=== PATIENT | female | born 1990 | race Caucasian/White ===

== ENCOUNTER 2024-08-24 08:39 | Outpatient (CLI) | payer BC, SELFPAY ==
[2024-08-24 09:55] LABS: HCG,Quantitative 521 mIU/ml (0-5.42)
== END 2024-08-24 23:59 | disposition home or self-care (01) ==
LOC: LAB 08:46
PROVIDERS: Visit Provider Obstetrics & Gynecology
DX: N92.6 Irregular menstruation, unspecified (principal)
CPT/HCPCS: 36415; 84144; 84702

== ENCOUNTER 2024-08-27 11:59 | Outpatient (CLI) | payer BC, SELFPAY ==
[2024-08-27 13:29] LABS: HCG,Quantitative 735 mIU/ml (0-5.42)
== END 2024-08-27 23:59 | disposition home or self-care (01) ==
LOC: LAB 12:00
PROVIDERS: Visit Provider Obstetrics & Gynecology
DX: Z34.90 Encounter for supervision of normal pregnancy, unspecified, unspecified trimester (principal)
CPT/HCPCS: 36415; 84702

== ENCOUNTER 2024-08-29 10:36 | Outpatient (CLI) | payer BC, SELFPAY ==
[2024-08-29 11:52] LABS: HCG,Quantitative 309 mIU/ml (0-5.42)
== END 2024-08-29 23:59 | disposition home or self-care (01) ==
LOC: LAB 10:36
PROVIDERS: Visit Provider Obstetrics & Gynecology
DX: Z34.90 Encounter for supervision of normal pregnancy, unspecified, unspecified trimester (principal)
CPT/HCPCS: 36415; 84702

== ENCOUNTER 2024-09-15 11:49 | Outpatient (CLI) | payer BC, SELFPAY ==
[2024-09-15 12:56] LABS: HCG,Quantitative < 2 mIU/ml (0-5.42)
== END 2024-09-15 23:59 | disposition home or self-care (01) ==
LOC: LAB 11:50
PROVIDERS: Visit Provider Obstetrics & Gynecology
DX: O03.9 Complete or unspecified spontaneous abortion without complication (principal)
CPT/HCPCS: 36415; 84702

== ENCOUNTER 2024-11-16 11:23 | Outpatient (CLI) | payer BC, SELFPAY ==
[2024-11-16 13:05] LABS: HCG,Quantitative < 2 mIU/ml (0-5.42)
== END 2024-11-16 23:59 | disposition home or self-care (01) ==
LOC: LAB 11:25
PROVIDERS: Visit Provider Obstetrics & Gynecology
DX: Z34.81 Encounter for supervision of other normal pregnancy, first trimester (principal)
CPT/HCPCS: 36415; 84144; 84702

== ENCOUNTER 2025-01-15 12:48 | Outpatient (CLI) | payer BC, SELFPAY ==
[2025-01-15 14:09] LABS: HCG,Quantitative < 2 mIU/ml (0-5.42)
[2025-01-16 11:14] LABS: Progesterone 5.8 ng/mL (.)
== END 2025-01-15 23:59 | disposition home or self-care (01) ==
LOC: LAB 12:49
PROVIDERS: Visit Provider Obstetrics & Gynecology
DX: Z32.01 Encounter for pregnancy test, result positive (principal)
CPT/HCPCS: 36415; 84144; 84702

== ENCOUNTER 2025-03-15 09:17 | Outpatient (CLI) | payer BC, SELFPAY ==
[2025-03-15 10:22] LABS: HCG,Quantitative < 2 mIU/ml (0-5.42)
[2025-03-16 12:42] LABS: Progesterone 6.6 ng/mL (.)
== END 2025-03-15 23:59 | disposition home or self-care (01) ==
LOC: LAB 09:18
PROVIDERS: Visit Provider Obstetrics & Gynecology
DX: Z32.01 Encounter for pregnancy test, result positive (principal)
CPT/HCPCS: 36415; 84144; 84702

== ENCOUNTER 2025-04-12 09:33 | Outpatient (CLI) | payer BC, SELFPAY ==
[2025-04-12 10:56] LABS: HCG,Quantitative 26 mIU/ml (0-5.42)
[2025-04-13 08:12] LABS: Progesterone 17.4 ng/mL (.)
== END 2025-04-12 23:59 | disposition home or self-care (01) ==
LOC: LAB 09:35
PROVIDERS: Visit Provider Obstetrics & Gynecology
DX: Z32.00 Encounter for pregnancy test, result unknown (principal)
CPT/HCPCS: 36415; 84144; 84702

== ENCOUNTER 2025-04-14 10:00 | Outpatient (CLI) | payer BC, SELFPAY ==
[2025-04-14 11:18] LABS: HCG,Quantitative 108 mIU/ml (0-5.42)
== END 2025-04-14 23:59 | disposition home or self-care (01) ==
LOC: LAB 10:01
PROVIDERS: Visit Provider Obstetrics & Gynecology
DX: Z32.01 Encounter for pregnancy test, result positive (principal)
CPT/HCPCS: 36415; 84702

== ENCOUNTER 2025-04-26 20:08 | Emergency (ER) | payer BC, SELFPAY ==
--- NOTE | 2025-04-26 20:48 | ED_ITS ---
Discharge Plan Disposition Patient Disposition: Home, Self-Care Condition: Good Prescriptions Prescriptions: No Action progesterone micronized 200 mg capsule 200 mg PO HS Qty: 30 0RF Classic 28 mg iron- 800 mcg tablet 1 tab PO DAILY Qty: 30 11RF Referrals Follow up/Referrals: Mary Lou Conley DO [Staff Physician] - See instructions Provider,Referral, [Primary Care Provider] - See instructions Activity Restrictions/Add. Instructions Additional Instructions/Restrictions: You were evaluated in the emergency department today. It is common to have vaginal bleeding in the first trimester of . It can be completely normal, but heavy bleeding, painful bleeding, or passage of large clots can be signs of more serious problems, such as miscarriage or ectopic . Ectopic was ruled out on ultrasound. I recommend pelvic rest, which means no insertion of tampons, avoid sexual intercourse, avoid douching, and avoid vaginal insertion of any objects for 1 week or until you have been cleared by your OB. I recommend rest, so we have provided you with a work excuse. Avoid heavy lifting or strenuous activity until cleared by your OB. Please call your OB to help arrange very close follow-up for this. Return to the emergency department if you experience new or concerning symptoms, such as significant worsening of bleeding beyond that of a normal period, severe abdominal pain, lightheadedness, or passing out. Clinical Impressions Clinical Impression: Vaginal bleeding affecting early Stand Alone Forms Stand Alone Forms: Work/School Release Instructions Patient Instructions: DI for Vaginal Bleeding During , Early Bleeding Print Language Print Language: Armenian Discharge ED Provider: Agueda Cameron General Adult HPI General Chief complaint: Vaginal Bleeding Stated complaint: 5 wks antepartum, bleeding Time Seen by Provider: 04/26/25 20:41 History of Present Illness HPI narrative: This patient is a 34-year-old G2, P0 at estimated 5 weeks gestation by last menstrual period presenting to the emergency department for evaluation with concern for vaginal bleeding on toilet paper when she wipes. She notes that her first was a miscarriage around this time. She had her hCG level checked 04/14/2025 and it was 108 on medical record review. She has not yet seen OB for her first appointment. She denies any pain or other associated symptoms with this. No blood on her underwear or in toilet. Related Data Previous Rx's ?Medication ?Instructions ?Recorded progesterone micronized 200 mg 200 mg PO HS #30 caps 09/15/24 capsule vits no.126-ferrous fum 1 tab PO DAILY #30 tabs 12/23/24 28 mg iron-folic acid 800 mcg tablet (Classic ) Allergies Allergy/AdvReac Type Severity Reaction Status Date / Time No Known Allergies Allergy Verified 12/16/24 10:09 [facility] Disclaimer: The information contained in this section may have been updated after the patient was seen, as this information can be updated by other users. Medical History No significant medical problems Surgical History No history of previous surgery Family History Other Asthma Cancer Heart attack Hypertension Social History Smoking Status: Never smoker alcohol intake: never substance use type: denies use current occupational status: employed Travel in the last 8 weeks?: None Have you lived/traveled outside US in past 30 days?: No Contact w/someone who lives/traveled outside US past 30 days?: No Exposure to someone with infectious disease in past 14 days?: No Do you have a fever (greater than 100.4 F or 38 C)?: No Have you tested positive for COVID-19?: No Exposed to someone with COVID-19 in past 14 days?: No Do you have a sore throat?: No Do you have a cough?: No Do you have any weakness?: No Do you have any diarrhea?: No Are you experiencing any unusual bleeding?: No Do you have any muscle aches/pain?: No Do you have any abdominal pain?: No Are you experiencing loss of taste or smell?: No ROS Obtained: Yes All systems reviewed & no additional complaints except as documented Physical Exam General General appearance: alert and in no apparent distress Head Head exam: atraumatic and normocephalic Eye Eye exam: Present normal appearance, PERRL and EOMI ENT ENT exam: Present normal exam, normal oropharynx, mucous membranes moist and normal external ear exam Neck Neck exam: Present normal inspection, full ROM and trachea midline; Absent tenderness Chest Chest inspection: Present normal inspection and symmetric chest wall rise; Absent tenderness Respiratory Respiratory exam: Present normal lung sounds bilaterally; Absent respiratory distress, wheezes, stridor or accessory muscle use Cardiovascular Cardiovascular exam: Present regular rate and normal rhythm Abdominal Exam Abdominal exam: Present soft; Absent distention, tenderness or guarding Extremities Exam Extremities exam: Present normal inspection, full ROM and normal capillary refill; Absent tenderness or edema Back Exam Back exam: Present normal inspection and full ROM; Absent tenderness Neurological Exam Neurological exam: Present alert, oriented X3, CN II-XII intact and normal gait; Absent motor sensory deficit Psychiatric Psychiatric exam: Present normal affect and normal mood Skin Skin exam: Present warm and dry Medical Decision Making Medical Records Medical records reviewed: Yes I reviewed the patient's medical records. Screening: Per USPSTF and CDC recommendations, given the prevalence of disease in our region, it is our hospital?s policy to screen for HIV and viral Hepatitis for all patients aged 18 and over and those with ongoing risk factors. Chay Inquiry Pt receiving controlled substance: No Vital Signs: 04/26/25 20:54 04/26/25 20:57 04/26/25 22:00 Temperature 97.9 F 98.6 F Temperature Source Oral Pulse Rate 87 85 Pulse Rate [Right Radial] 93 H Respiratory Rate 16 16 Blood Pressure 147/87 H 149/87 H Blood Pressure [Right Arm] 152/86 H Blood Pressure Mean [Right Arm] 108 Blood Pressure Source Blood Pressure Source [Right Arm] Automatic Cuff Blood Pressure Position Blood Pressure Position [Right Arm] Supine 02 Sat by Pulse Oximetry 100 100 100 Oxygen Delivery Method Room Air 04/26/25 22:25 Temperature 97.9 F Temperature Source Oral Pulse Rate 80 Pulse Rate [Right Radial] Respiratory Rate 16 Blood Pressure 149/87 H Blood Pressure [Right Arm] Blood Pressure Mean [Right Arm] Blood Pressure Source Automatic Cuff Blood Pressure Source [Right Arm] Blood Pressure Position Supine Blood Pressure Position [Right Arm] 02 Sat by Pulse Oximetry Oxygen Delivery Method Room Air Lab Data Lab results reviewed: Yes I reviewed the patient's lab results. Lab Results 04/26/25 20:50: WBC 12.3 H, RBC 4.58, Hgb 12.9, Hct 37.9, MCV 82.8, MCH 28.2, MCHC 34.0, RDW 11.9, Plt Count 263, MPV 11.2 H, Neut % (Auto) 70.6, Lymph % (Auto) 22.8, Cassia % (Auto) 4.9, Eos % (Auto) 0.8, Baso % (Auto) 0.5, Neut # (Auto) 8.7 H, Lymph # (Auto) 2.8, Cassia # (Auto) 0.6, Eos # (Auto) 0.1, Baso # (Auto) 0.1, Sodium 137, Potassium 3.8, Chloride 103, Carbon Dioxide 26, Anion Gap 11.8, BUN 10, Creatinine 0.80, Estimated Creat Clear 127, Estimated GFR 83, Est GFR ( Amer) 101, Glucose 95, Calcium 9.6, Total Bilirubin 0.5, AST 24, ALT 14, Alkaline Phosphatase 37 L, Total Protein 7.4, Albumin 4.7, Globulin 2.7, Albumin/Globulin Ratio 1.7, HCG, Quant 18508 H, Blood Type B Positive 04/26/25 21:30: Urine Color Yellow, Urine Appearance Clear, Urine pH 6.0, Ur Specific [place] <= 1.005, Urine Protein Negative, Urine Glucose (UA) Negative, Urine Ketones 1+, Urine Blood 1+ A, Urine Nitrate Negative, Urine Bilirubin Negative, Urine Urobilinogen 0.2, Ur Leukocyte Esterase Negative, Ur Squamous Epith Cells Occasional 04/26/25 20:50 04/26/25 20:50 Orders (Tests/Meds): ORDERS Category Date Time Status ABO/RH Type Stat BBK 04/26/25 20:50 Completed POCUS Point of Care (ER Only) Stat Exams 04/26/25 22:01 Completed Beta HCG, Quant [HCG,Quantitative] Stat Lab 04/26/25 20:50 Completed Complete Blood Count Auto Diff Stat Lab 04/26/25 20:50 Completed Comprehensive Metabolic Panel Stat Lab 04/26/25 20:50 Completed UA [Urinalysis and Microscopic] Stat Lab 04/26/25 21:30 Completed Medical Decision Narrative: In summary, this patient is a 34-year-old female presenting to the Emergency Department for evaluation of vaginal bleeding in the setting of . Differential diagnoses considered include but are not limited to threatened , missed , implantation bleeding, subchorionic hemorrhage. Ruling out the most morbid conditions drove assessment. I reviewed past medical records and noted hCG 04/14/2025 was 108. On exam, the patient is lying in bed in no acute distress normal vitals on cardiac telemetry. Abdominal exam is benign with no tenderness or guarding. Workup included CBC, CMP, quantitative hCG, urinalysis, blood type. Labs demonstrated very mild leukocytosis which is nonspecific. hCG has appropriately increased to 14,000. Labs are otherwise reassuring. Blood type is B+, so no indication for RhoGAM. Urinalysis is not concerning for infection. I performed bedside ultrasound and saw a visible yolk sac within the uterus. I could not identify cardiac activity as it is early. Advised she follow-up closely with OB over the next 24 to 48 hours. I also encouraged pelvic rest. I feel patient is appropriate for discharge with instructions for very close follow-up and supportive care. Strict return precautions given Procedures Limited Ultrasound Findings:: Limited OB ultrasound Indication: Positive test, vaginal bleeding Identified structures: [-Uterus -Left adnexa -Right adnexa -Pouch of Brian] Findings: Uterus: Definitive IUP FHR: Unable to visualize cardiac activity given early gestational age Right adnexa: Normal Left adnexa: Normal Cul de sac: Free fluid absent Impression: -IUP: Present, visible yolk sac - heart rate: Unable to detect -Ectopic : Absent -Free fluid: Absent Images were saved to permanent archive The study was technically adequate CPT Transabdominal: 06761-09 This study was performed by me, and I personally interpreted all images/videos. Based on my clinical judgement, these images were adequate and did not necessitate further imaging. Critical Care Critical Care Time Critical Care Time: No
[2025-04-26 20:54] VITALS: BP 152/86; PULSE 93; RESP 16; TEMP 36.6; O2SAT 100; BMI 32.0
[2025-04-26 20:57] VITALS: BP 147/87; PULSE 87; RESP 16; TEMP 37; O2SAT 100
[2025-04-26 21:03] LABS: Basophils # 0.1 K/mm3 (0-0.2); Basophils % 0.5 % (0.1-2.0); Eosinophils # 0.1 Kmm3 (0.0-0.4); Eosinophils % 0.8 % (0.1-12.0); Hematocrit 37.9 % (37.0-47.0); Hemoglobin 12.9 g/dL (12.2-16.2); Immature Granulocytes # 0.05 10^3uL; Immature Granulocytes % 0.4 %; Lymphocytes # 2.8 K/mm3 (0.7-4.5); Lymphocytes % 22.8 % (10-50); Mean Corpuscular Hemoglobin 28.2 pg (27.0-31.2); Mean Corpuscular Volume 82.8 fl (81-99); Mean Platelet Volume 11.2 fl (7.4-10.4); Monocytes # 0.6 K/mm3 (0.1-1.0); Monocytes % 4.9 % (1.7-9.3); Neutrophils # 8.7 K/mm3 (1.8-7.8); Neutrophils % 70.6 % (37.0-80.0); Nucleated Red Blood Cells # 0 10^3/uL; Nucleated Red Blood Cells % 0 %; Platelet Count 263 K/mm3 (142-424); Red Blood Count 4.58 M/mm3 (4.20-5.40); Red Cell Distribution Width 11.9 % (11.5-17.5); Red Cell Distribution Width-SD 36.3 fL; White Blood Count 12.3 K/mm3 (4.8-10.8)
[2025-04-26 21:09] LABS: Albumin Level 4.7 g/dl (3.5-5.0); Chloride 103 mmol/L (98-107); Sodium 137 mmol/L (136-145)
[2025-04-26 21:10] LABS: Potassium 3.8 mmoL/L (3.5-5.1)
[2025-04-26 21:12] LABS: Alanine Aminotransferase 14 U/L (12-78); Albumin/Globulin Ratio 1.7 (1.1-1.8); Alkaline Phosphatase 37 U/L (38-126); Anion Gap 11.8 mEq/L (5-15); Aspartate Amino Transferase 24 U/L (14-36); Bilirubin,Total 0.5 mg/dl (0.2-1.3); Blood Urea Nitrogen 10 mg/dl (7-17); Carbon Dioxide 26 mmol/L (22.0-30.0); Creatinine Clearance Estimated 127 mL/min (50-200); Estimated Glomerular Filt Rate 83 ml/min (>60); GFR (African American) 101 ML/MIN (>60); Globulin 2.7 g/dL (1.3-3.2); Total Protein,Serum 7.4 g/dl (6.3-8.2)
[2025-04-26 21:13] LABS: Calcium 9.6 mg/dl (8.4-10.2); Glucose 95 mg/dl (74-100)
[2025-04-26 21:30] LABS: HCG,Quantitative 14067 mIU/ml (0-5.42)
[2025-04-26 21:36] LABS: Microscopic, Urine URINE MICROSCOPIC (MICROSCOPIC)
[2025-04-26 21:53] LABS: Appearance,Urine CLEAR (Clear); Bilirubin,Urine Negative (Negative); Blood, Urine 1+ (Negative); Color,Urine YELLOW (Yellow); Glucose,Urine (UA) Negative (Negative); Ketones,Urine 1+ (Negative); Leukocyte Esterase,Urine Negative (Negative); Nitrate,Urine Negative (Negative); Protein,Urine Negative (Negative); Specific Gravity, Urine <= 1.005 (1.005-1.030); Squamous Epithelial Cell,Urine Occasional #/hpf (0-5); Urobilinogen,Urine 0.2 EU/dl (0.2)
[2025-04-26 22:00] VITALS: BP 149/87; PULSE 85; O2SAT 100
[2025-04-26 22:25] VITALS: BP 149/87; PULSE 80; RESP 16; TEMP 36.6; O2SAT 98
== END 2025-04-26 22:41 | disposition home or self-care (01) ==
PROVIDERS: Emergency Provider Emergency Medicine
DX: O20.9 Hemorrhage in early pregnancy, unspecified (principal); Z3A.01 Less than 8 weeks gestation of pregnancy
CPT/HCPCS: 80053; 81001; 84702; 85025; 86900; 86901; 99284

== ENCOUNTER 2025-04-28 09:33 | Outpatient (CLI) | payer BC, SELFPAY ==
[2025-04-28 10:59] LABS: HCG,Quantitative 20042 mIU/ml (0-5.42)
== END 2025-04-28 23:59 | disposition home or self-care (01) ==
PROVIDERS: Visit Provider Obstetrics & Gynecology
DX: O20.9 Hemorrhage in early pregnancy, unspecified (principal); Z3A.00 Weeks of gestation of pregnancy not specified
CPT/HCPCS: 36415; 84702

== ENCOUNTER 2025-04-30 14:07 | Outpatient (CLI) | payer BC, SELFPAY ==
--- NOTE | 2025-04-30 14:15 | US_ITS ---
PROCEDURE: US OB <= 14 WEEKS FETUS CLINICAL INDICATION: Dates/Viability COMPARISON: No exams were available for comparison FINDINGS: Transvaginal sonographic images of the pelvis were obtained. Her last menstrual period is unknown. An intrauterine gestational sac is present with a pole with a crown-rump length of 0.25cm This correlates to a gestational age of 5weeks 6days. PAULA 12/25/2025 heart tones are present with an FHR of 102bpm. Yolk sac is noted. The yolk sac measures 3.5mm. The right ovary is seen and appears normal. There is a small amount of free fluid adjacent to the right ovary. There appears to be a corpus luteum in the right ovary. The left ovary is seen and appears normal. There is no fluid in the cul-de-sac. IMPRESSION: 1. Viable embryo within the uterine cavity. Cardiac activity is seen. 2. Embryo measures 5 weeks 6 days and PAULA will be 12/25/2025. 3. Both ovaries are seen and appear normal. The right ovary contains a corpus luteum. There is a small amount of fluid adjacent to the right ovary. 4. No fluid in the cul-de-sac. Dictated by: Polo Catherine MD 05/01/2025 09:08 Polo Catherine MD in OV 05/01/2025 09:08
== END 2025-04-30 23:59 | disposition home or self-care (01) ==
LOC: RAD 14:07
PROVIDERS: PCP Obstetrics & Gynecology; Visit Provider Obstetrics & Gynecology
DX: O20.9 Hemorrhage in early pregnancy, unspecified (principal); O34.81 Maternal care for other abnormalities of pelvic organs, first trimester; N83.11 Corpus luteum cyst of right ovary; N83.8 Other noninflammatory disorders of ovary, fallopian tube and broad ligament; Z3A.01 Less than 8 weeks gestation of pregnancy
CPT/HCPCS: 76801

== ENCOUNTER 2025-05-13 14:57 | Outpatient (CLI) | payer BC, SELFPAY ==
[2025-05-13 15:27] LABS: Basophils % 0.3 % (0.1-2.0); Eosinophils # 0.1 Kmm3 (0.0-0.4); Eosinophils % 1.3 % (0.1-12.0); Hematocrit 35.2 % (37.0-47.0); Hemoglobin 12.1 g/dL (12.2-16.2); Immature Granulocytes # 0.04 10^3uL; Immature Granulocytes % 0.4 %; Lymphocytes # 2.4 K/mm3 (0.7-4.5); Lymphocytes % 22.9 % (10-50); Mean Corpuscular HGB Conc 34.4 g/dL (31.8-35.4); Mean Corpuscular Hemoglobin 28.7 pg (27.0-31.2); Mean Corpuscular Volume 83.4 fl (81-99); Monocytes # 0.6 K/mm3 (0.1-1.0); Monocytes % 5.8 % (1.7-9.3); Neutrophils # 7.1 K/mm3 (1.8-7.8); Neutrophils % 69.3 % (37.0-80.0); Nucleated Red Blood Cells # 0 10^3/uL; Nucleated Red Blood Cells % 0 %; Platelet Count 260 K/mm3 (142-424); Red Blood Count 4.22 M/mm3 (4.20-5.40); Red Cell Distribution Width 12.1 % (11.5-17.5); Red Cell Distribution Width-SD 36.7 fL; White Blood Count 10.3 K/mm3 (4.8-10.8)
[2025-05-13 16:27] LABS: HIV Combo NEGATIVE (Negative)
[2025-05-13 16:35] LABS: Hepatitis C Ab Qual. W/ RFX NEGATIVE (Negative)
[2025-05-14 05:09] LABS: Hepatitis B Surface Antigen Negative (Negative)
[2025-05-14 09:32] LABS: Rubella Antibodies, IgG 1.61 index (Immune >0.99)
[2025-05-14 09:48] LABS: RPR W/RFX Titers Nonreactive (Nonreactive)
== END 2025-05-13 23:59 | disposition home or self-care (01) ==
LOC: LAB 14:57
PROVIDERS: Visit Provider Obstetrics & Gynecology
DX: Z34.01 Encounter for supervision of normal first pregnancy, first trimester (principal)
CPT/HCPCS: 36415; 85025; 86592; 86762; 86803; 86850; 87340; 87389; 87491; 87591

== ENCOUNTER 2025-07-07 11:08 | Outpatient (CLI) | payer BC, SELFPAY ==
[2025-07-07 11:24] LABS: Hematocrit 34.7 % (37.0-47.0); Hemoglobin 12.0 g/dL (12.2-16.2); Immature Granulocytes % 0.7 %; Mean Corpuscular HGB Conc 34.6 g/dL (31.8-35.4); Mean Corpuscular Hemoglobin 28.8 pg (27.0-31.2); Mean Corpuscular Volume 83.2 fl (81-99); Nucleated Red Blood Cells % 0 %; Platelet Count 216 K/mm3 (142-424); Red Blood Count 4.17 M/mm3 (4.20-5.40); Red Cell Distribution Width-SD 37.1 fL; White Blood Count 8.9 K/mm3 (4.8-10.8)
[2025-07-07 11:48] LABS: Alanine Aminotransferase 17 U/L (12-78); Albumin Level 4.0 g/dl (3.5-5.0); Albumin/Globulin Ratio 1.7 (1.1-1.8); Alkaline Phosphatase 34 U/L (38-126); Anion Gap 8.9 mEq/L (5-15); Aspartate Amino Transferase 28 U/L (14-36); Bilirubin,Total 0.3 mg/dl (0.2-1.3); Blood Urea Nitrogen 6 mg/dl (7-17); Calcium 8.9 mg/dl (8.4-10.2); Carbon Dioxide 24 mmol/L (22.0-30.0); Chloride 105 mmol/L (98-107); Creatinine,Serum 0.50 mg/dl (0.52-1.04); Estimated Glomerular Filt Rate 142 ml/min (>60); GFR (African American) 172 ML/MIN (>60); Globulin 2.4 g/dL (1.3-3.2); Glucose 85 mg/dl (74-100); Potassium 3.9 mmoL/L (3.5-5.1); Sodium 134 mmol/L (136-145); Total Protein,Serum 6.4 g/dl (6.3-8.2); Uric Acid 3.1 mg/dl (2.5-6.2)
== END 2025-07-07 23:59 | disposition home or self-care (01) ==
LOC: LAB 11:09
PROVIDERS: Visit Provider Obstetrics & Gynecology
DX: O16.9 Unspecified maternal hypertension, unspecified trimester (principal)
CPT/HCPCS: 36415; 80053; 84550; 85025

== ENCOUNTER 2025-08-04 12:51 | Outpatient (CLI) | payer BC, SELFPAY ==
--- NOTE | 2025-08-04 13:00 | US_ITS ---
PROCEDURE: US OB /MATERNAL DETAIL CLINICAL INDICATION: schedule 20 week anatomy scan COMPARISON: US US OB <= 14 WEEKS FETUS from 04/30/2025 FINDINGS: Transabdominal sonographic images of the pelvis were obtained. From her established due date she is 19 weeks 5 days. Single viable intrauterine gestation. Breech position. Placenta: Anteriorplacenta grade 1. There is an average amount of fluid. The cervix appears satisfactory. Closed and measuring 3.93 cm in length. Complete survey performed and was unremarkable on the submitted images as in PACS. No discrete anomalies identified on survey imaging by technologist. Active fetus. Three-vessel cord with likely marginal inferior insertion. 4- chamber heart noted. Situs, aortic arch, LVOT, RVOT, three-vessel view appear normal. Survey of brain & ventricles Unremarkable. Cerebellum, thalamus, choroid plexus, cisterna magna appear normal. Face and neck survey unremarkable. Profile, nasion, lips and nose appeared normal. Diaphragm and chest views unremarkable. Abdomen: Both kidneys noted and unremarkable. Stomach and bladder noted and satisfactory. Spine: Survey of the spine satisfactory with no anomalies identified nor imaged. Cervical, thoracic, lower spine appear normal. Both arms and legs noted. Amniotic Fluid: Adequate. MVP 3.49 cm Measurements: Average ultrasound age 18weeks 5days. Estimated due date by ultrasound age 0112/31/2025. Estimated weight 248g BPD = 18weeks 4days HC = 19weeks 0 days AC = 19weeks 1day FL = 18weeks 1day Growth Percentile= 5 Heart Rate = 142bpm Cerebellum = 19weeks 2days Humerus = 18weeks 3days HC/AC is 1.19 FL/BPD is 0.65 FL/AC is 0.2 IMPRESSION: 1. Viable fetus in the breech presentation with an anterior placenta grade 1. 2. Fluid is within normal limits with an MVP 3.49 cm. 3. Anatomical scan appears normal. 4. Difficult to see but it appears that the cord is marginally inserted to the placenta inferiorly. Suggest repeat scan at 28 weeks. 5. biometry is consistent with the dates. Dictated by: Polo Catherine MD 08/04/2025 19:07 Polo Catherine MD in OV 08/04/2025 19:07
== END 2025-08-04 23:59 | disposition home or self-care (01) ==
LOC: RAD 12:52
PROVIDERS: PCP Obstetrics & Gynecology; Visit Provider Obstetrics & Gynecology
DX: O32.1XX0 Maternal care for breech presentation, not applicable or unspecified (principal); O16.2 Unspecified maternal hypertension, second trimester; O03.9 Complete or unspecified spontaneous abortion without complication; Z3A.19 19 weeks gestation of pregnancy
CPT/HCPCS: 76811

== ENCOUNTER 2025-10-01 09:24 | Outpatient (CLI) | payer BC, SELFPAY ==
--- OUTSIDE RECORDS SUMMARY | 2024-08-25 11:00 | XMS_ITS ---
Author Organization [facility] Address [address] [place] [address] Care Team Providers Care Senior Logistics Manager Name Role Phone Matamoros, Henna Unavailable [phone] Sharon Bautista Unavailable [phone] Results Component Value Reference Range Notes *US OB Complete Transabdomin al/Vaginal Reviewed date:08/27/2024 04:41:33 PM Interpretation: Performing Lab: Notes/Report: [facility] Women's Health Transvaginal Obstetric Study Report Name: FARIDA RONQUILLO Accession/Encounter No:[id number] : 1990 Age: 34 Gender: F Race: [...] 1 of 1 Imaging Center - , [facility] Lyn REASON FOR VISIT early OB Bleeding LLQ pain Social History Sex Assigned At : Social History Observation Description Sex Assigned At Female Encounters Encounter Location Date Provider Diagnosis [facility]-NR [address] [place] [address] 08/25/2024 Sharon Bautista Bleeding in early O20.9 Assessments Encounter Date Diagnosis (ICD Code) Assessment Notes Treatment Notes Treatment Clinical Notes Section Notes 08/25/2024 Bleeding in early (ICD-10 - O20.9) Plan Of Treatment No Information Progress Notes * Charles RONQUILLOJozefB: 992 (35 yo F)Acc No.[id number]:08/25/2024 Progress Note Patient: Farida Zimmerman Provider: Andrey Bautista NP :1990 A ge:34 Y S ex:Female Date:08/25/2024 Address:[facility] [address], [place] , [id number] Subjective: * Chief Complaints: * e promise OB Bleeding LLQ pain Assessment: * Assessment: 1. B leeding in early - O20.9 Plan: * Treatment: Billing Information: * Procedure Codes: * Electronic signature of Octavio Bautista NP on 10/01/2025 at 09:38 AM EDT Sign off status: Pending Visit Status: Nancy RAMÍREZ (Check Out) * Provider: Andrey Bautista NP Date: 0 08/25/2024 Generated for Jesika trevino/Marlney/Amandaitting on: 1 09:38 AM EDT
--- OUTSIDE RECORDS SUMMARY | 2024-12-25 10:15 | XMS_ITS ---
Author Organization [facility] Address [address] [place] [address] Care Team Providers Care Counter Weigher Name Role Phone Henna Matamoros Unavailable [phone] Brandy Barillas Unavailable [phone] REASON FOR VISIT Annual Social History Sex Assigned At : Social History Observation Description Sex Assigned At Female Section Notes: Age you started smokin Amount of Use: Some days but not every day Do you have any moravian or culture customs that your provider should [...] No Encounters Encounter Location Date Provider Diagnosis [facility] [address] [place] [address] 12/25/2024 Brandy Barillas Plan Of Treatment No Information Progress Notes * Charles RONQUILLOJozefB: [birth year] (35 yo F)Acc No.[id number]:12/25/2024 Progress Note Patient: Julia Zimmerman Provider: Errol Barillas MD :1990 A ge:34 Y S ex:Female Date:12/25/2024 Address:[address], [place], [id number] Subjective: * Chief Complaints: * A nnual * Medical History: Asthma Medical History Verified * Corporate Real Estate Specialist History: P ap Smear History: D ate [...] * Hospitalization/Major Diagno stic Procedure: Admit for [place] 2011 Hospitalization Verified. * Family History: F [...] not every day Do you have any moravian or culture customs that your provider should [...] Electronic signature of Alon Barillas MD on 10/01/2025 at 09:37 AM EDT Sign off status: Pending Visit Status: N /S (No-Show) * Provider: Errol Barillas MD Date: 0 12/25/2024 Generated for Jesika trevino/Marleny/Macey on: 09:37 AM EDT
--- OUTSIDE RECORDS SUMMARY | 2025-09-02 10:30 | XMS_ITS | Encounter Summary ---
Author Organization [facility] Address [address] [id number] Care Team Providers Care Mainspring Strip Gauger Name Role Phone Provider, No Known Primary [...] second trimester , unspecified gestational age Procedures [facility] [place] Amy Conley DO [address] [place] [address] [place] [address] Phone: tel: fax: [facility] [address] [place] [address] Phone: tel: Referral ID Status Reason Start Date Expiration Date Visits Re quested Visits Authorized [id number] Closed 08/05/2025 11/04/2026 1 1 Reason for Visit * Diagnostic Imaging (Routine) - Closed Specialty Diagnoses / Procedures Referred By Ritesh winchester Referred To Contact Radiology Diagnoses Maternal care for other known or suspected poor growth, second trimester, not applicable or unspecified Marginal insertion of umbilical cord affecting management of mother in second trimester , unspecified gestational age Procedures [facility] [place] Amy oCnley DO [address] [place] [address] [place] [address] Phone: tel: fax: [facility] [address] [place] [address] Phone: tel: Referral ID Status Reason Start Date Expiration Date Visits Re quested Visits Authorized [id number] Closed 08/05/2025 11/04/2026 1 1 Encounter Details Date Type Department Care Team (Latest Contact Info) Description 09/02/2025 10:30 AM EDT - 09/02/2025 11:59 PM EDT Hospital Encounter [facility] [address] [place] [id number] Amy Conley DO [address] [facility] [address] [phone] Maternal care for other known or suspected [...] Every 6 (Six) Hours As Needed. 05/13/2025 documented as of this encounter Plan of Treatment Upcoming Encounters Date Type Department Care Team (Late st Contact Info) Description 10/11/2025 10:15 AM EST Office Visit [facility] MATERNAL MEDICINE [address] [facility] [address] [place] [address] 10/11/2025 10:15 AM EST Appointment [facility] [address] [place] [address] documented as of this encounter Procedures Procedure Name Priority Date/Time Associated Diagnosis Comments [facility] Routine 09/02/2025 11:30 AM EDT Maternal care for other known or suspected poor growth, second trimester, not applicable or unspecified Marginal insertion of umbilical cord affecting management of mother in second trimester , unspecified gestational age documented in this encounter Results * [facility] (09/02/2025 11:30 AM EDT) Anatomical Region Laterality Modality Ultrasound 09/02/2025 10:5 6 AM EDT Narrative 09/02/2025 11:36 AM EDT PAT NAME: FARIDA LYNN [facility] REC#: [id number] DA: 1990 PAT GEND: F PAT TYPE: O EXAM BLAISE: [id number] REF PHYS AMY CONLEY Addendum ========= CORRECTED [...] EFW (oz) 0 oz EFW by: Hadlock (GMN-SS-IQ-FL) Extended Tibia 34.2 mm 22w 5d 15% Emeli Fibula 34.9 mm 23w 0d 35% Emeli Foot 41.2 mm 17% Chitty Radius 31.2 mm 22w 1d 32% Emeli Ulna 30.8 mm 21w 4d <1% Emeli Cav. septi pel. tr 3.7 mm Molecular Genetic Pathologist 5.7 mm CM 6.1 mm 57% Nicolaides [...] normal IVC: normal 3-vessel view: Appears normal 8-sfcluc-pickhyb view: Appears normal Rt lung: Appears normal [...] increased rest and nutrition. Coding ====== Description: 46573-72 Detailed Ultrasound Description: 69715-35 Doppler Umbilical Artery Septic Tank Service Technician: RT Benjamin Hutchison , [facility] Physician: Jose Wesley MD, FACOG Electronically signed by: Jose Wesley MD, FACOG at: 08:55 Procedure Note Brian Wesley MD - 09/03/2025 PAT NAME: FARIDA LYNN MED REC#: [id number] DA: 1990 PAT GEND: F PAT TYPE: O EXAM BLAISE: [id number] REF PHYS AMY CONLEY Addendum ========= CORRECTED REPORT - CPT code correction Comparison Studies There are no relevant prior studies to which this study is beingcompared Patient Status Outpatient Indication ======== Concern for IUGR. Marginal PCI. Obesity BMI 33. Maternal Assessment Weditk349 cm Height (ft)5 ft Height (in)3 in Apdnzj04 kg Weight (lb)188 lb BMI33.31 kg/m Method ======= Transabdominal ultrasound examination. View: Good view ========= Botello . Number of fetuses: 1 Dating ====== Method of dating:based on stated PAULA GA by prior mnybxsvelp34 w + 6 d PAULA by prior assessment:12/24/2025 Ultrasound examination on:09/02/2025 GA by U/S based upon:AC, BPD, Femur, HC GA by U/S21 w + 6 d PAULA by U/S:01/07/2026 Assigned:based on stated PAULA, selected on 09/02/2025 Assigned GA23 w + 6 d Assigned PAULA:12/24/2025 rrdowr588 d Biometry Standard BPD51.8 mm 21w 5d 1% Hadlock OFD71.4 mm 23w 6d 48% Emeli HC197.5 mm 22w 0d <1% Hadlock Cerebellum tr25.9 mm 23w 2d 54% Hill AC162.5 mm 21w 2d <1% Hadlock Femur38.3 mm 22w 2d 4% Hadlock Zhtzxqy00.6 mm 21w 6d 2% Emeli HC / AC1.22 EMP524 g 21w 4d <1% Hadlock EFW (lb)1 lb EFW (oz)0 oz EFW by:Hadlock (VAK-KS-BJ-FL) Extended Tibia34.2 mm 22w 5d 15% Emeli Yibdpk06.9 mm 23w 0d 35% Emeli Foot41.2 mm 17% Chitty Hnqdya48.2 mm 22w 1d 32% Emeli Ulna30.8 mm 21w 4d <1% Emeli Cav. septi pel. tr3.7 mm Vp5.7 mm CM6.1 mm 57% Nicolaides Nasal bone7.4 mm Head / Face / Neck Cephalic index0.73 4% Nicolaides Extremities / Bony Struc FL / BPD0.74 FL / HC0.19 FL / AC0.24 Other Structures AUL548 bpm General Evaluation Cardiac activity present. FHR [...] view:Appears normal SVC:normal IVC:normal 3-vessel view:Appears normal 4-lfjimq-wziryyb view:Appears normal Rt lung:Appears normal Lt lung:normal [...] Structures Uterus / Cervix Cervix:Visualized Approach:Transabdominal Cervical kzfevk98.3 mm Ovaries / Tubes / Adnexa Rt [...] Recommend increased rest and nutrition. Coding ====== Description:18578-28 Detailed Ultrasound Description:59756-72 Doppler Umbilical Artery Septic Tank Service Technician: RT Benjamin Hutchison , [facility] [...] age documented in this encounter Care Teams Mainspring Strip Gauger Relationship Specialty Start Date End Date Provider, [place] [address] PCP - General 08/19/24 documented as of this encounter
--- OUTSIDE RECORDS SUMMARY | 2025-09-02 10:30 | XMS_ITS | Encounter Summary ---
Author Organization [facility] Address [address] [phone] Care Team Providers Care Cashier Tube Room Name Role Phone Provider, No Known Primary Care Provider Unavail able Reason for Referral * Diagnostic Imaging (Routine) - Closed Specialty Diagnoses / Procedures Referred By Ritesh winchester Referred To Contact Radiology Diagnoses Uterine size-date discrepancy in second trimester Marginal insertion of umbilical cord affecting management of mother in second trimester 23 weeks gestation of Maternal chronic hypertension in second trimester Procedures [facility] Brian Wesley MD [address] [facility] [address] [place] [address] Phone: tel: fax: [facility] [address] [place] [address] Phone: tel: Referral ID Status Reason Start Date Expiration Date Visits Re quested Visits Authorized [id number] Closed 09/02/2025 12/02/2026 1 1 Reason for Visit * Reason Comments concern for IUGR, MPCI Encounter Details Date Type Department Care Team (Late st Contact Info) Description 09/02/2025 10:30 AM EDT Office Visit [facility] MATERNAL MEDICINE [address] [facility] [address] [place] [address] Brian Wesley MD [address] [facility] [address] [place] [address] Uterine size-date discrepancy in second trimester [...] AM EDTAssociated Problem(s): Maternal chronic hypertension in second trimester Patient is seen in our office [...] weeks time to assess growth. Orders: - [facility]; Future 2. Marginal insertion of umbilical cord affecting management of mother in second trimester - [facility]; Future 3. 23 weeks gestation of - [facility]; Future 4. Maternal chronic hypertension [...] in 2 to 3 weeks. Orders: - [facility]; Future Other orders - NIFEdipine [...] or [facility]. Brian Wesley MD Maternal Medicine, [facility] 09/02/2025 documented in this encounter Plan of Treatment Upcoming Encounters Date Type Department Care Team (Late st Contact Info) Description 10/11/2025 10:15 AM EST Office Visit [facility] MATERNAL MEDICINE [address] [facility] [address] [address] [place] [address] 10/11/2025 10:15 AM EST Appointment [facility] [address] [place] [address] documented as of this encounter Results * [facility] (09/23/2025 10:28 AM EDT) Anatomical Region Laterality Modality Ultrasound 09/23/2025 10:0 6 AM EDT Narrative 09/23/2025 10:58 AM EDT PAT NAME: FARIDA LYNN MED REC#: [id number] DA: [id number] PAT GEND: F PAT TYPE: O EXAM BLAISE: [id number] REF PHYS AMY CONLEY Comparison Studies The [...] Hadlock Humerus 39.5 mm 24w 0d <1% Eemli HC / AC 1.16 EFW 785 g 25w 0d 3% Hadlock EFW (lb) 1 lb EFW (oz) 12 oz EFW by: Hadlock (CHF-OQ-ZG-FL) Extended Tibia 40.1 mm 25w 2d 8% Emeli Fibula 39.3 mm 24w 5d 14% Emeli Foot 47.9 mm 9% Chitty Radius 32.4 mm 23w 1d 13% Emeli Ulna 37.2 mm 24w 5d 1% Emeli Cav. septi pel. tr 5.4 mm Blindmaker 4.1 mm CM 8.6 mm 94% Nicolaides [...] Heart / Thorax 3-vessel view: Appears normal 3-lsxlqs-gaztfqt view: Appears normal Cord insertion: Normal Stomach: [...] Follow-up scheduled in 2wks. Coding ======= Description: 57339-16 Follow Up Ultrasound Description: 67492-90 Doppler Umbilical Artery Agency Legal Counsel: RT Benjamin Hutchison , [facility] Physician: Lis Jeffrey MD Electronically signed by: Lis Jeffrey MD at: 10:58 Procedure Note Lis Jeffrey MD - 09/23/2025 PAT NAME: FARIDA LYNN MED REC#: [id number] DA: 1990 PAT GEND: F PAT TYPE: O EXAM BLAISE: [id number] REF PHYS AMY CONLEY Comparison Studies The findings of this study are compared to the prior ultrasound studydated 09/02/25 Patient Status Outpatient Indication ======== IUGR. Marginal PCI. Obesity BMI 34. Maternal Assessment Qkydol926 cm Height (ft)5 ft Height (in)3 in Pmysgq15 kg Weight (lb)191 lb BMI33.84 kg/m Method ======= Transabdominal ultrasound examination. View: Suboptimal view: limited byfetal position ========= Botello . Number of fetuses: 1 Dating ====== Method of dating:based on stated PAULA GA by prior jpbltpkbsy12 w + 6 d PAULA by prior assessment:12/24/2025 Ultrasound examination on:09/23/2025 GA by U/S based upon:AC, BPD, Femur, HC GA by U/S25 w + 2 d PAULA by U/S:01/04/2026 Previous dating:based on stated PAULA, selected on 09/02/2025 Agreed PAULA of previous datin12/24/2025 Assigned:based on stated PAULA, selected on 09/23/2025 Assigned GA26 w + 6 d Assigned PAULA:12/24/2025 niehvf556 d Biometry Standard BPD62.4 mm 25w 2d 4% Hadlock OFD84.3 mm 27w 2d 66% Emeli HC235.6 mm 25w 4d 3% Hadlock Cerebellum tr32.3 mm 27w 4d 87% Hill AC202.9 mm 24w 6d 3% Hadlock Femur46.7 mm 25w 4d 7% Hadlock Tkgmwdi80.5 mm 24w 0d <1% Emeli HC / AC1.16 NAE584 g 25w 0d 3% Hadlock EFW (lb)1 lb EFW (oz)12 oz EFW by:Hadlock (AOF-QH-GQ-FL) Extended Tibia40.1 mm 25w 2d 8% Emeli Qrbide31.3 mm 24w 5d 14% Emeli Foot47.9 mm 9% Chitty Jhnwoq90.4 mm 23w 1d 13% Emeli Ulna37.2 mm 24w 5d 1% Emeli Cav. septi pel. tr5.4 mm Vp4.1 mm CM8.6 mm 94% Nicolaides Head / Face / Neck Cephalic index0.74 8% Nicolaides Extremities / Bony Struc FL / BPD0.75 FL / HC0.20 FL / AC0.23 Other Structures HOG586 bpm General Evaluation Cardiac activity present. FHR [...] normal Heart / Thorax 3-vessel view:Appears normal 8-fpvzdk-cqgmggq view:Appears normal Cord insertion:Normal Stomach:Appears normal Kidneys:Appears normal Bladder:Appears normal Gender:female Wants to know gender:yes Maternal Structures Uterus / Cervix Cervix:Visualized Approach:Transabdominal Cervical dapiqd05.3 mm Doppler Arterial Umbilical A PI1.15 71% [...] Recommendation Follow-up scheduled in 2wks. Coding ======= Description:03915-65 Follow Up Ultrasound Description:66922-35 Doppler Umbilical Artery Agency Legal Counsel: RT Benjamin Hutchison , [facility] Physician: Lis Jeffrey MD [...] trimester documented in this encounter Care Teams Cashier Tube Room Relationship Specialty Start Date End Date Provider, [place] [address] PCP - General 08/19/24 documented as of this encounter
--- OUTSIDE RECORDS SUMMARY | 2025-09-23 09:52 | XMS_ITS | Encounter Summary ---
Author Organization [facility] Address [address] [place] [address] Care Team Providers Care Show Worker Name Role Phone Provider, No Known [...] chronic hypertension in second trimester Procedures [facility] [place] Brian Wesley MD [address] [place] [address] Phone: tel: fax: [facility] PER DI[facility] [address] [place] [address] Phone: tel: Referral ID Status Reason Start Date Expiration Date Visits Re quested Visits Authorized [id number] Closed 09/02/2025 12/02/2026 1 1 Reason for Visit * Diagnostic Imaging (Routine) - Closed Specialty Diagnoses / Procedures Referred By Ritesh winchester Referred To Contact Radiology Diagnoses Uterine size-date discrepancy in second trimester Marginal insertion of umbilical cord affecting management of mother in second trimester 23 weeks gestation of Maternal chronic hypertension in second trimester Procedures [facility] [place] Brian Wesley MD [address] [address] Phone: tel: fax: [facility] PER DI[facility] [address] [place] [address] Phone: tel: Referral ID Status Reason Start Date Expiration Date Visits Re quested Visits Authorized [id number] Closed 09/02/2025 12/02/2026 1 1 Encounter Details Date Type Department Care Team (Late st Contact Info) Description 09/23/2025 9:52 AM EDT - 09/23/2025 11:59 PM EDT Hospital Encounter [facility] PER [facility]AG CTR [address] [place] [address] Brian Wesley MD [address] [facility] [address] [place] [address] Uterine size-date discrepancy in second trimester; Marginal [...] Description 10/11/2025 10:15 AM EST Office Visit [facility] MATERNAL MEDICINE [address] [facility] [address] [place] [address] [phone] 10/11/2025 10:15 AM EST Appointment [facility] PER DI[facility] [address] [place] [address] documented as of this encounter Procedures Procedure Name Priority Date/Time Associated Diagnosis Comments [facility] Routine 09/23/2025 10:28 AM EDT Uterine size-date discrepancy in second trimester Marginal insertion of umbilical cord affecting management of mother in second trimester 23 weeks gestation of Maternal chronic hypertension in second trimester documented in this encounter Results * [facility] (09/23/2025 10:28 AM EDT) Anatomical Region Laterality Modality Ultrasound 09/23/2025 10:0 6 AM EDT Narrative 09/23/2025 10:58 AM EDT PAT NAME: SUKHJINDERFARIDA MED REC#: [id number] DA: [id number] PAT GEND: F PAT TYPE: O EXAM BLAISE: [id number] REF PHYS AMY CORCORAN Comparison Studies The [...] EFW (oz) 12 oz EFW by: Hadlock (MXU-IS-HB-FL) Extended Tibia 40.1 mm 25w 2d 8% Emeli Fibula 39.3 mm 24w 5d 14% Emeli Foot 47.9 mm 9% Chitty Radius 32.4 mm 23w 1d 13% Emeli Ulna 37.2 mm 24w 5d 1% Emeli Cav. septi pel. tr 5.4 mm Paper Ruler 4.1 mm CM 8.6 mm 94% Nicolaides [...] Heart / Thorax 3-vessel view: Appears normal 1-gyeytf-yxizcjl view: Appears normal Cord insertion: Normal Stomach: Appears normal Kidneys: Appears normal Bladder: Appears normal Gender: female Wants to know gender: yes Maternal Structures Uterus / Cervix Cervix: Visualized Approach: Transabdominal Cervical length 38.3 mm Doppler Arterial Umbilical A PI 1.15 71% Jolanta Umbilical A RI 0.72 75% Jolanat Umbilical A PS -41.45 cm/s Umbilical A [...] Follow-up scheduled in 2wks. Coding ======= Description: 58997-02 Follow Up Ultrasound Description: 44528-86 Doppler Umbilical Artery Power House Control Room Operator: RT Benjamin Hutchison , [facility] Physician: Lis Jeffrey MD Electronically signed by: Lis Jeffrey MD at: 10:58 Procedure Note Lis Jeffrey MD - 09/23/2025 PAT NAME: FARIDA LYNN MED REC#: [id number] DA: [id number] PAT GEND: F PAT TYPE: O EXAM BLAISE: [id number] REF PHYS AMY CORCORAN Comparison Studies The findings of this study are compared to the prior ultrasound studydated 09/02/25 Patient Status Outpatient Indication ======== IUGR. Marginal PCI. Obesity BMI 34. Maternal Assessment Cixlqz637 cm Height (ft)5 ft Height (in)3 in Tvyyij64 kg Weight (lb)191 lb BMI33.84 kg/m Method ======= Transabdominal ultrasound examination. View: Suboptimal view: limited byfetal position ========= Botello . Number of fetuses: 1 Dating ====== Method of dating:based on stated PAULA GA by prior ezgbmdybao61 w + 6 d PAULA by prior [...] Hadlock Femur46.7 mm 25w 4d 7% Hadlock Zecvmht18.5 mm 24w 0d <1% Emeli HC / AC1.16 OJO939 g 25w 0d 3% Hadlock EFW (lb)1 lb EFW (oz)12 oz EFW by:Hadlock (NQO-GE-FP-FL) Extended Tibia40.1 mm 25w 2d 8% Emeli Hqmnts66.3 mm 24w 5d 14% Emeli Foot47.9 mm 9% Chitty Xbhbsr46.4 mm 23w 1d 13% Emeli Ulna37.2 mm 24w 5d 1% Emeli Cav. septi pel. tr5.4 mm Vp4.1 mm CM8.6 mm 94% Nicolaides Head / Face / Neck Cephalic index0.74 8% Nicolaides Extremities / Bony Struc FL / BPD0.75 FL / HC0.20 FL / AC0.23 Other Structures ORP525 bpm General Evaluation Cardiac activity present. FHR [...] normal Heart / Thorax 3-vessel view:Appears normal 2-dhwbdh-bwfctwc view:Appears normal Cord insertion:Normal Stomach:Appears normal Kidneys:Appears normal Bladder:Appears normal Gender:female Wants to know gender:yes Maternal Structures Uterus / Cervix Cervix:Visualized Approach:Transabdominal Cervical scemsx43.3 mm Doppler Arterial Umbilical A PI1.15 71% [...] Recommendation Follow-up scheduled in 2wks. Coding ======= Description:27140-27 Follow Up Ultrasound Description:00966-90 Doppler Umbilical Artery Power House Control Room Operator: RT Benjamin Hutchison , [facility] Physician: Lis Jeffrey MD Electronically signed by: Lis Jeffrey MD at: 10:58 us Brian Wesley MD IMG US ORDERABLES Final Re sult documented in this encounter Visit Diagnoses Diagnosis Uterine size-date discrepancy in second trimester Marginal insertion of umbilical cord affecting management of mother in second trimester 23 weeks gestation of Maternal chronic hypertension in second trimester documented in this encounter Care Teams Show Worker Relationship Specialty Start Date End Date Provider, [place] [address] PCP - General 08/19/24 documented as of this encounter
--- OUTSIDE RECORDS SUMMARY | 2025-09-23 10:15 | XMS_ITS | Encounter Summary ---
Author Organization [facility] Address [address] [id number] Care Team Providers Care Atm Manager Name Role Phone Provider, No Known Primary Care Provider Unavail able Reason for Referral * Diagnostic Imaging (Routine) - Authorized Specialty Diagnoses / Procedures Referred By Ritesh winchester Referred To Contact Radiology Diagnoses Marginal insertion of umbilical cord affecting management of mother in second trimester Maternal chronic hypertension in second trimester Poor growth affecting management of mother in third trimester, single or unspecified fetus 26 weeks gestation of Procedures [facility] Lis Jeffrey MD [address] [address] Phone: tel: fax: Referral ID Status Reason Start Date Expiration Date V isits Requested Visits Authorized [id number] Authorized 09/23/2025 12/23/2026 1 1 Reason for Visit * Reason Comments IUGR, MPCI Encounter Details Date Type Department Care Team (Late st Contact Info) Description 09/23/2025 10:15 AM EDT Office Visit [facility] MATERNAL MEDICINE [address] [place] [address] [place] [phone] Lis Jeffrey MD [address] [facility] [address] [place], [place] [phone] Marginal insertion of umbilical cord affecting management [...] e 08/19/2024 Family and Community Support Answer Bliase e Recorded Help with Day-to-Day Activities Not [...] Maternal chronic hypertension in second trimester Patient with elevated BP's at multiple [...] not included. Maternal/ Medicine Consult Note Name: Julia Lynn : 1990 Referring Provider: Mary Lou Conley DO Chief Complaint IUGR, MPCI Subjective History of Present Illness: Julia Lynn is a 35 y.o. 26w6d who [...] in second trimester (Primary) - [facility]; Future 2. Maternal chronic [...] scheduled here in 2wks Orders: - [facility]; Future 3. Poor growth affecting management of mother in third trimester, single or unspecified fetus Assessment & Plan: Growth improved somewhat on today's exam. - Follow-up scheduled in 2wks - Continue Nifedipine and ASA 81mgs - If BP's begin to creep up so consistently >130/80, will consider changing to BID Orders: - [facility]; Future 4. 26 weeks gestation of - [facility]; Future Follow Up Return in [...] Description 10/11/2025 10:15 AM EST Office Visit [facility] MATERNAL MEDICINE [address] [facility] [address] [place] [address] 10/11/2025 10:15 AM EST Appointment [facility] PER DIAG CTR [address] [place] [address] Scheduled Orders Name Type Priority Associated Diagnoses Orde r Schedule [facility] Imaging Routine Marginal insertion of umbilical cord affecting management of mother in second trimester Maternal chronic hypertension in second trimester Poor growth affecting management of mother in third trimester, single or unspecified fetus 26 weeks gestation of Expected: 10/07/2025, Expires: 12/24/2026 documented as of this encounter Visit Diagnoses Diagnosis Marginal insertion of umbilical cord affecting management of mother in second trimester- Primary Maternal chronic hypertension in second trimester Poor growth affecting management of mother in third trimester, single or unspecified fetus 26 weeks gestation of documented in this encounter Care Teams Atm Manager Relationship Specialty Start Date End Date Provider, [place] [address] PCP - General 08/19/24 documented as of this encounter
--- OUTSIDE RECORDS SUMMARY | 2025-10-01 09:37 | XMS_ITS | Clinical Summary ---
Author Organization [facility] Address [address] [id number] Care Team Providers Care Walking Dragline Operator Name Role Phone Provider, No Known Primary Care Provider Unavail able Allergies No known active allergies Medications promethazine (PHENERGAN) 12.5 MG tablet Take 2 tablets by mouth Every 6 (Six) Hours As Needed. 05/13/2025 Active Vit-Fe Fumarate-FA ( vitamin 27-0.8) 27-0.8 MG tablet tablet Take 1 tablet by mouth Daily. Active aspirin 81 MG chewable tablet Chew 1 tablet Daily. Active NIFEdipine XL (PROCARDIA XL) 30 MG 24 hr tablet Take 1 tablet by mouth Daily for 150 days. 30 tablet 4 09/02/2025 Active Active Problems Problem Noted Date Diagnosed Date Poor growth affecting management of mother in third trimester 09/23/2025 Assessment & Plan (09/23/2025 11:03 AM EDT): Growth improved somewhat on today's exam. - Follow-up scheduled in 2wks - Continue Nifedipine and ASA 81mgs - If BP's begin to creep up so consistently >130/80, will consider changing to BID 09/02/2025 Marginal insertion of umbili mihaela cord affecting management of mother in second trimester 09/02/2025 Uterine size-date discrepancy in second trimeste r 09/02/2025 Assessment & Plan (09/02/2025 11:33 AM EDT): Patient referred for size less than dates noted on her early ultrasound performed in her primary OB office. Additionally a marginal cord insertion was noted. [...] Patient's dates are based on a 7-week scan that was entirely consistent with her dates. 20-week scan performed at her primary OB office at approximately 1 week lagging growth. Ultrasound performed today Shawanda has approximate 2-week lagging growth. There are no ultrasound clues to the etiology for this growth lag. There were no abnormalities seen and no ultrasound evidence of chronic infection. Additionally, the patient had a low risk cell free DNA. It is possible that the [...] to 3 weeks time to assess growth. Maternal chronic hypertension in [facility] 09/02/2025 Assessment & Plan (09/23/2025 11:07 AM EDT): Patient with elevated BP's at multiple visits. [...] ASA - Follow-up scheduled here in 2wks Assessment & Plan (09/02/2025 11:31 AM EDT): Patient is seen in our office today and her blood pressure initially was 140/77. Repeat was 147/80. Review of her chart indicates that she has had blood pressures in this range at several visits and her primary OB office. I suspect that she has mild chronic hypertension. I have elected to start her on a low-dose of Procardia XL. I have started her on 30 mg p.o. daily. Patient is planning on getting a blood pressure cuff to check her blood pressure at home and we will reevaluate it we will rescan her again in 2 to 3 weeks. Estimated Date of Delivery Comme nts Yes 12/24/2025 Date entered valentina or to episode creation Encounters Date Type Department Care Team Description 09/23/2025 10:15 AM EDT Office Visit [facility] [address] [place] [address] Lis Jeffrey MD Marginal insertion of umbilical cord affecting management of mother in second trimester (Primary Dx); Maternal chronic hypertension in second trimester; Poor growth affecting management of mother in third trimester, single or unspecified fetus; 26 weeks gestation of 09/23/2025 9:52 AM EDT - 09/23/2025 11:59 PM EDT Hospital Encounter [facility] [address] [place] [address] Brian Wesley MD Uterine size-date discrepancy in second trimester; Marginal insertion of umbilical cord affecting management of mother in second trimester; 23 weeks gestation of ; Maternal chronic hypertension in second trimester Discharge Disposition: Home or Self Care 09/23/2025 Travel 09/06/2025 Telephone [facility] [address] [place] [address] Brian Wesley MD Advice Only (Pt has question for Nurse.) 09/02/2025 10:30 AM EDT - 09/02/2025 11:59 PM EDT Hospital Encounter [facility] [address] [place] [address] Amy Conley, DO Maternal care for other known or suspected poor growth, second trimester, not applicable or unspecified; Marginal insertion of umbilical cord affecting management of mother in second trimester; , unspecified gestational age Discharge Disposition: Home or Self Care 09/02/2025 10:30 AM EDT Office Visit [facility] [address] [place] [address] Brian Wesley MD Uterine size-date discrepancy in second trimester (Primary Dx); Marginal insertion of umbilical cord affecting management of mother in second trimester; 23 weeks gestation of ; Maternal chronic hypertension in second trimester 09/02/2025 Telephone [facility] [address] [place] [address] Jodie Garcia aircraft pilot Only 09/02/2025 Travel from Last 3 Months Social History Tobacco Use Types Packs/Day Years Used Date Smoking Tobacco: Former Cigarettes Q uit: 2014 Smokeless Tobacco: Never Tobacco Cessation:Counseling Given: Not [...] on file Sexual Orientation Not on file Last Filed Vital Signs Vital Sign Reading Time Taken Comments Blood Pressure 139/77 09/23/2025 9:57 AM EDT Pulse - - Temperature - - Respiratory Rate - - Oxygen Saturation - - Inhaled Oxygen Concentration - - Weight 86.6 kg (191 lb) 09/23/2025 9:57 AM EDT Height 160 cm (5' 3 ) 09/02/2025 10:47 AM EDT Body Mass Index 33.83 09/02/2025 10:47 AM EDT Plan of Treatment Upcoming Encounters Date Type Department Care Team (Late st Contact Info) Description 10/11/2025 10:15 AM EST Office Visit [facility] [address] [facility] [address] [place] [address] 10/11/2025 10:15 AM EST Appointment [facility] [address] [facility] [place] [address] Health Maintenance Due Date Last Done Comments Annual Gynecologic Pelvic an d Breast Exam 1992 TDAP/TD VACCINES (1 - Tdap) 2011 PAP SMEAR 2013 INFLUENZA VACCINE 07/02/2025 ANNUAL PHYSICAL 08/05/2025 HEPATITIS C SCREENING 08/05/2025 RSV Vaccine - Adults (1 - Ri sk 1-dose series) 10/29/2025 Pneumococcal Vaccine 0-49 Aged Out No longer eligible based on patient's age to complete this topic Procedures Procedure Name Priority Date/Time Associated Diagnosis Comments COUNTS INCLUDE 234 BEDS AT THE [facility] Routine 09/23/2025 10:28 AM EDT Uterine size-date discrepancy in second trimester Marginal insertion of umbilical cord affecting management of mother in second trimester 23 weeks gestation of Maternal chronic hypertension in second trimester COUNTS INCLUDE 234 BEDS AT THE [facility] Routine 09/02/2025 11:30 AM EDT Maternal care for other known or suspected poor growth, second trimester, not applicable or unspecified Marginal insertion of umbilical cord affecting management of mother in second trimester , unspecified gestational age from Last 3 Months Results * [facility] (09/23/2025 10:28 AM EDT) Only the most recent of2 resultswithin the time period is included. Anatomical Region Laterality Modality Ultrasound 09/23/2025 10:0 6 AM EDT Narrative 09/23/2025 10:58 AM EDT PAT NAME: FARIDA LYNN MED REC#: [id number] DA: 1990 PAT GEND: F PAT TYPE: O EXAM BLAISE: [id number] REF PHYS AMY CONLEY Comparison Studies The [...] EFW (oz) 12 oz EFW by: Hadlock (OHS-XN-VO-FL) Extended Tibia 40.1 mm 25w 2d 8% Emeli Fibula 39.3 mm 24w 5d 14% Emeli Foot 47.9 mm 9% Chitty Radius 32.4 mm 23w 1d 13% Emeli Ulna 37.2 mm 24w 5d 1% Emeli Cav. septi pel. tr 5.4 mm Rubber Factory Worker 4.1 mm CM 8.6 mm 94% Nicolaides [...] Heart / Thorax 3-vessel view: Appears normal 8-sezpyf-fhrqkyu view: Appears normal Cord insertion: Normal Stomach: [...] Follow-up scheduled in 2wks. Coding ======= Description: 30546-80 Follow Up Ultrasound Description: 82865-46 Doppler Umbilical Artery Box Toe Flanger Stitchdowns: RT Benjamin Hutchison , [facility] Physician: Lis Jeffrey MD Electronically signed by: Lis Jeffrey MD at: 10:58 Procedure Note Lis Jeffrey MD - 09/23/2025 PAT NAME: FARIDA LYNN MED REC#: [id number] DA: [id number] PAT GEND: F PAT TYPE: O EXAM BLAISE: [id number] REF PHYS NILO AMY Comparison Studies The findings of this study are compared to the prior ultrasound studydated 09/02/25 Patient Status Outpatient Indication ======== IUGR. Marginal PCI. Obesity BMI 34. Maternal Assessment Lodiot992 cm Height (ft)5 ft Height (in)3 in Oblnat98 kg Weight (lb)191 lb BMI33.84 kg/m Method ======= Transabdominal ultrasound examination. View: Suboptimal view: limited byfetal position ========= Botello . Number of fetuses: 1 Dating ====== Method of dating:based on stated PAULA GA by prior eczrqkvvnc40 w + 6 d PAULA by prior [...] Hadlock Femur46.7 mm 25w 4d 7% Hadlock Bdgpawt73.5 mm 24w 0d <1% Emeli HC / AC1.16 PAB026 g 25w 0d 3% Hadlock EFW (lb)1 lb EFW (oz)12 oz EFW by:Hadlock (MTU-VA-PM-FL) Extended Tibia40.1 mm 25w 2d 8% Emeli Yzmudo06.3 mm 24w 5d 14% Emeli Foot47.9 mm 9% Chitty Ksaarx83.4 mm 23w 1d 13% Emeli Ulna37.2 mm 24w 5d 1% Emeli Cav. septi pel. tr5.4 mm Vp4.1 mm CM8.6 mm 94% Nicolaides Head / Face / Neck Cephalic index0.74 8% Nicolaides Extremities / Bony Struc FL / BPD0.75 FL / HC0.20 FL / AC0.23 Other Structures YWG995 bpm General Evaluation Cardiac activity present. FHR [...] normal Heart / Thorax 3-vessel view:Appears normal 8-uslqjy-cghvvpf view:Appears normal Cord insertion:Normal Stomach:Appears normal Kidneys:Appears normal Bladder:Appears normal Gender:female Wants to know gender:yes Maternal Structures Uterus / Cervix Cervix:Visualized Approach:Transabdominal Cervical sfuhmm53.3 mm Doppler Arterial Umbilical A PI1.15 71% [...] Recommendation Follow-up scheduled in 2wks. Coding ======= Description:56678-19 Follow Up Ultrasound Description:54606-47 Doppler Umbilical Artery Box Toe Flanger Stitchdowns: RT Benjamin Hutchison , [facility] Physician: Lis Jeffrey MD Electronically signed by: Lis Jeffrey MD at: 10:58 us Brian Wesley MD [facility] ORDERABLES Final Re sult from Last 3 Months Insurance EMPLOYEE Care Teams Walking Dragline Operator Relationship Specialty Start Date End Date Provider, No Known [facility] [place] [address] PCP - General 08/19/24
--- OUTSIDE RECORDS SUMMARY | 2025-10-01 09:37 | XMS_ITS | Encounter Summary ---
Author Organization [facility] Address [address] [place] [address] Care Team Providers Care Machine Puller Over Name Role Phone Provider, No Known Primary Care Provider Unavail able Encounter Details Date Type Department Care Team (Latest Contact Info) Description 09/23/2025 Travel Social History Tobacco Use Types Packs/Day Years [...] on file documented as of this encounter Plan of Treatment Upcoming Encounters Date Type Department Care Team (Late st Contact Info) Description 10/11/2025 10:15 AM EST Office Visit [facility] [address] [facility] [address] [place] [address] 10/11/2025 10:15 AM EST Appointment [facility] [address] [place] [address] documented as of this encounter Visit Diagnoses Not on filedocumented in this encounter Care Teams Machine Puller Over Relationship Specialty Start Date End Date Provider, No Known [facility] [place] [address] PCP - General 08/19/24 documented as of this encounter
--- OUTSIDE RECORDS SUMMARY | 2025-10-01 09:37 | XMS_ITS | Encounter Summary ---
Author Organization [facility] Address [address] [place] [address] Care Team Providers Care Keeper Head Name Role Phone Provider, No Known Primary Care Provider Unavail able Reason for Visit * Reason Onset Date Comments Advice Only 09/02/2025 Encounter Details Date Type Department Care Team (Late st Contact Info) Description 09/02/2025 Telephone [facility] [address] [facility] [address] [place] [address] Jodie Garcia prop maker Only Social History Tobacco Use Types Packs/Day Years [...] on file documented as of this encounter Miscellaneous Notes * Telephone Encounter - Jodie Garcia RN - 09/02/2025 12:57 PM EDT Received call from patient wanting to clarify what bed rest meant. Educated patient she can shower once a day, she can get up to go to the bathroom and she can sit up to eat meals. She was also interested in protein drinks. Encouraged patient to read the nutrition labels but they are okay to have. Patient voices understanding.\ Jodie Garcia RN documented in this encounter Plan of Treatment Upcoming Encounters Date Type Department Care Team (Late st Contact Info) Description 10/11/2025 10:15 AM EST Office Visit [facility] [address] [place] [address] 10/11/2025 10:15 AM EST Appointment [facility] [address] [place] [address] documented as of this encounter Visit Diagnoses Not on filedocumented in this encounter Care Teams Keeper Head Relationship Specialty Start Date End Date Provider, No Known [facility] [place] [address] PCP - General 08/19/24 documented as of this encounter
--- OUTSIDE RECORDS SUMMARY | 2025-10-01 09:38 | XMS_ITS | Patient Health Record ---
Author Organization [facility] Address [address] [facility] [address] [place] [address] Care Team Providers Care Director Ambulatory Name Role Phone Henna Matamoros Unavailable [phone] Brandy Barillas Unavailable [phone] Allergies No Known Allergies Reason For Referral No Information Social History Sex Assigned At : Social History Observation Description Sex Assigned At Female Section Notes: Age you started smokin Amount of Use: Some days but not every day Do you have any worship or culture customs that your provider should [...] in the event of an emergency?: No Age you started smokin Amount of Use: Some days but not every day Do you have any worship or culture customs that your provider should [...] in the event of an emergency?: No Age you started smokin Amount of Use: Some days but not every day Do you have any worship or culture customs that your provider should [...] in the event of an emergency?: No Age you started smokin Amount of Use: Some days but not every day Do you have any worship or culture customs that your provider should [...] in the event of an emergency?: No Problems Problem Type SNOMED Code ICD Code Onset Dates Problem Status W/U Status Risk Notes Problem Missed period (69611057) Missed period (N92.6) Active confirmed Plan Of Treatment Future Test Test Name Order Date *US OB Complete Transabdominal/Vaginal 0 08/25/2024 Insurance Providers Payer Name Payer Address Payer Phone Subscriber Number Group Number Insured Name Patient Relationship to Insured Coverage Start Date Coverage End Date Jose BERRYO [address] [place] [address] [id number] Julia Salas Self - patient is the insured Medical (General) History Medical History History ICD Code Asthma Surgical History Surgery Date(Month/Year) None Hospitalization History Reason Date(Month/Year) Admit for [facility] 2011
--- OUTSIDE RECORDS SUMMARY | 2025-10-01 09:38 | XMS_ITS | Encounter Summary ---
Author Organization [facility] Address [address] [place] [address] Care Team Providers Care In School Suspension Coordinator Name Role Phone Provider, No Known Primary Care Provider Unavail able Reason for Visit * Reason Onset Date Comments Advice Only 09/06/2025 Pt has question for Nurse. Encounter Details Date Type Department Care Team (Late st Contact Info) Description 09/06/2025 Telephone [facility] [address] [place] [address] Brian Wesley MD [address] [facility] [address] [place] [address] Advice Only (Pt has question for Nurse.) Social History Tobacco Use Types Packs/Day Years Used Date Smoking Tobacco: Former Cigarettes Q uit: 2014 Smokeless Tobacco: Never Alcohol Use Standard Drinks/Week [...] encounter Miscellaneous Notes * Telephone Encounter - Yvonne Davis RegSched Rep - 09/06/2025 9:51 AM EDT Pt has question for Nurse. documented in this encounter Plan of Treatment Upcoming Encounters Date Type Department Care Team (Late st Contact Info) Description 10/11/2025 10:15 AM EST Office Visit [facility] [address] [place] [address] 10/11/2025 10:15 AM EST Appointment [facility] [address] [place] [address] documented as of this encounter Visit Diagnoses Not on filedocumented in this encounter Care Teams In School Suspension Coordinator Relationship Specialty Start Date End Date Provider, [place] [address] PCP - General 08/19/24 documented as of this encounter
--- OUTSIDE RECORDS SUMMARY | 2025-10-01 09:39 | XMS_ITS | Encounter Summary ---
Author Organization [facility] Address [address] [place] [address] Care Team Providers Care Production Control Expert Name Role Phone Provider, No Known Primary Care Provider Unavail able Encounter Details Date Type Department Care Team (Latest Contact Info) Description 09/02/2025 Travel Social History Tobacco Use Types Packs/Day [...] Description 10/11/2025 10:15 AM EST Office Visit [facility] [address] [facility] [address] [place] [address] 10/11/2025 10:15 AM EST Appointment [facility] [address] [place] [address] documented as of this encounter Visit Diagnoses Not on filedocumented in this encounter Care Teams Production Control Expert Relationship Specialty Start Date End Date Provider, No Known [facility] [place] [address] PCP - General 08/19/24 documented as of this encounter
[2025-10-01 11:01] LABS: Hematocrit 32.9 % (37.0-47.0); Hemoglobin 11.1 g/dL (12.2-16.2); Immature Granulocytes % 1.1 %; Mean Corpuscular HGB Conc 33.7 g/dL (31.8-35.4); Mean Corpuscular Hemoglobin 28.3 pg (27.0-31.2); Mean Corpuscular Volume 83.9 fl (81-99); Nucleated Red Blood Cells % 0 %; Platelet Count 226 K/mm3 (142-424); Red Blood Count 3.92 M/mm3 (4.20-5.40); Red Cell Distribution Width-SD 39.0 fL; White Blood Count 15.1 K/mm3 (4.8-10.8)
[2025-10-01 11:12] LABS: Glucose 1 Hour 83 mg/dL (74-100)
[2025-10-01 13:39] LABS: RPR W/RFX Titers Nonreactive (Nonreactive)
== END 2025-10-01 23:59 | disposition home or self-care (01) ==
LOC: LAB 09:25
PROVIDERS: Visit Provider Obstetrics & Gynecology
DX: Z34.82 Encounter for supervision of other normal pregnancy, second trimester (principal)
CPT/HCPCS: 36415; 82947; 85025; 86592

== ENCOUNTER 2025-10-19 12:54 | Outpatient (CLI) | payer BC, SELFPAY ==
--- NOTE | 2025-10-19 13:00 | US_ITS ---
PROCEDURE: US OB BIOPHYSICAL PROFILE CLINICAL INDICATION: Severe IUGR COMPARISON: US US OB <= 14 WEEKS FETUS from 04/30/2025 US US OB /MATERNAL DETAIL from 08/04/2025 FINDINGS: Transabdominal sonographic images of the uterus were obtained. From her established due date she is 30 weeks 4 days. The following parameters are obtained: Viable Fetus in the breech presentation with an anterior placenta grade 1. There continues to be a marginal cord insertion. Cervix measures 3.03 cm in length. Average ultrasound age is 28weeks 5days Estimated weight 1,192g, 2 lb 10 oz Measurements: heart Rate = 136bpm BPD = 28weeks 3days, <2 percentile HC = 30weeks 2days, 10 percentile AC = 28weeks 1day, <2 percentile FL = 27weeks 6days, <2 percentile HC/AC is 1.16 FL/BPD is 0.74 FL/AC is 0.22 <2 percentile Amniotic fluid index: 9.62cm, MVP 3.76 cm Qualitative AFV:2 Breathing movements: 2 Gross Body Movements: 2 Tone: 2 Biophysical profile score: 8 No obvious anomalies evident.Kidneys, stomach, bladder, four-chamber heart, three-vessel cord appear normal. IMPRESSION: 1. Viable fetus in the breech presentation with an anterior placenta grade 1. There is a persistent marginal cord insertion. 2. The fluid is within normal limits with an amniotic fluid index 9.62 cm, MVP 3.76 cm. 3. Fetus continues to be small for gestational age less than the 2nd percentile. The fetus is globally small with the abdominal circumference over 2 weeks behind. 4. Biophysical profile is 8/8 with good breathing movement and movement seen. 5. Limited anatomical scan appears normal. Dictated by: Polo Catherine MD 10/19/2025 14:15 Polo Catherine MD in OV 10/19/2025 14:15
== END 2025-10-19 23:59 | disposition home or self-care (01) ==
LOC: RAD 12:55
PROVIDERS: PCP Obstetrics & Gynecology; Visit Provider Obstetrics & Gynecology
DX: O32.1XX0 Maternal care for breech presentation, not applicable or unspecified (principal); O36.5930 Maternal care for other known or suspected poor fetal growth, third trimester, not applicable or unspecified; O43.193 Other malformation of placenta, third trimester; O10.913 Unspecified pre-existing hypertension complicating pregnancy, third trimester; Z3A.30 30 weeks gestation of pregnancy
CPT/HCPCS: 76816; 76819

== ENCOUNTER 2025-10-19 15:44 | Outpatient (CLI) | payer BC, SELFPAY ==
[2025-10-19 15:58] VITALS: BMI 34.5
[2025-10-19 16:10] VITALS: BP 149/79; PULSE 106; RESP 18; TEMP 36.9; O2SAT 100; BMI 34.5
[2025-10-19 16:29] LABS: Hematocrit 33.1 % (37.0-47.0); Hemoglobin 11.0 g/dL (12.2-16.2); Immature Granulocytes % 1.6 %; Mean Corpuscular HGB Conc 33.2 g/dL (31.8-35.4); Mean Corpuscular Hemoglobin 27.5 pg (27.0-31.2); Mean Corpuscular Volume 82.8 fl (81-99); Nucleated Red Blood Cells % 0 %; Platelet Count 220 K/mm3 (142-424); Red Blood Count 4.00 M/mm3 (4.20-5.40); Red Cell Distribution Width-SD 38.9 fL; White Blood Count 12.9 K/mm3 (4.8-10.8)
[2025-10-19 16:38] LABS: Albumin Level 3.9 g/dl (3.5-5.0); Chloride 102 mmol/L (98-107); Potassium 3.7 mmoL/L (3.5-5.1); Sodium 139 mmol/L (136-145)
[2025-10-19 16:41] LABS: Alanine Aminotransferase 20 U/L (12-78); Albumin/Globulin Ratio 1.2 (1.1-1.8); Alkaline Phosphatase 62 U/L (38-126); Anion Gap 14.7 mEq/L (5-15); Aspartate Amino Transferase 31 U/L (14-36); Bilirubin,Total 0.2 mg/dl (0.2-1.3); Blood Urea Nitrogen 7 mg/dl (7-17); Calcium 8.7 mg/dl (8.4-10.2); Carbon Dioxide 26 mmol/L (22.0-30.0); Creatinine Clearance Estimated 180 mL/min (50-200); Creatinine,Serum 0.60 mg/dl (0.52-1.04); Estimated Glomerular Filt Rate 115 ml/min (>60); GFR (African American) 139 ML/MIN (>60); Globulin 3.2 g/dL (1.3-3.2); Glucose 98 mg/dl (74-100); Total Protein,Serum 7.1 g/dl (6.3-8.2)
[2025-10-19 17:23] LABS: Uric Acid 3.9 mg/dl (2.5-6.2)
== END 2025-10-19 17:45 | disposition home or self-care (01) ==
LOC: OBOUT 15:46 → OB 15:47
PROVIDERS: PCP Obstetrics & Gynecology; Visit Provider Obstetrics & Gynecology
DX: O13.3 Gestational [pregnancy-induced] hypertension without significant proteinuria, third trimester (principal); Z3A.30 30 weeks gestation of pregnancy
CPT/HCPCS: 36415; 80053; 82570; 84156; 84550; 85025; 99212

== ENCOUNTER 2025-10-22 16:55 | Outpatient (CLI) | payer BC, SELFPAY ==
--- OUTSIDE RECORDS SUMMARY | 2024-08-25 10:00 | XMS_ITS ---
Author Organization [facility] Address [address] [place] [address] Care Team Providers Care Ground Crew Chief Name Role Phone Matamoros, Henna Unavailable [phone] Sharon Bautista Unavailable [phone] Results Component Value Reference Range Notes *US OB Complete Transabdomin al/Vaginal Reviewed date:08/27/2024 04:41:33 PM Interpretation: Performing Lab: Notes/Report: [facility] Women's Health Transvaginal Obstetric Study Report Name: FARIDA RONQUILLO Accession/Encounter No:[id number] : 1990 Age: 34 Gender: F Race: [...] 1 of 1 Imaging Center - , [facility] Lyn REASON FOR VISIT early OB Bleeding LLQ pain Social History Sex Assigned At : Social History Observation Description Sex Assigned At Female Encounters Encounter Location Date Provider Diagnosis [facility]-NR [address] [place] [address] 08/25/2024 Sharon Bautista Bleeding in early O20.9 Assessments Encounter Date Diagnosis (ICD Code) Assessment Notes Treatment Notes Treatment Clinical Notes Section Notes 08/25/2024 Bleeding in early (ICD-10 - O20.9) Plan Of Treatment No Information Progress Notes * Charles RONQUILLOJozefB: 992 (35 yo F)Acc No.[id number]:08/25/2024 Progress Note Patient: Farida Zimmerman Provider: Andrey Bautista NP :1990 A ge:34 Y S ex:Female Date:08/25/2024 Address:[facility] [address], [place] , [id number] Subjective: * Chief Complaints: * e promise OB Bleeding LLQ pain Assessment: * Assessment: 1. B leeding in early - O20.9 Plan: * Treatment: Billing Information: * Procedure Codes: * Electronic signature of Octavio Bautista NP on 10/22/2025 at 04:59 PM EST Sign off status: Pending Visit Status: Nancy RAMÍREZ (Check Out) * Provider: Andrey Bautista NP Date: 0 08/25/2024 Generated for Jesika trevino/Marleny/Amandaitting on: 12/22/2024 04:59 PM EST
--- OUTSIDE RECORDS SUMMARY | 2024-12-25 09:15 | XMS_ITS ---
Author Organization [facility] Address [address] [place] [address] Care Team Providers Care Warehouse Supervisor 3Rd Shift Name Role Phone Henna Matamoros Unavailable [phone] Brandy Barillas Unavailable [phone] REASON FOR VISIT Annual Social History Sex Assigned At : Social History Observation Description Sex Assigned At Female Section Notes: Age you started smokin Amount of Use: Some days but not every day Do you have any hoahaoism or culture customs that your provider should know about?: No Do you now or have you ever smoked or used tobacco products?: Yes Former Smoker - Age you stopped: 32 Have you ever used any recreational drugs?: No Have you had a drink containing alcohol in the last year?: Yes How often did you have a drink containing alcohol in the last year?: 2-3 times per week Type of Product: Cigarettes Would you object to blood products in the event of an emergency?: No Encounters Encounter Location Date Provider Diagnosis [facility]-NR [address] [place] [address] 12/25/2024 Brandy Barillas Plan Of Treatment No Information Progress Notes * Charles RONQUILLOJozefB: 992 (35 yo F)Acc No.[id number]:12/25/2024 Progress Note Patient: Julia Zimmerman Provider: Errol Barillas MD :1990 A ge:34 Y S ex:Female Date:12/25/2024 Address:[address], [place], [id number] Subjective: * Chief Complaints: * A nnual * Medical History: Asthma Medical History Verified * Receipt And Report Clerk History: P ap Smear History: D ate of Last Pap/HPV: 0 L ast Pap/HPV Results: N ormal Pap M enstrual History: C urrently having menstrual cycles? Y es A ge of Onset 1 3 L MP: J an 2023 T lorie between periods: H ow would you describe your flow? Moderate D uration: 2 -7 days 21-32 days A ssociated signs and symptoms of period: Y es, Bloating, Bowel issues, Headaches, Irritability, Mood swings, Nausea S exual Activity/Contraception: C urrently sexually active Y es E jose sexually active Y es N umber of partners (lifetime) Y es A ge of first sexual activity: 1 6 L ast Preventive Screening Labs: N /a. U rinary Incontinence: D o you ever leak urine when you cough, sneeze, laugh or exercise N o D o you ever leak urine on the way to the bathroom or can't get to the bathroom on time N o D o you go to the bathroom frequently more than 7 times during the day and/or get up more than 2 times at night N o, Yes L ast Mammogram Date (Historical) N /a. L ast Colon Cancer Screening Date: (Historical) N /a. L ast DEXA Scan: (Historical) N /a. B irth control (Historical) N othing. L ast HPV (Historical) L ast HPV N /a A bnormal pap smear (Historical) N o. S exually Transmitted Infections (STIs) N one. L ast Pap Smear/HPV Date (Historical) 2 017. * OB History: P regnancy History (GPA) Total Pregnancies 1 Full Term 0 G P : 1 Para: 0 * Surgical History: None Surgical History verified. * Hospitalization/Major Diagno stic Procedure: Admit for [place] 2011 Hospitalization Verified. * Family History: F amily History Verified.. Family History: Family history known Heart Disease: Maternal Grandfather Please list all other disorder(s) and specify the relationship for each: Mom had cervical cancer and , fathers mom had single cell lung cancer. * Social History: Social History Verified. A ge you started smokin Amount of Use: Some days but not every day Do you have any hoahaoism or culture customs that your provider should know about?: No Do you now or have you ever smoked or used tobacco products?: Yes Former Smoker - Age you stopped: 32 Have you ever used any recreational drugs?: No Have you had a drink containing alcohol in the last year?: Yes How often did you have a drink containing alcohol in the last year?: 2-3 times per week Type of Product: Cigarettes Would you object to blood products in the event of an emergency?: No. * Allergies: y esAllergies Verified. * Electronic signature of Alon Barillas MD on 10/22/2025 at 04:58 PM EST Sign off status: Pending Visit Status: N /S (No-Show) * Provider: Errol Barillas MD Date: 0 12/25/2024 Generated for Jesika trevino/Marleny/Macey on: 12/22/2024 04:58 PM EST
--- OUTSIDE RECORDS SUMMARY | 2025-09-02 09:30 | XMS_ITS | Encounter Summary ---
Author Organization [facility] Address [address] [id number] Care Team Providers Care Instructional Support Services Director Name Role Phone Provider, No Known Primary [...] second trimester , unspecified gestational age Procedures [facility] Diagnostic [place] Amy Conley DO [address] [place] [address] [place] [address] Phone: tel: fax: [facility] [address] [place] [address] Phone: tel: Referral ID Status Reason Start Date Expiration Date Visits Re quested Visits Authorized [id number] Closed 08/05/2025 11/04/2026 1 1 Reason for Visit * Diagnostic Imaging (Routine) - Closed Specialty Diagnoses / Procedures Referred By Ritesh winchester Referred To Contact Radiology Diagnoses Maternal care for other known or suspected poor growth, second trimester, not applicable or unspecified Marginal insertion of umbilical cord affecting management of mother in second trimester , unspecified gestational age Procedures [facility] Diagnostic [place] Amy Conley DO [address] [place] [address] [place] [address] Phone: tel: fax: [facility] [address] [place] [address] Phone: tel: Referral ID Status Reason Start Date Expiration Date Visits Re quested Visits Authorized [id number] Closed 08/05/2025 11/04/2026 1 1 Encounter Details Date Type Department Care Team (Latest Contact Info) Description 09/02/2025 10:30 AM EDT - 09/02/2025 11:59 PM EDT Hospital Encounter [facility] [address] [place] [id number] Amy Conley DO [address] [facility] [address] [id number] Maternal care for other known or suspected [...] Care Team (Late st Contact Info) Description 10/25/2025 10:15 AM EST Office Visit [facility] [address] [address] [address] 10/25/2025 10:15 AM EST Appointment [facility] [address] [facility] [place] [address] 11/01/2025 2:15 PM EST Office Visit [facility] [address] [address] 11/01/2025 2:15 PM EST Appointment [facility] [address] [facility] [address] 11/08/2025 10:45 AM EST Office Visit [facility] [address] [address] 11/08/2025 10:45 AM EST Appointment [facility] [address] [place] [address] 11/15/2025 11:30 AM EST Office Visit [facility] [address] [address] 11/15/2025 11:30 AM EST Appointment [facility] [address] [place] [address] 11/22/2025 10:45 AM EST Office Visit [facility] [address] [address] 11/22/2025 10:45 AM EST Appointment [facility] [address] [place] [address] documented as of this encounter Procedures Procedure Name Priority Date/Time Associated Diagnosis Comments [facility] Routine 09/02/2025 11:30 AM EDT Maternal care for other known or suspected poor growth, second trimester, not applicable or unspecified Marginal insertion of umbilical cord affecting management of mother in second trimester , unspecified gestational age documented in this encounter Results * [facility] (09/02/2025 11:30 AM EDT) Anatomical Region Laterality Modality Ultrasound 09/02/2025 10:5 6 AM EDT Narrative 09/02/2025 11:36 AM EDT PAT NAME: FARIDA LYNN MED REC#: [id number] DA: [id number] PAT GEND: F PAT TYPE: O EXAM BLAISE: [id number] REF PHYS AMY CONLEY Addendum ========= CORRECTED [...] EFW (oz) 0 oz EFW by: Hadlock ([id number]) Extended Tibia 34.2 mm 22w 5d 15% Emeli Fibula 34.9 mm 23w 0d 35% Emeli Foot 41.2 mm 17% Chitty Radius 31.2 mm 22w 1d 32% Emeli Ulna 30.8 mm 21w 4d <1% Emeli Cav. septi pel. tr 3.7 mm Internet Manager 5.7 mm CM 6.1 mm 57% [...] normal IVC: normal 3-vessel view: Appears normal 4-glhfkq-msrwfdl view: Appears normal Rt lung: Appears normal [...] increased rest and nutrition. Coding ====== Description: 60745-79 Detailed Ultrasound Description: 60877-22 Doppler Umbilical Artery Transformation Manager: RT Benjamin Hutchison , [facility] Physician: Jose Wesley MD, FACOG Electronically signed by: Jose Wesley MD, FACOG at: 08:55 Procedure Note Brian Wesley MD - 09/03/2025 PAT NAME: FARIDA LYNN MED REC#: [id number] DA: [id number] PAT GEND: F PAT TYPE: O EXAM BLAISE: [id number] REF PHYS AMY CONLEY Addendum ========= CORRECTED REPORT - CPT code correction Comparison Studies There are no relevant prior studies to which this study is beingcompared Patient Status Outpatient Indication ======== Concern for IUGR. Marginal PCI. Obesity BMI 33. Maternal Assessment Eitveu554 cm Height (ft)5 ft Height (in)3 in Xethmr45 kg Weight (lb)188 lb BMI33.31 kg/m Method ======= Transabdominal ultrasound examination. View: Good view ========= [place] . Number of fetuses: 1 Dating ====== Method of dating:based on stated PAULA GA by prior fxvrurhpsn17 w + 6 d PAULA by prior assessment:12/24/2025 Ultrasound examination on:09/02/2025 GA by U/S based upon:AC, BPD, Femur, HC GA by U/S21 w + 6 d PAULA by U/S:01/07/2026 Assigned:based on stated PAULA, selected on 09/02/2025 Assigned GA23 w + 6 d Assigned PAULA:12/24/2025 d Biometry Standard BPD51.8 mm 21w 5d 1% Hadlock OFD71.4 mm 23w 6d 48% Emeli HC197.5 mm 22w 0d <1% Hadlock Cerebellum tr25.9 mm 23w 2d 54% Hill AC162.5 mm 21w 2d <1% Hadlock Femur38.3 mm 22w 2d 4% Hadlock Isvuipe93.6 mm 21w 6d 2% Emeli HC / AC1.22 XCY698 g 21w 4d <1% Hadlock EFW (lb)1 lb EFW (oz)0 oz EFW by:Hadlock ([id number]) Extended Tibia34.2 mm 22w 5d 15% Emeli Fzgkhp95.9 mm 23w 0d 35% Emeli Foot41.2 mm 17% Chitty Qocwus31.2 mm 22w 1d 32% Emeli Ulna30.8 mm 21w 4d <1% Emeli Cav. septi pel. tr3.7 mm Vp5.7 mm CM6.1 mm 57% Nicolaides Nasal bone7.4 mm Head / Face / Neck Cephalic index0.73 4% Nicolaides Extremities / Bony Struc FL / BPD0.74 FL / HC0.19 FL / AC0.24 Other Structures OKU313 bpm General Evaluation Cardiac activity present. FHR [...] view:Appears normal SVC:normal IVC:normal 3-vessel view:Appears normal 9-ezaxpm-kmbdkpt view:Appears normal Rt lung:Appears normal Lt lung:normal [...] Structures Uterus / Cervix Cervix:Visualized Approach:Transabdominal Cervical idxxsz03.3 mm Ovaries / Tubes / Adnexa Rt [...] Recommend increased rest and nutrition. Coding ====== Description:12054-90 Detailed Ultrasound Description:33447-37 Doppler Umbilical Artery Transformation Manager: RT Benjamin Hutchison , [facility] Physician: Jose Wesley MD, FACOG Electronically signed by: Jose Wesley MD, FACOG at: 08:55 us Amy Conley DO [facility] [place] ORDERABLES Edited Re sult - Final documented in this encounter Visit Diagnoses Diagnosis Maternal care for other known or suspected poor growth, second trimester, not applicable or unspecified Marginal insertion of umbilical cord affecting management of mother in second trimester , unspecified gestational age documented in this encounter Care Teams Instructional Support Services Director Relationship Specialty Start Date End Date Provider, [place] [address] PCP - General 08/19/24 documented as of this encounter
--- OUTSIDE RECORDS SUMMARY | 2025-09-02 09:30 | XMS_ITS | Encounter Summary ---
Author Organization [facility] Address [address] [id number] Care Team Providers Care Reflexologist Name Role Phone Provider, No Known Primary Care Provider Unavail able Reason for Referral * Diagnostic Imaging (Routine) - Closed Specialty Diagnoses / Procedures Referred By Ritesh winchester Referred To Contact Radiology Diagnoses Uterine size-date discrepancy in second trimester Marginal insertion of umbilical cord affecting management of mother in second trimester 23 weeks gestation of Maternal chronic hypertension in second trimester Procedures [facility] Brian Wesley MD [address] [facility] [address] [place] [phone] Phone: tel: fax: [facility] [address] [place] [address] Phone: tel: Referral ID Status Reason Start Date Expiration Date Visits Re quested Visits Authorized [id number] Closed 09/02/2025 12/02/2026 1 1 Reason for Visit * Reason Comments concern for IUGR, MPCI Encounter Details Date Type Department Care Team (Late st Contact Info) Description 09/02/2025 10:30 AM EDT Office Visit [facility] [address] [facility] [address] [place] [phone] Brian Wesley MD [address] [facility] [address] [place] [phone] Uterine size-date discrepancy in second trimester (Primary Dx); Marginal insertion of umbilical cord affecting management of mother in second trimester; 23 weeks gestation of ; Maternal chronic hypertension in second trimester Social History Tobacco Use Types Packs/Day Years Used Date Smoking Tobacco: Former Cigarettes Q uit: 2015 Smokeless Tobacco: Never Tobacco Cessation:Counseling Given: Not Answered Alcohol Use Standard Drinks/Week Comments Not Currently [...] on file documented as of this encounter Last Filed Vital Signs Vital Sign Reading Time Taken Comments Blood Pressure 140/77 09/02/2025 10:46 AM EDT 14 7/80 Pulse - - Temperature - - Respiratory Rate - - Oxygen Saturation - - Inhaled Oxygen Concentration - - Weight 85.3 kg (188 lb) 09/02/2025 10:46 AM EDT Height 160 cm (5' 3 ) 09/02/2025 10:47 AM EDT Body Mass Index 33.3 09/02/2025 10:46 AM EDT documented in this encounter Progress Notes * Brian Wesley MD - 09/02/2025 11:33 AM EDTAssociated Problem(s): Uterine size-date discrepancy in second trimester Patient referred for size less than dates noted on her early ultrasound performed in her primary OBoffice. Additionally a marginal cord insertion was noted. Patient reports no complications and notes occasional movement. Ultrasound today demonstrates a fetus size less than dates. No abnormalities are seen. In particular, no markers for trisomy are seen. Amniotic fluid volume and umbilical artery Dopplers are normal. Cervical length is normal. growth appears to be falling off the growth curve. Patient's dates are based on a 7-week scanthat was entirely consistent with her dates. 20-week scan performed at her primary OB office at approximately 1 week lagging growth. Ultrasound performed today Shawanda has approximate 2-week lagging growth. There are no ultrasound clues to the etiology for this growth lag. There were no abnormalities seen and no ultrasound evidence of chronic infection. Additionally, the patient had a low riskcell free DNA. It is possible that the combination of chronic hypertension and marginal cord insertion may be contributing to this. We have begun the patient on a low-dose of Procardia XL for her blood pressure. We have recommended that the patient go to bed rest at home. We have recommended increased nutrition and the patient does not smoke or vape. We will rescan the patient again in 2 to 3 weeks time to assess growth. * Brian Wesley MD - 09/02/2025 11:31 AM EDTAssociated Problem(s): Maternal chronic hypertension in third trimester Patient is seen in our office today and her blood pressure initially was 140/77. Repeat was 147/80.Review of her chart indicates that she has had blood pressures in this range at several visits and her primary OB office. I suspect that she has mild chronic hypertension. I have elected to start ken a low-dose of Procardia XL. I have started her on 30 mg p.o. daily. Patient is planning on getting a blood pressure cuff to check her blood pressure at home and we will reevaluate it we will rescan her again in 2 to 3 weeks. * Carole Smith RN - 09/02/2025 10:30 AM EDT Denies vaginal bleeding, leaking fluid, and contractions. Endorses normal movement. NIPT negative. Next OB follow-up appointment with Dr. Conley on 09/30/2025. * Brian Wesley MD - 09/02/2025 10:30 AM EDT Images from the original note were not included. Documentation of the ultrasound findings, images, and interpretations will be available in the patient's Viewpoint report which is located in the imaging tab in chart review. Maternal/ Medicine Consult Note Name: Farida Lynn : 1990 Referring Provider: Amy Conley DO Chief Complaint concern for IUGR, MPCI Subjective History of Present Illness: Farida Lynn is a 35 y.o. 23w6d who presents today for S<D PAULA: Estimated Date of Delivery: 12/24/25 ROS: As noted in HPI. Past Medical History: Diagnosis Date Pneumonia as a baby History reviewed. No pertinent surgical history. OB History 2 Para 0 Term 0 0 AB 1 Living 0 SAB 1 IAB 0 Ectopic 0 Molar 0 Multiple 0 Live Births 0 Objective Vital Signs BP 140/77 Ht 160 cm (63 ) Wt 85.3 kg (188 lb) Estimated body mass index is 33.3 kg/m?? as calculated from the following: Height as of this encounter: 160 cm (63 ). Weight as of this encounter: 85.3 kg (188 lb). Physical Exam Ultrasound Impression: See Viewpoint Assessment and Plan Farida Lynn is a 35 y.o. 23w6d who presents today for S<D Diagnoses and all orders for this visit: 1. Uterine size-date discrepancy in second trimester (Primary) Assessment & Plan: Patient referred for size less than dates noted on her early ultrasound performed in her primary OBoffice. Additionally a marginal cord insertion was noted. Patient reports no complications and notes occasional movement. Ultrasound today demonstrates a fetus size less than dates. No abnormalities are seen. In particular, no markers for trisomy are seen. Amniotic fluid volume and umbilical artery Dopplers are normal. Cervical length is normal. growth appears to be falling off the growth curve. Patient's dates are based on a 7-week scanthat was entirely consistent with her dates. 20-week scan performed at her primary OB office at approximately 1 week lagging growth. Ultrasound performed today Shawanda has approximate 2-week lagging growth. There are no ultrasound clues to the etiology for this growth lag. There were no abnormalities seen and no ultrasound evidence of chronic infection. Additionally, the patient had a low riskcell free DNA. It is possible that the combination of chronic hypertension and marginal cord insertion may be contributing to this. We have begun the patient on a low-dose of Procardia XL for her blood pressure. We have recommended that the patient go to bed rest at home. We have recommended increased nutrition and the patient does not smoke or vape. We will rescan the patient again in 2 to 3 weeks time to assess growth. Orders: - [facility]; Future 2. Marginal insertion of umbilical cord affecting management of mother in second trimester - [facility]; Future 3. 23 weeks gestation of - [facility]; Future 4. Maternal chronic hypertension in second trimester Assessment & Plan: Patient is seen in our office today and her blood pressure initially was 140/77. Repeat was 147/80.Review of her chart indicates that she has had blood pressures in this range at several visits and her primary OB office. I suspect that she has mild chronic hypertension. I have elected to start ken a low-dose of Procardia XL. I have started her on 30 mg p.o. daily. Patient is planning on getting a blood pressure cuff to check her blood pressure at home and we will reevaluate it we will rescan her again in 2 to 3 weeks. Orders: - [facility]; Future Other orders - NIFEdipine XL (PROCARDIA XL) 30 MG 24 hr tablet; Take 1 tablet by mouth Daily for 150 days. Dispense: 30 tablet; Refill: 4 Follow Up Return in about 3 weeks (around 09/23/2025). I spent 30 minutes caring for the patient on the day of service. This included: obtaining or reviewing a separately obtained medical history, reviewing patient records, performing a medically appropriate exam and/or evaluation, counseling or educating the patient/family/caregiver, ordering medications, labs, and/or procedures and documenting such in the medical record. This does not include time spent on review and interpretation of other tests such as ultrasound or the performance of other procedures such as amniocentesis or CVS. Brian Wesley MD Maternal Medicine, [facility] 09/02/2025 documented in this encounter Plan of Treatment Upcoming Encounters Date Type Department Care Team (Late st Contact Info) Description 10/25/2025 10:15 AM EST Office Visit [facility] [address] [address] 10/25/2025 10:15 AM EST Appointment [facility] US PER DIAG [facility] [address] [place] [address] 11/01/2025 2:15 PM EST Office Visit [facility] [address] [address] 11/01/2025 2:15 PM EST Appointment [facility] US PER DI[facility] [address] [place] [address] 11/08/2025 10:45 AM EST Office Visit [facility] [address] [address] 11/08/2025 10:45 AM EST Appointment [facility] US PER DIAG [facility] [address] [place] [address] 11/15/2025 11:30 AM EST Office Visit [facility] [address] [place] [address] 11/15/2025 11:30 AM EST Appointment [facility] PER DI[facility] [address] [place] [address] 11/22/2025 10:45 AM EST Office Visit [facility] [address] [facility] [address] [place] [phone] 11/22/2025 10:45 AM EST Appointment [facility] PER [facility] [address] [facility] [place] [address] documented as of this encounter Results * [facility] (09/23/2025 10:28 AM EDT) Anatomical Region Laterality Modality Ultrasound 09/23/2025 10:0 6 AM EDT Narrative 09/23/2025 10:58 AM EDT PAT NAME: FARIDA LYNN MED REC#: [id number] DA: [id number] PAT GEND: F PAT TYPE: O EXAM BLAISE: [id number] REF PHYS NILOAMY Comparison Studies The findings of this study are compared to the prior ultrasound study dated 09/02/25 Patient Status Outpatient Indication ======== IUGR. Marginal PCI. Obesity BMI 34. Maternal Assessment Height 160 cm Height (ft) 5 ft Height (in) 3 in Weight 87 kg Weight (lb) 191 lb BMI 33.84 kg/m Method ======= Transabdominal ultrasound examination. View: Suboptimal view: limited by position ========= Botello . Number of fetuses: 1 Dating ====== Method of dating: based on stated PAULA GA by prior assessment 26 w + 6 d PAULA by prior assessment: 12/24/2025 Ultrasound examination on: 09/23/2025 GA by U/S based upon: AC, BPD, Femur, HC GA by U/S 25 w + 2 d PAULA by U/S: 01/04/2026 Previous dating: based on stated PAULA, selected on 09/02/2025 Agreed PAULA of previous datin12/24/2025 Assigned: based on stated PAULA, selected on 09/23/2025 Assigned GA 26 w + 6 d Assigned PAULA: 12/24/2025 length 280 d Biometry Standard BPD 62.4 mm 25w 2d 4% Hadlock OFD 84.3 mm 27w 2d 66% Emeli HC 235.6 mm 25w 4d 3% Hadlock Cerebellum tr 32.3 mm 27w 4d 87% Hill AC 202.9 mm 24w 6d 3% Hadlock Femur 46.7 mm 25w 4d 7% Hadlock Humerus 39.5 mm 24w 0d <1% Emeli HC / AC 1.16 EFW 785 g 25w 0d 3% Hadlock EFW (lb) 1 lb EFW (oz) 12 oz EFW by: Hadlock ([id number]-FL) Extended Tibia 40.1 mm 25w 2d 8% Emeli Fibula 39.3 mm 24w 5d 14% Emeli Foot 47.9 mm 9% Chitty Radius 32.4 mm 23w 1d 13% Emeli Ulna 37.2 mm 24w 5d 1% Emeli Cav. septi pel. tr 5.4 mm Analytical Clerk 4.1 mm CM 8.6 mm 94% Nicolaides Head / Face / Neck Cephalic index 0.74 8% Nicolaides Extremities / Bony Struc FL / BPD 0.75 FL / HC 0.20 FL / AC 0.23 Other Structures FHR 150 bpm General Evaluation Cardiac activity present. FHR 150 bpm. movements present. Presentation breech. Placenta Placental site: anterior. Umbilical cord Cord vessels: 3 vessel cord. Amniotic fluid Amount of AF: normal. MVP 5.0 cm. REAGAN 16.6 cm. Q1 2.6 cm, Q2 5.0 cm, Q3 4.2 cm, Q4 4.8 cm. Anatomy Cranium: Normal Cavum septi pellucidi: Normal Cerebellum: Normal Cisterna magna: Normal Head / Neck Rt lateral ventricle: Normal Lt lateral ventricle: Normal Lips: Appear normal Profile: Appears normal Nose: Appears normal 4-chamber view: Appears normal RVOT view: Appears normal LVOT view: Appears normal Heart / Thorax 3-vessel view: Appears normal 0-ezrtdh-owbnzgr view: Appears normal Cord insertion: Normal Stomach: Appears normal Kidneys: Appears normal Bladder: Appears normal Gender: female Wants to know gender: yes Maternal Structures Uterus / Cervix Cervix: Visualized Approach: Transabdominal Cervical length 38.3 mm Doppler Arterial Umbilical A PI 1.15 71% Jolanta Umbilical A RI 0.72 75% Jolanta Umbilical A PS -41.45 cm/s Umbilical A ED -12.79 cm/s Umbilical A TAmax -27.21 cm/s Umbilical A MD -12.25 cm/s Umbilical A S / D 3.57 70% Jolanta Umbilical A HR 138 bpm Impression Farida presents for a follow-up ultrasound to assess interval growth and wellbeing. On today's exam, SIUP is noted in breech presentation with stable if not improved growth. EFW overall measures at the 3rd percentile. AC is at the 3rd percentile. There is a normal amount of amniotic fluid. Placenta is anterior. Cervical length appears adequate. Limited but normal appearing anatomy is visualized. Recommendation Follow-up scheduled in 2wks. Coding ======= Description: 60094-29 Follow Up Ultrasound Description: 40336-29 Doppler Umbilical Artery Outpatient Receptionist: RT Benjamin Hutchison , [facility] Physician: Lis Jeffrey MD Electronically signed by: Lis Jeffrey MD at: 10:58 Procedure Note Lis Jeffrey MD - 09/23/2025 PAT NAME: FARIDA LYNN MED REC#: [id number] DA: [id number] PAT GEND: F PAT TYPE: O EXAM BLAISE: [id number] REF PHYS AMY CONLEY Comparison Studies The findings of this study are compared to the prior ultrasound studydated 09/02/25 Patient Status Outpatient Indication ======== IUGR. Marginal PCI. Obesity BMI 34. Maternal Assessment [id number] cm Height (ft)5 ft Height (in)3 in Hgahio19 kg Weight (lb)191 lb BMI33.84 kg/m Method ======= Transabdominal ultrasound examination. View: Suboptimal view: limited byfetal position ========= Botello . Number of fetuses: 1 Dating ====== Method of dating:based on stated PAULA GA by prior [id number] w + 6 d PAULA by prior assessment:12/24/2025 Ultrasound examination on:09/23/2025 GA by U/S based upon:AC, BPD, Femur, HC GA by U/S25 w + 2 d PAULA by U/S:01/04/2026 Previous dating:based on stated PAULA, selected on 09/02/2025 Agreed PAULA of previous datin12/24/2025 Assigned:based on stated PAULA, selected on 09/23/2025 Assigned GA26 w + 6 d Assigned PAULA:12/24/2025 [id number] d Biometry Standard BPD62.4 mm 25w 2d 4% Hadlock OFD84.3 mm 27w 2d 66% Emeli HC235.6 mm 25w 4d 3% Hadlock Cerebellum tr32.3 mm 27w 4d 87% Hill AC202.9 mm 24w 6d 3% Hadlock Femur46.7 mm 25w 4d 7% Hadlock Wqwtmnu31.5 mm 24w 0d <1% Emeli HC / AC1.16 OAV981 g 25w 0d 3% Hadlock EFW (lb)1 lb EFW (oz)12 oz EFW by:Hadlock (VNP-DY-BR-FL) Extended Tibia40.1 mm 25w 2d 8% Emeli Kpoqor18.3 mm 24w 5d 14% Emeli Foot47.9 mm 9% Chitty Tvfqme24.4 mm 23w 1d 13% Emeli Ulna37.2 mm 24w 5d 1% Emeli Cav. septi pel. tr5.4 mm Vp4.1 mm CM8.6 mm 94% Nicolaides Head / Face / Neck Cephalic index0.74 8% Nicolaides Extremities / Bony Struc FL / BPD0.75 FL / HC0.20 FL / AC0.23 Other Structures [id number] bpm General Evaluation Cardiac activity present. FHR 150 bpm. movements present. Presentation breech. Placenta Placental site: anterior. Umbilical cord Cord vessels: 3 vessel cord. Amniotic fluid Amount of AF: normal. MVP 5.0 cm. REAGAN 16.6 cm. Q1 2.6 cm,Q2 5.0 cm, Q3 4.2 cm, Q4 4.8 cm. Anatomy Cranium:Normal Cavum septi pellucidi:Normal Cerebellum:Normal Cisterna magna:Normal Head / Neck Rt lateral ventricle:Normal Lt lateral ventricle:Normal Lips:Appear normal Profile:Appears normal Nose:Appears normal 4-chamber view:Appears normal RVOT view:Appears normal LVOT view:Appears normal Heart / Thorax 3-vessel view:Appears normal 9-hcgtnf-xvzgdjv view:Appears normal Cord insertion:Normal Stomach:Appears normal Kidneys:Appears normal Bladder:Appears normal Gender:female Wants to know gender:yes Maternal Structures Uterus / Cervix Cervix:Visualized Approach:Transabdominal Cervical pszvmy62.3 mm Doppler Arterial Umbilical A PI1.15 71% Jolanta Umbilical A RI0.72 75% Jolanta Umbilical A PS-41.45 cm/s Umbilical A ED-12.79 cm/s Umbilical A TAmax-27.21 cm/s Umbilical A MD-12.25 cm/s Umbilical A S / D3.57 70% Jolanta Umbilical A HR138 bpm Impression Farida presents for a follow-up ultrasound to assess interval growth andfetal wellbeing. On today's exam, SIUP is noted in breech presentation with stable if notimproved growth. EFW overall measures at the 3rd percentile. AC isat the 3rd percentile. There is a normal amount of amniotic fluid. Placenta is anterior. Cervicallength appears adequate. Limited but normal appearing anatomy is visualized. Recommendation Follow-up scheduled in 2wks. Coding ======= Description:02192-28 Follow Up Ultrasound Description:16328-65 Doppler Umbilical Artery Outpatient Receptionist: RT Benjamin Hutchison , [facility] Physician: Lis Jeffrey MD Electronically signed by: Lis Jeffrey MD at: 10:58 us Brian Wesley MD IMG US ORDERABLES Final Re sult documented in this encounter Visit Diagnoses Diagnosis Uterine size-date discrepancy in second trimester- Primary Marginal insertion of umbilical cord affecting management of mother in second trimester 23 weeks gestation of Maternal chronic hypertension in second trimester Uterine size-date discrepancy in second trimester Marginal insertion of umbilical cord affecting management of mother in second trimester 23 weeks gestation of Maternal chronic hypertension in second trimester documented in this encounter Care Teams Reflexologist Relationship Specialty Start Date End Date Provider, [place] [address] PCP - General 08/19/24 documented as of this encounter
--- OUTSIDE RECORDS SUMMARY | 2025-09-23 08:52 | XMS_ITS | Encounter Summary ---
Author Organization [facility] Address [address] [place] [address] Care Team Providers Care Clerical And Office Support Workers Name Role Phone Provider, No Known Primary Care Provider Unavail able Reason for Referral * Diagnostic Imaging (Routine) - Closed Specialty Diagnoses / Procedures Referred By Ritesh winchester Referred To Contact Radiology Diagnoses Uterine size-date discrepancy in second trimester Marginal insertion of umbilical cord affecting management of mother in second trimester 23 weeks gestation of Maternal chronic hypertension in second trimester Procedures US [facility] Diagnostic [place] Brian Wesley MD [address] [place] [address] Phone: tel: fax: [facility] US PER DIAG CTR [address] [place] [address] Phone: tel: Referral ID Status Reason Start Date Expiration Date Visits Re quested Visits Authorized [id number] Closed 09/02/2025 12/02/2026 1 1 Reason for Visit * Diagnostic Imaging (Routine) - Closed Specialty Diagnoses / Procedures Referred By Ritesh winchester Referred To Contact Radiology Diagnoses Uterine size-date discrepancy in second trimester Marginal insertion of umbilical cord affecting management of mother in second trimester 23 weeks gestation of Maternal chronic hypertension in second trimester Procedures [facility] Diagnostic [place] Brian Wesley MD [address] [address] Phone: tel: fax: [facility] US PER DIAG CTR [address] [place] [address] Phone: tel: Referral ID Status Reason Start Date Expiration Date Visits Re quested Visits Authorized [id number] Closed 09/02/2025 12/02/2026 1 1 Encounter Details Date Type Department Care Team (Late st Contact Info) Description 09/23/2025 9:52 AM EDT - 09/23/2025 11:59 PM EDT Hospital Encounter [facility] PER DIAG CTR [address] [place] [address] Brian Wesley MD [address] [facility] [address] [place] [address] Uterine size-date discrepancy in second trimester; Marginal [...] Description 10/25/2025 10:15 AM EST Office Visit [facility] [address] [facility] [address] [address] 10/25/2025 10:15 AM EST Appointment [facility] US PER DIAG CTR [address] [place] [address] 11/01/2025 2:15 PM EST Office Visit [facility] [address] [facility] [address] [place] [address] 11/01/2025 2:15 PM EST Appointment [facility] US PER DIAG CTR [address] [place] [address] 11/08/2025 10:45 AM EST Office Visit [facility] [address] [facility] [address] [place] [address] 11/08/2025 10:45 AM EST Appointment [facility] US PER DIAG CTR [address] [place] [address] 11/15/2025 11:30 AM EST Office Visit [facility] [address] [facility] [address] [place] [address] 11/15/2025 11:30 AM EST Appointment [facility] US PER DIAG CTR [address] [place] [address] 11/22/2025 10:45 AM EST Office Visit [facility] [address] [facility] [address] [place] [address] 11/22/2025 10:45 AM EST Appointment [facility] US PER DIAG CTR [address] [place] [address] documented as of this encounter Procedures Procedure Name Priority Date/Time Associated Diagnosis Comments [facility] Routine 09/23/2025 10:28 AM EDT Uterine size-date discrepancy in second trimester Marginal insertion of umbilical cord affecting management of mother in second trimester 23 weeks gestation of Maternal chronic hypertension in second trimester documented in this encounter Results * [facility] (09/23/2025 10:28 AM EDT) Anatomical Region Laterality Modality Ultrasound 09/23/2025 10:0 6 AM EDT Narrative 09/23/2025 10:58 AM EDT PAT NAME: FARIDA LYNN [facility] REC#: [id number] DA: [id number] PAT GEND: F PAT TYPE: O EXAM BLAISE: [id number] REF PHYS AMY CORCORAN Comparison Studies The [...] EFW (oz) 12 oz EFW by: Hadlock (IIF-LO-SM-FL) Extended Tibia 40.1 mm 25w 2d 8% Emeli Fibula 39.3 mm 24w 5d 14% Emeli Foot 47.9 mm 9% Chitty Radius 32.4 mm 23w 1d 13% Emeli Ulna 37.2 mm 24w 5d 1% Emeli Cav. septi pel. tr 5.4 mm Scuba Diver 4.1 mm CM 8.6 mm 94% Nicolaides [...] Heart / Thorax 3-vessel view: Appears normal 7-vbtdzc-iouplkd view: Appears normal Cord insertion: Normal Stomach: [...] Follow-up scheduled in 2wks. Coding ======= Description: 36380-11 Follow Up Ultrasound Description: 78918-43 Doppler Umbilical Artery Assistant Track And Field Coach: RT Benjamin Hutchison , [facility] Physician: Lis Jeffrey MD Electronically signed by: Lis Jeffrey MD at: 10:58 Procedure Note Lis Jeffrey MD - 09/23/2025 PAT NAME: FARIDA LYNN MED REC#: [id number] DA: 1990 PAT GEND: F PAT TYPE: O EXAM BLAISE: [id number] REF PHYS AMY CORCORAN Comparison Studies The findings of this study are compared to the prior ultrasound studydated 09/02/25 Patient Status Outpatient Indication ======== IUGR. Marginal PCI. Obesity BMI 34. Maternal Assessment Ypmerc795 cm Height (ft)5 ft Height (in)3 in Pdnukc77 kg Weight (lb)191 lb BMI33.84 kg/m Method ======= Transabdominal ultrasound examination. View: Suboptimal view: limited byfetal position ========= Botello . Number of fetuses: 1 Dating ====== Method of dating:based on stated PAULA GA by prior qhtrsyaneo17 w + 6 d PAULA by prior assessment:12/24/2025 Ultrasound examination on:09/23/2025 GA by U/S based upon:AC, BPD, Femur, HC GA by U/S25 w + 2 d PAULA by U/S:01/04/2026 Previous dating:based on stated PAULA, selected on 09/02/2025 Agreed PAULA of previous datin12/24/2025 Assigned:based on stated PAULA, selected on 09/23/2025 Assigned GA26 w + 6 d Assigned PAULA:12/24/2025 xfvdme534 d Biometry Standard BPD62.4 mm 25w 2d 4% Hadlock OFD84.3 mm 27w 2d 66% Emeli HC235.6 mm 25w 4d 3% Hadlock Cerebellum tr32.3 mm 27w 4d 87% Hill AC202.9 mm 24w 6d 3% Hadlock Femur46.7 mm 25w 4d 7% Hadlock Lftvdac91.5 mm 24w 0d <1% Emeli HC / AC1.16 LYR794 g 25w 0d 3% Hadlock EFW (lb)1 lb EFW (oz)12 oz EFW by:Hadlock (SKW-WP-CA-FL) Extended Tibia40.1 mm 25w 2d 8% Emeli Xiyary75.3 mm 24w 5d 14% Emeli Foot47.9 mm 9% Chitty Wltnxm18.4 mm 23w 1d 13% Emeli Ulna37.2 mm 24w 5d 1% Emeli Cav. septi pel. tr5.4 mm Vp4.1 mm CM8.6 mm 94% Nicolaides Head / Face / Neck Cephalic index0.74 8% Nicolaides Extremities / Bony Struc FL / BPD0.75 FL / HC0.20 FL / AC0.23 Other Structures TRP022 bpm General Evaluation Cardiac activity present. FHR [...] normal Heart / Thorax 3-vessel view:Appears normal 9-busppi-tdpmfbf view:Appears normal Cord insertion:Normal Stomach:Appears normal Kidneys:Appears normal Bladder:Appears normal Gender:female Wants to know gender:yes Maternal Structures Uterus / Cervix Cervix:Visualized Approach:Transabdominal Cervical jivfug99.3 mm Doppler Arterial Umbilical A PI1.15 71% [...] Recommendation Follow-up scheduled in 2wks. Coding ======= Description:05167-66 Follow Up Ultrasound Description:67172-24 Doppler Umbilical Artery Assistant Track And Field Coach: RT Benjamin Hutchison , [facility] Physician: Lis Jeffrey MD Electronically signed [...] trimester documented in this encounter Care Teams Clerical And Office Support Workers Relationship Specialty Start Date End Date Provider, No Known [facility] [place] [address] PCP - General 08/19/24 documented as of this encounter
--- OUTSIDE RECORDS SUMMARY | 2025-09-23 09:15 | XMS_ITS | Encounter Summary ---
Author Organization [facility] Address [address] [id number] Care Team Providers Care National Investigative Producer Name Role Phone Provider, No Known Primary Care Provider Unavail able Reason for Referral * Diagnostic Imaging (Routine) - Closed Specialty Diagnoses / Procedures Referred By Ritesh winchester Referred To Contact Radiology Diagnoses Marginal insertion of umbilical cord affecting management of mother in second trimester Maternal chronic hypertension in second trimester Poor growth affecting management of mother in third trimester, single or unspecified fetus 26 weeks gestation of Procedures [facility] Lis Jeffrey MD [address] [address] Phone: tel: fax: Referral ID Status Reason Start Date Expiration Date Visits Re quested Visits Authorized [id number] Closed 09/23/2025 12/23/2026 1 1 Reason for Visit * Reason Comments IUGR, MPCI Encounter Details Date Type Department Care Team (Late st Contact Info) Description 09/23/2025 10:15 AM EDT Office Visit [facility] [address] [facility] [address] [place] [phone] Lis Jeffrey MD [address] [facility] [address] [place], [place] [id number] Marginal insertion of umbilical cord affecting management of mother in second trimester (Primary Dx); Maternal chronic hypertension in second trimester; Poor growth affecting management of mother in third trimester, single or unspecified fetus; 26 weeks gestation of Social History Tobacco Use Types Packs/Day Years [...] Sign Reading Time Taken Comments Blood Pressure 139/77 09/23/2025 9:57 AM EDT Pulse - - Temperature - - Respiratory Rate - - Oxygen Saturation - - Inhaled Oxygen Concentration - - Weight 86.6 kg (191 lb) 09/23/2025 9:57 AM EDT Height - - Body Mass Index 33.83 09/02/2025 10:47 AM EDT documented in this encounter Progress Notes * Lis Jeffrey MD - 09/23/2025 11:03 AM EDTAssociated Problem(s): Poor growth affecting management of mother in third trimester Growth improved somewhat on today's exam. - Follow-up scheduled in 2wks - Continue Nifedipine and ASA 81mgs - If BP's begin to creep up so consistently >130/80, will consider changing to BID * Lis Jeffrey MD - 09/23/2025 11:01 AM EDTAssociated Problem(s): Maternal chronic hypertension in third trimester Patient with elevated BP's at multiple visits. When she came for previous ultrasound, she had 140's/77 and was started on medications for presumed CHTN. Patient continues to take Nifedipine 30mgs XL daily and a daily ASA 81mgs. Her BP today is 139/77. - Recommend titrating meds to keep BP's < 140/90 - We will follow closely for growth - Recommend collection of baseline urine P:C ration, serum creatinine, uric acid, AST/ALT/LDH - Continue daily ASA - Follow-up scheduled here in 2wks * Carole Smith RN - 09/23/2025 10:15 AM EDT Denies vaginal bleeding, leaking fluid, and contractions. Endorses normal movement. NIPT negative. Next OB follow-up appointment with Dr. Conley on 10/20/25. * Lis Jeffrey MD - 09/23/2025 10:15 AM EDT Images from the original note were not included. Maternal/ Medicine Consult Note Name: Farida Lynn : 1990 Referring Provider: Amy Conley DO Chief Complaint IUGR, MPCI Subjective History of Present Illness: Farida Lynn is a 35 y.o. 26w6d who presents today for a follow-up ultrasound for growth and wellbeing. She is s/p low risk NIPT. Pt denies LOF/VB/ctx's. +FM. PAULA: Estimated Date of Delivery: 12/24/25 ROS: As noted in HPI. Past Medical History: Diagnosis Date Pneumonia as a baby No past surgical history on file. OB History 2 Para 0 Term 0 0 AB 1 Living 0 SAB 1 IAB 0 Ectopic 0 Molar 0 Multiple 0 Live Births 0 Objective Vital Signs BP 139/77 Wt 86.6 kg (191 lb) Estimated body mass index is 33.83 kg/m?? as calculated from the following: Height as of 09/02/25: 160 cm (63 ). Weight as of this encounter: 86.6 kg (191 lb). Physical Exam Constitutional: Appearance: Normal appearance. She is normal weight. HENT: Head: Normocephalic and atraumatic. Cardiovascular: Rate and Rhythm: Normal rate. Pulmonary: Effort: Pulmonary effort is normal. Musculoskeletal: General: Normal range of motion. Cervical back: Normal range of motion and neck supple. Neurological: General: No focal deficit present. Mental Status: She is alert and oriented to person, place, and time. Psychiatric: Mood and Affect: Mood normal. Behavior: Behavior normal. Thought Content: Thought content normal. Judgment: Judgment normal. Ultrasound Impression: Breech, EFW 3rd%, AC 3rd%, nl REAGAN, anterior placenta, nl CL, nl anatomy, nl Dopplers. Assessment and Plan Diagnoses and all orders for this visit: 1. Marginal insertion of umbilical cord affecting management of mother in second trimester (Primary) - [facility]; Future 2. Maternal chronic hypertension in second trimester Assessment & Plan: Patient with elevated BP's at multiple visits. When she came for previous ultrasound, she had 140's/77 and was started on medications for presumed CHTN. Patient continues to take Nifedipine 30mgs XL daily and a daily ASA 81mgs. Her BP today is 139/77. - Recommend titrating meds to keep BP's < 140/90 - We will follow closely for growth - Recommend collection of baseline urine P:C ration, serum creatinine, uric acid, AST/ALT/LDH - Continue daily ASA - Follow-up scheduled here in 2wks Orders: - [facility]; Future 3. Poor growth affecting management of mother in third trimester, single or unspecified fetus Assessment & Plan: Growth improved somewhat on today's exam. - Follow-up scheduled in 2wks - Continue Nifedipine and ASA 81mgs - If BP's begin to creep up so consistently >130/80, will consider changing to BID Orders: - [facility]; Future 4. 26 weeks gestation of - [facility]; Future Follow Up Return in about 2 weeks (around 10/07/2025). I spent 20 minutes caring for the patient on the [...] other procedures such as amniocentesis or [facility]. Lis Jeffrey MD 09/23/2025 documented in this encounter Plan of Treatment Upcoming Encounters Date Type Department Care Team (Late st Contact Info) Description 10/25/2025 10:15 AM EST Office Visit [facility] [address] [address] 10/25/2025 10:15 AM EST Appointment [facility] US PER DIAG CTR [address] [place] [address] 11/01/2025 2:15 PM EST Office Visit [facility] [address] [address] 11/01/2025 2:15 PM EST Appointment [facility] US PER DIAG CTR [address] [place] [address] 11/08/2025 10:45 AM EST Office Visit [facility] [address] [facility] [address] [place] [phone] 11/08/2025 10:45 AM EST Appointment [facility] US PER DIAG CTR [address] [place] [address] 11/15/2025 11:30 AM EST Office [facility] [address] [facility] [place] [address] [place] [address] 11/15/2025 11:30 AM EST Appointment [facility] US PER DIAG CTR [address] [place] [address] 11/22/2025 10:45 AM EST Office Visit [facility] [address] [facility] [address] 11/22/2025 10:45 AM EST Appointment [facility] US PER DIAG CTR [address] [place] [address] documented as of this encounter Results * [facility] (10/11/2025 10:30 AM EST) Anatomical Region Laterality Modality Ultrasound 10/11/2025 9:59 AM EST Narrative 10/12/2025 7:46 PM EST PAT NAME: FARIDA LYNN MED REC#: [id number] DA: [id number] PAT GEND: F PAT TYPE: O EXAM BLAISE: [id number] REF PHYS AMY CONLEY Comparison Studies The findings of this study are compared to the prior ultrasound study dated 09/23/2025 Patient Status Outpatient Indication ======== IUGR. Marginal PCI. Obesity BMI 34. Maternal Assessment Height 160 cm Height (ft) 5 ft Height (in) 3 in Weight 88 kg Weight (lb) 194 lb BMI 34.38 kg/m Method ======= Transabdominal ultrasound examination. View: Good view ========= Botello . Number of fetuses: 1 Dating ====== Method of dating: based on stated PAULA GA by prior assessment 29 w + 3 d PAULA by prior assessment: 12/24/2025 Ultrasound examination on: 10/11/2025 GA by U/S based upon: AC, BPD, Femur, HC GA by U/S 27 w + 3 d PAULA by U/S: 01/07/2026 Previous dating: based on stated PAULA, selected on 09/23/2025 Agreed PAULA of previous datin12/24/2025 Assigned: based on stated PAULA, selected on 10/11/2025 Assigned GA 29 w + 3 d Assigned PAULA: 12/24/2025 length 280 d Biometry Standard BPD 68.2 mm 27w 3d 2% Hadlock OFD 92.9 mm 30w 0d 65% Emeli HC 258.2 mm 28w 0d 2% Hadlock Cerebellum tr 35.3 mm 29w 3d 50% Hill AC 227.3 mm 27w 1d 2% Hadlock Femur 50.5 mm 27w 1d 1% Hadlock Humerus 42.3 mm 25w 3d <1% Emeli HC / AC 1.14 EFW 1,044 g 26w 6d 2% Hadlock EFW (lb) 2 lb EFW (oz) 5 oz EFW by: Hadlock ([id number]) Extended Cav. septi pel. tr 5.7 mm Linux Engineer 5.0 mm CM 7.1 mm 55% Nicolaides Head / Face / Neck Cephalic index 0.73 5% Nicolaides Extremities / Bony Struc FL / BPD 0.74 FL / HC 0.20 FL / AC 0.22 Other Structures FHR 135 bpm General Evaluation Cardiac activity present. FHR 135 bpm. movements present. Presentation emigdio breech. Placenta Placental site: anterior. Amniotic fluid Amount of AF: normal. MVP 3.6 cm. REAGAN 11.9 cm. Q1 3.6 cm, Q2 3.4 cm, Q3 2.6 cm, Q4 2.3 cm. Anatomy Cranium: Normal Cavum septi pellucidi: Normal Cerebellum: Normal Cisterna magna: Normal Head / Neck Rt lateral ventricle: Normal Lt lateral ventricle: Normal Lips: Normal Profile: Normal Nose: Normal 4-chamber view: Appears normal RVOT view: Normal LVOT view: Normal Heart / Thorax 3-vessel view: Normal 3-elwdxv-bmnmhtn view: normal Cord insertion: Normal Stomach: Appears normal Kidneys: Appears normal Bladder: Appears normal Gender: female Wants to know gender: yes Maternal Structures Uterus / Cervix Cervical length 39.7 mm Doppler Arterial Umbilical A PI 0.97 51% Jolanta Umbilical A RI 0.63 41% Jolanta Umbilical A PS -37.14 cm/s Umbilical A ED -14.51 cm/s Umbilical A TAmax -24.65 cm/s Umbilical A MD -14.35 cm/s Umbilical A S / D 2.72 38% Jolanta Umbilical A HR 153 bpm Biophysical Profile 2: breathing movements 2: Gross body movements 2: tone 2: Amniotic fluid volume 8/8 Biophysical profile score Consultation / Office Visit Office note to follow Impression Breech Severe IUGR noted Normal appearing limited anatomy Normal fluid BPP 8/8 UA doppler normal Marginal cord insertion Coding ======= Description: 56814-47 Follow Up Ultrasound Description: 25845-17 BPP without NST Description: 54422-79 Doppler Umbilical Artery Special Duty Nurse: Albina Roberts RDMS Physician: Danielle Allen MD, FACOG Electronically signed by: Danielle Allen MD, FACOG at: 19:46 Procedure Note Danielle Allen MD - 10/12/2025 PAT NAME: FARIDA LYNN MED REC#: [id number] DA: 1990 PAT GEND: F PAT TYPE: O EXAM BLAISE: [id number] REF PHYS AMY CONLEY Comparison Studies The findings of this study are compared to the prior ultrasound studydated 09/23/2025 Patient Status Outpatient Indication ======== IUGR. Marginal PCI. Obesity BMI 34. Maternal Assessment Vpyvkk937 cm Height (ft)5 ft Height (in)3 in Vpgkua70 kg Weight (lb)194 lb BMI34.38 kg/m Method ======= Transabdominal ultrasound examination. View: Good view ========= Botello . Number of fetuses: 1 Dating ====== Method of dating:based on stated PAULA GA by prior fcqzwofvih46 w + 3 d PAULA by prior assessment:12/24/2025 Ultrasound examination on:10/11/2025 GA by U/S based upon:AC, BPD, Femur, HC GA by U/S27 w + 3 d PAULA by U/S:01/07/2026 Previous dating:based on stated PAULA, selected on 09/23/2025 Agreed PAULA of previous datin12/24/2025 Assigned:based on stated PAULA, selected on 10/11/2025 Assigned GA29 w + 3 d Assigned PAULA:12/24/2025 [id number] d Biometry Standard BPD68.2 mm 27w 3d 2% Hadlock OFD92.9 mm 30w 0d 65% Emeli HC258.2 mm 28w 0d 2% Hadlock Cerebellum tr35.3 mm 29w 3d 50% Hill AC227.3 mm 27w 1d 2% Hadlock Femur50.5 mm 27w 1d 1% Hadlock Kbvtcsx38.3 mm 25w 3d <1% Emeli HC / AC1.14 EFW1,044 g 26w 6d 2% Hadlock EFW (lb)2 lb EFW (oz)5 oz EFW by:Hadlock ([id number]) Extended Cav. septi pel. tr5.7 mm Vp5.0 mm CM7.1 mm 55% Nicolaides Head / Face / Neck Cephalic index0.73 5% Nicolaides Extremities / Bony Struc FL / BPD0.74 FL / HC0.20 FL / AC0.22 Other Structures MHO556 bpm General Evaluation Cardiac activity present. FHR 135 bpm. movements present. Presentation emigdio breech. Placenta Placental site: anterior. Amniotic fluid Amount of AF: normal. MVP 3.6 cm. REAGAN 11.9 cm. Q1 3.6 cm,Q2 3.4 cm, Q3 2.6 cm, Q4 2.3 cm. Anatomy Cranium:Normal Cavum septi pellucidi:Normal Cerebellum:Normal Cisterna magna:Normal Head / Neck Rt lateral ventricle:Normal Lt lateral ventricle:Normal Lips:Normal Profile:Normal Nose:Normal 4-chamber view:Appears normal RVOT view:Normal LVOT view:Normal Heart / Thorax 3-vessel view:Normal 4-bglxml-fxdzrsx view:normal Cord insertion:Normal Stomach:Appears normal Kidneys:Appears normal Bladder:Appears normal Gender:female Wants to know gender:yes Maternal Structures Uterus / Cervix Cervical kafvpf65.7 mm Doppler Arterial Umbilical A PI0.97 51% Jolanta Umbilical A RI0.63 41% Jolanta Umbilical A PS-37.14 cm/s Umbilical A ED-14.51 cm/s Umbilical A TAmax-24.65 cm/s Umbilical A MD-14.35 cm/s Umbilical A S / D2.72 38% Jolanta Umbilical A HR153 bpm Biophysical Profile 2: breathing movements 2: Gross body movements 2: tone 2: Amniotic fluid volume 07/09 Biophysical profile score Consultation / Office Visit Office note to follow Impression Breech Severe IUGR noted Normal appearing limited anatomy Normal fluid BPP 8/8 UA doppler normal Marginal cord insertion Coding ======= Description:20630-74 Follow Up Ultrasound Description:62694-31 BPP without NST Description:03638-90 Doppler Umbilical Artery Special Duty Nurse: Albina Roberts RDMS Physician: Danielle Allen MD, FACOG Electronically signed by: Danielle Allen MD, FACOG at: 9:46 us Lis Jeffrey MD IMG US ORDERABLES Final Res ult documented in this encounter Visit Diagnoses Diagnosis Marginal insertion of umbilical cord affecting management of mother in second trimester- Primary Maternal chronic hypertension in second trimester Poor growth affecting management of mother in third trimester, single or unspecified fetus 26 weeks gestation of Marginal insertion of umbilical cord affecting management of mother in second trimester Maternal chronic hypertension in second trimester Poor growth affecting management of mother in third trimester, single or unspecified fetus 26 weeks gestation of documented in this encounter Care Teams National Investigative Producer Relationship Specialty Start Date End Date Provider, No Known [facility] [place] [address] PCP - General 08/19/24 documented as of this encounter
--- OUTSIDE RECORDS SUMMARY | 2025-10-11 09:44 | XMS_ITS | Encounter Summary ---
Author Organization [facility] Address [address] [place] [address] Care Team Providers Care Can Crimper Name Role Phone Provider, No Known Primary [...] unspecified fetus 26 weeks gestation of Procedures [facility] Diagnostic [place] Lis Jeffrey MD [address] [place] [address] Phone: tel: fax: Referral ID Status Reason Start Date Expiration Date Visits Re quested Visits Authorized [id number] Closed 09/23/2025 12/23/2026 1 1 Reason for Visit * Diagnostic Imaging (Routine) - Closed Specialty Diagnoses / Procedures Referred By Ritesh winchester Referred To Contact Radiology Diagnoses Marginal insertion of umbilical cord affecting management of mother in second trimester Maternal chronic hypertension in second trimester Poor growth affecting management of mother in third trimester, single or unspecified fetus 26 weeks gestation of Procedures [facility] Diagnostic [place] Lis Jeffrey MD [address] [id number] Phone: tel: fax: Referral ID Status Reason Start Date Expiration Date Visits Re quested Visits Authorized [id number] Closed 09/23/2025 12/23/2026 1 1 Encounter Details Date Type Department Care Team (Late st Contact Info) Description 10/11/2025 9:44 AM EST - 10/11/2025 11:59 PM [facility] Hospital Encounter [facility] [address] [place] [address] Lis Jeffrey MD [address] [place] [address] Marginal insertion of umbilical cord affecting management of mother in second trimester; Maternal chronic hypertension in second trimester; Poor growth affecting management of mother in third trimester, single or unspecified fetus; 26 weeks gestation of Discharge Disposition: Home or Self Care Social [...] tablet Take 1 tablet by mouth Daily. documented as of this encounter Plan of Treatment Upcoming Encounters Date Type Department Care Team (Late st Contact Info) Description 10/25/2025 10:15 AM EST Office Visit [facility] MATERNAL MEDICINE [address] [address] 10/25/2025 10:15 AM EST Appointment [facility] US PER DIAG CTR [address] [place] [address] 11/01/2025 2:15 PM EST Office Visit [facility] [address] [facility] [address] 11/01/2025 2:15 PM EST Appointment [facility] PER DIAG CTR [address] [place] [address] 11/08/2025 10:45 AM EST Office Visit [facility] MATERNAL MEDICINE [address] [address] 11/08/2025 10:45 AM EST Appointment [facility] PER DIAG [facility] [address] [place] [address] 11/15/2025 11:30 AM EST Office Visit [facility] [address] [facility] [address] [place] [address] 11/15/2025 11:30 AM EST Appointment [facility] PER DIAG [facility] [address] [place] [address] 11/22/2025 10:45 AM EST Office Visit [facility] [address] [facility] [address] [place] [address] 11/22/2025 10:45 AM EST Appointment [facility] US PER DIAG CTR [address] [place] [address] documented as of this encounter Procedures Procedure Name Priority Date/Time Associated Diagnosis Comments [facility] Routine 10/11/2025 10:30 AM EST Marginal insertion of umbilical cord affecting management of mother in second trimester Maternal chronic hypertension in second trimester Poor growth affecting management of mother in third trimester, single or unspecified fetus 26 weeks gestation of documented in this encounter Results * [facility] (10/11/2025 10:30 AM EST) Anatomical Region Laterality Modality Ultrasound 10/11/2025 9:59 AM EST Narrative 10/12/2025 7:46 PM EST PAT NAME: FARIDA LYNN MED REC#: [id number] DA: [id number] PAT GEND: F PAT TYPE: O EXAM BLAISE: [id number] REF PHYS AMY CORCORAN Comparison Studies The [...] EFW (oz) 5 oz EFW by: Hadlock ([id number]-LA-[id number]-FL) Extended Cav. septi pel. tr 5.7 mm Date Puller 5.0 mm CM 7.1 mm 55% Nicolaides [...] Normal Heart / Thorax 3-vessel view: Normal 9-wjsxyp-xvrlttb view: normal Cord insertion: Normal Stomach: Appears [...] normal Marginal cord insertion Coding ======= Description: 21815-37 Follow Up Ultrasound Description: 01094-09 BPP without NST Description: 81901-16 Doppler Umbilical Artery Employee Relations Director: Albina Roberts RDMS Physician: Danielle Allen MD, FACOG Electronically signed by: Danielle Allen MD, FACOG at: 19:46 Procedure Note Danielle Allen MD - 10/12/2025 PAT NAME: FARIDA LYNN MED REC#: [id number] DA: 1990 PAT GEND: F PAT TYPE: O EXAM BLAISE: [id number] REF PHYS AMY CORCORAN Comparison Studies The findings of this study are compared to the prior ultrasound studydated 09/23/2025 Patient Status Outpatient Indication ======== IUGR. Marginal PCI. Obesity BMI 34. Maternal Assessment Ipbtcz519 cm Height (ft)5 ft Height (in)3 in Clqnqz00 kg Weight (lb)194 lb BMI34.38 kg/m Method ======= Transabdominal ultrasound examination. View: Good view ========= Botello . Number of fetuses: 1 Dating ====== Method of dating:based on stated PAULA GA by prior [id number] w + 3 d PAULA by prior assessment:12/24/2025 Ultrasound examination on:10/11/2025 GA by U/S based upon:AC, BPD, Femur, HC GA by U/S27 w + 3 d PAULA by U/S:01/07/2026 Previous dating:based on stated PAULA, selected on 09/23/2025 Agreed PAULA of previous datin12/24/2025 Assigned:based on stated PAULA, selected on 10/11/2025 Assigned GA29 w + 3 d Assigned PAULA:12/24/2025 [id number] d Biometry Standard BPD68.2 mm 27w 3d 2% Hadlock OFD92.9 mm 30w 0d 65% Emeli HC258.2 mm 28w 0d 2% Hadlock Cerebellum tr35.3 mm 29w 3d 50% Hill AC227.3 mm 27w 1d 2% Hadlock Femur50.5 mm 27w 1d 1% Hadlock Zonmite19.3 mm 25w 3d <1% Emeli HC / AC1.14 EFW1,044 g 26w 6d 2% Hadlock EFW (lb)2 lb EFW (oz)5 oz EFW by:Hadlock (RIK-YG-AB-FL) Extended Cav. septi pel. tr5.7 mm Vp5.0 mm CM7.1 mm 55% Nicolaides Head / Face / Neck Cephalic index0.73 5% Nicolaides Extremities / Bony Struc FL / BPD0.74 FL / HC0.20 FL / AC0.22 Other Structures FFN718 bpm General Evaluation Cardiac activity present. FHR [...] LVOT view:Normal Heart / Thorax 3-vessel view:Normal 8-xgdagc-xgbfxnk view:normal Cord insertion:Normal Stomach:Appears normal Kidneys:Appears normal Bladder:Appears normal Gender:female Wants to know gender:yes Maternal Structures Uterus / Cervix Cervical luxwpx36.7 mm Doppler Arterial Umbilical A PI0.97 51% [...] doppler normal Marginal cord insertion Coding ======= Description:89445-20 Follow Up Ultrasound Description:21017-96 BPP without NST Description:24850-97 Doppler Umbilical Artery Employee Relations Director: Albina Roberts RDMS Physician: Danielle Allen MD, [...] of documented in this encounter Care Teams Can Crimper Relationship Specialty Start Date End Date Provider, [place] [address] PCP - General 08/19/24 documented as of this encounter
--- OUTSIDE RECORDS SUMMARY | 2025-10-11 10:15 | XMS_ITS | Encounter Summary ---
Author Organization [facility] Address [address] [id number] Care Team Providers Care Produce Inspector Name Role Phone Provider, No Known Primary Care Provider Unavail able Reason for Referral * Diagnostic Imaging (Routine) - Closed Specialty Diagnoses / Procedures Referred By Ritesh t Referred To Contact Radiology Diagnoses Poor growth affecting management of mother in third trimester, single or unspecified fetus Maternal chronic hypertension in second trimester Procedures [facility] Danielle Allen MD [address] [address] Phone: tel: fax: Referral ID Status Reason Start Date Expiration Date Visits Re quested Visits Authorized [id number] Closed 10/13/2025 01/12/2027 1 1 Reason for Visit * Reason Comments IUGR, Marginal Cord Insertion, MO Encounter Details Date Type Department Care Team (Late st Contact Info) Description 10/11/2025 10:15 AM EST Office Visit [facility] [address] [facility] [address] [place] [phone] Danielle Allen MD [address] [facility] [address] [place], [place] [phone] Poor growth affecting management of mother in [...] weeks testing in your office Orders: - [facility]; Future 2. Maternal chronic hypertension in second trimester - [facility]; Future Follow Up 1 week [...] [facility]S. Danielle Allen MD FACOG Maternal Medicine, [facility] 10/11/2025 documented in this encounter Plan of Treatment Upcoming Encounters Date Type Department Care Team (Late st Contact Info) Description 10/25/2025 10:15 AM EST Office Visit [facility] [address] [address] 10/25/2025 10:15 AM EST Appointment [facility] DI[facility] [address] [place] [address] 11/01/2025 2:15 PM EST Office Visit [facility] MEDICINE [address] [address] 11/01/2025 2:15 PM EST Appointment [facility] [address] [place] [address] 11/08/2025 10:45 AM EST Office Visit [facility]IC[facility] [address] [address] 11/08/2025 10:45 AM EST Appointment [facility] [address] [place] [address] 11/15/2025 11:30 AM EST Office Visit [facility]ICINE [address] [address] 11/15/2025 11:30 AM EST Appointment [facility] [address] [place] [address] 11/22/2025 10:45 AM EST Office Visit [facility] [facility] [address] [place] [address] 11/22/2025 10:45 AM EST Appointment [facility] [address] [place] [address] documented as of this encounter Results * [facility] (10/18/2025 10:21 AM EST) Anatomical Region Laterality Modality Ultrasound 10/18/2025 9:57 AM EST Narrative 10/18/2025 10:27 AM EST PAT NAME: FARIDA LYNN MED REC#: [id number] DA: [id number] PAT GEND: F PAT TYPE: O EXAM BLAISE: [id number] REF PHYS AMY CONLEY Comparison Studies The [...] amniotic fluid volume Normal umbilical Dopplers BPP 8 Recommendation Follow up in 1 week. Recommend weekly NSTs in your office. Coding ======= Description: 00097-01 BPP without NST Description: 86441-35 Doppler Umbilical Artery Flight Hostess: Eunice Manning RDMS Physician: Jung Angeles MD, FACOG Electronically signed by: Jung Angeles MD, FACOG at: 10:27 Procedure Note Jung Angeles MD - 10/18/2025 PAT NAME: SUKHJINDER FARIDA [facility] REC#: [id number] DA: [id number] PAT GEND: F PAT TYPE: O EXAM BLAISE: [id number] REF PHYS AMY CONLEY Comparison Studies The findings of this study are compared to the prior ultrasound studydated 10/11/25 Patient Status Outpatient Indication ======== IUGR. Marginal PCI. Obesity BMI 34. Maternal Assessment Ihbeqn883 cm Height (ft)5 ft Height (in)3 in Mwxyig39 kg Weight (lb)196 lb BMI34.73 kg/m Method ======= Transabdominal ultrasound examination ========= Botello . Number of fetuses: 1 Dating ====== Method of dating:based on stated PAULA GA by prior [id number] w + 3 d PAULA by prior assessment:12/24/2025 Previous dating:based on stated PAULA, selected on 10/11/2025 Agreed PAULA of previous datin12/24/2025 Assigned:based on stated PAULA, selected on 10/18/2025 Assigned GA30 w + 3 d Assigned PAULA:12/24/2025 [id number] d General Evaluation Cardiac activity present. FHR [...] weekly NSTs in your office. Coding ======= Description:24570-95 BPP without NST Description:42312-75 Doppler Umbilical Artery Flight Hostess: Eunice Manning RDMS Physician: Jung Angeles MD, FACOG Electronically signed by: Jung Angeles MD, FACOG at: 10:27 us Danielle Allen MD IMG US ORDERABLES Final Result documented in this encounter Visit Diagnoses Diagnosis Poor growth affecting management of mother in third trimester, single or unspecified fetus- Primary Maternal chronic hypertension in second trimester Poor growth affecting management of mother in third trimester, single or unspecified fetus Maternal chronic hypertension in second trimester documented in this encounter Care Teams Produce Inspector Relationship Specialty Start Date End Date Provider, No Known [facility] [place] [place] [address] PCP - General 08/19/24 documented as of this encounter
--- OUTSIDE RECORDS SUMMARY | 2025-10-18 09:34 | XMS_ITS | Encounter Summary ---
Author Organization [facility] Address [address] [id number] Care Team Providers Care Bicycle Fitter Name Role Phone Provider, No Known Primary Care Provider Unavail able Reason for Referral * Diagnostic Imaging (Routine) - Closed Specialty Diagnoses / Procedures Referred By Ritesh winchester Referred To Contact Radiology Diagnoses Poor growth affecting management of mother in third trimester, single or unspecified fetus Maternal chronic hypertension in second trimester Procedures [facility] Diagnostic [place] Danielle Allen MD [address] [facility] [place] [address] Phone: tel: fax: Referral ID Status Reason Start Date Expiration Date Visits Re quested Visits Authorized [id number] Closed 10/13/2025 01/12/2027 1 1 Reason for Visit * Diagnostic Imaging (Routine) - Closed Specialty Diagnoses / Procedures Referred By Ritesh winchester Referred To Contact Radiology Diagnoses Poor growth affecting management of mother in third trimester, single or unspecified fetus Maternal chronic hypertension in second trimester Procedures [facility] Diagnostic [place] Danielle Allen MD [address] [place] [address] Phone: tel: fax: Referral ID Status Reason Start Date Expiration Date Visits Re quested Visits Authorized [id number] Closed 10/13/2025 01/12/2027 1 1 Encounter Details Date Type Department Care Team (Late st Contact Info) Description 10/18/2025 9:34 AM EST - 10/18/2025 11:59 PM EST Hospital Encounter [facility] PER DI[facility] [address] [place] [address] Danielle Allen MD [address] [place] [address] Poor growth affecting management of mother in [...] Description 10/25/2025 10:15 AM EST Office Visit [facility] [address] [facility] [address] [place] [address] 10/25/2025 10:15 AM EST Appointment [facility] PER DI[facility] [address] [facility] [place] [address] 11/01/2025 2:15 PM EST Office Visit [facility]ERNAL MEDICINE [address] [address] 11/01/2025 2:15 PM EST Appointment [facility] [address] [place] [address] 11/08/2025 10:45 AM EST Office Visit [facility] MATERNAL MEDICINE [address] [address] 11/08/2025 10:45 AM EST Appointment [facility] [address] [facility] [place] [address] 11/15/2025 11:30 AM EST Office Visit [facility] MEDICINE [address] [address] 11/15/2025 11:30 AM EST Appointment [facility] [address] [facility] [place] [address] 11/22/2025 10:45 AM EST Office Visit [facility] MATERNAL MEDICINE [address] [address] 11/22/2025 10:45 AM EST Appointment [facility] [address] [place] [address] documented as of this encounter Procedures Procedure Name Priority Date/Time Associated Diagnosis Comments [facility] Routine 10/18/2025 10:21 AM EST Poor growth affecting management of mother in third trimester, single or unspecified fetus Maternal chronic hypertension in second trimester documented in this encounter Results * [facility] (10/18/2025 10:21 AM EST) Anatomical Region Laterality Modality Ultrasound 10/18/2025 9:57 AM EST Narrative 10/18/2025 10:27 AM EST PAT NAME: FARIDA LYNN MED REC#: [id number] DA: [id number] PAT GEND: F PAT TYPE: O EXAM BLAISE: [id number] REF PHYS AMY CORCORAN Comparison Studies The [...] NSTs in your office. Coding ======= Description: 70002-92 BPP without NST Description: 43479-86 Doppler Umbilical Artery Embedded Nurse: Eunice Manning RDMS Physician: Jung Angeles MD, FACOG Electronically signed by: Jung Angeles MD, FACOG at: 10:27 Procedure Note Jung Angeles MD - 10/18/2025 PAT NAME: FARIDA LYNN MED REC#: [id number] DA: 1990 PAT GEND: F PAT TYPE: O EXAM BLAISE: [id number] REF PHYS AMY CORCORAN Comparison Studies The findings of this study are compared to the prior ultrasound studydated 10/11/25 Patient Status Outpatient Indication ======== IUGR. Marginal PCI. Obesity BMI 34. Maternal Assessment Beziyd909 cm Height (ft)5 ft Height (in)3 in Mizlnq74 kg Weight (lb)196 lb BMI34.73 kg/m Method ======= Transabdominal ultrasound examination ========= Botello . Number of fetuses: 1 Dating ====== Method of dating:based on stated PAULA GA by prior iqerspdvvu16 w + 3 d PAULA by prior assessment:12/24/2025 Previous dating:based on stated PAULA, selected on 10/11/2025 Agreed PAULA of previous datin12/24/2025 Assigned:based on stated PAULA, selected on 10/18/2025 Assigned GA30 w + 3 d Assigned PAULA:12/24/2025 [id number] d General Evaluation Cardiac activity present. FHR [...] weekly NSTs in your office. Coding ======= Description:58584-74 BPP without NST Description:55929-91 Doppler Umbilical Artery Embedded Nurse: Eunice Manning RDMS Physician: Jung Angeles MD, FACOG Electronically signed by: Jung Angeles MD, FACOG at: 10:27 us Danielle Allen MD IMG US ORDERABLES Final Result documented in this encounter Visit Diagnoses Diagnosis Poor growth affecting management of mother in third trimester, single or unspecified fetus Maternal chronic hypertension in second trimester documented in this encounter Care Teams Bicycle Fitter Relationship Specialty Start Date End Date Provider, [place] [address] PCP - General 08/19/24 documented as of this encounter
--- OUTSIDE RECORDS SUMMARY | 2025-10-18 10:15 | XMS_ITS | Encounter Summary ---
Author Organization [facility] Address [address] [id number] Care Team Providers Care Outreach And Education Social Worker Name Role Phone Provider, No Known Primary Care Provider Unavail able Reason for Referral * Diagnostic Imaging (Routine) - Authorized Specialty Diagnoses / Procedures Referred By Contac t Referred To Contact Radiology Diagnoses Poor growth affecting management of mother in third trimester, single or unspecified fetus Maternal chronic hypertension in third trimester Procedures [facility] Jung Angeles MD [address] [facility] [address] [place] [address] Phone: tel: fax: Referral ID Status Reason Start Date Expiration Date V isits Requested Visits Authorized [id number] Authorized 10/18/2025 01/17/2027 5 5 Reason for Visit * Reason Comments IUGR, MPCI, MO GHTN Encounter Details Date Type Department Care Team (Late st Contact Info) Description 10/18/2025 10:15 AM EST Office Visit [facility] [address] [place] [address] Jung Angeles MD [address] [place] [address] Poor growth affecting management of mother in [...] Description 10/25/2025 10:15 AM EST Office Visit [facility] [address] [address] 10/25/2025 10:15 AM EST Appointment [facility] [address] [place] [address] 11/01/2025 2:15 PM EST Office Visit [facility] [address] [address] 11/01/2025 2:15 PM EST Appointment [facility] [address] [place] [address] 11/08/2025 10:45 AM EST Office Visit [facility] [address] [address] 11/08/2025 10:45 AM EST Appointment [facility] [address] [place] [address] 11/15/2025 11:30 AM EST Office Visit [facility] [address] [address] 11/15/2025 11:30 AM EST Appointment [facility] [address] [place] [address] 11/22/2025 10:45 AM EST Office Visit [facility] [address] [place] [address] 11/22/2025 10:45 AM EST Appointment [facility] [address] [place] [address] Scheduled Orders Name Type Priority Associated Diagnoses Orde r Schedule [facility] Imaging Routine Poor growth affecting management of mother in third trimester, single or unspecified fetus Maternal chronic hypertension in third trimester Once a week for 5 Occurrences starting 10/18/2025 until 10/18/2026 documented as of this encounter Visit Diagnoses Diagnosis Poor growth affecting management of mother in third trimester, single or unspecified fetus- Primary Maternal chronic hypertension in third trimester documented in this encounter Care Teams Outreach And Education Social Worker Relationship Specialty Start Date End Date Provider, [place] [address] PCP - General 08/19/24 documented as of this encounter
--- OUTSIDE RECORDS SUMMARY | 2025-10-22 16:58 | XMS_ITS | Encounter Summary ---
Author Organization [facility] Address [address] [place] [address] Care Team Providers Care Contract Agent Name Role Phone Provider, No Known Primary [...] Description 10/25/2025 10:15 AM EST Office Visit [facility]NAL MEDICINE [address] [facility] [address] [place] [address] 10/25/2025 10:15 AM EST Appointment [facility] US PER DIAG CTR [address] [place] [address] 11/01/2025 2:15 PM EST Office Visit [facility] MATERNAL MEDICINE [address] [address] 11/01/2025 2:15 PM EST Appointment [facility] US PER DIAG CTR [address] [place] [address] 11/08/2025 10:45 AM EST Office Visit [facility] MATERNAL MEDICINE [address] [address] 11/08/2025 10:45 AM EST Appointment [facility] US PER DIAG CTR [address] [place] [address] 11/15/2025 11:30 AM EST Office Visit [facility] MATERNAL MEDICINE [address] [address] 11/15/2025 11:30 AM EST Appointment [facility] US PER DIAG CTR [address] [place] [address] 11/22/2025 10:45 AM EST Office Visit [facility] MATERNAL MEDICINE [address] [address] 11/22/2025 10:45 AM EST Appointment [facility] US PER DIAG CTR [address] [place] [address] documented as of this encounter Visit Diagnoses Not on filedocumented in this encounter Care Teams Contract Agent Relationship Specialty Start Date End Date Provider, [place] [address] PCP - General 08/19/24 documented as of this encounter
--- OUTSIDE RECORDS SUMMARY | 2025-10-22 16:59 | XMS_ITS | Encounter Summary ---
Author Organization [facility] Address [address] [place] [address] Care Team Providers Care Distiller Name Role Phone Provider, No Known Primary [...] Description 10/25/2025 10:15 AM EST Office Visit [facility] MEDIC[facility] [address] [facility] [address] [place] [address] 10/25/2025 10:15 AM EST Appointment [facility] US PER DIAG CTR [address] [place] [address] 11/01/2025 2:15 PM EST Office Visit [facility] MATERNAL MEDICINE [address] [address] 11/01/2025 2:15 PM EST Appointment [facility] US PER DIAG CTR [address] [place] [address] 11/08/2025 10:45 AM EST Office Visit [facility] MATERNAL MEDICINE [address] [address] 11/08/2025 10:45 AM EST Appointment [facility] US PER DIAG CTR [address] [place] [address] 11/15/2025 11:30 AM EST Office Visit [facility] MATERNAL MEDICINE [address] [address] 11/15/2025 11:30 AM EST Appointment [facility] US PER DIAG CTR [address] [place] [address] 11/22/2025 10:45 AM EST Office Visit [facility] MATERNAL MEDICINE [address] [address] 11/22/2025 10:45 AM EST Appointment [facility] US PER DIAG CTR [address] [place] [address] documented as of this encounter Visit Diagnoses Not on filedocumented in this encounter Care Teams Distiller Relationship Specialty Start Date End Date Provider, [place] [address] PCP - General 08/19/24 documented as of this encounter
--- OUTSIDE RECORDS SUMMARY | 2025-10-22 16:59 | XMS_ITS | Encounter Summary ---
Author Organization [facility] Address [address] [place] [address] Care Team Providers Care Wind Tunnel Engineer Name Role Phone Provider, No Known Primary Care Provider Unavail able Reason for Visit * Reason Onset Date Comments Advice Only 09/06/2025 Pt has question for Nurse. Encounter Details Date Type Department Care Team (Late st Contact Info) Description 09/06/2025 Telephone [facility] PER DIAG CTR [address] [place] [phone] Brian Wesley MD [address] [facility] [address] [place] [address] Advice Only (Pt has question for Nurse.) [...] Description 10/25/2025 10:15 AM EST Office Visit [facility]ERNAL MEDICINE [address] [address] 10/25/2025 10:15 AM EST Appointment [facility] US PER DIAG CTR [address] [place] [address] 11/01/2025 2:15 PM EST Office Visit [facility] MATERNAL MEDICINE [address] [address] 11/01/2025 2:15 PM EST Appointment [facility] US PER DIAG CTR [address] [place] [address] 11/08/2025 10:45 AM EST Office Visit [facility] MATERNAL MEDICINE [address] [address] 11/08/2025 10:45 AM EST Appointment [facility] US PER DIAG CTR [address] [place] [address] 11/15/2025 11:30 AM EST Office Visit [facility] MATERNAL MEDICINE [address] [facility] [address] [place] [address] 11/15/2025 11:30 AM EST Appointment [facility] US PER DIAG CTR [address] [place] [address] 11/22/2025 10:45 AM EST Office Visit [facility] MATERNAL MEDICINE [address] [address] 11/22/2025 10:45 AM EST Appointment [facility] US PER DIAG CTR [address] [place] [address] documented as of this encounter Visit Diagnoses Not on filedocumented in this encounter Care Teams Wind Tunnel Engineer Relationship Specialty Start Date End Date Provider, [place] [address] PCP - General 08/19/24 documented as of this encounter
--- OUTSIDE RECORDS SUMMARY | 2025-10-22 16:59 | XMS_ITS | Encounter Summary ---
Author Organization [facility] Address [address] [place] [address] Care Team Providers Care White Metal Caster Name Role Phone Provider, No Known Primary Care Provider Unavail able Encounter Details Date Type Department Care Team (Latest Contact Info) Description 10/11/2025 Travel Social History Tobacco Use Types Packs/Day [...] Description 10/25/2025 10:15 AM EST Office Visit [facility] [address] [facility] [address] [place] [address] 10/25/2025 10:15 AM EST Appointment [facility] US PER DIAG CTR [address] [place] [address] 11/01/2025 2:15 PM EST Office Visit [facility] MATERNAL MEDICINE [address] [address] 11/01/2025 2:15 PM EST Appointment [facility] US PER DIAG CTR [address] [place] [address] 11/08/2025 10:45 AM EST Office Visit [facility] MATERNAL MEDICINE [address] [address] 11/08/2025 10:45 AM EST Appointment [facility] US PER DIAG CTR [address] [place] [address] 11/15/2025 11:30 AM EST Office Visit [facility] MATERNAL MEDICINE [address] [address] 11/15/2025 11:30 AM EST Appointment [facility] US PER DIAG CTR [address] [place] [address] 11/22/2025 10:45 AM EST Office Visit [facility] MATERNAL MEDICINE [address] [address] 11/22/2025 10:45 AM EST Appointment [facility] US PER DIAG CTR [address] [place] [address] documented as of this encounter Visit Diagnoses Not on filedocumented in this encounter Care Teams White Metal Caster Relationship Specialty Start Date End Date Provider, [place] [address] PCP - General 08/19/24 documented as of this encounter
--- OUTSIDE RECORDS SUMMARY | 2025-10-22 16:59 | XMS_ITS | Patient Health Record ---
Author Organization [facility] Address [address] [facility] [address] [place] [address] Care Team Providers Care Police Or Patrol Park Officer Name Role Phone Henna Matamoros Unavailable [phone] Brandy Barillas Unavailable [phone] Allergies No Known Allergies Reason For Referral No Information Social History Sex Assigned At : Social History Observation Description Sex Assigned At Female Section Notes: Age you started smokin Amount of Use: Some days but not every day Do you have any muslim or culture customs that your provider should [...] not every day Do you have any muslim or culture customs that your provider should [...] not every day Do you have any muslim or culture customs that your provider should [...] not every day Do you have any muslim or culture customs that your provider should [...] W/U Status Risk Notes Problem Missed period (20763635) Missed period (N92.6) Active confirmed Plan Of Treatment Future Test Test Name Order Date *US OB Complete Transabdominal/Vaginal 0 08/25/2024 Insurance Providers Payer Name Payer Address Payer Phone Subscriber Number Group Number Insured Name Patient Relationship to Insured Coverage Start Date Coverage End Date Jose BERRYO [address] [place] [address] [id number] Julia Salas Self - patient is the insured Medical (General) History Medical History History ICD Code Asthma Surgical History Surgery Date(Month/Year) None Hospitalization History Reason Date(Month/Year) Admit for [facility] 2011
--- OUTSIDE RECORDS SUMMARY | 2025-10-22 16:59 | XMS_ITS | Encounter Summary ---
Author Organization [facility] Address [address] [place] [address] Care Team Providers Care Installation Drafter Name Role Phone Provider, No Known Primary Care Provider Unavail able Reason for Visit * Reason Onset Date Comments Advice Only 09/02/2025 Encounter Details Date Type Department Care Team (Late st Contact Info) Description 09/02/2025 Telephone [facility] MATERNAL MEDICINE [address] [facility] [address] [place] [address] Jodie Garcia keg header Only Social History Tobacco Use Types Packs/Day [...] Description 10/25/2025 10:15 AM EST Office Visit [facility] MATERNAL MEDICINE [address] [address] 10/25/2025 10:15 AM EST Appointment [facility] US PER DIAG CTR [address] [place] [address] 11/01/2025 2:15 PM EST Office Visit [facility]NAL MEDICINE [address] [facility] [address] 11/01/2025 2:15 PM EST Appointment [facility] US PER DIAG CTR [address] [place] [address] 11/08/2025 10:45 AM EST Office Visit [facility] MATERNAL MEDICINE [address] [address] 11/08/2025 10:45 AM EST Appointment [facility] US PER DIAG CTR [address] [place] [address] 11/15/2025 11:30 AM EST Office Visit [facility] MATERNAL MEDICINE [address] [facility] [address] [place] [address] 11/15/2025 11:30 AM EST Appointment [facility] US PER DIAG CTR [address] [place] [address] 11/22/2025 10:45 AM EST Office Visit [facility] MATERNAL MEDICINE [address] [address] 11/22/2025 10:45 AM EST Appointment [facility] US PER DIAG CTR [address] [place] [address] documented as of this encounter Visit Diagnoses Not on filedocumented in this encounter Care Teams Installation Drafter Relationship Specialty Start Date End Date Provider, [place] [address] PCP - General 08/19/24 documented as of this encounter
--- OUTSIDE RECORDS SUMMARY | 2025-10-22 16:59 | XMS_ITS | Clinical Summary ---
Author Organization [facility] Address [address] [id number] Care Team Providers Care Neurology Manager Name Role Phone Provider, No Known Primary Care Provider Unavail able Allergies No known active allergies Medications Vit-Fe Fumarate-FA ( vitamin 27-0.8) 27-0.8 MG tablet tablet Take 1 tablet by mouth Daily. Active aspirin 81 MG chewable tablet Chew 1 tablet Daily. Active NIFEdipine XL (PROCARDIA XL) 30 MG 24 hr tablet Take 1 tablet by mouth Daily for 150 days. 30 tablet 4 5 01/31/20 26 Active promethazine (PHENERGAN) 12.5 MG tablet Take 2 tablets by mouth Every 6 (Six) Hours As Needed. 5 10/11/20 25 Discontinu ed(*Therap y completed) Active Problems Problem Noted Date Diagnosed Date Poor growth affecting management of mother in third trimester 09/23/2025 Assessment & Plan (10/13/2025 3:01 PM EST): Severe IUGR noted today with normal UA dopplers, fluid BP well controlled currently Continue current medication regimen Follow up with MFM in 1 week for REAGAN/BPP/UA dopplers and growth in 2 weeks testing in your office Assessment & Plan (09/23/2025 11:03 AM EDT): [...] to assess growth. Maternal chronic hypertension in third trimester 09/02/2025 Assessment & Plan (09/23/2025 11:07 AM [...] Encounters Date Type Department Care Team Description 10/18/2025 10:15 AM EST Office Visit [facility] [address] [facility] [address] [place] [phone] Jung Angeles MD Poor growth affecting management of mother in third trimester, single or unspecified fetus (Primary Dx); Maternal chronic hypertension in third trimester 10/18/2025 9:34 AM EST - 10/18/2025 11:59 PM EST Hospital Encounter [facility] PER DI[facility] [address] [place] [phone] Danielle Allen MD Poor growth affecting management of mother in third trimester, single or unspecified fetus; Maternal chronic hypertension in second trimester Discharge Disposition: Home or Self Care 10/18/2025 Travel 10/11/2025 10:15 AM EST Office Visit [facility] [address] [facility] [address] [place] [phone] Danielle Allen MD Poor growth affecting management of mother in third trimester, single or unspecified fetus (Primary Dx); Maternal chronic hypertension in second trimester 10/11/2025 9:44 AM EST - 10/11/2025 11:59 PM EST Hospital Encounter [facility] [address] [place] [phone] Lis eJffrey MD Marginal insertion of umbilical cord affecting management of mother in second trimester; Maternal chronic hypertension in second trimester; Poor growth affecting management of mother in third trimester, single or unspecified fetus; 26 weeks gestation of Discharge Disposition: Home or Self Care 10/11/2025 Travel 09/23/2025 10:15 AM EDT Office Visit [facility] [address] [facility] [address] [place] [phone] Lis Jeffrey MD Marginal insertion of umbilical cord affecting management of mother in second trimester (Primary Dx); Maternal chronic hypertension in second trimester; Poor growth affecting management of mother in third trimester, single or unspecified fetus; 26 weeks gestation of 09/23/2025 9:52 AM EDT - 09/23/2025 11:59 PM EDT Hospital Encounter [facility] [address] [place] [address] Brian Wesley MD Uterine size-date discrepancy in second trimester; Marginal insertion of umbilical cord affecting management of mother in second trimester; 23 weeks gestation of ; Maternal chronic hypertension in second trimester Discharge Disposition: Home or Self Care 09/23/2025 Travel 09/06/2025 Telephone [facility] [address] [place] [address] Brian Wesley MD Advice Only (Pt has question for Nurse.) 09/02/2025 10:30 AM EDT - 09/02/2025 11:59 PM EDT Hospital Encounter [facility] [address] [place] [address] Amy Conley, Maternal care for other known or suspected poor growth, second trimester, not applicable or unspecified; Marginal insertion of umbilical cord affecting management of mother in second trimester; , unspecified gestational age Discharge Disposition: Home or Self Care 09/02/2025 10:30 AM EDT Office Visit [facility] MED[facility] [address] [facility] [address] [place] [phone] Brian Wesley MD Uterine size-date discrepancy in second trimester (Primary Dx); Marginal insertion of umbilical cord affecting management of mother in second trimester; 23 weeks gestation of ; Maternal chronic hypertension in second trimester 09/02/2025 Telephone [facility] [address] [facility] [address] [place] [address] Jodie Garcia appeals referee Only 09/02/2025 Travel from Last 3 Months [...] (196 lb) 10/18/2025 9:38 AM EST Height 160 cm (5' 3 ) 09/02/2025 10:47 AM EDT Body Mass Index 34.72 09/02/2025 10:47 AM EDT Plan of Treatment Upcoming Encounters Date Type Department Care Team (Late st Contact Info) Description 10/25/2025 10:15 AM EST Office Visit [facility] [address] [phone] 10/25/2025 10:15 AM EST Appointment [facility] [address] [place] [address] 11/01/2025 2:15 PM EST Office Visit [facility] MATERNAL MEDICINE [address] [phone] 11/01/2025 2:15 PM EST Appointment [facility] [address] [place] [address] 11/08/2025 10:45 AM EST Office Visit [facility] [address] [address] 11/08/2025 10:45 AM EST Appointment [facility] [address] [place] [address] 11/15/2025 11:30 AM EST Office Visit [facility] [address] [address] 11/15/2025 11:30 AM EST Appointment [facility] [address] [place] [address] 11/22/2025 10:45 AM EST [facility] [address] [place] [address] 11/22/2025 10:45 AM EST Appointment [facility] [address] [place] [address] Health Maintenance Due Date Last Done Comments [...] Name Priority Date/Time Associated Diagnosis Comments [facility] Routine 10/18/2025 10:21 AM EST Poor growth affecting management of mother in third trimester, single or unspecified fetus Maternal chronic hypertension in second trimester [facility] Routine 10/11/2025 10:30 AM EST Marginal insertion of umbilical cord affecting management of mother in second trimester Maternal chronic hypertension in second trimester Poor growth affecting management of mother in third trimester, single or unspecified fetus 26 weeks gestation of [facility] Routine 09/23/2025 10:28 AM EDT Uterine size-date discrepancy in second trimester Marginal insertion of umbilical cord affecting management of mother in second trimester 23 weeks gestation of Maternal chronic hypertension in second trimester [facility] Routine 09/02/2025 11:30 AM EDT Maternal care for other known or suspected poor growth, second trimester, not applicable or unspecified Marginal insertion of umbilical cord affecting management of mother in second trimester , unspecified gestational age from Last 3 Months Results * [facility] (10/18/2025 10:21 AM EST) Only the most recent of4 resultswithin the time period is included. Anatomical Region Laterality Modality Ultrasound 10/18/2025 9:57 AM EST Narrative 10/18/2025 10:27 AM EST PAT NAME: FARIDA LYNN [facility] REC#: [id number] DA: 1990 PAT GEND: F PAT TYPE: O EXAM BLAISE: [id number] REF PHYS AMY CONLEY Comparison Studies The [...] NSTs in your office. Coding ======= Description: 34473-61 BPP without NST Description: 95073-63 Doppler Umbilical Artery Decommissioning Well Site Manager: Eunice Manning RDMS Physician: Jung Angeles MD, FACOG Electronically signed by: Jung Angeles MD, FACOG at: 10:27 Procedure Note Jung Angeles MD - 10/18/2025 PAT NAME: FARIDA LYNN MED REC#: [id number] DA: [id number] PAT GEND: F PAT TYPE: O EXAM BLAISE: [id number] REF PHYS NILO AMY Comparison Studies The findings of this study are compared to the prior ultrasound studydated 10/11/25 Patient Status Outpatient Indication ======== IUGR. Marginal PCI. Obesity BMI 34. Maternal Assessment Jviefp660 cm Height (ft)5 ft Height (in)3 in Jjubds85 kg Weight (lb)196 lb BMI34.73 kg/m Method ======= Transabdominal ultrasound examination ========= Botello . Number of fetuses: 1 Dating ====== Method of dating:based on stated PAULA GA by prior [id number] w + 3 d PAULA by prior assessment:12/24/2025 Previous dating:based on stated PAULA, selected on 10/11/2025 Agreed PAULA of previous datin12/24/2025 Assigned:based on stated PAULA, selected on 10/18/2025 Assigned GA30 w + 3 d Assigned PAULA:12/24/2025 [id number] d General Evaluation Cardiac activity present. FHR [...] weekly NSTs in your office. Coding ======= Description:39069-38 BPP without NST Description:03831-02 Doppler Umbilical Artery Decommissioning Well Site Manager: Eunice Manning RDMS Physician: Jung Angeles MD, FACOG Electronically signed by: Jung Angeles MD, FACOG at: 10:27 us Danielle Allen MD [facility] [place] ORDER[place]LES Final Result from Last 3 Months Insurance EMPLOYEE Care Teams Neurology Manager Relationship Specialty Start Date End Date Provider, [place] [address] PCP - General 08/19/24
--- OUTSIDE RECORDS SUMMARY | 2025-10-22 16:59 | XMS_ITS | Encounter Summary ---
Author Organization [facility] Address [address] [place] [address] Care Team Providers Care Brake Lining Finisher Name Role Phone Provider, No Known Primary Care Provider Unavail able Encounter Details Date Type Department Care Team (Latest Contact Info) Description 10/18/2025 Travel Social History Tobacco Use Types Packs/Day [...] Visit [facility] [address] [facility] [address] [place] [phone] 10/25/2025 10:15 AM EST Appointment [facility] [address] [place] [address] 11/01/2025 2:15 PM EST Office Visit [facility] MATERNAL MEDICINE [address] [address] 11/01/2025 2:15 PM EST Appointment [facility] [address] [place] [address] 11/08/2025 10:45 AM EST Office Visit [facility] MATERNAL MEDICINE [address] [address] 11/08/2025 10:45 AM EST Appointment [facility] [address] [place] [address] 11/15/2025 11:30 AM EST Office Visit [facility] MATERNAL MEDICINE [address] [address] 11/15/2025 11:30 AM EST Appointment [facility] [address] [place] [address] 11/22/2025 10:45 AM EST Office Visit [facility] MATERNAL MEDICINE [address] [address] 11/22/2025 10:45 AM EST Appointment [facility] [address] [place] [address] documented as of this encounter Visit Diagnoses Not on filedocumented in this encounter Care Teams Brake Lining Finisher Relationship Specialty Start Date End Date Provider, [place] [address] PCP - General 08/19/24 documented as of this encounter
[2025-10-22 17:31] VITALS: BP 138/70; PULSE 99; RESP 18; TEMP 36.6; O2SAT 99; BMI 34.5
== END 2025-10-22 17:50 | disposition home or self-care (01) ==
LOC: OBOUT 16:57 → OB 17:00
PROVIDERS: PCP Obstetrics & Gynecology; Visit Provider Obstetrics & Gynecology
DX: Z34.83 Encounter for supervision of other normal pregnancy, third trimester (principal); Z3A.31 31 weeks gestation of pregnancy
CPT/HCPCS: 99212

== ENCOUNTER 2025-10-29 12:50 | Outpatient (CLI) | payer BC, SELFPAY ==
--- OUTSIDE RECORDS SUMMARY | 2024-08-25 10:00 | XMS_ITS ---
Author Organization [facility] Address [address] [place] [address] Care Team Providers Care Set Up Person Name Role Phone Matamoros, Henna Unavailable [phone] Sharon Bautista Unavailable [phone] Results Component Value Reference Range Notes *US OB Complete Transabdomin al/Vaginal Reviewed date:08/27/2024 04:41:33 PM Interpretation: Performing Lab: Notes/Report: [facility] Women's Health Transvaginal Obstetric Study Report Name: FARIDA RONQUILLO Accession/Encounter No:[id number] : 1990 Age: 34 Gender: F Race: [...] 1 of 1 Imaging Center - , [facility] Lyn REASON FOR VISIT early OB Bleeding LLQ pain Social History Sex Assigned At : Social History Observation Description Sex Assigned At Female Encounters Encounter Location Date Provider Diagnosis [facility]-NR [address] [place] [address] 08/25/2024 Sharon Bautista Bleeding in early O20.9 Assessments Encounter Date Diagnosis (ICD Code) Assessment Notes Treatment Notes Treatment Clinical Notes Section Notes 08/25/2024 Bleeding in early (ICD-10 - O20.9) Plan Of Treatment No Information Progress Notes * Charles RONQUILLOJozefB: 992 (35 yo F)Acc No.[id number]:08/25/2024 Progress Note Patient: Farida Zimmerman Provider: Andrey Bautista NP :1990 A ge:34 Y S ex:Female Date:08/25/2024 Address:[facility] [address], [place] , [id number] Subjective: * Chief Complaints: * e promise OB Bleeding LLQ pain Assessment: * Assessment: 1. B leeding in early - O20.9 Plan: * Treatment: Billing Information: * Procedure Codes: * Electronic signature of Octavio Bautista NP on 10/29/2025 at 12:56 PM EST Sign off status: Pending Visit Status: Nancy RAMÍREZ (Check Out) * Provider: Andrey Bautista NP Date: 0 08/25/2024 Generated for Jesika trevino/Marleny/Amandaitting on: 12/29/2024 12:56 PM EST
--- OUTSIDE RECORDS SUMMARY | 2024-12-25 09:15 | XMS_ITS ---
Author Organization [facility] Address [address] [place] [address] Care Team Providers Care Frame Table Operator Helper Name Role Phone Henna Matamoros Unavailable [phone] Brandy Barillas Unavailable [phone] REASON FOR VISIT Annual Social History Sex Assigned At : Social History Observation Description Sex Assigned At Female Section Notes: Age you started smokin Amount of Use: Some days but not every day Do you have any congregational or culture customs that your provider should [...] No Encounters Encounter Location Date Provider Diagnosis [facility]-NR [address] [place] [address] 12/25/2024 Brandy Barillas Plan Of Treatment No Information Progress Notes * Charles RONQUILLOJozefB: 992 (35 yo F)Acc No.[id number]:12/25/2024 Progress Note Patient: Julia Zimmerman Provider: Errol Barillas MD :1990 A ge:34 Y S ex:Female Date:12/25/2024 Address:[address], [place], [id number] Subjective: * Chief Complaints: * A nnual * Medical History: Asthma Medical History Verified * Upholstery Sewer History: P ap Smear History: D ate [...] * Hospitalization/Major Diagno stic Procedure: Admit for [place] 2011 Hospitalization Verified. * Family History: F [...] not every day Do you have any congregational or culture customs that your provider should [...] Electronic signature of Alon Barillas MD on 10/29/2025 at 12:55 PM EST Sign off status: Pending Visit Status: N /S (No-Show) * Provider: Errol Barillas MD Date: 0 12/25/2024 Generated for Jesika trevino/Marleny/Macey on: 12/29/2024 12:55 PM EST
--- OUTSIDE RECORDS SUMMARY | 2025-09-02 09:30 | XMS_ITS | Encounter Summary ---
Author Organization [facility] Address [address] [id number] Care Team Providers Care Exchange Engineer Name Role Phone Provider, No Known Primary [...] second trimester , unspecified gestational age Procedures [facility] Diagnostic [place] Amy Conley DO [address] [place] [address] [place] [address] Phone: tel: fax: [facility] US PER DIAG CTR [address] [place] [address] Phone: tel: Referral ID Status Reason Start Date Expiration Date Visits Re quested Visits Authorized [id number] Closed 08/05/2025 11/04/2026 1 1 Reason for Visit * Diagnostic Imaging (Routine) - Closed Specialty Diagnoses / Procedures Referred By Ritesh winchester Referred To Contact Radiology Diagnoses Maternal care for other known or suspected poor growth, second trimester, not applicable or unspecified Marginal insertion of umbilical cord affecting management of mother in second trimester , unspecified gestational age Procedures [facility] Diagnostic [place] Amy Conley DO [address] [place] [address] [place] [address] Phone: tel: fax: [facility] US PER DIAG CTR [address] [place] [address] Phone: tel: Referral ID Status Reason Start Date Expiration Date Visits Re quested Visits Authorized [id number] Closed 08/05/2025 11/04/2026 1 1 Encounter Details Date Type Department Care Team (Latest Contact Info) Description 09/02/2025 10:30 AM EDT - 09/02/2025 11:59 PM EDT Hospital Encounter [facility] PER DIAG CTR [address] [place] [id number] Amy Conley DO [address] [facility] [address] [id number] Maternal care for other known or suspected [...] Description 11/08/2025 10:45 AM EST Office Visit [facility] MATERNAL MEDICINE [address] [address] 11/08/2025 10:45 AM EST Appointment [facility] PER DI[facility] [address] [facility] [place] [address] 11/15/2025 11:30 AM EST Office Visit [facility] MATERNAL MEDICINE [address] [address] 11/15/2025 11:30 AM EST Appointment [facility] US PER DIAG CTR [address] [facility] [place] [address] 11/22/2025 10:45 AM EST Office Visit [facility] MATERNAL MEDICINE [address] [address] 11/22/2025 10:45 AM EST Appointment [facility] PER DIAG CTR [address] [place] [address] documented as of this encounter Procedures Procedure Name Priority Date/Time Associated Diagnosis Comments [facility] Routine 09/02/2025 11:30 AM EDT Maternal care for other known or suspected poor growth, second trimester, not applicable or unspecified Marginal insertion of umbilical cord affecting management of mother in second trimester , unspecified gestational age documented in this encounter Results * [facility] (09/02/2025 11:30 AM EDT) Anatomical Region Laterality Modality Ultrasound 09/02/2025 10:5 6 AM EDT Narrative 09/02/2025 11:36 AM EDT PAT NAME: FARIDA LYNN MED REC#: [id number] DA: 1990 PAT GEND: F PAT TYPE: O EXAM BLAISE: [id number] REF PHYS AMY CONLEY Addendum ========= CORRECTED [...] EFW (oz) 0 oz EFW by: Hadlock ([id number]-[id number]-FL) Extended Tibia 34.2 mm 22w 5d 15% Emeli Fibula 34.9 mm 23w 0d 35% Emeli Foot 41.2 mm 17% Chitty Radius 31.2 mm 22w 1d 32% Emeli Ulna 30.8 mm 21w 4d <1% Emeli Cav. septi pel. tr 3.7 mm Condominium Property Manager 5.7 mm CM 6.1 mm 57% Nicolaides [...] normal IVC: normal 3-vessel view: Appears normal 4-voujdg-mhpbkzy view: Appears normal Rt lung: Appears normal [...] increased rest and nutrition. Coding ====== Description: 41773-37 Detailed Ultrasound Description: 27736-08 Doppler Umbilical Artery Solar Installation Foreman: RT Benjamin Hutchison , [facility] Physician: Jose Wesley MD, FACOG Electronically signed by: Jose Wesley MD, FACOG at: 08:55 Procedure Note Brian Wesley MD - 09/03/2025 PAT NAME: FARIDA LYNN MED REC#: [id number] DA: 1990 PAT GEND: F PAT TYPE: O EXAM BLAISE: [id number] REF PHYS AMY CONLEY Addendum ========= CORRECTED REPORT - CPT code correction Comparison Studies There are no relevant prior studies to which this study is beingcompared Patient Status Outpatient Indication ======== Concern for IUGR. Marginal PCI. Obesity BMI 33. Maternal Assessment Hjibij420 cm Height (ft)5 ft Height (in)3 in Jcbyts01 kg Weight (lb)188 lb BMI33.31 kg/m Method ======= Transabdominal ultrasound examination. View: Good view ========= Botello . Number of fetuses: 1 Dating ====== Method of dating:based on stated PAULA GA by prior [id number] w + 6 d PAULA by prior assessment:12/24/2025 Ultrasound examination on:09/02/2025 GA by U/S based upon:AC, BPD, Femur, HC GA by U/S21 w + 6 d PAULA by U/S:01/07/2026 Assigned:based on stated PAULA, selected on 09/02/2025 Assigned GA23 w + 6 d Assigned PAULA:12/24/2025 icehwh157 d Biometry Standard BPD51.8 mm 21w 5d 1% Hadlock OFD71.4 mm 23w 6d 48% Emeli HC197.5 mm 22w 0d <1% Hadlock Cerebellum tr25.9 mm 23w 2d 54% Hill AC162.5 mm 21w 2d <1% Hadlock Femur38.3 mm 22w 2d 4% Hadlock Lrcxcax43.6 mm 21w 6d 2% Emeli HC / AC1.22 ZCE145 g 21w 4d <1% Hadlock EFW (lb)1 lb EFW (oz)0 oz EFW by:Hadlock ([id number]-[id number]-FL) Extended Tibia34.2 mm 22w 5d 15% Emeli Fazily59.9 mm 23w 0d 35% Emeli Foot41.2 mm 17% Chitty Wxtjos96.2 mm 22w 1d 32% Emeli Ulna30.8 mm 21w 4d <1% Emeli Cav. septi pel. tr3.7 mm Vp5.7 mm CM6.1 mm 57% Nicolaides Nasal bone7.4 mm Head / Face / Neck Cephalic index0.73 4% Nicolaides Extremities / Bony Struc FL / BPD0.74 FL / HC0.19 FL / AC0.24 Other Structures QUY372 bpm General Evaluation Cardiac activity present. FHR [...] view:Appears normal SVC:normal IVC:normal 3-vessel view:Appears normal 7-zmvolp-ctpaqzw view:Appears normal Rt lung:Appears normal Lt lung:normal [...] Structures Uterus / Cervix Cervix:Visualized Approach:Transabdominal Cervical hxztga09.3 mm Ovaries / Tubes / Adnexa Rt [...] Recommend increased rest and nutrition. Coding ====== Description:87448-73 Detailed Ultrasound Description:59076-68 Doppler Umbilical Artery Solar Installation Foreman: RT Benjamin Hutchison , [facility] Physician: Joes Wesley MD, FACOG Electronically signed by: Jose [...] age documented in this encounter Care Teams Exchange Engineer Relationship Specialty Start Date End Date Provider, [place] [address] PCP - General 08/19/24 documented as of this encounter
--- OUTSIDE RECORDS SUMMARY | 2025-09-02 09:30 | XMS_ITS | Encounter Summary ---
Author Organization [facility] Address [address] [phone] Care Team Providers Care Program Director/Music Director Name Role Phone Provider, No Known Primary Care Provider Unavail able Reason for Referral * Diagnostic Imaging (Routine) - Closed Specialty Diagnoses / Procedures Referred By Ritesh winchester Referred To Contact Radiology Diagnoses Uterine size-date discrepancy in second trimester Marginal insertion of umbilical cord affecting management of mother in second trimester 23 weeks gestation of Maternal chronic hypertension in second trimester Procedures [facility] Brian Wesley MD [address] [facility] [address] [place] [address] Phone: tel: fax: [facility] [address] [place] [address] Phone: tel: Referral ID Status Reason Start Date Expiration Date Visits Re quested Visits Authorized [id number] Closed 09/02/2025 12/02/2026 1 1 Reason for Visit * Reason Comments concern for IUGR, MPCI Encounter Details Date Type Department Care Team (Late st Contact Info) Description 09/02/2025 10:30 AM EDT Office Visit [facility]NAL MED[facility] [address] [facility] [address] [place] [address] Brian Wesley MD [address] [facility] [address] [place] [address] Uterine size-date discrepancy in second trimester [...] weeks time to assess growth. Orders: - [facility]; Future 2. Marginal insertion of umbilical cord affecting management of mother in second trimester - [facility]; Future 3. 23 weeks gestation of - [facility]; Future 4. Maternal chronic hypertension [...] in 2 to 3 weeks. Orders: - [facility]; Future Other orders - NIFEdipine [...] or [facility]. Brian Wesley MD Maternal Medicine, [facility] 09/02/2025 documented in this encounter Plan of Treatment Upcoming Encounters Date Type Department Care Team (Late st Contact Info) Description 11/08/2025 10:45 AM EST Office Visit [facility]NAL MEDICINE [address] [address] 11/08/2025 10:45 AM EST Appointment [facility] [address] [place] [address] 11/15/2025 11:30 AM EST Office Visit [facility] [address] [address] 11/15/2025 11:30 AM EST Appointment [facility] [address] [place] [address] 11/22/2025 10:45 AM EST Office Visit [facility]NAL MEDICINE [address] [address] 11/22/2025 10:45 AM EST Appointment [facility] [address] [place] [address] documented as of this encounter Results * [facility] (09/23/2025 10:28 AM EDT) Anatomical Region Laterality Modality Ultrasound 09/23/2025 10:0 6 AM EDT Narrative 09/23/2025 10:58 AM EDT PAT NAME: FARIDA LYNN MED REC#: [id number] DA: [id number] PAT GEND: F PAT TYPE: O EXAM BLAISE: [id number] REF PHYS AMY CONLEY Comparison Studies The [...] EFW (oz) 12 oz EFW by: Hadlock (XVG-HB-EY-FL) Extended Tibia 40.1 mm 25w 2d 8% Emeli Fibula 39.3 mm 24w 5d 14% Emeli Foot 47.9 mm 9% Chitty Radius 32.4 mm 23w 1d 13% Emeli Ulna 37.2 mm 24w 5d 1% Emeli Cav. septi pel. tr 5.4 mm Custody Officer 4.1 mm CM 8.6 mm 94% Nicolaides [...] Heart / Thorax 3-vessel view: Appears normal 8-dwtuxf-xokblox view: Appears normal Cord insertion: Normal Stomach: [...] Follow-up scheduled in 2wks. Coding ======= Description: 33885-87 Follow Up Ultrasound Description: 61706-52 Doppler Umbilical Artery Internet Marketing Consultant: RT Benjamin Hutchison , [facility] Physician: Lis Jeffrey MD Electronically signed by: Lis Jeffrey MD at: 10:58 Procedure Note Lis Jeffrey MD - 09/23/2025 PAT NAME: FARIDA LYNN MED REC#: [id number] DA: [id number] PAT GEND: F PAT TYPE: O EXAM BLAISE: [id number] REF PHYS AMY CONLEY Comparison Studies The findings of this study are compared to the prior ultrasound studydated 09/02/25 Patient Status Outpatient Indication ======== IUGR. Marginal PCI. Obesity BMI 34. Maternal Assessment Mrsmik012 cm Height (ft)5 ft Height (in)3 in Rkqqyq99 kg Weight (lb)191 lb BMI33.84 kg/m Method ======= Transabdominal ultrasound examination. View: Suboptimal view: limited byfetal position ========= Botello . Number of fetuses: 1 Dating ====== Method of dating:based on stated PAULA GA by prior dmocmzlqjf80 w + 6 d PAULA by prior assessment:12/24/2025 Ultrasound examination on:09/23/2025 GA by U/S based upon:AC, BPD, Femur, HC GA by U/S25 w + 2 d PAULA by U/S:01/04/2026 Previous dating:based on stated PAULA, selected on 09/02/2025 Agreed PAULA of previous datin12/24/2025 Assigned:based on stated PAULA, selected on 09/23/2025 Assigned GA26 w + 6 d Assigned PAULA:12/24/2025 fechjl004 d Biometry Standard BPD62.4 mm 25w 2d 4% Hadlock OFD84.3 mm 27w 2d 66% Emeli HC235.6 mm 25w 4d 3% Hadlock Cerebellum tr32.3 mm 27w 4d 87% Hill AC202.9 mm 24w 6d 3% Hadlock Femur46.7 mm 25w 4d 7% Hadlock Udoudnq27.5 mm 24w 0d <1% Emeli HC / AC1.16 DKZ581 g 25w 0d 3% Hadlock EFW (lb)1 lb EFW (oz)12 oz EFW by:Hadlock (BNV-LG-OY-FL) Extended Tibia40.1 mm 25w 2d 8% Emeli Gyjyxq98.3 mm 24w 5d 14% Emeli Foot47.9 mm 9% Chitty Yqplcb39.4 mm 23w 1d 13% Emeli Ulna37.2 mm 24w 5d 1% Emeli Cav. septi pel. tr5.4 mm Vp4.1 mm CM8.6 mm 94% Nicolaides Head / Face / Neck Cephalic index0.74 8% Nicolaides Extremities / Bony Struc FL / BPD0.75 FL / HC0.20 FL / AC0.23 Other Structures DKR473 bpm General Evaluation Cardiac activity present. FHR [...] normal Heart / Thorax 3-vessel view:Appears normal 1-ntuogd-dmwkoah view:Appears normal Cord insertion:Normal Stomach:Appears normal Kidneys:Appears normal Bladder:Appears normal Gender:female Wants to know gender:yes Maternal Structures Uterus / Cervix Cervix:Visualized Approach:Transabdominal Cervical eblaou01.3 mm Doppler Arterial Umbilical A PI1.15 71% [...] Recommendation Follow-up scheduled in 2wks. Coding ======= Description:19432-92 Follow Up Ultrasound Description:06969-77 Doppler Umbilical Artery Internet Marketing Consultant: RT Benjamin Hutchison , [facility] Physician: Lis Jeffrey MD Electronically signed by: [...] trimester documented in this encounter Care Teams Program Director/Music Director Relationship Specialty Start Date End Date Provider, [place] [address] PCP - General 08/19/24 documented as of this encounter
--- OUTSIDE RECORDS SUMMARY | 2025-09-23 08:52 | XMS_ITS | Encounter Summary ---
Author Organization [facility] Address [address] [place] [address] Care Team Providers Care Auto Washer Name Role Phone Provider, No Known Primary Care Provider Unavail able Reason for Referral * Diagnostic Imaging (Routine) - Closed Specialty Diagnoses / Procedures Referred By Ritesh winchester Referred To Contact Radiology Diagnoses Uterine size-date discrepancy in second trimester Marginal insertion of umbilical cord affecting management of mother in second trimester 23 weeks gestation of Maternal chronic hypertension in second trimester Procedures US [facility] Diagnostic [place] Brian Wesley MD [address] [place] [address] Phone: tel: fax: [facility] DI[facility] [address] [place] [address] Phone: tel: Referral ID Status Reason Start Date Expiration Date Visits Re quested Visits Authorized [id number] Closed 09/02/2025 12/02/2026 1 1 Reason for Visit * Diagnostic Imaging (Routine) - Closed Specialty Diagnoses / Procedures Referred By Ritesh winchester Referred To Contact Radiology Diagnoses Uterine size-date discrepancy in second trimester Marginal insertion of umbilical cord affecting management of mother in second trimester 23 weeks gestation of Maternal chronic hypertension in second trimester Procedures [facility] Diagnostic [place] Brian Wesley MD [address] [address] Phone: tel: fax: [facility] DI[facility] [address] [place] [address] Phone: tel: Referral ID Status Reason Start Date Expiration Date Visits Re quested Visits Authorized [id number] Closed 09/02/2025 12/02/2026 1 1 Encounter Details Date Type Department Care Team (Late st Contact Info) Description 09/23/2025 9:52 AM EDT - 09/23/2025 11:59 PM EDT Hospital Encounter [facility] [address] [place] [address] Brian Wesley MD [address] [facility] [address] [place] [address] Uterine size-date discrepancy in second trimester; Marginal [...] Description 11/08/2025 10:45 AM EST Office Visit [facility] [address] [address] 11/08/2025 10:45 AM EST Appointment [facility] PER DI[facility] [address] [place] [address] 11/15/2025 11:30 AM EST Office Visit [facility] MATERNAL MEDICINE [address] [facility] [address] [place] [address] 11/15/2025 11:30 AM EST Appointment [facility] PER DI[facility] [address] [place] [address] 11/22/2025 10:45 AM EST Office Visit [facility] [address] [facility] [address] [place] [address] 11/22/2025 10:45 AM EST Appointment [facility] DI[facility] [address] [place] [address] documented as of this encounter Procedures Procedure Name Priority Date/Time Associated Diagnosis Comments [facility] Routine 09/23/2025 10:28 AM EDT Uterine size-date discrepancy in second trimester Marginal insertion of umbilical cord affecting management of mother in second trimester 23 weeks gestation of Maternal chronic hypertension in second trimester documented in this encounter Results * [facility] (09/23/2025 10:28 AM EDT) Anatomical Region Laterality Modality Ultrasound 09/23/2025 10:0 6 AM EDT Narrative 09/23/2025 10:58 AM EDT PAT NAME: FARIDA LYNN MED REC#: [id number] DA: [id number] PAT GEND: F PAT TYPE: O EXAM BLAISE: [id number] REF PHYS AMY CORCORAN Comparison Studies The [...] on stated PAULA, selected on 09/02/2025 Agreed PAUAL of previous datin12/24/2025 Assigned: based on stated [...] EFW (oz) 12 oz EFW by: Hadlock ([id number]) Extended Tibia 40.1 mm 25w 2d 8% Emeli Fibula 39.3 mm 24w 5d 14% Emeli Foot 47.9 mm 9% Chitty Radius 32.4 mm 23w 1d 13% Emeli Ulna 37.2 mm 24w 5d 1% Emeli Cav. septi pel. tr 5.4 mm Awning Hanger Supervisor 4.1 mm CM 8.6 mm 94% Nicolaides [...] Heart / Thorax 3-vessel view: Appears normal 9-cligtu-wlpnacz view: Appears normal Cord insertion: Normal Stomach: [...] Follow-up scheduled in 2wks. Coding ======= Description: 67787-02 Follow Up Ultrasound Description: 56441-81 Doppler Umbilical Artery Song Writer: RT Benjamin Hutchison , [facility] Physician: Lis Jeffrey MD Electronically signed by: Lis Jeffrey MD at: 10:58 Procedure Note Lis Jeffrey MD - 09/23/2025 PAT NAME: FARIDA LYNN MED REC#: [id number] DA: 1990 PAT GEND: F PAT TYPE: O EXAM BLAISE: [id number] REF PHYS AMY CORCORAN Comparison Studies The findings of this study are compared to the prior ultrasound studydated 09/02/25 Patient Status Outpatient Indication ======== IUGR. Marginal PCI. Obesity BMI 34. Maternal Assessment Hgrvtb890 cm Height (ft)5 ft Height (in)3 in Oggnug96 kg Weight (lb)191 lb BMI33.84 kg/m Method ======= Transabdominal ultrasound examination. View: Suboptimal view: limited byfetal position ========= Botello . Number of fetuses: 1 Dating ====== Method of dating:based on stated PAULA GA by prior cyybeviekz22 w + 6 d PAULA by prior assessment:12/24/2025 Ultrasound examination on:09/23/2025 GA by U/S based upon:AC, BPD, Femur, HC GA by U/S25 w + 2 d PAULA by U/S:01/04/2026 Previous dating:based on stated PAULA, selected on 09/02/2025 Agreed PAULA of previous datin12/24/2025 Assigned:based on stated PAULA, selected on 09/23/2025 Assigned GA26 w + 6 d Assigned PUALA:12/24/2025 tlvydo336 d Biometry Standard BPD62.4 mm 25w 2d 4% Hadlock OFD84.3 mm 27w 2d 66% Emeli HC235.6 mm 25w 4d 3% Hadlock Cerebellum tr32.3 mm 27w 4d 87% Hill AC202.9 mm 24w 6d 3% Hadlock Femur46.7 mm 25w 4d 7% Hadlock Idxmtyt72.5 mm 24w 0d <1% Emeli HC / AC1.16 VRL181 g 25w 0d 3% Hadlock EFW (lb)1 lb EFW (oz)12 oz EFW by:Hadlock (VVC-TP-BV-FL) Extended Tibia40.1 mm 25w 2d 8% Emeli Ryyklh24.3 mm 24w 5d 14% Emeli Foot47.9 mm 9% Chitty Ykpaoz39.4 mm 23w 1d 13% Emeli Ulna37.2 mm 24w 5d 1% Emeli Cav. septi pel. tr5.4 mm Vp4.1 mm CM8.6 mm 94% Nicolaides Head / Face / Neck Cephalic index0.74 8% Nicolaides Extremities / Bony Struc FL / BPD0.75 FL / HC0.20 FL / AC0.23 Other Structures HOB680 bpm General Evaluation Cardiac activity present. FHR [...] normal Heart / Thorax 3-vessel view:Appears normal 5-ljvvoz-qcppkxb view:Appears normal Cord insertion:Normal Stomach:Appears normal Kidneys:Appears normal Bladder:Appears normal Gender:female Wants to know gender:yes Maternal Structures Uterus / Cervix Cervix:Visualized Approach:Transabdominal Cervical lbokhm45.3 mm Doppler Arterial Umbilical A PI1.15 71% [...] Recommendation Follow-up scheduled in 2wks. Coding ======= Description:48083-79 Follow Up Ultrasound Description:40408-83 Doppler Umbilical Artery Song Writer: RT Kianna R , [facility] Physician: Lis Jeffrey MD Electronically signed [...] trimester documented in this encounter Care Teams Auto Washer Relationship Specialty Start Date End Date Provider, [place] [address] PCP - General 08/19/24 documented as of this encounter
--- OUTSIDE RECORDS SUMMARY | 2025-09-23 09:15 | XMS_ITS | Encounter Summary ---
Author Organization [facility] Address [address] [phone] Care Team Providers Care Sample Collector Name Role Phone Provider, No Known Primary [...] unspecified fetus 26 weeks gestation of Procedures [facility] Lis Jeffrey MD [address] [address] Phone: tel: fax: Referral ID Status Reason Start Date Expiration Date Visits Re quested Visits Authorized [id number] Closed 09/23/2025 12/23/2026 1 1 Reason for Visit * Reason Comments IUGR, MPCI Encounter Details Date Type Department Care Team (Late st Contact Info) Description 09/23/2025 10:15 AM EDT Office Visit [facility] MATERNAL MEDICINE [address] [facility] [address] [place] [phone] Lis Jeffrey MD [address] [facility] [address] [place], [place] [phone] Marginal insertion of umbilical cord affecting management [...] of mother in second trimester (Primary) - [facility]; Future 2. Maternal chronic [...] 10:45 AM EST Office Visit [facility] MATERNAL MEDICINE [address] [address] 11/08/2025 10:45 AM EST Appointment [facility] [address] [place] [address] 11/15/2025 11:30 AM EST Office Visit [facility] MATERNAL MEDICINE [address] [address] 11/15/2025 11:30 AM EST Appointment [facility] [address] [place] [address] 11/22/2025 10:45 AM EST Office Visit [facility] MATERNAL MEDICINE [address] [place] [address] 11/22/2025 10:45 AM EST Appointment [facility] [address] [place] [address] documented as of this encounter Results * [facility] (10/11/2025 10:30 AM EST) Anatomical Region Laterality Modality Ultrasound 10/11/2025 9:59 AM EST Narrative 10/12/2025 7:46 PM EST PAT NAME: FARIDA LYNN MED REC#: [id number] DA: [id number] PAT GEND: F PAT TYPE: O EXAM BLAISE: [id number] REF PHYS AMY CONLEY Comparison Studies The [...] GA 29 w + 3 d Assigned PALUA: 12/24/2025 length 280 d Biometry Standard BPD [...] EFW (oz) 5 oz EFW by: Hadlock (JQZ-YV-NF-FL) Extended Cav. septi pel. tr 5.7 mm Chief Solution Architect 5.0 mm CM 7.1 mm 55% Nicolaides [...] Normal Heart / Thorax 3-vessel view: Normal 9-mnyifs-rwrvfjz view: normal Cord insertion: Normal Stomach: Appears [...] normal Marginal cord insertion Coding ======= Description: 17310-08 Follow Up Ultrasound Description: 28575-86 BPP without NST Description: 55380-83 Doppler Umbilical Artery Block Machine Operator: Albina Roberts RDMS Physician: Danielle Allen MD, FACOG Electronically signed by: Danielle Allen MD, FACOG at: 19:46 Procedure Note Danielle Allen MD - 10/12/2025 PAT NAME: FARIDA LYNN MED REC#: [id number] DA: [id number] PAT GEND: F PAT TYPE: O EXAM BLAISE: [id number] REF PHYS AMY CONLEY Comparison Studies The findings of this study are compared to the prior ultrasound studydated 09/23/2025 Patient Status Outpatient Indication ======== IUGR. Marginal PCI. Obesity BMI 34. Maternal Assessment Ehzfxz699 cm Height (ft)5 ft Height (in)3 in Qagpdp41 kg Weight (lb)194 lb BMI34.38 kg/m Method ======= Transabdominal ultrasound examination. View: Good view ========= Botello . Number of fetuses: 1 Dating ====== Method of dating:based on stated PAULA GA by prior qorcihrlaz99 w + 3 d PAULA by prior assessment:12/24/2025 Ultrasound examination on:10/11/2025 GA by U/S based upon:AC, BPD, Femur, HC GA by U/S27 w + 3 d PAULA by U/S:01/07/2026 Previous dating:based on stated PAULA, selected on 09/23/2025 Agreed PAULA of previous datin12/24/2025 Assigned:based on stated PAULA, selected on 10/11/2025 Assigned GA29 w + 3 d Assigned PAULA:12/24/2025 oelwye762 d Biometry Standard BPD68.2 mm 27w 3d 2% Hadlock OFD92.9 mm 30w 0d 65% Emeli HC258.2 mm 28w 0d 2% Hadlock Cerebellum tr35.3 mm 29w 3d 50% Hill AC227.3 mm 27w 1d 2% Hadlock Femur50.5 mm 27w 1d 1% Hadlock Dgbtmkf74.3 mm 25w 3d <1% Emeli HC / AC1.14 EFW1,044 g 26w 6d 2% Hadlock EFW (lb)2 lb EFW (oz)5 oz EFW by:Hadlock (LTC-TQ-WV-FL) Extended Cav. septi pel. tr5.7 mm Vp5.0 mm CM7.1 mm 55% Nicolaides Head / Face / Neck Cephalic index0.73 5% Nicolaides Extremities / Bony Struc FL / BPD0.74 FL / HC0.20 FL / AC0.22 Other Structures FFJ201 bpm General Evaluation Cardiac activity present. FHR [...] LVOT view:Normal Heart / Thorax 3-vessel view:Normal 9-cgycgt-odowghe view:normal Cord insertion:Normal Stomach:Appears normal Kidneys:Appears normal Bladder:Appears normal Gender:female Wants to know gender:yes Maternal Structures Uterus / Cervix Cervical mefsff57.7 mm Doppler Arterial Umbilical A PI0.97 51% [...] doppler normal Marginal cord insertion Coding ======= Description:65373-58 Follow Up Ultrasound Description:78900-23 BPP without NST Description:47822-76 Doppler Umbilical Artery Block Machine Operator: Albina Roberts RDMS Physician: Danielle Allen MD, [...] of documented in this encounter Care Teams Sample Collector Relationship Specialty Start Date End Date Provider, [place] [address] PCP - General 08/19/24 documented as of this encounter
--- OUTSIDE RECORDS SUMMARY | 2025-10-11 09:44 | XMS_ITS | Encounter Summary ---
Author Organization [facility] Address [address] [place] [address] Care Team Providers Care Tar Heater Name Role Phone Provider, No Known Primary [...] unspecified fetus 26 weeks gestation of Procedures [facility] Diagnostic [place] Lis Jeffrey MD [address] [place] [address] Phone: tel: fax: Referral ID Status Reason Start Date Expiration Date Visits Re quested Visits Authorized [id number] Closed 09/23/2025 12/23/2026 1 1 Reason for Visit * Diagnostic Imaging (Routine) - Closed Specialty Diagnoses / Procedures Referred By Ritesh winchester Referred To Contact Radiology Diagnoses Marginal insertion of umbilical cord affecting management of mother in second trimester Maternal chronic hypertension in second trimester Poor growth affecting management of mother in third trimester, single or unspecified fetus 26 weeks gestation of Procedures [facility] Diagnostic [place] Lis Jeffrey MD [address] [id number] Phone: tel: fax: Referral ID Status Reason Start Date Expiration Date Visits Re quested Visits Authorized [id number] Closed 09/23/2025 12/23/2026 1 1 Encounter Details Date Type Department Care Team (Late st Contact Info) Description 10/11/2025 9:44 AM EST - 10/11/2025 11:59 PM [facility] Hospital Encounter [facility] PER DIAG CTR [address] [place] [address] Lis Jeffrey MD [address] [place] [address] Marginal insertion of umbilical cord [...] Description 11/08/2025 10:45 AM EST Office Visit [facility] MATERNAL MEDICINE [address] [address] 11/08/2025 10:45 AM EST Appointment [facility] US PER DIAG CTR [address] [place] [address] 11/15/2025 11:30 AM EST Office Visit [facility] MATERNAL MEDICINE [address] [place] [address] 11/15/2025 11:30 AM EST Appointment [facility] US PER DIAG CTR [address] [place] [address] 11/22/2025 10:45 AM EST Office Visit [facility] MATERNAL MEDICINE [address] [address] 11/22/2025 10:45 AM EST Appointment [facility] PER [facility] [address] [facility] [place] [address] documented as of this encounter Procedures Procedure Name Priority Date/Time Associated Diagnosis Comments [facility] Routine 10/11/2025 10:30 AM EST Marginal insertion of umbilical cord affecting management of mother in second trimester Maternal chronic hypertension in second trimester Poor growth affecting management of mother in third trimester, single or unspecified fetus 26 weeks gestation of documented in this encounter Results * [facility] (10/11/2025 10:30 AM EST) Anatomical Region Laterality Modality Ultrasound 10/11/2025 9:59 AM EST Narrative 10/12/2025 7:46 PM EST PAT NAME: FARIDA LYNN MED REC#: [id number] DA: 1990 PAT GEND: F PAT TYPE: O EXAM BLAISE: [id number] REF PHYS AMY CORCORAN Comparison Studies The [...] EFW (oz) 5 oz EFW by: Hadlock (YKB-KC-BV-FL) Extended Cav. septi pel. tr 5.7 mm Information Systems Security Specialist 5.0 mm CM 7.1 mm 55% Nicolaides [...] Normal Heart / Thorax 3-vessel view: Normal 9-vhwkbk-xtudowg view: normal Cord insertion: Normal Stomach: Appears [...] normal Marginal cord insertion Coding ======= Description: 85340-80 Follow Up Ultrasound Description: 03808-48 BPP without NST Description: 23123-18 Doppler Umbilical Artery Materials Handling Coordinator: Albina Roberts RDMS Physician: Danielle Allen MD, FACOG Electronically signed by: Danielle Allen MD, FACOG at: 19:46 Procedure Note Danielle Allen MD - 10/12/2025 PAT NAME: FARIDA LYNN MED REC#: [id number] DA: [id number] PAT GEND: F PAT TYPE: O EXAM BLAISE: [id number] REF PHYS AMY CORCORAN Comparison Studies The findings of this study are compared to the prior ultrasound studydated 09/23/2025 Patient Status Outpatient Indication ======== IUGR. Marginal PCI. Obesity BMI 34. Maternal Assessment Pwqtin039 cm Height (ft)5 ft Height (in)3 in Hhilin10 kg Weight (lb)194 lb BMI34.38 kg/m Method ======= Transabdominal ultrasound examination. View: Good view ========= Botello . Number of fetuses: 1 Dating ====== Method of dating:based on stated PAULA GA by prior mtljipuize82 w + 3 d PAULA by prior assessment:12/24/2025 Ultrasound examination on:10/11/2025 GA by U/S based upon:AC, BPD, Femur, HC GA by U/S27 w + 3 d PAULA by U/S:01/07/2026 Previous dating:based on stated PAULA, selected on 09/23/2025 Agreed PAULA of previous datin12/24/2025 Assigned:based on stated PAULA, selected on 10/11/2025 Assigned GA29 w + 3 d Assigned PAULA:12/24/2025 [id number] d Biometry Standard BPD68.2 mm 27w 3d 2% Hadlock OFD92.9 mm 30w 0d 65% Emeli HC258.2 mm 28w 0d 2% Hadlock Cerebellum tr35.3 mm 29w 3d 50% Hill AC227.3 mm 27w 1d 2% Hadlock Femur50.5 mm 27w 1d 1% Hadlock Envcbgu92.3 mm 25w 3d <1% Emeli HC / AC1.14 EFW1,044 g 26w 6d 2% Hadlock EFW (lb)2 lb EFW (oz)5 oz EFW by:Hadlock (CLJ-CN-NH-FL) Extended Cav. septi pel. tr5.7 mm Vp5.0 mm CM7.1 mm 55% Nicolaides Head / Face / Neck Cephalic index0.73 5% Nicolaides Extremities / Bony Struc FL / BPD0.74 FL / HC0.20 FL / AC0.22 Other Structures OVA705 bpm General Evaluation Cardiac activity present. FHR [...] LVOT view:Normal Heart / Thorax 3-vessel view:Normal 2-owokkd-nyhteqz view:normal Cord insertion:Normal Stomach:Appears normal Kidneys:Appears normal Bladder:Appears normal Gender:female Wants to know gender:yes Maternal Structures Uterus / Cervix Cervical cooecz77.7 mm Doppler Arterial Umbilical A PI0.97 51% [...] doppler normal Marginal cord insertion Coding ======= Description:22827-45 Follow Up Ultrasound Description:07923-82 BPP without NST Description:95969-77 Doppler Umbilical Artery Materials Handling Coordinator: Albina Roberts RDMS Physician: Danielle Allen MD, [...] of documented in this encounter Care Teams Tar Heater Relationship Specialty Start Date End Date Provider, No Known [facility] [place] [address] PCP - General 08/19/24 documented as of this encounter
--- OUTSIDE RECORDS SUMMARY | 2025-10-11 10:15 | XMS_ITS | Encounter Summary ---
Author Organization [facility] Address [address] [phone] Care Team Providers Care Auto Body Builder Apprentice Name Role Phone Provider, No Known Primary Care Provider Unavail able Reason for Referral * Diagnostic Imaging (Routine) - Closed Specialty Diagnoses / Procedures Referred By Ritesh t Referred To Contact Radiology Diagnoses Poor growth affecting management of mother in third trimester, single or unspecified fetus Maternal chronic hypertension in second trimester Procedures [facility] Danielle Allen MD [address] [address] Phone: tel: fax: Referral ID Status Reason Start Date Expiration Date Visits Re quested Visits Authorized [id number] Closed 10/13/2025 01/12/2027 1 1 Reason for Visit * Reason Comments IUGR, Marginal Cord Insertion, MO Encounter Details Date Type Department Care Team (Late st Contact Info) Description 10/11/2025 10:15 AM EST Office Visit [facility] [address] [facility] [address] [place] [phone] Danielle Allen MD [facility] [facility] [address] [place], [place] [id number] Poor growth affecting management of mother in third trimester, single or unspecified fetus (Primary Dx); Maternal chronic hypertension in second trimester Social [...] Sign Reading Time Taken Comments Blood Pressure 132/73 10/11/2025 9:48 AM EST Pulse - - Temperature - - Respiratory Rate - - Oxygen Saturation - - Inhaled Oxygen Concentration - - Weight 88 kg (194 lb) 10/11/2025 9:48 AM EST Height - - Body Mass Index 34.37 09/02/2025 10:47 AM EDT documented in this encounter Progress Notes * Danielle Allen MD - 10/13/2025 3:01 PM ESTAssociated Problem(s): Poor growth affecting management of mother in third trimester Severe IUGR noted today with normal UA dopplers, fluid BP well controlled currently Continue current medication regimen Follow up with MFM in 1 week for REAGAN/BPP/UA dopplers and growth in 2 weeks testing in your office * Carole Smith RN - 10/11/2025 10:15 AM EST Denies vaginal bleeding, leaking fluid, and contractions. Endorses normal movement. NIPT negative. Next OB follow-up appointment with Dr. Conley on 10/20/2025. * Danielle Allen MD - 10/11/2025 10:15 AM EST Maternal/ Medicine Follow Up Note Name: Farida Lynn : 1990 Referring Provider: Amy Conley DO Chief Complaint IUGR, Marginal Cord Insertion, MO Subjective History of Present Illness: Farida Lynn is a 35 y.o. 29w5d who presents today for follow up PAULA: Estimated Date of Delivery: 12/24/25 ROS: As noted in HPI. Objective Vital Signs BP 132/73 Wt 88 kg (194 lb) Estimated body mass index is 34.37 kg/m?? as calculated from the following: Height as of 09/02/25: 160 cm (63 ). Weight as of this encounter: 88 kg (194 lb). Ultrasound Impression: See viewpoint Assessment and Plan Farida Lynn is a 35 y.o. 29w5d Diagnoses and all orders for this visit: 1. Poor growth affecting management of mother in third trimester, single or unspecified fetus(Primary) Assessment & Plan: Severe IUGR noted today with normal UA dopplers, fluid BP well controlled currently Continue current medication regimen Follow up with MFM in 1 week for REAGAN/BPP/UA dopplers and growth in 2 weeks testing in your office Orders: - [facility]; Future 2. Maternal chronic hypertension in second trimester - [facility]; Future Follow Up 1 week I spent 10 minutes caring for the patient on the [...] other procedures such as amniocentesis or CVS. Danielle Allen MD FACOG Maternal Medicine, [facility] 10/11/2025 documented in this encounter Plan of Treatment Upcoming Encounters Date Type Department Care Team (Late st Contact Info) Description 11/08/2025 10:45 AM EST Office Visit [facility] [address] [address] 11/08/2025 10:45 AM EST Appointment [facility] [address] [place] [address] 11/15/2025 11:30 AM EST Office Visit [facility]ICINE [address] [place] [phone] 11/15/2025 11:30 AM EST Appointment [facility] [address] [place] [address] 11/22/2025 10:45 AM EST Office Visit [facility] [address] [address] 11/22/2025 10:45 AM EST Appointment [facility] [address] [place] [address] documented as of this encounter Results * [facility] (10/18/2025 10:21 AM EST) Anatomical Region Laterality Modality Ultrasound 10/18/2025 9:57 AM EST Narrative 10/18/2025 10:27 AM EST PAT NAME: FARIDA LYNN [facility] REC#: [id number] DA: 1990 PAT GEND: F PAT TYPE: O EXAM BLAISE: [id number] REF PHYS AMY CONLEY Comparison Studies The findings of this study are compared to the prior ultrasound study dated 10/11/25 Patient Status Outpatient Indication ======== IUGR. Marginal PCI. Obesity BMI 34. Maternal Assessment Height 160 cm Height (ft) 5 ft Height (in) 3 in Weight 89 kg Weight (lb) 196 lb BMI 34.73 kg/m Method ======= Transabdominal ultrasound examination ========= Botello . Number of fetuses: 1 Dating ====== Method of dating: based on stated PAULA GA by prior assessment 30 w + 3 d PAULA by prior assessment: 12/24/2025 Previous dating: based on stated PAULA, selected on 10/11/2025 Agreed PAULA of previous datin12/24/2025 Assigned: based on stated PAULA, selected on 10/18/2025 Assigned GA 30 w + 3 d Assigned PAULA: 12/24/2025 length 280 d General Evaluation Cardiac activity present. FHR 138 bpm. movements present. Presentation breech. Placenta Placental site: anterior. Umbilical cord Cord vessels: 3 vessel cord. Amniotic fluid Amount of AF: normal. MVP 3.7 cm. REAGAN 11.8 cm. Q1 2.9 cm, Q2 3.7 cm, Q3 2.3 cm, Q4 3.0 cm. Anatomy 4-chamber view: Normal Heart / Thorax 4-chamber view: patent foramen ovale Stomach: Normal Bladder: Normal Gender: female Wants to know gender: yes Biophysical Profile 2: breathing movements 2: Gross body movements 2: tone 2: Amniotic fluid volume 07/09 Biophysical profile score Doppler Arterial Umbilical A PI 1.22 91% Jolanta Umbilical A RI 0.69 76% Jolanta Umbilical A PS 41.51 cm/s 25% Ebbing Umbilical A ED 12.57 cm/s Umbilical A TAmax 23.67 cm/s 9% Ebbing Umbilical A MD 12.45 cm/s Umbilical A S / D 3.26 73% Jolanta Umbilical A HR 135 bpm Impression Single intrauterine gestation in breech lie Normal amniotic fluid volume Normal umbilical Dopplers BPP 07/09 Recommendation Follow up in 1 week. Recommend weekly NSTs in your office. Coding ======= Description: 94033-25 BPP without NST Description: 96159-04 Doppler Umbilical Artery Soft Sugar Supervisor: Eunice Manning RDMS Physician: Jung Angeles MD, FACOG Electronically signed by: Jung Angeles MD, FACOG at: 10:27 Procedure Note Jung Angeles MD - 10/18/2025 PAT NAME: FARIDA LYNN MED REC#: [id number] DA: [id number] PAT GEND: F PAT TYPE: O EXAM BLAISE: [id number] REF PHYS AMY CONLEY Comparison Studies The findings of this study are compared to the prior ultrasound studydated 10/11/25 Patient Status Outpatient Indication ======== IUGR. Marginal PCI. Obesity BMI 34. Maternal Assessment Xuphbb540 cm Height (ft)5 ft Height (in)3 in Mjmhku98 kg Weight (lb)196 lb BMI34.73 kg/m Method ======= Transabdominal ultrasound examination ========= Botello . Number of fetuses: 1 Dating ====== Method of dating:based on stated PAULA GA by prior [id number] w + 3 d PAULA by prior assessment:12/24/2025 Previous dating:based on stated PAULA, selected on 10/11/2025 Agreed PAULA of previous datin12/24/2025 Assigned:based on stated PAULA, selected on 10/18/2025 Assigned GA30 w + 3 d Assigned PAULA:12/24/2025 [id number] d General Evaluation Cardiac activity present. FHR 138 bpm. movements present. Presentation breech. Placenta Placental site: anterior. Umbilical cord Cord vessels: 3 vessel cord. Amniotic fluid Amount of AF: normal. MVP 3.7 cm. REAGAN 11.8 cm. Q1 2.9 cm,Q2 3.7 cm, Q3 2.3 cm, Q4 3.0 cm. Anatomy 4-chamber view:Normal Heart / Thorax 4-chamber view:patent foramen ovale Stomach:Normal Bladder:Normal Gender:female Wants to know gender:yes Biophysical Profile 2: breathing movements 2: Gross body movements 2: tone 2: Amniotic fluid volume 07/09 Biophysical profile score Doppler Arterial Umbilical A PI1.22 91% Jolanta Umbilical A RI0.69 76% Jolanta Umbilical A PS41.51 cm/s 25% Ebbing Umbilical A ED12.57 cm/s Umbilical A TAmax23.67 cm/s 9% Ebbing Umbilical A MD12.45 cm/s Umbilical A S / D3.26 73% Jolanta Umbilical A HR135 bpm Impression Single intrauterine gestation in breech lie Normal amniotic fluid volume Normal umbilical Dopplers BPP 07/09 Recommendation Follow up in 1 week. Recommend weekly NSTs in your office. Coding ======= Description:73020-39 BPP without NST Description:11752-41 Doppler Umbilical Artery Soft Sugar Supervisor: Eunice Manning RDMS Physician: Jung Angeles MD, FACOG Electronically signed by: Jung Angeles MD, KYOG at: 10:27 us Danielle Allen MD G US ORDERABLES Final Result documented in this encounter Visit Diagnoses Diagnosis Poor growth affecting management of mother in third trimester, single or unspecified fetus- Primary Maternal chronic hypertension in second trimester Poor growth affecting management of mother in third trimester, single or unspecified fetus Maternal chronic hypertension in second trimester documented in this encounter Care Teams Auto Body Builder Apprentice Relationship Specialty Start Date End Date Provider, [place] [address] PCP - General 08/19/24 documented as of this encounter
--- OUTSIDE RECORDS SUMMARY | 2025-10-18 09:34 | XMS_ITS | Encounter Summary ---
Author Organization [facility] Address [address] [phone] Care Team Providers Care Scrap Metal Collector Name Role Phone Provider, No Known Primary Care Provider Unavail able Reason for Referral * Diagnostic Imaging (Routine) - Closed Specialty Diagnoses / Procedures Referred By Ritesh winchester Referred To Contact Radiology Diagnoses Poor growth affecting management of mother in third trimester, single or unspecified fetus Maternal chronic hypertension in second trimester Procedures [facility] Diagnostic [place] Danielle Allen MD [address] [facility] [place] [place] [address] Phone: tel: fax: Referral ID Status Reason Start Date Expiration Date Visits Re quested Visits Authorized [id number] Closed 10/13/2025 01/12/2027 1 1 Reason for Visit * Diagnostic Imaging (Routine) - Closed Specialty Diagnoses / Procedures Referred By Ritesh winchester Referred To Contact Radiology Diagnoses Poor growth affecting management of mother in third trimester, single or unspecified fetus Maternal chronic hypertension in second trimester Procedures [facility] Diagnostic [place] Danielle Allen MD [address] [place] [address] Phone: tel: fax: Referral ID Status Reason Start Date Expiration Date Visits Re quested Visits Authorized [id number] Closed 10/13/2025 01/12/2027 1 1 Encounter Details Date Type Department Care Team (Late st Contact Info) Description 10/18/2025 9:34 AM EST - 10/18/2025 11:59 PM EST Hospital Encounter [facility] PER DIAG CTR [address] [place] [address] Danielle Allen MD [address] [place] [address] Poor growth affecting management of mother in [...] Description 11/08/2025 10:45 AM EST Office Visit [facility] MATERNAL MEDICINE [address] [address] 11/08/2025 10:45 AM EST Appointment [facility] US PER DIAG CTR [address] [place] [address] 11/15/2025 11:30 AM EST Office Visit [facility] MATERNAL MEDICINE [address] [address] 11/15/2025 11:30 AM EST Appointment [facility] US PER DIAG CTR [address] [place] [address] 11/22/2025 10:45 AM EST Office Visit [facility] MATERNAL MEDICINE [address] [address] 11/22/2025 10:45 AM EST Appointment [facility] PER DIAG CTR [address] [place] [address] documented as of this encounter Procedures Procedure Name Priority Date/Time Associated Diagnosis Comments [facility] Routine 10/18/2025 10:21 AM EST Poor growth affecting management of mother in third trimester, single or unspecified fetus Maternal chronic hypertension in second trimester documented in this encounter Results * [facility] (10/18/2025 10:21 AM EST) Anatomical Region Laterality Modality Ultrasound 10/18/2025 9:57 AM EST Narrative 10/18/2025 10:27 AM EST PAT NAME: FARIDA LYNN MED REC#: [id number] DA: 1990 PAT GEND: F PAT TYPE: O EXAM BLAISE: [id number] REF PHYS AMY CORCORAN Comparison Studies The [...] NSTs in your office. Coding ======= Description: 53019-01 BPP without NST Description: 79040-01 Doppler Umbilical Artery Otolaryngology Surgeon: Eunice Manning RDMS Physician: Jung Angeles MD, FACOG Electronically signed by: Jung Angeles MD, FACOG at: 10:27 Procedure Note Jung Angeles MD - 10/18/2025 PAT NAME: FARIDA LYNN MED REC#: [id number] DA: [id number] PAT GEND: F PAT TYPE: O EXAM BLAISE: [id number] REF PHYS NILO AMY Comparison Studies The findings of this study are compared to the prior ultrasound studydated 10/11/25 Patient Status Outpatient Indication ======== IUGR. Marginal PCI. Obesity BMI 34. Maternal Assessment Rbkfaz903 cm Height (ft)5 ft Height (in)3 in Nckapz98 kg Weight (lb)196 lb BMI34.73 kg/m Method [...] GA30 w + 3 d Assigned PAULA:12/24/2025 [id number] d General Evaluation Cardiac activity present. FHR [...] weekly NSTs in your office. Coding ======= Description:39894-51 BPP without NST Description:29017-08 Doppler Umbilical Artery Otolaryngology Surgeon: Eunice Manning RDMS Physician: Jung Angeles MD, FACOG Electronically signed by: Jung Angeles MD, KYOG at: 10:27 us Danielle Allen MD [facility] US ORDERABLES Final Result documented in this encounter Visit Diagnoses Diagnosis Poor growth affecting management of mother in third trimester, single or unspecified fetus Maternal chronic hypertension in second trimester documented in this encounter Care Teams Scrap Metal Collector Relationship Specialty Start Date End Date Provider, [place] [address] PCP - General 08/19/24 documented as of this encounter
--- OUTSIDE RECORDS SUMMARY | 2025-10-18 10:15 | XMS_ITS | Encounter Summary ---
Author Organization [facility] Address [address] [id number] Care Team Providers Care Leaf Size Picker Name Role Phone Provider, No Known Primary Care Provider Unavail able Reason for Referral * Diagnostic Imaging (Routine) - Authorized Specialty Diagnoses / Procedures Referred By Contac t Referred To Contact Radiology Diagnoses Poor growth affecting management of mother in third trimester, single or unspecified fetus Maternal chronic hypertension in third trimester Procedures [facility] Jung Angeles MD [address] [facility] [address] [place] [address] Phone: tel: fax: Referral ID Status Reason Start Date Expiration Date V isits Requested Visits Authorized [id number] Authorized 10/18/2025 01/17/2027 5 5 Reason for Visit * Reason Comments IUGR, MPCI, MO GHTN Encounter Details Date Type Department Care Team (Late st Contact Info) Description 10/18/2025 10:15 AM EST Office Visit [facility] [address] [address] [place] [address] Jung Angeles MD [address] [place] [address] Poor growth affecting management of mother in [...] Description 11/08/2025 10:45 AM EST Office Visit [facility] MED[facility] [address] [address] 11/08/2025 10:45 AM EST Appointment [facility] US PER DIAG [facility] [address] [place] [address] 11/15/2025 11:30 AM EST Office Visit [facility] MED[facility] [address] [address] 11/15/2025 11:30 AM EST Appointment [facility] US PER DI[facility] [address] [place] [address] 11/22/2025 10:45 AM EST Office Visit [facility] MED[facility] [address] [address] 11/22/2025 10:45 AM EST Appointment [facility] US PER DIAG CTR [address] [place] [address] Scheduled Orders Name Type Priority Associated Diagnoses Orde r Schedule [facility] Imaging Routine Poor growth affecting management of mother in third trimester, single or unspecified fetus Maternal chronic hypertension in third trimester Once a week for 5 Occurrences starting 10/18/2025 until 10/18/2026, 1 completed documented as of this encounter Results * [facility] (10/25/2025 11:18 AM EST) Anatomical Region Laterality Modality Ultrasound 10/25/2025 10:4 2 AM EST Narrative 10/25/2025 11:26 AM EST PAT NAME: JULIA LYNN MED REC#: [id number] DA: 1990 PAT GEND: F PAT TYPE: O EXAM REESE: [id number] REF PHYS AMY CONLEY Comparison Studies The [...] EFW (oz) 0 oz EFW by: Hadlock (QXT-RB-CQ-FL) Extended Cav. septi pel. tr 5.9 mm Assembler And Tester [employer] 3.4 mm CM 7.4 mm 56% Nicolaides [...] Normal Heart / Thorax 3-vessel view: Normal 0-kcjwna-vqvhjcg view: normal Cord insertion: Normal Stomach: Appears [...] here in 2 weeks. Coding ======= Description: 17652-24 Follow Up Ultrasound Description: 40029-20 BPP without NST Description: 03878-44 Doppler Umbilical Artery Film Recordist: Tiki Ta RDMS Physician: Jung Angeles MD, FACOG Electronically signed by: Jung Angeles MD, FACOG at: 11:26 Procedure Note Jung Angeles MD - 10/25/2025 PAT NAME: JULIA LYNN MED REC#: [id number] DA: [id number] PAT GEND: F PAT TYPE: O EXAM REESE: [id number] REF PHYS AMY CONLEY Comparison Studies The findings of this study are compared to the prior ultrasound studydated 10/18/25. Patient Status Outpatient Indication ======== IUGR. Marginal PCI. Obesity BMI 35. Maternal Assessment Ysovfa572 cm Height (ft)5 ft Height (in)3 in Efmnqv39 kg Weight (lb)197 lb BMI34.91 kg/m Method ======= Transabdominal ultrasound examination ========= Botello . Number of fetuses: 1 Dating ====== GA by prior nokdjdjsmo52 w + 3 d PAULA by prior [...] Hadlock Femur55.2 mm 29w 1d 2% Hadlock Kecgbof53.3 mm 29w 0d 3% Emeli HC / AC1.10 EFW1,361 g 28w 6d 3% Hadlock EFW (lb)3 lb EFW (oz)0 oz EFW by:Hadlock (JGV-NM-VL-FL) Extended Cav. septi pel. tr5.9 mm Vp3.4 mm CM7.4 mm 56% Nicolaides Head / Face / Neck Cephalic index0.74 6% Nicolaides Extremities / Bony Struc FL / BPD0.76 FL / HC0.20 FL / AC0.22 Other Structures WQB300 bpm General Evaluation Cardiac activity present. FHR [...] LVOT view:Normal Heart / Thorax 3-vessel view:Normal 5-uqtrgx-nspxray view:normal Cord insertion:Normal Stomach:Appears normal Kidneys:Appears normal [...] up here in 2 weeks. Coding ======= Description:32658-39 Follow Up Ultrasound Description:42951-84 BPP without NST Description:60396-61 Doppler Umbilical Artery Film Recordist: Tiki Ta RDMS Physician: Jung Angeles MD, FACOG Electronically signed by: Jung Angeles MD, FACOG at: 11:26 us Jung Angeles MD IMG US ORDERABLES Final Result documented in this encounter Visit Diagnoses Diagnosis Poor growth affecting management of mother in third trimester, single or unspecified fetus- Primary Maternal chronic hypertension in third trimester documented in this encounter Care Teams Leaf Size Picker Relationship Specialty Start Date End Date Provider, No Known [facility] [address] PCP - General 08/19/24 documented as of this encounter
--- OUTSIDE RECORDS SUMMARY | 2025-10-25 09:49 | XMS_ITS | Encounter Summary ---
Author Organization [facility] Address [address] [place] [address] Care Team Providers Care Tire Servicer Name Role Phone Provider, No Known Primary Care Provider Unavail able Reason for Visit * Diagnostic Imaging (Routine) - Authorized Specialty Diagnoses / Procedures Referred By Ritesh t Referred To Contact Radiology Diagnoses Poor growth affecting management of mother in third trimester, single or unspecified fetus Maternal chronic hypertension in third trimester Procedures [facility] Angeles, Jung Harmon MD [address] [facility] [address] [place] [address] Phone: tel: fax: Referral ID Status Reason Start Date Expiration Date V isits Requested Visits Authorized [id number] Authorized 10/18/2025 01/17/2027 5 5 Encounter Details Date Type Department Care Team (Latest Contact Info) Description 10/25/2025 9:49 AM EST - 10/25/2025 11:59 PM [facility] Hospital Encounter [facility] US PER DIAG CTR [address] [place] [phone] Amy Conley, DO [address] [address] Discharge Disposition: Home or Self Care Social [...] Description 11/08/2025 10:45 AM EST Office Visit [facility] [address] [place] [address] 11/08/2025 10:45 AM EST Appointment [facility] PER DIAG CTR [address] [place] [address] 11/15/2025 11:30 AM EST Office Visit [facility]NAL MEDICINE [address] [facility] [address] [place] [phone] 11/15/2025 11:30 AM EST Appointment [facility] US PER DIAG CTR [address] [place] [address] 11/22/2025 10:45 AM EST Office Visit [facility]NAL MEDICINE [address] [facility] [address] [place] [address] 11/22/2025 10:45 AM EST Appointment [facility] US PER DIAG CTR [address] [place] [address] documented as of this encounter Procedures Procedure Name Priority Date/Time Associated Diagnosis Comments [facility] Routine 10/25/2025 11:18 AM EST Poor growth affecting management of mother in third trimester, single or unspecified fetus Maternal chronic hypertension in third trimester documented in this encounter Results * [facility] (10/25/2025 11:18 AM EST) Anatomical Region Laterality Modality Ultrasound 10/25/2025 10:4 2 AM EST Narrative 10/25/2025 11:26 AM EST PAT NAME: FARIDA LYNN [facility] REC#: [id number] DA: [id number] PAT GEND: F PAT TYPE: O EXAM BLAISE: [id number] REF PHYS AMY CONLEY Comparison Studies The [...] EFW (oz) 0 oz EFW by: Hadlock (LPI-YQ-OK-FL) Extended Cav. septi pel. tr 5.9 mm Sales Representative Printing Paper 3.4 mm CM 7.4 mm 56% Nicolaides [...] Normal Heart / Thorax 3-vessel view: Normal 3-ohtcak-czcqmoy view: normal Cord insertion: Normal Stomach: Appears [...] here in 2 weeks. Coding ======= Description: 66936-75 Follow Up Ultrasound Description: 52402-44 BPP without NST Description: 40668-82 Doppler Umbilical Artery Roll Handler: Tiki Ta RDMS Physician: Jung Angeles MD, FACOG Electronically signed by: Jung Angeles MD, FACOG at: 11:26 Procedure Note Jung Angeles MD - 10/25/2025 PAT NAME: FARIDA LYNN MED REC#: [id number] DA: 1990 PAT GEND: F PAT TYPE: O EXAM BLAISE: [id number] REF PHYS AMY CONLEY Comparison Studies The findings of this study are compared to the prior ultrasound studydated 10/18/25. Patient Status Outpatient Indication ======== IUGR. Marginal PCI. Obesity BMI 35. Maternal Assessment Ugjuzl997 cm Height (ft)5 ft Height (in)3 in Pgrfpk09 kg Weight (lb)197 lb BMI34.91 kg/m Method ======= Transabdominal ultrasound examination ========= Botello . Number of fetuses: 1 Dating ====== GA by prior w + 3 d [...] Hadlock Femur55.2 mm 29w 1d 2% Hadlock Isifgcj71.3 mm 29w 0d 3% Emeli HC / AC1.10 EFW1,361 g 28w 6d 3% Hadlock EFW (lb)3 lb EFW (oz)0 oz EFW by:Hadlock (CBH-AZ-FH-FL) Extended Cav. septi pel. tr5.9 mm Vp3.4 mm CM7.4 mm 56% Nicolaides Head / Face / Neck Cephalic index0.74 6% Nicolaides Extremities / Bony Struc FL / BPD0.76 FL / HC0.20 FL / AC0.22 Other Structures RPV233 bpm General Evaluation Cardiac activity present. FHR [...] LVOT view:Normal Heart / Thorax 3-vessel view:Normal 4-nugdea-cizamzh view:normal Cord insertion:Normal Stomach:Appears normal Kidneys:Appears normal [...] up here in 2 weeks. Coding ======= Description:31377-37 Follow Up Ultrasound Description:56183-06 BPP without NST Description:61611-86 Doppler Umbilical Artery Roll Handler: Tiki Ta RDMS Physician: Jung Angeles MD, FACOG Electronically signed by: Jung Angeles MD, FACOG at: 11:26 us Jung Angeles MD IMG US ORDERABLES Final Result documented in this encounter Visit Diagnoses Not on filedocumented in this encounter Care Teams Tire Servicer Relationship Specialty Start Date End Date Provider, [place] [address] PCP - General 08/19/24 documented as of this encounter
--- OUTSIDE RECORDS SUMMARY | 2025-10-25 10:15 | XMS_ITS | Encounter Summary ---
Author Organization [facility] Address [address] [place] [address] Care Team Providers Care Surgical Technology Instructor Name Role Phone Provider, No Known Primary Care Provider Unavail able Reason for Visit * Reason Comments IUGR, marginal PCI, obesity Encounter Details Date Type Department Care Team (Late st Contact Info) Description 10/25/2025 10:15 AM EST Office Visit [facility] MATERNAL MEDICINE [address] [place] [phone] Jung Angeles MD [address] [facility] [address] [place] [address] Poor growth affecting management of mother in [...] Dopplers. Patient reports twice-weekly testing with primary EQUIPMENT COORDINATOR and given 1 of these being performed [...] Dopplers. Patient reports twice-weekly testing with primary EQUIPMENT COORDINATOR and given 1 of these being performed [...] CVS. Jung Angeles MD, FACOG Maternal Medicine, [facility] documented in this encounter Plan of Treatment Upcoming Encounters Date Type Department Care Team (Late st Contact Info) Description 11/08/2025 10:45 AM EST Office Visit [facility] MATERNAL MEDICINE [address] [address] 11/08/2025 10:45 AM EST Appointment [facility] US PER DIAG CTR [address] [place] [address] 11/15/2025 11:30 AM EST Office Visit [facility] MATERNAL MEDICINE [address] [address] 11/15/2025 11:30 AM EST Appointment [facility] US PER DIAG CTR [address] [place] [address] 11/22/2025 10:45 AM EST Office Visit [facility] MATERNAL MEDICINE [address] [place] [address] 11/22/2025 10:45 AM EST Appointment [facility] US PER DIAG CTR [address] [place] [address] documented as of this encounter Visit Diagnoses Diagnosis Poor growth affecting management of mother in third trimester, single or unspecified fetus- Primary Maternal chronic hypertension in third trimester documented in this encounter Care Teams Surgical Technology Instructor Relationship Specialty Start Date End Date Provider, [place] [address] PCP - General 08/19/24 documented as of this encounter
--- OUTSIDE RECORDS SUMMARY | 2025-10-29 12:55 | XMS_ITS | Patient Health Record ---
Author Organization [facility] Address [address] [facility] [facility] [address] [place] [address] Care Team Providers Care Hardwood Floor Installer Name Role Phone Henna Matamoros Unavailable [phone] Brandy Barillas Unavailable [phone] Allergies No Known Allergies Reason For Referral No Information Social History Sex Assigned At : Social History Observation Description Sex Assigned At Female Section Notes: Age you started smokin Amount of Use: Some days but not every day Do you have any latter-day or culture customs that your provider should [...] not every day Do you have any latter-day or culture customs that your provider should [...] not every day Do you have any latter-day or culture customs that your provider should [...] not every day Do you have any latter-day or culture customs that your provider should [...] W/U Status Risk Notes Problem Missed period (80146045) Missed period (N92.6) Active confirmed Plan Of Treatment Future Test Test Name Order Date *US OB Complete Transabdominal/Vaginal 0 08/25/2024 Insurance Providers Payer Name Payer Address Payer Phone Subscriber Number Group Number Insured Name Patient Relationship to Insured Coverage Start Date Coverage End Date Jose BERRYO [address] [place] [address] [id number] Julia Salas Self - patient is the insured Medical (General) History Medical History History ICD Code Asthma Surgical History Surgery Date(Month/Year) None Hospitalization History Reason Date(Month/Year) Admit for [facility] 2011
--- OUTSIDE RECORDS SUMMARY | 2025-10-29 12:55 | XMS_ITS | Encounter Summary ---
Author Organization [facility] Address [address] [place] [address] Care Team Providers Care Elevator Erector Name Role Phone Provider, No Known Primary Care Provider Unavail able Reason for Visit * Reason Onset Date Comments Advice Only 09/06/2025 Pt has question for Nurse. Encounter Details Date Type Department Care Team (Late st Contact Info) Description 09/06/2025 Telephone [facility] PER DIAG CTR [address] [place] [id number] Brian Wesley MD [address] [facility] [address] [place] [address] Advice Only (Pt has question for Nurse.) [...] Visit [facility]ERNAL MEDICINE [address] [facility] [address] 11/08/2025 10:45 AM EST Appointment [facility] PER DI[facility] [address] [place] [address] 11/15/2025 11:30 AM EST Office Visit [facility] MATERNAL MEDICINE [address] [facility] [address] 11/15/2025 11:30 AM EST Appointment [facility] [address] [facility] [place] [address] 11/22/2025 10:45 AM EST Office Visit [facility] MATERNAL MEDICINE [address] [facility] [address] 11/22/2025 10:45 AM EST Appointment [facility] US PER DIAG CTR [address] [place] [address] documented as of this encounter Visit Diagnoses Not on filedocumented in this encounter Care Teams Elevator Erector Relationship Specialty Start Date End Date Provider, No Known [facility] [place] [address] PCP - General 08/19/24 documented as of this encounter
--- OUTSIDE RECORDS SUMMARY | 2025-10-29 12:55 | XMS_ITS | Clinical Summary ---
Author Organization [facility] Address [address] [id number] Care Team Providers Care Natural Resource Manager Name Role Phone Provider, No Known [...] in third trimester 09/23/2025 Assessment & Plan (10/25/2025 11:25 AM EST): Patient presents for follow-up growth ultrasound secondary to known growth restriction. Last ultrasound showed overall growth at the 2nd percentile and AC at the 2nd percentile. Today's ultrasound shows overall stable growth at the 3rd percentile and AC at the 3rd percentile. Normal REAGAN, BPP, umbilical artery Dopplers. Patient reports twice-weekly testing with primary PUBLIC ADMINISTRATION TEACHER and given 1 of these being performed is a BPP will have patient follow-up here in 2 weeks. We discussed careful return precautions regarding decreased movement. Assessment & Plan (10/13/2025 3:01 PM EST): [...] in third trimester 09/02/2025 Assessment & Plan (10/25/2025 10:48 AM EST): Patient only on Myfed 30 mg daily. Blood pressure today 138/74. No reason to make medication change at this time. Assessment & Plan (09/23/2025 11:07 AM EDT): [...] Encounters Date Type Department Care Team Description 10/25/2025 10:15 AM EST Office Visit [email or web address] MATERNAL MEDICINE [address] [place] [address] Jung Angeles MD Poor growth affecting management of mother in third trimester, single or unspecified fetus (Primary Dx); Maternal chronic hypertension in third trimester 10/25/2025 9:49 AM EST - 10/25/2025 11:59 PM EST Hospital Encounter [facility] [address] [place] [address] Amy Conley DO Discharge Disposition: Home or Self Care 10/25/2025 Travel 10/18/2025 10:15 AM EST Office Visit [facility] MATERNAL MEDICINE [address] [facility] [address] [place] [phone] Jung Angeles MD Poor growth affecting management of mother in third trimester, single or unspecified fetus (Primary Dx); Maternal chronic hypertension in third trimester 10/18/2025 9:34 AM EST - 10/18/2025 11:59 PM EST Hospital Encounter [facility] US PER DIAG CTR [address] [place] [phone] Danielle Allen MD Poor growth affecting management of mother in third trimester, single or unspecified fetus; Maternal chronic hypertension in second trimester Discharge Disposition: Home or Self Care 10/18/2025 Travel 10/11/2025 10:15 AM EST Office Visit [facility] MATERNAL MEDICINE [address] [facility] [address] [place] [phone] Danielle Allen MD Poor growth affecting management of mother in third trimester, single or unspecified fetus (Primary Dx); Maternal chronic hypertension in second trimester 10/11/2025 9:44 AM EST - 10/11/2025 11:59 PM EST Hospital Encounter [facility] DI[facility] [address] [place] [phone] Lis Jeffrey MD Marginal insertion of umbilical cord affecting management of mother in second trimester; Maternal chronic hypertension in second trimester; Poor growth affecting management of mother in third trimester, single or unspecified fetus; 26 weeks gestation of Discharge Disposition: Home or Self Care 10/11/2025 Travel 09/23/2025 10:15 AM EDT Office Visit [facility] MATERNAL MEDICINE [address] [facility] [address] [place] [phone] Lis Jeffrey MD Marginal insertion of umbilical cord affecting management of mother in second trimester (Primary Dx); Maternal chronic hypertension in second trimester; Poor growth affecting management of mother in third trimester, single or unspecified fetus; 26 weeks gestation of 09/23/2025 9:52 AM EDT - 09/23/2025 11:59 PM EDT Hospital Encounter [facility] PER DI[facility] [address] [place] [phone] Brian Wesley MD Uterine size-date discrepancy in second trimester; Marginal insertion of umbilical cord affecting management of mother in second trimester; 23 weeks gestation of ; Maternal chronic hypertension in second trimester Discharge Disposition: Home or Self Care 09/23/2025 Travel 09/06/2025 Telephone [facility] US PER DIAG [facility] [address] [place] [phone] Brian Wesley MD Advice Only (Pt has question for Nurse.) 09/02/2025 10:30 AM EDT - 09/02/2025 11:59 PM EDT Hospital Encounter [facility] US PER DIAG [facility] [address] [phone] Amy Conley, Maternal care for other known or suspected poor growth, second trimester, not applicable or unspecified; Marginal insertion of umbilical cord affecting management of mother in second trimester; , unspecified gestational age Discharge Disposition: Home or Self Care 09/02/2025 10:30 AM EDT Office Visit [facility] MATERNAL MEDICINE [address] [address] Brian Wesley MD Uterine size-date discrepancy in second trimester (Primary Dx); Marginal insertion of umbilical cord affecting management of mother in second trimester; 23 weeks gestation of ; Maternal chronic hypertension in second trimester 09/02/2025 Telephone [facility] MATERNAL MEDICINE [address] [address] Jodie Garcia donor relations manager Only 09/02/2025 Travel from Last 3 Months [...] oz) 10/25/2025 9:54 A M EST Height 160 cm (5' 3 ) 09/02/2025 10:47 AM EDT Body Mass Index 34.97 09/02/2025 10:47 AM EDT Plan of Treatment Upcoming Encounters Date Type Department Care Team (Late st Contact Info) Description 11/08/2025 10:45 AM EST Office Visit [facility] MATERNAL MEDICINE [address] [facility] [address] [place] [phone] 11/08/2025 10:45 AM EST Appointment [facility] [address] [place] [address] 11/15/2025 11:30 AM EST Office Visit [facility] MATERNAL MEDICINE [address] [facility] [address] [place] [phone] 11/15/2025 11:30 AM EST Appointment [facility] [address] [place] [address] 11/22/2025 10:45 AM EST Office Visit [facility] MATERNAL MEDICINE [address] [address] 11/22/2025 10:45 AM EST Appointment [facility] [address] [place] [address] Health Maintenance Due Date Last Done Comments Annual Gynecologic Pelvic an d Breast Exam 1992 PAP SMEAR 2013 INFLUENZA VACCINE 07/02/2025 ANNUAL PHYSICAL 08/05/2025 HEPATITIS C SCREENING 08/05/2025 RSV Vaccine - Adults (1 - Ri sk 1-dose series) 10/29/2025 TDAP/TD VACCINES (2 - Td or Tdap) 10/19/2035 025 Pneumococcal Vaccine 0-49 Aged Out No longer eligible based on patient's age to complete this topic Procedures Procedure Name Priority Date/Time Associated Diagnosis Comments [facility] Routine 10/25/2025 11:18 AM EST Poor growth affecting management of mother in third trimester, single or unspecified fetus Maternal chronic hypertension in third trimester [facility] Routine 10/18/2025 10:21 AM EST Poor growth affecting management of mother in third trimester, single or unspecified fetus Maternal chronic hypertension in second trimester [facility] Routine 10/11/2025 10:30 AM EST Marginal insertion of umbilical cord affecting management of mother in second trimester Maternal chronic hypertension in second trimester Poor growth affecting management of mother in third trimester, single or unspecified fetus 26 weeks gestation of [facility] Routine 09/23/2025 10:28 AM EDT Uterine size-date discrepancy in second trimester Marginal insertion of umbilical cord affecting management of mother in second trimester 23 weeks gestation of Maternal chronic hypertension in second trimester [facility] Routine 09/02/2025 11:30 AM EDT Maternal care for other known or suspected poor growth, second trimester, not applicable or unspecified Marginal insertion of umbilical cord affecting management of mother in second trimester , unspecified gestational age from Last 3 Months Results * [facility] (10/25/2025 11:18 AM EST) Only the most recent of5 resultswithin the time period is included. Anatomical Region Laterality Modality Ultrasound 10/25/2025 10:4 2 AM EST Narrative 10/25/2025 11:26 AM EST PAT NAME: FARIDA LYNN [facility] REC#: [id number] DA: 1990 PAT GEND: F PAT TYPE: O EXAM BLAISE: [id number] REF PHYS AMY CONLEY Comparison Studies The [...] EFW (oz) 0 oz EFW by: Hadlock ([id number]) Extended Cav. septi pel. tr 5.9 mm Industrial Robotics Mechanic 3.4 mm CM 7.4 mm 56% [...] Normal Heart / Thorax 3-vessel view: Normal 8-knaxfp-volcqnv view: normal Cord insertion: Normal Stomach: Appears [...] here in 2 weeks. Coding ======= Description: 44873-25 Follow Up Ultrasound Description: 81439-96 BPP without NST Description: 10963-56 Doppler Umbilical Artery Gate Cutter: Tiki Ta RDMS Physician: Jung Angeles MD, FACOG Electronically signed by: Jung Angeles MD, FACOG at: 11:26 Procedure Note Jung Angeles MD - 10/25/2025 PAT NAME: FARIDA LYNN MED REC#: [id number] DA: 1990 PAT GEND: F PAT TYPE: O EXAM BLAISE: [id number] REF PHYS AMY CONLEY Comparison Studies The findings of this study are compared to the prior ultrasound studydated 10/18/25. Patient Status Outpatient Indication ======== IUGR. Marginal PCI. Obesity BMI 35. Maternal Assessment [id number] cm Height (ft)5 ft Height (in)3 in Troebk38 kg Weight (lb)197 lb BMI34.91 kg/m Method ======= Transabdominal ultrasound examination ========= Botello . Number of fetuses: 1 Dating ====== GA by prior [id number] w + 3 d PAULA by prior [...] GA31 w + 3 d Assigned PAULA:12/24/2025 [id number] d Biometry Standard BPD73.0 mm 29w 2d 2% Hadlock OFD98.4 mm 31w 6d 60% Emeli HC274.2 mm 30w 0d 1% Hadlock Cerebellum tr39.3 mm 31w 5d 40% Hill AC249.9 mm 29w 1d 3% Hadlock Femur55.2 mm 29w 1d 2% Hadlock Xdsgwpa34.3 mm 29w 0d 3% Emeli HC / AC1.10 EFW1,361 g 28w 6d 3% Hadlock EFW (lb)3 lb EFW (oz)0 oz EFW by:Hadlock ([id number]) Extended Cav. septi pel. tr5.9 mm Vp3.4 mm CM7.4 mm 56% Nicolaides Head / Face / Neck Cephalic index0.74 6% Nicolaides Extremities / Bony Struc FL / BPD0.76 FL / HC0.20 FL / AC0.22 Other Structures [id number] bpm General Evaluation Cardiac activity present. FHR [...] LVOT view:Normal Heart / Thorax 3-vessel view:Normal 9-pwmxcu-tmtyrut view:normal Cord insertion:Normal Stomach:Appears normal Kidneys:Appears normal [...] up here in 2 weeks. Coding ======= Description:03653-40 Follow Up Ultrasound Description:96218-07 BPP without NST Description:30010-96 Doppler Umbilical Artery Gate Cutter: Tiki Ta RDMS Physician: Jung Angeles MD, FACOG Electronically signed by: Jung Angeles MD, FACOG at: 11:26 us Jung Angeles MD [facility] ORDERABLES Final Result from Last [address] EMPLOYEE Care Teams Natural Resource Manager Relationship Specialty Start Date End Date Provider, No Known [facility] [place] [address] PCP - General 08/19/24
--- OUTSIDE RECORDS SUMMARY | 2025-10-29 12:55 | XMS_ITS | Encounter Summary ---
Author Organization [facility] Address [address] [place] [address] Care Team Providers Care Weatherization Administrator Name Role Phone Provider, No Known [...] [facility] MATERNAL MEDICINE [address] [facility] [address] [place] [phone] 11/08/2025 10:45 AM EST Appointment [facility] [address] [facility] [place] [address] 11/15/2025 11:30 AM EST Office Visit [facility] MATERNAL MEDICINE [address] [address] 11/15/2025 11:30 AM EST Appointment [facility] PER [facility]AG [facility] [address] [facility] [place] [place] [address] 11/22/2025 10:45 AM EST Office Visit [facility] MATERNAL MEDICINE [address] [address] 11/22/2025 10:45 AM EST Appointment [facility] [address] [facility] [place] [address] documented as of this encounter Visit Diagnoses Not on filedocumented in this encounter Care Teams Weatherization Administrator Relationship Specialty Start Date End Date Provider, [place] [address] PCP - General 08/19/24 documented as of this encounter
--- OUTSIDE RECORDS SUMMARY | 2025-10-29 12:55 | XMS_ITS | Encounter Summary ---
Author Organization [facility] Address [address] [place] [address] Care Team Providers Care Marine Consultant Name Role Phone Provider, No Known Primary Care Provider Unavail able Reason for Visit * Reason Onset Date Comments Advice Only 09/02/2025 Encounter Details Date Type Department Care Team (Late st Contact Info) Description 09/02/2025 Telephone [facility] MATERNAL MEDICINE [address] [facility] [address] [place] [address] Jodie Garcia base loader Only Social History Tobacco Use Types Packs/Day [...] Description 11/08/2025 10:45 AM EST Office Visit [facility] MATERNAL MEDICINE [address] [address] 11/08/2025 10:45 AM EST Appointment [facility] PER DI[facility] [address] [place] [address] 11/15/2025 11:30 AM EST Office Visit [facility] MATERNAL MEDICINE [address] [address] 11/15/2025 11:30 AM EST Appointment [facility] PER DI[facility] [address] [place] [address] 11/22/2025 10:45 AM EST Office Visit [facility] MATERNAL MEDICINE [address] [address] 11/22/2025 10:45 AM EST Appointment [facility] DI[facility] [address] [place] [address] documented as of this encounter Visit Diagnoses Not on filedocumented in this encounter Care Teams Marine Consultant Relationship Specialty Start Date End Date Provider, No Known [facility] [place] [address] PCP - General 08/19/24 documented as of this encounter
--- OUTSIDE RECORDS SUMMARY | 2025-10-29 12:56 | XMS_ITS | Encounter Summary ---
Author Organization [facility] Address [address] [place] [address] Care Team Providers Care Salesperson Pianos And Organs Name Role Phone Provider, No Known Primary [...] [facility] MATERNAL MEDICINE [address] [facility] [address] [place] [phone] 11/08/2025 10:45 AM EST Appointment [facility] [address] [facility] [place] [address] 11/15/2025 11:30 AM EST Office Visit [facility] MATERNAL MEDICINE [address] [address] 11/15/2025 11:30 AM EST Appointment [facility] PER DIAG [facility] [address] [facility] [place] [address] 11/22/2025 10:45 AM EST Office Visit [facility] MATERNAL MEDICINE [address] [address] 11/22/2025 10:45 AM EST Appointment [facility] [address] [facility] [place] [address] documented as of this encounter Visit Diagnoses Not on filedocumented in this encounter Care Teams Salesperson Pianos And Organs Relationship Specialty Start Date End Date Provider, [place] [address] PCP - General 08/19/24 documented as of this encounter
--- OUTSIDE RECORDS SUMMARY | 2025-10-29 12:56 | XMS_ITS | Encounter Summary ---
Author Organization [facility] Address [address] [place] [address] Care Team Providers Care Packer Name Role Phone Provider, No Known Primary [...] Description 11/08/2025 10:45 AM EST Office Visit [facility] MATERNAL MEDICINE [address] [facility] [address] [place] [phone] 11/08/2025 10:45 AM EST [facility]ment [facility] [address] [facility] [place] [address] 11/15/2025 11:30 AM EST Office Visit [facility] MATERNAL MEDICINE [address] [address] 11/15/2025 11:30 AM EST Appointment [facility] [address] [facility] [place] [address] 11/22/2025 10:45 AM EST Office Visit [facility] MATERNAL MEDICINE [address] [address] 11/22/2025 10:45 AM EST Appointment [facility] [address] [facility] [place] [place] [address] documented as of this encounter Visit Diagnoses Not on filedocumented in this encounter Care Teams Packer Relationship Specialty Start Date End Date Provider, [place] [address] PCP - General 08/19/24 documented as of this encounter
--- OUTSIDE RECORDS SUMMARY | 2025-10-29 12:56 | XMS_ITS | Encounter Summary ---
Author Organization [facility] Address [address] [place] [address] Care Team Providers Care Airplane Woodworker Name Role Phone Provider, No Known Primary Care Provider Unavail able Encounter Details Date Type Department Care Team (Latest Contact Info) Description 10/25/2025 Travel Social History Tobacco Use Types Packs/Day [...] 11/08/2025 10:45 AM EST Office Visit [facility] MATERNAL MEDICINE [address] [facility] [address] [place] [phone] 11/08/2025 10:45 AM EST Appointment [facility] [address] [facility] [place] [address] 11/15/2025 11:30 AM EST Office Visit [facility] MATERNAL MEDICINE [address] [address] 11/15/2025 11:30 AM EST Appointment [facility] PER DIAG [facility] [address] [facility] [place] [address] 11/22/2025 10:45 AM EST Office Visit [facility] MATERNAL MEDICINE [address] [address] 11/22/2025 10:45 AM EST Appointment [facility] PER [facility]AG [facility] [address] [facility] [place] [address] documented as of this encounter Visit Diagnoses Not on filedocumented in this encounter Care Teams Airplane Woodworker Relationship Specialty Start Date End Date Provider, [place] [address] PCP - General 08/19/24 documented as of this encounter
--- OUTSIDE RECORDS SUMMARY | 2025-10-29 12:56 | XMS_ITS | Encounter Summary ---
Author Organization [facility] Address [address] [place] [address] Care Team Providers Care Neighborhood Coordinator Name Role Phone Provider, No Known [...] 11/08/2025 10:45 AM EST Office Visit [facility] MATERNAL MEDICINE [address] [facility] [address] [place] [address] 11/08/2025 10:45 AM EST Appointment [facility] [address] [facility] [address] 11/15/2025 11:30 AM EST Office Visit [facility] MATERNAL MEDICINE [address] [address] 11/15/2025 11:30 AM EST Appointment [facility] PER [facility] [address] [facility] [address] 11/22/2025 10:45 AM EST Office Visit [facility] MATERNAL MEDICINE [address] [address] 11/22/2025 10:45 AM EST Appointment [facility] PER DI[facility] [address] [facility] [address] documented as of this encounter Visit Diagnoses Not on filedocumented in this encounter Care Teams Neighborhood Coordinator Relationship Specialty Start Date End Date Provider, [place] [address] PCP - General 08/19/24 documented as of this encounter
--- NOTE | 2025-10-29 13:00 | US_ITS ---
PROCEDURE: US OB BIOPHYSICAL PROFILE CLINICAL INDICATION: Severe IUGR COMPARISON: US US OB <= 14 WEEKS FETUS from 04/30/2025 US US OB /MATERNAL DETAIL from 08/04/2025 US US OB BIOPHYSICAL PROFILE from 10/19/2025 FINDINGS: Transabdominal sonographic images of the uterus were obtained. From her established due date she is 32weeks 0 days. The following parameters are obtained: Viable Fetus in the breech presentation with an anterior placenta grade 2. There are several small placental lakes. The cervix measures 4.49 cm in length Measurements: heart Rate = 134bpm Amniotic fluid index: 8.98cm, MVP 3.85 cm Qualitative AFV:2 Breathing movements: 2 Gross Body Movements: 2 Tone: 2 Biophysical profile score: 8 No obvious anomalies evident.Kidneys, stomach, bladder, four-chamber heart, three-vessel cord appear normal. IMPRESSION: 1. Viable fetus in the breech presentation with an anterior placenta grade 2. There are several small placental lakes. 2. Patient has a marginal cord insertion but image of this were not seen today. 3. The fluid is within normal limits with an amniotic fluid index 8.98 cm, MVP 3.856 cm. 4. Biophysical profile is 8/8 with good breathing movement and movement seen. 5. Limited anatomical scan appears normal. 6. Given that the patient has severe IUGR, would suggest SD ratios with each biophysical profile. Dictated by: Polo Catherine MD 10/29/2025 14:50 Polo Catherine MD in OV 10/29/2025 14:50
== END 2025-10-29 23:59 | disposition home or self-care (01) ==
LOC: RAD 12:51
PROVIDERS: PCP Obstetrics & Gynecology; Visit Provider Obstetrics & Gynecology
DX: O32.1XX0 Maternal care for breech presentation, not applicable or unspecified (principal); O28.3 Abnormal ultrasonic finding on antenatal screening of mother; O36.5930 Maternal care for other known or suspected poor fetal growth, third trimester, not applicable or unspecified; O10.913 Unspecified pre-existing hypertension complicating pregnancy, third trimester; Z3A.32 32 weeks gestation of pregnancy
CPT/HCPCS: 76819

== ENCOUNTER 2025-11-02 12:52 | Outpatient (CLI) | payer BC, SELFPAY ==
--- OUTSIDE RECORDS SUMMARY | 2025-09-02 09:30 | XMS_ITS | Encounter Summary ---
Author Organization [facility] Address [address] [id number] Care Team Providers Care Director Learning Services Name Role Phone Provider, No Known Primary Care Provider Unavail able Reason for Referral * Diagnostic Imaging (Routine) - Closed Specialty Diagnoses / Procedures Referred By Ritesh winchester Referred To Contact Radiology Diagnoses Maternal care for other known or suspected poor growth, second trimester, not applicable or unspecified Marginal insertion of umbilical cord affecting management of mother in second trimester , unspecified gestational age Procedures [facility] Diagnostic [place] Amy Conley DO [address] [place] [address] [place] [address] Phone: tel: fax: [facility] US PER DIAG [facility] [address] [place] [address] Phone: tel: Referral ID Status Reason Start Date Expiration Date Visits Re quested Visits Authorized [id number] Closed 08/05/2025 11/04/2026 1 1 Reason for Visit * Diagnostic Imaging (Routine) - Closed Specialty Diagnoses / Procedures Referred By Ritesh winchester Referred To Contact Radiology Diagnoses Maternal care for other known or suspected poor growth, second trimester, not applicable or unspecified Marginal insertion of umbilical cord affecting management of mother in second trimester , unspecified gestational age Procedures [facility] [place] Amy Conley DO [address] [place] [address] [place] [address] Phone: tel: fax: [facility] [address] [place] [address] Phone: tel: Referral ID Status Reason Start Date Expiration Date Visits Re quested Visits Authorized [id number] Closed 08/05/2025 11/04/2026 1 1 Encounter Details Date Type Department Care Team (Latest Contact Info) Description 09/02/2025 10:30 AM EDT - 09/02/2025 11:59 PM EDT Hospital Encounter [facility] [address] [place] [id number] Amy Conley DO [address] [facility] [address] [id number] Maternal care for other known or suspected poor growth, second trimester, not applicable or unspecified; Marginal insertion of umbilical cord affecting management of mother in second trimester; , unspecified gestational age Discharge Disposition: Home or Self Care Social History Tobacco Use Types Packs/Day Years Used Date Smoking Tobacco: Former Cigarettes Q uit: 2015 Smokeless Tobacco: Never Alcohol Use Standard Drinks/Week Comments Not Currently 0 (1 standard drink = 0.6 oz pur e alcohol) Abuse Screen Answer Date Recorded Unsafe at Home or Work/School Not on file Feels Threatened by Someone? Not on file Does Anyone Keep You from Co ntacting Others or Doint Things Outside the Home? Not on file 08/19/2024 Physical Sign of Abuse Present Not on file 0 08/19/2024 Housing Stability Answer Date Recorded Current Living Arrangements Not on file 08/02 Potentially Unsafe Housing Conditions Not on paty e 08/19/2024 Family and Community Support Answer Blaise e Recorded Help with Day-to-Day Activities Not on file 08/19/2024 Lonely or Isolated Not on file 08/19/2024 Employment Answer Date Recorded Do you want help finding or keeping work or a chayo b? Not on file 08/19/2024 Disabilities Answer Date Recorded Concentrating, Remembering, or Making Decisions Difficulty Not on file 08/19/2024 Doing Errands Independently Difficulty Not on fi le 08/19/2024 Education Answer Date Recorded Help with school or training? Not on file Preferred Language Not on file 08/19/2024 Estimated Date of Delivery Comme nts Yes 12/24/2025 Date entered valentina or to episode creation Sex and Gender Information Value Date Recorded Sex Assigned at Not on file Legal Sex Female 4:42 PM EDT Gender Identity Not on file Sexual Orientation Not on file documented as of this encounter Medications at Time of Discharge aspirin 81 MG chewable tablet Chew 1 tablet Daily. NIFEdipine XL (PROCARDIA XL) 30 MG 24 hr tablet Take 1 tablet by mouth Daily for 150 days. 30 tablet 4 09/02/2025 01/30/2026 Vit-Fe Fumarate-FA ( vitamin 27-0.8) 27-0.8 MG tablet tablet Take 1 tablet by mouth Daily. promethazine (PHENERGAN) 12.5 MG tablet Take 2 tablets by mouth Every 6 (Six) Hours As Needed. 05/13/2025 10/11/2025 documented as of this encounter Plan of Treatment Upcoming Encounters Date Type Department Care Team (Late st Contact Info) Description 11/08/2025 10:45 AM EST Office Visit [facility] MATERNAL MEDICINE [address] [address] 11/08/2025 10:45 AM EST Appointment [facility] PER [facility] [address] [facility] [place] [address] 11/15/2025 11:30 AM EST Office Visit [facility] MATERNAL MEDICINE [address] [address] 11/15/2025 11:30 AM EST Appointment [facility] PER [facility] [address] [facility] [place] [address] 11/22/2025 10:45 AM EST Office Visit [facility] MATERNAL MEDICINE [address] [address] 11/22/2025 10:45 AM EST Appointment [facility] PER DIAG CTR [address] [place] [address] documented as of this encounter Procedures Procedure Name Priority Date/Time Associated Diagnosis Comments [facility] Routine 09/02/2025 11:30 AM EDT Maternal care for other known or suspected poor growth, second trimester, not applicable or unspecified Marginal insertion of umbilical cord affecting management of mother in second trimester , unspecified gestational age documented in this encounter Results * [facility] (09/02/2025 11:30 AM EDT) Anatomical Region Laterality Modality Ultrasound 09/02/2025 10:5 6 AM EDT Narrative 09/02/2025 11:36 AM EDT PAT NAME: FARIDA LYNN MED REC#: [id number] DA: 1990 PAT GEND: F PAT TYPE: O EXAM BLAISE: [id number] REF PHYS AMY CONLEY Addendum ========= CORRECTED REPORT - CPT code correction Comparison Studies There are no relevant prior studies to which this study is being compared Patient Status Outpatient Indication ======== Concern for IUGR. Marginal PCI. Obesity BMI 33. Maternal Assessment Height 160 cm Height (ft) 5 ft Height (in) 3 in Weight 85 kg Weight (lb) 188 lb BMI 33.31 kg/m Method ======= Transabdominal ultrasound examination. View: Good view ========= Botello . Number of fetuses: 1 Dating ====== Method of dating: based on stated PAULA GA by prior assessment 23 w + 6 d PAULA by prior assessment: 12/24/2025 Ultrasound examination on: 09/02/2025 GA by U/S based upon: AC, BPD, Femur, HC GA by U/S 21 w + 6 d PAULA by U/S: 01/07/2026 Assigned: based on stated PAULA, selected on 09/02/2025 Assigned GA 23 w + 6 d Assigned PAULA: 12/24/2025 length 280 d Biometry Standard BPD 51.8 mm 21w 5d 1% Hadlock OFD 71.4 mm 23w 6d 48% Emeli HC 197.5 mm 22w 0d <1% Hadlock Cerebellum tr 25.9 mm 23w 2d 54% Hill AC 162.5 mm 21w 2d <1% Hadlock Femur 38.3 mm 22w 2d 4% Hadlock Humerus 34.6 mm 21w 6d 2% Emeli HC / AC 1.22 EFW 449 g 21w 4d <1% Hadlock EFW (lb) 1 lb EFW (oz) 0 oz EFW by: Hadlock ([id number]-[id number]-FL) Extended Tibia 34.2 mm 22w 5d 15% Emeli Fibula 34.9 mm 23w 0d 35% Emeli Foot 41.2 mm 17% Chitty Radius 31.2 mm 22w 1d 32% Emeli Ulna 30.8 mm 21w 4d <1% Emeli Cav. septi pel. tr 3.7 mm Commutator Inspector 5.7 mm CM 6.1 mm 57% Nicolaides Nasal bone 7.4 mm Head / Face / Neck Cephalic index 0.73 4% Nicolaides Extremities / Bony Struc FL / BPD 0.74 FL / HC 0.19 FL / AC 0.24 Other Structures FHR 129 bpm General Evaluation Cardiac activity present. FHR 129 bpm. movements present. Presentation breech. Placenta Placental site: anterior. Umbilical cord Cord vessels: 3 vessel cord. Insertion site: placental insertion: marginal insertion. Amniotic fluid Amount of AF: normal. MVP 4.2 cm. Anatomy Cranium: Appears normal Midline falx: Appears normal Cavum septi pellucidi: Appears normal Cerebellum: Appears normal Cisterna magna: Appears normal Head / Neck Rt lateral ventricle: Appears normal Lt lateral ventricle: Appears normal Rt choroid plexus: Appears normal Lt choroid plexus: Appears normal Neck: Appears normal Lips: Appear normal Profile: Appears normal Nose: Appears normal Face Nose: Nasal bone present Palate: visualized Orbits: Appears normal Lens: Normal 4-chamber view: Appears normal RVOT view: Appears normal LVOT view: Appears normal Heart / Thorax Aortic arch view: Appears normal Ductal arch view: Appears normal SVC: normal IVC: normal 3-vessel view: Appears normal 9-tdxvie-cdoopje view: Appears normal Rt lung: Appears normal Lt lung: normal Diaphragm: Appears normal Diaphragm: Intact Cord insertion: Appears normal Stomach: Appears normal Bladder: Appears normal Abdomen Rt kidney: normal Lt kidney: normal Liver: normal Small bowel: normal Large bowel: normal Cervical spine: Appears normal Thoracic spine: Appears normal Lumbar spine: Appears normal Sacral spine: Appears normal Arms: Appears normal Legs: Appears normal Rt upper arm: Appears normal Rt forearm: Appears normal Rt hand: Appears normal Rt fingers: suboptimal Lt upper arm: Appears normal Lt forearm: Appears normal Lt hand: Appears normal Lt fingers: suboptimal Rt upper leg: Appears normal Rt lower leg: Appears normal Rt foot: Appears normal Lt upper leg: Appears normal Lt lower leg: Appears normal Lt foot: Appears normal Gender: female Wants to know gender: yes Doppler Arterial Umbilical A PI 1.20 64% Jolanta Umbilical A RI 0.72 55% Jolanta Umbilical A PS 29.09 cm/s 2% Ebbing Umbilical A ED 8.03 cm/s Umbilical A TAmax 17.60 cm/s 3% Ebbing Umbilical A MD 7.94 cm/s Umbilical A S / D 3.62 55% Jolanta Umbilical A HR 131 bpm Maternal Structures Uterus / Cervix Cervix: Visualized Approach: Transabdominal Cervical length 42.3 mm Ovaries / Tubes / Adnexa Rt ovary: Visualized Rt ovary D1 28.0 mm Rt ovary D2 27.3 mm Rt ovary D3 11.6 mm Rt ovary Vol 4.6 cm Lt ovary: Visualized Lt ovary D1 24.3 mm Lt ovary D2 20.2 mm Lt ovary D3 12.00 mm Lt ovary Vol 3.1 cm Consultation / Office Visit Office note to follow Impression ========= Size less than dates. No anomalies were identified. No markers for trisomy. The cervical length appears normal. Recommendation We recommend evaluation in 2-3 weeks. Follow up appointment scheduled here. Recommend increased rest and nutrition. Coding ====== Description: 21240-78 Detailed Ultrasound Description: 07307-25 Doppler Umbilical Artery Wire Weaving Loom Setter: RT Benjamin Hutchison , [facility] Physician: Jose Wesley MD, FACOG Electronically signed by: Jose Wesley MD, FACOG at: 08:55 Procedure Note Brian Wesley MD - 09/03/2025 PAT NAME: FARIDA LYNN MED REC#: [id number] DA: 1990 PAT GEND: F PAT TYPE: O EXAM BLAISE: [id number] REF PHYS AMY CONLEY Addendum ========= CORRECTED REPORT - CPT code correction Comparison Studies There are no relevant prior studies to which this study is beingcompared Patient Status Outpatient Indication ======== Concern for IUGR. Marginal PCI. Obesity BMI 33. Maternal Assessment Hvbyqy009 cm Height (ft)5 ft Height (in)3 in Mtcxrt74 kg Weight (lb)188 lb BMI33.31 kg/m Method ======= Transabdominal ultrasound examination. View: Good view ========= Botello . Number of fetuses: 1 Dating ====== Method of dating:based on stated PAULA GA by prior [id number] w + 6 d PAULA by prior assessment:12/24/2025 Ultrasound examination on:09/02/2025 GA by U/S based upon:AC, BPD, Femur, HC GA by U/S21 w + 6 d PAULA by U/S:01/07/2026 Assigned:based on stated PAULA, selected on 09/02/2025 Assigned GA23 w + 6 d Assigned PAULA:12/24/2025 [id number] d Biometry Standard BPD51.8 mm 21w 5d 1% Hadlock OFD71.4 mm 23w 6d 48% Emeli HC197.5 mm 22w 0d <1% Hadlock Cerebellum tr25.9 mm 23w 2d 54% Hill AC162.5 mm 21w 2d <1% Hadlock Femur38.3 mm 22w 2d 4% Hadlock Kkwtaun17.6 mm 21w 6d 2% Emeli HC / AC1.22 HZY683 g 21w 4d <1% Hadlock EFW (lb)1 lb EFW (oz)0 oz EFW by:Hadlock ([id number]-LQ-BV-FL) Extended Tibia34.2 mm 22w 5d 15% Emeli Zkgnri43.9 mm 23w 0d 35% Emeli Foot41.2 mm 17% Chitty Mhqpuh23.2 mm 22w 1d 32% Emeli Ulna30.8 mm 21w 4d <1% Emeli Cav. septi pel. tr3.7 mm Vp5.7 mm CM6.1 mm 57% Nicolaides Nasal bone7.4 mm Head / Face / Neck Cephalic index0.73 4% Nicolaides Extremities / Bony Struc FL / BPD0.74 FL / HC0.19 FL / AC0.24 Other Structures GRW359 bpm General Evaluation Cardiac activity present. FHR 129 bpm. movements present. Presentation breech. Placenta Placental site: anterior. Umbilical cord Cord vessels: 3 vessel cord. Insertion site: placentalinsertion: marginal insertion. Amniotic fluid Amount of AF: normal. MVP 4.2 cm. Anatomy Cranium:Appears normal Midline falx:Appears normal Cavum septi pellucidi:Appears normal Cerebellum:Appears normal Cisterna magna:Appears normal Head / Neck Rt lateral ventricle:Appears normal Lt lateral ventricle:Appears normal Rt choroid plexus:Appears normal Lt choroid plexus:Appears normal Neck:Appears normal Lips:Appear normal Profile:Appears normal Nose:Appears normal Face Nose:Nasal bone present Palate:visualized Orbits:Appears normal Lens:Normal 4-chamber view:Appears normal RVOT view:Appears normal LVOT view:Appears normal Heart / Thorax Aortic arch view:Appears normal Ductal arch view:Appears normal SVC:normal IVC:normal 3-vessel view:Appears normal 1-ooiewk-nhecsxl view:Appears normal Rt lung:Appears normal Lt lung:normal Diaphragm:Appears normal Diaphragm:Intact Cord insertion:Appears normal Stomach:Appears normal Bladder:Appears normal Abdomen Rt kidney:normal Lt kidney:normal Liver:normal Small bowel:normal Large bowel:normal Cervical spine:Appears normal Thoracic spine:Appears normal Lumbar spine:Appears normal Sacral spine:Appears normal Arms:Appears normal Legs:Appears normal Rt upper arm:Appears normal Rt forearm:Appears normal Rt hand:Appears normal Rt fingers:suboptimal Lt upper arm:Appears normal Lt forearm:Appears normal Lt hand:Appears normal Lt fingers:suboptimal Rt upper leg:Appears normal Rt lower leg:Appears normal Rt foot:Appears normal Lt upper leg:Appears normal Lt lower leg:Appears normal Lt foot:Appears normal Gender:female Wants to know gender:yes Doppler Arterial Umbilical A PI1.20 64% Jolanta Umbilical A RI0.72 55% Jolanta Umbilical A PS29.09 cm/s 2% Ebbing Umbilical A ED8.03 cm/s Umbilical A TAmax17.60 cm/s 3% Ebbing Umbilical A MD7.94 cm/s Umbilical A S / D3.62 55% Jolanta Umbilical A HR131 bpm Maternal Structures Uterus / Cervix Cervix:Visualized Approach:Transabdominal Cervical lgakxi92.3 mm Ovaries / Tubes / Adnexa Rt ovary:Visualized Rt ovary D128.0 mm Rt ovary D227.3 mm Rt ovary D311.6 mm Rt ovary Vol4.6 cm Lt ovary:Visualized Lt ovary D124.3 mm Lt ovary D220.2 mm Lt ovary D312.00 mm Lt ovary Vol3.1 cm Consultation / Office Visit Office note to follow Impression ========= Size less than dates. No anomalies were identified. No markers for trisomy. The cervical length appears normal. Recommendation We recommend evaluation in 2-3 weeks. Follow up appointment scheduled here. Recommend increased rest and nutrition. Coding ====== Description:88926-14 Detailed Ultrasound Description:08822-35 Doppler Umbilical Artery Wire Weaving Loom Setter: RT Benjamin Hutchison , [facility] Physician: Jose Wesley MD, FACOG Electronically signed by: Jose Wesley MD, [place]OG at: 08:55 us Amy Conley DO IMG US ORDERABLES Edited Re sult - Final documented in this encounter Visit Diagnoses Diagnosis Maternal care for other known or suspected poor growth, second trimester, not applicable or unspecified Marginal insertion of umbilical cord affecting management of mother in second trimester , unspecified gestational age documented in this encounter Care Teams Director Learning Services Relationship Specialty Start Date End Date Provider, [place] [address] PCP - General 08/19/24 documented as of this encounter
--- OUTSIDE RECORDS SUMMARY | 2025-09-23 08:52 | XMS_ITS | Encounter Summary ---
Author Organization [facility] Address [address] [place] [address] Care Team Providers Care Set Staff Fitter Name Role Phone Provider, No Known Primary Care Provider Unavail able Reason for Referral * Diagnostic Imaging (Routine) - Closed Specialty Diagnoses / Procedures Referred By Ritesh winchester Referred To Contact Radiology Diagnoses Uterine size-date discrepancy in second trimester Marginal insertion of umbilical cord affecting management of mother in second trimester 23 weeks gestation of Maternal chronic hypertension in second trimester Procedures US [facility] Diagnostic [place] Brian Wesley MD [address] [place] [address] Phone: tel: fax: [facility] US PER DIAG CTR [address] [place] [address] Phone: tel: Referral ID Status Reason Start Date Expiration Date Visits Re quested Visits Authorized [id number] Closed 09/02/2025 12/02/2026 1 1 Reason for Visit * Diagnostic Imaging (Routine) - Closed Specialty Diagnoses / Procedures Referred By Ritesh winchester Referred To Contact Radiology Diagnoses Uterine size-date discrepancy in second trimester Marginal insertion of umbilical cord affecting management of mother in second trimester 23 weeks gestation of Maternal chronic hypertension in second trimester Procedures [facility] Diagnostic [place] Brian Wesley MD [address] [address] Phone: tel: fax: [facility] US PER DIAG CTR [address] [place] [address] Phone: tel: Referral ID Status Reason Start Date Expiration Date Visits Re quested Visits Authorized [id number] Closed 09/02/2025 12/02/2026 1 1 Encounter Details Date Type Department Care Team (Late st Contact Info) Description 09/23/2025 9:52 AM EDT - 09/23/2025 11:59 PM EDT Hospital Encounter [facility] PER DIAG CTR [address] [place] [address] Brian Wesley MD [address] [facility] [address] [place] [address] Uterine size-date discrepancy in second trimester; Marginal insertion of umbilical cord affecting management of mother in second trimester; 23 weeks gestation of ; Maternal chronic hypertension in second trimester Discharge Disposition: Home or Self Care Social [...] Description 11/08/2025 10:45 AM EST Office Visit [facility] [address] [facility] [address] 11/08/2025 10:45 AM EST Appointment [facility] US PER DIAG CTR [address] [place] [address] 11/15/2025 11:30 AM EST Office Visit [facility] [address] [facility] [address] [place] [address] 11/15/2025 11:30 AM EST Appointment [facility] US PER DIAG CTR [address] [place] [address] 11/22/2025 10:45 AM EST Office Visit [facility] [address] [facility] [address] [place] [address] 11/22/2025 10:45 AM EST Appointment [facility] US PER DIAG CTR [address] [place] [address] documented as of this encounter Procedures Procedure Name Priority Date/Time Associated Diagnosis Comments [facility] Routine 09/23/2025 10:28 AM EDT Uterine size-date discrepancy in second trimester Marginal insertion of umbilical cord affecting management of mother in second trimester 23 weeks gestation of Maternal chronic hypertension in second trimester documented in this encounter Results * [facility] (09/23/2025 10:28 AM EDT) Anatomical Region Laterality Modality Ultrasound 09/23/2025 10:0 6 AM EDT Narrative 09/23/2025 10:58 AM EDT PAT NAME: FARIDA LYNN MED REC#: [id number] DA: [id number] PAT GEND: F PAT TYPE: O EXAM BLAISE: [id number] REF PHYS AMY CORCORAN Comparison Studies The findings of this study [...] EFW (oz) 12 oz EFW by: Hadlock (OJG-SI-KC-FL) Extended Tibia 40.1 mm 25w 2d 8% Emeli Fibula 39.3 mm 24w 5d 14% Emeli Foot 47.9 mm 9% Chitty Radius 32.4 mm 23w 1d 13% Emeli Ulna 37.2 mm 24w 5d 1% Emeli Cav. septi pel. tr 5.4 mm Telephone Operator Receptionist 4.1 mm CM 8.6 mm 94% Nicolaides [...] Heart / Thorax 3-vessel view: Appears normal 6-teuqfb-vuzaepq view: Appears normal Cord insertion: Normal Stomach: [...] Follow-up scheduled in 2wks. Coding ======= Description: 30090-06 Follow Up Ultrasound Description: 22006-90 Doppler Umbilical Artery Special Education Aide: RT Benjamin Hutchison , [facility] Physician: Lis Jeffrey MD Electronically signed by: Lis Jeffrey MD at: 10:58 Procedure Note Lis Jeffrey MD - 09/23/2025 PAT NAME: FARIDA LYNN MED REC#: [id number] DA: 1990 PAT GEND: F PAT TYPE: O EXAM BLAISE: [id number] REF PHYS AMY CORCORAN Comparison Studies The findings of this study are compared to the prior ultrasound studydated 09/02/25 Patient Status Outpatient Indication ======== IUGR. Marginal PCI. Obesity BMI 34. Maternal Assessment Rdohcq509 cm Height (ft)5 ft Height (in)3 in Ybbtdm99 kg Weight (lb)191 lb BMI33.84 kg/m Method ======= Transabdominal ultrasound examination. View: Suboptimal view: limited byfetal position ========= Botello . Number of fetuses: 1 Dating ====== Method of dating:based on stated PAULA GA by prior [id number] w + 6 d PAULA by prior assessment:12/24/2025 Ultrasound examination on:09/23/2025 GA by U/S based upon:AC, BPD, Femur, HC GA by U/S25 w + 2 d PAULA by U/S:01/04/2026 Previous dating:based on stated PAULA, selected on 09/02/2025 Agreed PAULA of previous datin12/24/2025 Assigned:based on stated PAULA, selected on 09/23/2025 Assigned GA26 w + 6 d Assigned PAULA:12/24/2025 d Biometry Standard BPD62.4 mm 25w 2d 4% Hadlock OFD84.3 mm 27w 2d 66% Emeli HC235.6 mm 25w 4d 3% Hadlock Cerebellum tr32.3 mm 27w 4d 87% Hill AC202.9 mm 24w 6d 3% Hadlock Femur46.7 mm 25w 4d 7% Hadlock Dcqdksb68.5 mm 24w 0d <1% Emeli HC / AC1.16 HFP290 g 25w 0d 3% Hadlock EFW (lb)1 lb EFW (oz)12 oz EFW by:Hadlock (RVJ-WT-HE-FL) Extended Tibia40.1 mm 25w 2d 8% Emeli Ermrvx02.3 mm 24w 5d 14% Emeli Foot47.9 mm 9% Chitty Ycgqpa95.4 mm 23w 1d 13% Emeli Ulna37.2 mm 24w 5d 1% Emeli Cav. septi pel. tr5.4 mm Vp4.1 mm CM8.6 mm 94% Nicolaides Head / Face / Neck Cephalic index0.74 8% Nicolaides Extremities / Bony Struc FL / BPD0.75 FL / HC0.20 FL / AC0.23 Other Structures SNI606 bpm General Evaluation Cardiac activity present. FHR [...] normal Heart / Thorax 3-vessel view:Appears normal 0-wmgvud-qeiyvyz view:Appears normal Cord insertion:Normal Stomach:Appears normal Kidneys:Appears normal Bladder:Appears normal Gender:female Wants to know gender:yes Maternal Structures Uterus / Cervix Cervix:Visualized Approach:Transabdominal Cervical omnzif35.3 mm Doppler Arterial Umbilical A PI1.15 71% Jolanta Umbilical A RI0.72 75% Jolanta Umbilical A PS-41.45 cm/s Umbilical A ED-12.79 cm/s Umbilical A TAmax-27.21 cm/s Umbilical A MD-12.25 cm/s Umbilical A S / D3.57 70% Jolatna Umbilical A HR138 bpm Impression Farida presents [...] Recommendation Follow-up scheduled in 2wks. Coding ======= Description:07874-68 Follow Up Ultrasound Description:89563-66 Doppler Umbilical Artery Special Education Aide: RT Kianna R , [facility] Physician: Lis Jeffrey MD Electronically signed by: Lis Jeffrey MD at: 10:58 us Brian Wesley MD IMG US ORDERABLES Final Re sult documented in this encounter Visit Diagnoses Diagnosis Uterine size-date discrepancy in second trimester Marginal insertion of umbilical cord affecting management of mother in second trimester 23 weeks gestation of Maternal chronic hypertension in second trimester documented in this encounter Care Teams Set Staff Fitter Relationship Specialty Start Date End Date Provider, [place] [address] PCP - General 08/19/24 documented as of this encounter
--- OUTSIDE RECORDS SUMMARY | 2025-09-23 09:15 | XMS_ITS | Encounter Summary ---
Author Organization [facility] Address [address] [phone] Care Team Providers Care Manager Med Surg Name Role Phone Provider, No Known Primary [...] unspecified fetus 26 weeks gestation of Procedures [facility] Lis Jeffrey MD [address] [address] Phone: tel: fax: Referral ID Status Reason Start Date Expiration Date Visits Re quested Visits Authorized [id number] Closed 09/23/2025 12/23/2026 1 1 Reason for Visit * Reason Comments IUGR, MPCI Encounter Details Date Type Department Care Team (Late st Contact Info) Description 09/23/2025 10:15 AM EDT Office Visit [facility] MATERNAL MEDICINE [address] [facility] [address] [place] [phone] Lis Jeffrey MD [address] [facility] [address] [place], [place] [phone] Marginal insertion of umbilical cord affecting management [...] of mother in second trimester (Primary) - [facility]; Future 2. Maternal chronic [...] [facility] MED[facility] [address] [address] 11/08/2025 10:45 AM EST Appointment [facility] [address] [place] [address] 11/15/2025 11:30 AM EST Office Visit [facility] MATERNAL MEDICINE [address] [address] 11/15/2025 11:30 AM EST Appointment [facility] [address] [place] [address] 11/22/2025 10:45 AM EST Office Visit [facility] MATERNAL MEDICINE [address] [place] [address] 11/22/2025 10:45 AM EST Appointment [facility] [address] [place] [address] documented as of this encounter Results * [facility] (10/11/2025 10:30 AM EST) Anatomical Region Laterality Modality Ultrasound 10/11/2025 9:59 AM EST Narrative 10/12/2025 7:46 PM EST PAT NAME: FARIDA LYNN MED REC#: [id number] DA: [id number] PAT GEND: F PAT TYPE: O EXAM BLAISE: [id number] REF PHYS AMY CONLEY Comparison Studies The [...] EFW (oz) 5 oz EFW by: Hadlock (CLA-OM-EB-FL) Extended Cav. septi pel. tr 5.7 mm Volunteer Manager 5.0 mm CM 7.1 mm 55% Nicolaides [...] Normal Heart / Thorax 3-vessel view: Normal 7-yvydzm-ugcuacx view: normal Cord insertion: Normal Stomach: Appears [...] normal Marginal cord insertion Coding ======= Description: 59931-24 Follow Up Ultrasound Description: 42155-58 BPP without NST Description: 71946-18 Doppler Umbilical Artery Bow Rehairer: Albina Roberts RDMS Physician: Danielle Allen MD, FACOG Electronically signed by: Danielle Allen MD, FACOG at: 19:46 Procedure Note Danielle Allen MD - 10/12/2025 PAT NAME: FARIDA LYNN MED REC#: [id number] DA: [id number] PAT GEND: F PAT TYPE: O EXAM BLAISE: [id number] REF PHYS AMY CONLEY Comparison Studies The findings of this study are compared to the prior ultrasound studydated 09/23/2025 Patient Status Outpatient Indication ======== IUGR. Marginal PCI. Obesity BMI 34. Maternal Assessment Vnxjam379 cm Height (ft)5 ft Height (in)3 in Kfayhe66 kg Weight (lb)194 lb BMI34.38 kg/m Method ======= Transabdominal ultrasound examination. View: Good view ========= Botello . Number of fetuses: 1 Dating ====== Method of dating:based on stated PAULA GA by prior w + 3 d PAULA by prior assessment:12/24/2025 Ultrasound examination on:10/11/2025 GA by U/S based upon:AC, BPD, Femur, HC GA by U/S27 w + 3 d PAULA by U/S:01/07/2026 Previous dating:based on stated PAULA, selected on 09/23/2025 Agreed PAULA of previous datin12/24/2025 Assigned:based on stated PAULA, selected on 10/11/2025 Assigned GA29 w + 3 d Assigned PAULA:12/24/2025 rxabvs607 d Biometry Standard BPD68.2 mm 27w 3d 2% Hadlock OFD92.9 mm 30w 0d 65% Emeli HC258.2 mm 28w 0d 2% Hadlock Cerebellum tr35.3 mm 29w 3d 50% Hill AC227.3 mm 27w 1d 2% Hadlock Femur50.5 mm 27w 1d 1% Hadlock Xzlzybb18.3 mm 25w 3d <1% Emeli HC / AC1.14 EFW1,044 g 26w 6d 2% Hadlock EFW (lb)2 lb EFW (oz)5 oz EFW by:Hadlock (VKV-ZJ-SI-FL) Extended Cav. septi pel. tr5.7 mm Vp5.0 mm CM7.1 mm 55% Nicolaides Head / Face / Neck Cephalic index0.73 5% Nicolaides Extremities / Bony Struc FL / BPD0.74 FL / HC0.20 FL / AC0.22 Other Structures HTO803 bpm General Evaluation Cardiac activity present. FHR [...] LVOT view:Normal Heart / Thorax 3-vessel view:Normal 8-rfqwmm-tlonedg view:normal Cord insertion:Normal Stomach:Appears normal Kidneys:Appears normal Bladder:Appears normal Gender:female Wants to know gender:yes Maternal Structures Uterus / Cervix Cervical pyqojh21.7 mm Doppler Arterial Umbilical A PI0.97 51% [...] doppler normal Marginal cord insertion Coding ======= Description:40483-72 Follow Up Ultrasound Description:10845-22 BPP without NST Description:06646-31 Doppler Umbilical Artery Bow Rehairer: Albina Roberts RDMS Physician: Danielle Allen MD, [...] of documented in this encounter Care Teams Manager Med Surg Relationship Specialty Start Date End Date Provider, [place] [address] PCP - General 08/19/24 documented as of this encounter
--- OUTSIDE RECORDS SUMMARY | 2025-10-11 09:44 | XMS_ITS | Encounter Summary ---
Author Organization [facility] Address [address] [place] [address] Care Team Providers Care Indoor Plant Technician Name Role Phone Provider, No Known Primary [...] unspecified fetus 26 weeks gestation of Procedures [facility] [place] Lis Jeffrey MD [address] [place] [address] Phone: tel: fax: Referral ID Status Reason Start Date Expiration Date Visits Re quested Visits Authorized [id number] Closed 09/23/2025 12/23/2026 1 1 Reason for Visit * Diagnostic Imaging (Routine) - Closed Specialty Diagnoses / Procedures Referred By Ritesh winchester Referred To Contact Radiology Diagnoses Marginal insertion of umbilical cord affecting management of mother in second trimester Maternal chronic hypertension in second trimester Poor growth affecting management of mother in third trimester, single or unspecified fetus 26 weeks gestation of Procedures [facility] [place] Lis Jeffrey MD [address] [id number] Phone: tel: fax: Referral ID Status Reason Start Date Expiration Date Visits Re quested Visits Authorized [id number] Closed 09/23/2025 12/23/2026 1 1 Encounter Details Date Type Department Care Team (Late st Contact Info) Description 10/11/2025 9:44 AM EST - 10/11/2025 11:59 PM [facility] Hospital Encounter [facility]AG [facility] [address] [place] [address] Lis Jeffrey MD [address] [place] [address] Marginal insertion of umbilical cord [...] Description 11/08/2025 10:45 AM EST Office Visit [facility] MATERNAL MEDICINE [address] [address] 11/08/2025 10:45 AM EST Appointment [facility] US PER DIAG CTR [address] [place] [address] 11/15/2025 11:30 AM EST Office Visit [facility] MATERNAL MEDICINE [address] [place] [address] 11/15/2025 11:30 AM EST Appointment [facility] US PER DIAG CTR [address] [place] [address] 11/22/2025 10:45 AM EST Office Visit [facility] MATERNAL MEDICINE [address] [address] 11/22/2025 10:45 AM EST Appointment [facility] US PER DIAG CTR [address] [place] [address] documented as of this encounter Procedures Procedure Name Priority Date/Time Associated Diagnosis Comments [facility] Routine 10/11/2025 10:30 AM EST Marginal insertion of umbilical cord affecting management of mother in second trimester Maternal chronic hypertension in second trimester Poor growth affecting management of mother in third trimester, single or unspecified fetus 26 weeks gestation of documented in this encounter Results * [facility] (10/11/2025 10:30 AM EST) Anatomical Region Laterality Modality Ultrasound 10/11/2025 9:59 AM EST Narrative 10/12/2025 7:46 PM EST PAT NAME: FARIDA LYNN MED REC#: [id number] DA: 1990 PAT GEND: F PAT TYPE: O EXAM BLAISE: [id number] REF PHYS AMY CORCORAN Comparison Studies The [...] EFW (oz) 5 oz EFW by: Hadlock (VHP-ZF-FX-FL) Extended Cav. septi pel. tr 5.7 mm Kelp Or Seagrass Gatherer 5.0 mm CM 7.1 mm 55% Nicolaides [...] Normal Heart / Thorax 3-vessel view: Normal 8-mlmziu-mvbtmhy view: normal Cord insertion: Normal Stomach: Appears [...] normal Marginal cord insertion Coding ======= Description: 61382-23 Follow Up Ultrasound Description: 03857-06 BPP without NST Description: 48409-32 Doppler Umbilical Artery Library Services Dean: Albina Roberts RDMS Physician: Danielle Allen MD, FACOG Electronically signed by: Danielel Allen MD, FACOG at: 19:46 Procedure Note Danielle Allen MD - 10/12/2025 PAT NAME: FARIDA LYNN MED REC#: [id number] DA: [id number] PAT GEND: F PAT TYPE: O EXAM BLAISE: [id number] REF PHYS AMY CORCORAN Comparison Studies The findings of this study are compared to the prior ultrasound studydated 09/23/2025 Patient Status Outpatient Indication ======== IUGR. Marginal PCI. Obesity BMI 34. Maternal Assessment Oclpxk049 cm Height (ft)5 ft Height (in)3 in Gfwvqr37 kg Weight (lb)194 lb BMI34.38 kg/m Method ======= Transabdominal ultrasound examination. View: Good view ========= Botello . Number of fetuses: 1 Dating ====== Method of dating:based on stated PAULA GA by prior zlklulbcew07 w + 3 d PAULA by prior assessment:12/24/2025 Ultrasound examination on:10/11/2025 GA by U/S based upon:AC, BPD, Femur, HC GA by U/S27 w + 3 d PAULA by U/S:01/07/2026 Previous dating:based on stated PAULA, selected on 09/23/2025 Agreed PAULA of previous datin12/24/2025 Assigned:based on stated PAULA, selected on 10/11/2025 Assigned GA29 w + 3 d Assigned PAULA:12/24/2025 mesoyp986 d Biometry Standard BPD68.2 mm 27w 3d 2% Hadlock OFD92.9 mm 30w 0d 65% Emeli HC258.2 mm 28w 0d 2% Hadlock Cerebellum tr35.3 mm 29w 3d 50% Hill AC227.3 mm 27w 1d 2% Hadlock Femur50.5 mm 27w 1d 1% Hadlock Zqujtut52.3 mm 25w 3d <1% Emeli HC / AC1.14 EFW1,044 g 26w 6d 2% Hadlock EFW (lb)2 lb EFW (oz)5 oz EFW by:Hadlock (BEV-IE-UT-FL) Extended Cav. septi pel. tr5.7 mm Vp5.0 mm CM7.1 mm 55% Nicolaides Head / Face / Neck Cephalic index0.73 5% Nicolaides Extremities / Bony Struc FL / BPD0.74 FL / HC0.20 FL / AC0.22 Other Structures LFI467 bpm General Evaluation Cardiac activity present. FHR [...] LVOT view:Normal Heart / Thorax 3-vessel view:Normal 7-vincma-sotsufq view:normal Cord insertion:Normal Stomach:Appears normal Kidneys:Appears normal Bladder:Appears normal Gender:female Wants to know gender:yes Maternal Structures Uterus / Cervix Cervical pmjipv56.7 mm Doppler Arterial Umbilical A PI0.97 51% [...] doppler normal Marginal cord insertion Coding ======= Description:08637-15 Follow Up Ultrasound Description:77763-84 BPP without NST Description:93456-57 Doppler Umbilical Artery Library Services Dean: Albina Roberts RDMS Physician: Danielle Allen MD, [...] of documented in this encounter Care Teams Indoor Plant Technician Relationship Specialty Start Date End Date Provider, No Known [facility] [place] [address] PCP - General 08/19/24 documented as of this encounter
--- OUTSIDE RECORDS SUMMARY | 2025-10-11 10:15 | XMS_ITS | Encounter Summary ---
Author Organization [facility] Address [address] [phone] Care Team Providers Care President/Gm Production & Live Experiences Name Role Phone Provider, No Known Primary Care Provider Unavail able Reason for Referral * Diagnostic Imaging (Routine) - Closed Specialty Diagnoses / Procedures Referred By Ritesh t Referred To Contact Radiology Diagnoses Poor growth affecting management of mother in third trimester, single or unspecified fetus Maternal chronic hypertension in second trimester Procedures [facility] Danielle Allen MD [address] [address] Phone: tel: fax: Referral ID Status Reason Start Date Expiration Date Visits Re quested Visits Authorized [id number] Closed 10/13/2025 01/12/2027 1 1 Reason for Visit * Reason Comments IUGR, Marginal Cord Insertion, MO Encounter Details Date Type Department Care Team (Late st Contact Info) Description 10/11/2025 10:15 AM EST Office Visit [facility] [address] [facility] [address] [place] [phone] Danielle Allen MD [facility] [address] [place], [place] [phone] Poor growth affecting management of mother in [...] weeks testing in your office Orders: [facility]; Future 2. Maternal chronic hypertension in second trimester - [facility]; Future Follow Up 1 week [...] CVS. Danielle Allen MD FACOG Maternal Medicine, [facility] 10/11/2025 documented in this encounter Plan of Treatment Upcoming Encounters Date Type Department Care Team (Late st Contact Info) Description 11/08/2025 10:45 AM EST Office Visit [facility] MATERNAL MEDICINE [address] [address] 11/08/2025 10:45 AM EST Appointment [facility] PER [facility] [address] [place] [address] 11/15/2025 11:30 AM EST Office Visit [facility] MATERNAL MEDICINE [address] [place] [phone] 11/15/2025 11:30 AM EST Appointment [facility] PER [facility] [address] [place] [address] 11/22/2025 10:45 AM EST Office Visit [facility] MATERNAL MEDICINE [address] [address] 11/22/2025 10:45 AM EST Appointment [facility] [address] [place] [address] documented as of this encounter Results * [facility] (10/18/2025 10:21 AM EST) Anatomical Region Laterality Modality Ultrasound 10/18/2025 9:57 AM EST Narrative 10/18/2025 10:27 AM EST PAT NAME: FARIDA LYNN [facility] REC#: [id number] DA: 1990 PAT GEND: F PAT TYPE: O EXAM BLAISE: [id number] REF PHYS AMY CONLEY Comparison Studies The [...] NSTs in your office. Coding ======= Description: 66994-63 BPP without NST Description: 37212-08 Doppler Umbilical Artery Television Parts Tester: Eunice Manning RDMS Physician: Jung Angeles MD, FACOG Electronically signed by: Jung Angeles MD, FACOG at: 10:27 Procedure Note Jung Angeles MD - 10/18/2025 PAT NAME: FARIDA LYNN MED REC#: [id number] DA: [id number] PAT GEND: F PAT TYPE: O EXAM BLAISE: [id number] REF PHYS AMY CONLEY Comparison Studies The findings of this study are compared to the prior ultrasound studydated 10/11/25 Patient Status Outpatient Indication ======== IUGR. Marginal PCI. Obesity BMI 34. Maternal Assessment Jbkvuv047 cm Height (ft)5 ft Height (in)3 in Uxlism28 kg Weight (lb)196 lb BMI34.73 kg/m Method ======= Transabdominal ultrasound examination ========= Botello . Number of fetuses: 1 Dating ====== Method of dating:based on stated PAULA GA by prior [id number] w + 3 d PAULA by prior [...] weekly NSTs in your office. Coding ======= Description:55837-23 BPP without NST Description:47415-62 Doppler Umbilical Artery Television Parts Tester: Eunice Manning RDMS Physician: Jung Angeles MD, [...] trimester documented in this encounter Care Teams President/Gm Production & Live Experiences Relationship Specialty Start Date End Date Provider, [place] [address] PCP - General 08/19/24 documented as of this encounter
--- OUTSIDE RECORDS SUMMARY | 2025-10-18 09:34 | XMS_ITS | Encounter Summary ---
Author Organization [facility] Address [address] [id number] Care Team Providers Care Keysmith Name Role Phone Provider, No Known Primary Care Provider Unavail able Reason for Referral * Diagnostic Imaging (Routine) - Closed Specialty Diagnoses / Procedures Referred By Ritesh winchester Referred To Contact Radiology Diagnoses Poor growth affecting management of mother in third trimester, single or unspecified fetus Maternal chronic hypertension in second trimester Procedures [facility] Diagnostic [place] Danielle Allen MD [address] [place] [address] Phone: tel: fax: Referral ID Status Reason Start Date Expiration Date Visits Re quested Visits Authorized [id number] Closed 10/13/2025 01/12/2027 1 1 Reason for Visit * Diagnostic Imaging (Routine) - Closed Specialty Diagnoses / Procedures Referred By Ritesh winchester Referred To Contact Radiology Diagnoses Poor growth affecting management of mother in third trimester, single or unspecified fetus Maternal chronic hypertension in second trimester Procedures [facility] Diagnostic [place] Danielle Allen MD [address] [place] [address] Phone: tel: fax: Referral ID Status Reason Start Date Expiration Date Visits Re quested Visits Authorized [id number] Closed 10/13/2025 01/12/2027 1 1 Encounter Details Date Type Department Care Team (Late st Contact Info) Description 10/18/2025 9:34 AM EST - 10/18/2025 11:59 PM EST Hospital Encounter [facility] [address] [place] [address] Danielle Allen MD [address] [place] [address] Poor growth affecting management of mother in [...] Visit [facility] MATERNAL MEDICINE [address] [address] 11/08/2025 10:45 AM EST Appointment [facility] US PER DIAG CTR [address] [place] [address] 11/15/2025 11:30 AM EST Office Visit [facility] MATERNAL MEDICINE [address] [address] 11/15/2025 11:30 AM EST Appointment [facility] PER DIAG CTR [address] [place] [address] 11/22/2025 10:45 AM EST Office Visit [facility] MATERNAL MEDICINE [address] [address] 11/22/2025 10:45 AM EST Appointment [facility] US PER DIAG CTR [address] [place] [address] documented as of this encounter Procedures Procedure Name Priority Date/Time Associated Diagnosis Comments [facility] Routine 10/18/2025 10:21 AM EST Poor growth affecting management of mother in third trimester, single or unspecified fetus Maternal chronic hypertension in second trimester documented in this encounter Results * [facility] (10/18/2025 10:21 AM EST) Anatomical Region Laterality Modality Ultrasound 10/18/2025 9:57 AM EST Narrative 10/18/2025 10:27 AM EST PAT NAME: FARIDA LYNN MED REC#: [id number] DA: 1990 PAT GEND: F PAT TYPE: O EXAM BLAISE: [id number] REF PHYS AMY CORCORAN Comparison Studies The [...] NSTs in your office. Coding ======= Description: 50648-03 BPP without NST Description: 14356-37 Doppler Umbilical Artery International Trade Manager: Eunice Manning RDMS Physician: Jung Angeles MD, FACOG Electronically signed by: Jung Angeles MD, FACOG at: 10:27 Procedure Note Jung Angeles MD - 10/18/2025 PAT NAME: FARIDA LYNN MED REC#: [id number] DA: [id number] PAT GEND: F PAT TYPE: O EXAM BLAISE: [id number] REF PHYS NILO AMY Comparison Studies The findings of this study are compared to the prior ultrasound studydated 10/11/25 Patient Status Outpatient Indication ======== IUGR. Marginal PCI. Obesity BMI 34. Maternal Assessment Lolgcm980 cm Height (ft)5 ft Height (in)3 in Zwqsrs42 kg Weight (lb)196 lb BMI34.73 kg/m Method ======= Transabdominal ultrasound examination ========= Botello . Number of fetuses: 1 Dating ====== Method of dating:based on stated PAULA GA by prior [id number] w + 3 d PAULA by prior assessment:12/24/2025 Previous dating:based on stated PAULA, selected on 10/11/2025 Agreed PAULA of previous datin12/24/2025 Assigned:based on stated PAULA, selected on 10/18/2025 Assigned GA30 w + 3 d Assigned PAULA:12/24/2025 [id number] d General Evaluation Cardiac activity present. FHR [...] weekly NSTs in your office. Coding ======= Description:45473-14 BPP without NST Description:75794-31 Doppler Umbilical Artery International Trade Manager: Eunice Manning RDMS Physician: Jung Angeles MD, FACOG Electronically signed by: Jung Angeles MD, KYOG at: 10:27 us Danielle Allen MD [facility] US ORDERABLES Final Result documented in this encounter Visit Diagnoses Diagnosis Poor growth affecting management of mother in third trimester, single or unspecified fetus Maternal chronic hypertension in second trimester documented in this encounter Care Teams Keysmith Relationship Specialty Start Date End Date Provider, [place] [address] PCP - General 08/19/24 documented as of this encounter
--- OUTSIDE RECORDS SUMMARY | 2025-10-18 10:15 | XMS_ITS | Encounter Summary ---
Author Organization [facility] Address [address] [id number] Care Team Providers Care Bioanalyst Name Role Phone Provider, No Known Primary Care Provider Unavail able Reason for Referral * Diagnostic Imaging (Routine) - Authorized Specialty Diagnoses / Procedures Referred By Contac t Referred To Contact Radiology Diagnoses Poor growth affecting management of mother in third trimester, single or unspecified fetus Maternal chronic hypertension in third trimester Procedures [facility] Jung Angeles MD [address] [facility] [address] [place] [address] Phone: tel: fax: Referral ID Status Reason Start Date Expiration Date V isits Requested Visits Authorized [id number] Authorized 10/18/2025 01/17/2027 5 5 Reason for Visit * Reason Comments IUGR, MPCI, MO GHTN Encounter Details Date Type Department Care Team (Late st Contact Info) Description 10/18/2025 10:15 AM EST Office Visit [facility]NAL MEDICINE [address] [facility] [place] [address] Jung Angeles MD [address] [place] [address] Poor growth affecting management of mother in [...] Description 11/08/2025 10:45 AM EST Office Visit [facility] MATERNAL MEDICINE [address] [address] 11/08/2025 10:45 AM EST Appointment [facility] US PER DIAG CTR [address] [place] [address] 11/15/2025 11:30 AM EST Office Visit [facility] MATERNAL MEDICINE [address] [address] 11/15/2025 11:30 AM EST Appointment [facility] US PER DIAG CTR [address] [place] [address] 11/22/2025 10:45 AM EST Office Visit [facility] MATERNAL MEDICINE [address] [address] 11/22/2025 10:45 AM EST Appointment [facility] US PER DIAG CTR [address] [place] [address] Scheduled Orders Name Type Priority Associated Diagnoses Orde r Schedule US [facility] Imaging Routine Poor growth affecting management of mother in third trimester, single or unspecified fetus Maternal chronic hypertension in third trimester Once a week for 5 Occurrences starting 10/18/2025 until 10/18/2026, 1 completed documented as of this encounter Results * US [facility] (10/25/2025 11:18 AM EST) Anatomical Region Laterality Modality Ultrasound 10/25/2025 10:4 2 AM EST Narrative 10/25/2025 11:26 AM EST PAT NAME: JULIA LYNN MED REC#: [id number] DA: 1990 PAT GEND: F PAT TYPE: O EXAM REESE: [id number] REF PHYS AMY CONLEY Comparison Studies The [...] EFW (oz) 0 oz EFW by: Hadlock ([id number]) Extended Cav. septi pel. tr 5.9 mm Supervisor Coin Machine 3.4 mm CM 7.4 mm 56% Nicolaides [...] Normal Heart / Thorax 3-vessel view: Normal 9-lxkzjg-xzyadmh view: normal Cord insertion: Normal Stomach: Appears [...] here in 2 weeks. Coding ======= Description: 78601-83 Follow Up Ultrasound Description: 13983-62 BPP without NST Description: 28447-18 Doppler Umbilical Artery Parks Worker: Tiki Ta RDMS Physician: Jung Angeles MD, FACOG Electronically signed by: Jung Angeles MD, FACOG at: 11:26 Procedure Note Jung Angeles MD - 10/25/2025 PAT NAME: JULIA LYNN MED REC#: [id number] DA: [id number] PAT GEND: F PAT TYPE: O EXAM REESE: [id number] REF PHYS AMY CONLEY Comparison Studies The findings of this study are compared to the prior ultrasound studydated 10/18/25. Patient Status Outpatient Indication ======== IUGR. Marginal PCI. Obesity BMI 35. Maternal Assessment Vxatlc637 cm Height (ft)5 ft Height (in)3 in Ftaenw80 kg Weight (lb)197 lb BMI34.91 kg/m Method ======= Transabdominal ultrasound examination ========= Botello . Number of fetuses: 1 Dating ====== GA by prior gintsqhfls09 w + 3 d PAULA by prior [...] Hadlock Femur55.2 mm 29w 1d 2% Hadlock Amkcqdq15.3 mm 29w 0d 3% Emeli HC / AC1.10 EFW1,361 g 28w 6d 3% Hadlock EFW (lb)3 lb EFW (oz)0 oz EFW by:Hadlock ([id number]) Extended Cav. septi pel. tr5.9 mm Vp3.4 mm CM7.4 mm 56% Nicolaides Head / Face / Neck Cephalic index0.74 6% Nicolaides Extremities / Bony Struc FL / BPD0.76 FL / HC0.20 FL / AC0.22 Other Structures JTI967 bpm General Evaluation Cardiac activity present. FHR [...] LVOT view:Normal Heart / Thorax 3-vessel view:Normal 0-smyrkb-pvkygho view:normal Cord insertion:Normal Stomach:Appears normal Kidneys:Appears normal [...] up here in 2 weeks. Coding ======= Description:71092-63 Follow Up Ultrasound Description:59688-75 BPP without NST Description:35502-93 Doppler Umbilical Artery Parks Worker: Tiki Ta RDMS Physician: Jung Angeles MD, FACOG Electronically signed by: Jung Angeles MD, FACOG at: 11:26 us Jung Angeles MD IMG US ORDERABLES Final Result documented in this encounter Visit Diagnoses Diagnosis Poor growth affecting management of mother in third trimester, single or unspecified fetus- Primary Maternal chronic hypertension in third trimester documented in this encounter Care Teams Bioanalyst Relationship Specialty Start Date End Date Provider, No Known [facility] [place] [address] PCP - General 08/19/24 documented as of this encounter
--- OUTSIDE RECORDS SUMMARY | 2025-10-25 09:49 | XMS_ITS | Encounter Summary ---
Author Organization [facility] Address [address] [place] [address] Care Team Providers Care Highway Technician Name Role Phone Provider, No Known Primary Care Provider Unavail able Reason for Visit * Diagnostic Imaging (Routine) - Authorized Specialty Diagnoses / Procedures Referred By Ritesh t Referred To Contact Radiology Diagnoses Poor growth affecting management of mother in third trimester, single or unspecified fetus Maternal chronic hypertension in third trimester Procedures [facility] Angeles, Jung Harmon MD [address] [facility] [address] [place] [address] Phone: tel: fax: Referral ID Status Reason Start Date Expiration Date V isits Requested Visits Authorized [id number] Authorized 10/18/2025 01/17/2027 5 5 Encounter Details Date Type Department Care Team (Latest Contact Info) Description 10/25/2025 9:49 AM EST - 10/25/2025 11:59 PM [facility] Hospital Encounter [facility] [address] [place] [address] Amy Conley, DO [address] [address] Discharge Disposition: Home or Self Care Social [...] Description 11/08/2025 10:45 AM EST Office Visit [facility] [address] [place] [address] 11/08/2025 10:45 AM EST Appointment [facility] [address] [place] [address] 11/15/2025 11:30 AM EST Office Visit [facility] [address] [facility] [address] [place] [address] 11/15/2025 11:30 AM EST Appointment [facility] [address] [place] [address] 11/22/2025 10:45 AM EST Office Visit [facility] [address] [facility] [address] [place] [address] 11/22/2025 10:45 AM EST Appointment [facility] [address] [place] [address] documented as of this encounter Procedures Procedure Name Priority Date/Time Associated Diagnosis Comments [facility] Routine 10/25/2025 11:18 AM EST Poor growth affecting management of mother in third trimester, single or unspecified fetus Maternal chronic hypertension in third trimester documented in this encounter Results * [facility] (10/25/2025 11:18 AM EST) Anatomical Region Laterality Modality Ultrasound 10/25/2025 10:4 2 AM EST Narrative 10/25/2025 11:26 AM EST PAT NAME: FARIDA LYNN [facility] REC#: [id number] DA: [id number] PAT GEND: F PAT TYPE: O EXAM BLAISE: [id number] REF PHYS AMY CONLEY Comparison Studies The [...] EFW (oz) 0 oz EFW by: Hadlock ([id number]-FL) Extended Cav. septi pel. tr 5.9 mm Zinc Plating Machine Operator 3.4 mm CM 7.4 mm 56% Nicolaides [...] Normal Heart / Thorax 3-vessel view: Normal 2-hzksuk-msocmfq view: normal Cord insertion: Normal Stomach: Appears [...] here in 2 weeks. Coding ======= Description: 82155-78 Follow Up Ultrasound Description: 16498-25 BPP without NST Description: 46096-26 Doppler Umbilical Artery Long Filler Cigar Roller Machine: Tiki Ta RDMS Physician: Jung Angeles MD, FACOG Electronically signed by: Jung Angeles MD, FACOG at: 11:26 Procedure Note Jung Angeles MD - 10/25/2025 PAT NAME: FARIDA LYNN MED REC#: [id number] DA: 1990 PAT GEND: F PAT TYPE: O EXAM BLAISE: [id number] REF PHYS AMY CONLEY Comparison Studies The findings of this study are compared to the prior ultrasound studydated 10/18/25. Patient Status Outpatient Indication ======== IUGR. Marginal PCI. Obesity BMI 35. Maternal Assessment Tvtytf250 cm Height (ft)5 ft Height (in)3 in Yaqnud30 kg Weight (lb)197 lb BMI34.91 kg/m Method ======= Transabdominal ultrasound examination ========= Botello . Number of fetuses: 1 Dating ====== GA by prior mszzxbwhiv03 w + 3 d PAULA by prior [...] GA31 w + 3 d Assigned PAULA:12/24/2025 zyabqx802 d Biometry Standard BPD73.0 mm 29w 2d 2% Hadlock OFD98.4 mm 31w 6d 60% Emeli HC274.2 mm 30w 0d 1% Hadlock Cerebellum tr39.3 mm 31w 5d 40% Hill AC249.9 mm 29w 1d 3% Hadlock Femur55.2 mm 29w 1d 2% Hadlock Sdwpuvw77.3 mm 29w 0d 3% Emeli HC / AC1.10 EFW1,361 g 28w 6d 3% Hadlock EFW (lb)3 lb EFW (oz)0 oz EFW by:Hadlock ([id number]-[id number]-HG-FL) Extended Cav. septi pel. tr5.9 mm Vp3.4 mm CM7.4 mm 56% Nicolaides Head / Face / Neck Cephalic index0.74 6% Nicolaides Extremities / Bony Struc FL / BPD0.76 FL / HC0.20 FL / AC0.22 Other Structures JKT932 bpm General Evaluation Cardiac activity present. FHR [...] LVOT view:Normal Heart / Thorax 3-vessel view:Normal 8-nblovx-qwvamtw view:normal Cord insertion:Normal Stomach:Appears normal Kidneys:Appears normal [...] up here in 2 weeks. Coding ======= Description:77373-41 Follow Up Ultrasound Description:19392-32 BPP without NST Description:45882-52 Doppler Umbilical Artery Long Filler Cigar Roller Machine: Tiki Ta RDMS Physician: Jung Angeles MD, FACOG Electronically signed by: Jung Angeles MD, FACOG at: 11:26 us Jung Angeles MD IMG US ORDERABLES Final Result documented in this encounter Visit Diagnoses Not on filedocumented in this encounter Care Teams Highway Technician Relationship Specialty Start Date End Date Provider, [place] [address] PCP - General 08/19/24 documented as of this encounter
--- OUTSIDE RECORDS SUMMARY | 2025-10-25 10:15 | XMS_ITS | Encounter Summary ---
Author Organization [facility] Address [address] [place] [address] Care Team Providers Care Systems Navigator Name Role Phone Provider, No Known Primary Care Provider Unavail able Reason for Visit * Reason Comments IUGR, marginal PCI, obesity Encounter Details Date Type Department Care Team (Late st Contact Info) Description 10/25/2025 10:15 AM EST Office Visit [facility] MATERNAL MEDICINE [address] [place] [phone] Jung Angeles MD [address] [facility] [address] [place] [address] Poor growth affecting management of mother in [...] Dopplers. Patient reports twice-weekly testing with primary CIGAR PACKER AND SHADER and given 1 of these being performed [...] Dopplers. Patient reports twice-weekly testing with primary CIGAR PACKER AND SHADER and given 1 of these being performed [...] [facility] Jung Angeles MD, FACOG Maternal Medicine, [facility] documented in this encounter Plan of Treatment Upcoming Encounters Date Type Department Care Team (Late st Contact Info) Description 11/08/2025 10:45 AM EST Office Visit [facility] MATERNAL MEDICINE [address] [address] 11/08/2025 10:45 AM EST Appointment [facility] US PER DIAG [facility] [address] [place] [address] 11/15/2025 11:30 AM EST Office Visit [facility] MATERNAL MEDICINE [address] [address] 11/15/2025 11:30 AM EST Appointment [facility] US PER DIAG CTR [address] [place] [address] 11/22/2025 10:45 AM EST Office Visit [facility] MATERNAL MEDICINE [address] [place] [address] 11/22/2025 10:45 AM EST Appointment [facility] US PER DIAG [facility] [address] [place] [address] documented as of this encounter Visit Diagnoses Diagnosis Poor growth affecting management of mother in third trimester, single or unspecified fetus- Primary Maternal chronic hypertension in third trimester documented in this encounter Care Teams Systems Navigator Relationship Specialty Start Date End Date Provider, [place] [address] PCP - General 08/19/24 documented as of this encounter
--- OUTSIDE RECORDS SUMMARY | 2025-11-02 12:56 | XMS_ITS | Encounter Summary ---
Author Organization [facility] Address [address] [place] [address] Care Team Providers Care Plunket Nurse Name Role Phone Provider, No Known Primary [...] Description 11/08/2025 10:45 AM EST Office Visit [facility] MATERNAL MEDICINE [address] [facility] [address] [place] [address] 11/08/2025 10:45 AM EST [facility] [address] [facility] [place] [address] 11/15/2025 11:30 AM EST Office Visit [facility] MATERNAL MEDICINE [address] [address] 11/15/2025 11:30 AM EST Appointment [facility] PER DIAG [facility] [address] [facility] [address] [place] [place] [address] 11/22/2025 10:45 AM EST Office Visit [facility] MATERNAL MEDICINE [address] [address] 11/22/2025 10:45 AM EST Appointment [facility] PER [facility]AG [facility] [address] [facility] [place] [place] [address] documented as of this encounter Visit Diagnoses Not on filedocumented in this encounter Care Teams Plunket Nurse Relationship Specialty Start Date End Date Provider, [place] [address] PCP - General 08/19/24 documented as of this encounter
--- OUTSIDE RECORDS SUMMARY | 2025-11-02 12:56 | XMS_ITS | Encounter Summary ---
Author Organization [facility] Address [address] [place] [address] Care Team Providers Care Calenderer Name Role Phone Provider, No Known Primary [...] [facility] [address] [facility] [address] [place] [phone] 11/08/2025 10:45 AM EST Appointment [facility] PER [facility] [address] [facility] [place] [address] 11/15/2025 11:30 AM EST Office Visit [facility] MATERNAL MEDICINE [address] [phone] 11/15/2025 11:30 AM EST Appointment [facility] US PER DIAG CTR [address] [facility] [place] [address] 11/22/2025 10:45 AM EST Office Visit [facility] MATERNAL MEDICINE [address] [address] 11/22/2025 10:45 AM EST Appointment [facility] US PER DI[facility] [address] [facility] [place] [address] documented as of this encounter Visit Diagnoses Not on filedocumented in this encounter Care Teams Calenderer Relationship Specialty Start Date End Date Provider, [place] [address] PCP - General 08/19/24 documented as of this encounter
--- OUTSIDE RECORDS SUMMARY | 2025-11-02 12:56 | XMS_ITS | Clinical Summary ---
Author Organization [facility] Address [address] [place] [id number] Care Team Providers Care Skip Loader Name Role Phone Provider, No Known Primary [...] Dopplers. Patient reports twice-weekly testing with primary ARM REST BUILDER and given 1 of these being performed [...] 10/25/2025 10:15 AM EST Office Visit [facility] MATERNAL MEDICINE [address] [place] [address] Jung Angeles MD Poor growth affecting management of mother in third trimester, single or unspecified fetus (Primary Dx); Maternal chronic hypertension in third trimester 10/25/2025 9:49 AM EST - 10/25/2025 11:59 PM EST Hospital Encounter [facility] US PER DIAG [facility] [address] [place] [address] Amy Conley DO Discharge Disposition: Home or Self Care 10/25/2025 Travel 10/18/2025 10:15 AM EST Office Visit [facility] MATERNAL MEDICINE [address] [facility] [address] [place] [phone] Jung Angeles MD Poor growth affecting management of mother in third trimester, single or unspecified fetus (Primary Dx); Maternal chronic hypertension in third trimester 10/18/2025 9:34 AM EST - 10/18/2025 11:59 PM EST Hospital Encounter [facility] US PER DIAG [facility] [address] [place] [phone] Danielle Allen MD Poor growth affecting management of mother in third trimester, single or unspecified fetus; Maternal chronic hypertension in second trimester Discharge Disposition: Home or Self Care 10/18/2025 Travel 10/11/2025 10:15 AM EST Office Visit [facility] MATERNAL MEDICINE [address] [facility] [address] [place] [phone] Danielle Allen MD Poor growth affecting management of mother in third trimester, single or unspecified fetus (Primary Dx); Maternal chronic hypertension in second trimester 10/11/2025 9:44 AM EST - 10/11/2025 11:59 PM EST Hospital Encounter [facility] PER DI[facility] [address] [place] [phone] Lis Jeffrey MD Marginal insertion of umbilical cord affecting management of mother in second trimester; Maternal chronic hypertension in second trimester; Poor growth affecting management of mother in third trimester, single or unspecified fetus; 26 weeks gestation of Discharge Disposition: Home or Self Care 10/11/2025 Travel 09/23/2025 10:15 AM EDT Office Visit [facility] MATERNAL MEDICINE [address] [facility] [address] [place] [phone] Lis Jeffrey MD Marginal insertion of umbilical cord affecting management of mother in second trimester (Primary Dx); Maternal chronic hypertension in second trimester; Poor growth affecting management of mother in third trimester, single or unspecified fetus; 26 weeks gestation of 09/23/2025 9:52 AM EDT - 09/23/2025 11:59 PM EDT Hospital Encounter [facility] US PER DIAG CTR [address] [place] [phone] Brian Wesley MD Uterine size-date discrepancy in second trimester; Marginal insertion of umbilical cord affecting management of mother in second trimester; 23 weeks gestation of ; Maternal chronic hypertension in second trimester Discharge Disposition: Home or Self Care 09/23/2025 Travel 09/06/2025 Telephone [facility] US PER DIAG [facility] [address] [place] [phone] Brian Wesley MD Advice Only (Pt has question for Nurse.) 09/02/2025 10:30 AM EDT - 09/02/2025 11:59 PM EDT Hospital Encounter [facility] US PER DIAG CTR [address] [place] [phone] Amy Conley, Maternal care for other known or suspected poor growth, second trimester, not applicable or unspecified; Marginal insertion of umbilical cord affecting management of mother in second trimester; , unspecified gestational age Discharge Disposition: Home or Self Care 09/02/2025 10:30 AM EDT Office Visit [facility] MATERNAL MEDICINE [address] [address] Brian Wesley MD Uterine size-date discrepancy in second trimester (Primary Dx); Marginal insertion of umbilical cord affecting management of mother in second trimester; 23 weeks gestation of ; Maternal chronic hypertension in second trimester 09/02/2025 Telephone [facility] MATERNAL MEDICINE [address] [address] Jodie Garcia supervisor home energy consultant Only 09/02/2025 Travel from Last 3 Months [...] 10:45 AM EST Office Visit [facility] MATERNAL MEDICINE [address] [facility] [address] [place] [phone] 11/08/2025 10:45 AM EST Appointment [facility] US PER DIAG [facility] [address] [place] [address] 11/15/2025 11:30 AM EST Office Visit [facility] MATERNAL MEDICINE [address] [facility] [address] [place] [phone] 11/15/2025 11:30 AM EST Appointment [facility] US PER DIAG CTR [address] [place] [address] 11/22/2025 10:45 AM EST Office Visit [facility] MATERNAL MEDICINE [address] [address] 11/22/2025 10:45 AM EST Appointment [facility] US PER DIAG CTR [address] [place] [address] Health Maintenance Due Date Last Done Comments [...] Name Priority Date/Time Associated Diagnosis Comments [facility] Routine 10/25/2025 11:18 AM EST Poor growth affecting management of mother in third trimester, single or unspecified fetus Maternal chronic hypertension in third trimester [facility] Routine 10/18/2025 10:21 AM EST Poor growth affecting management of mother in third trimester, single or unspecified fetus Maternal chronic hypertension in second trimester [facility] Routine 10/11/2025 10:30 AM EST Marginal insertion of umbilical cord affecting management of mother in second trimester Maternal chronic hypertension in second trimester Poor growth affecting management of mother in third trimester, single or unspecified fetus 26 weeks gestation of [facility] Routine 09/23/2025 10:28 AM EDT Uterine size-date discrepancy in second trimester Marginal insertion of umbilical cord affecting management of mother in second trimester 23 weeks gestation of Maternal chronic hypertension in second trimester [facility] Routine 09/02/2025 11:30 AM EDT Maternal care for other known or suspected poor growth, second trimester, not applicable or unspecified Marginal insertion of umbilical cord affecting management of mother in second trimester , unspecified gestational age from Last 3 Months Results * [facility] (10/25/2025 11:18 AM EST) Only the most recent of5 resultswithin the time period is included. Anatomical Region Laterality Modality Ultrasound 10/25/2025 10:4 2 AM EST Narrative 10/25/2025 11:26 AM EST PAT NAME: [facility]IDA [facility] REC#: [id number] DA: 1990 PAT GEND: F PAT TYPE: O EXAM BLAISE: [id number] REF PHYS AMY CONLEY Comparison Studies The [...] EFW (oz) 0 oz EFW by: Hadlock ([id number]) Extended Cav. septi pel. tr 5.9 mm Paintless Dent Repair Technician 3.4 mm CM 7.4 mm 56% Nicolaides [...] Normal Heart / Thorax 3-vessel view: Normal 1-qjrloj-ttxuxik view: normal Cord insertion: Normal Stomach: Appears [...] here in 2 weeks. Coding ======= Description: 75267-87 Follow Up Ultrasound Description: 62285-27 BPP without NST Description: 78137-29 Doppler Umbilical Artery Motor And Generator Brush Maker: Tiki Ta RDMS Physician: Jung Angeles MD, FACOG Electronically signed by: Jung Angeles MD, FACOG at: 11:26 Procedure Note Jung Angeles MD - 10/25/2025 PAT NAME: FARIDA LYNN MED REC#: [id number] DA: 1990 PAT GEND: F PAT TYPE: O EXAM BLAISE: [id number] REF PHYS AMY CONLEY Comparison Studies The findings of this study are compared to the prior ultrasound studydated 10/18/25. Patient Status Outpatient Indication ======== IUGR. Marginal PCI. Obesity BMI 35. Maternal Assessment Mdbgwk398 cm Height (ft)5 ft Height (in)3 in Tpelke68 kg Weight (lb)197 lb BMI34.91 kg/m Method ======= Transabdominal ultrasound examination ========= Botello . Number of fetuses: 1 Dating ====== GA by prior [id number] w + 3 d PAULA by prior [...] GA31 w + 3 d Assigned PAULA:12/24/2025 [id number] d Biometry Standard BPD73.0 mm 29w 2d 2% Hadlock OFD98.4 mm 31w 6d 60% Emeli HC274.2 mm 30w 0d 1% Hadlock Cerebellum tr39.3 mm 31w 5d 40% Hill AC249.9 mm 29w 1d 3% Hadlock Femur55.2 mm 29w 1d 2% Hadlock Xzqunhv66.3 mm 29w 0d 3% Emeli HC / AC1.10 EFW1,361 g 28w 6d 3% Hadlock EFW (lb)3 lb EFW (oz)0 oz EFW by:Hadlock ([id number]) Extended Cav. septi pel. tr5.9 mm Vp3.4 mm CM7.4 mm 56% Nicolaides Head / Face / Neck Cephalic index0.74 6% Nicolaides Extremities / Bony Struc FL / BPD0.76 FL / HC0.20 FL / AC0.22 Other Structures TCW821 bpm General Evaluation Cardiac activity present. FHR [...] LVOT view:Normal Heart / Thorax 3-vessel view:Normal 3-lhbprv-yeodrtk view:normal Cord insertion:Normal Stomach:Appears normal Kidneys:Appears normal [...] up here in 2 weeks. Coding ======= Description:92207-44 Follow Up Ultrasound Description:37599-80 BPP without NST Description:16587-71 Doppler Umbilical Artery Motor And Generator Brush Maker: Tiki Ta RDMS Physician: Jung Angeles MD, FACOG Electronically signed by: Jung Angeles MD, FACOG at: 11:26 us Jung Angeles MD [facility] ORDERABLES Final Result from Last [address] EMPLOYEE Care Teams Skip Loader Relationship Specialty Start Date End Date Provider, No Known [facility] [place] [address] PCP - General 08/19/24
--- OUTSIDE RECORDS SUMMARY | 2025-11-02 12:56 | XMS_ITS | Encounter Summary ---
Author Organization [facility] Address [address] [place] [address] Care Team Providers Care Cushion Spring Assembler Name Role Phone Provider, No Known Primary Care Provider Unavail able Reason for Visit * Reason Onset Date Comments Advice Only 09/06/2025 Pt has question for Nurse. Encounter Details Date Type Department Care Team (Late st Contact Info) Description 09/06/2025 Telephone [facility] PER DIAG [facility] [address] [place] [phone] Brian Wesley MD [address] [facility] [address] [place] [address] Advice Only (Pt has question for Nurse.) [...] [facility] MATERNAL MEDICINE [address] [facility] [address] 11/08/2025 10:45 AM EST Appointment [facility] US PER DIAG CTR [address] [place] [address] 11/15/2025 11:30 AM EST Office Visit [facility]ERNAL MEDICINE [address] [facility] [address] 11/15/2025 11:30 AM EST Appointment [facility] US PER DIAG [facility] [address] [facility] [place] [address] 11/22/2025 10:45 AM EST Office Visit [facility] MATERNAL MEDICINE [address] [facility] [address] 11/22/2025 10:45 AM EST Appointment [facility] PER [facility] [address] [place] [phone] documented as of this encounter Visit Diagnoses Not on filedocumented in this encounter Care Teams Cushion Spring Assembler Relationship Specialty Start Date End Date Provider, No Known [facility] [place] [address] PCP - General 08/19/24 documented as of this encounter
--- OUTSIDE RECORDS SUMMARY | 2025-11-02 12:57 | XMS_ITS | Encounter Summary ---
Author Organization [facility] Address [address] [place] [address] Care Team Providers Care Alterations Sewer Name Role Phone Provider, No Known Primary [...] Description 11/08/2025 10:45 AM EST Office Visit [facility]NAL MEDICINE [address] [facility] [address] [place] [phone] 11/08/2025 10:45 AM EST Appointment [facility] US PER DIAG CTR [address] [facility] [place] [address] 11/15/2025 11:30 AM EST Office Visit [facility] MATERNAL MEDICINE [address] [address] 11/15/2025 11:30 AM EST Appointment [facility] US PER DIAG CTR [address] [facility] [place] [place] [address] 11/22/2025 10:45 AM EST Office Visit [facility] MATERNAL MEDICINE [address] [address] 11/22/2025 10:45 AM EST Appointment [facility] US PER DIAG CTR [address] [facility] [place] [address] documented as of this encounter Visit Diagnoses Not on filedocumented in this encounter Care Teams Alterations Sewer Relationship Specialty Start Date End Date Provider, [place] [address] PCP - General 08/19/24 documented as of this encounter
--- OUTSIDE RECORDS SUMMARY | 2025-11-02 12:57 | XMS_ITS | Encounter Summary ---
Author Organization [facility] Address [address] [place] [address] Care Team Providers Care Cvt Tech Name Role Phone Provider, No Known Primary [...] 08/02 Potentially Unsafe Housing Conditions Not on ptay e 08/19/2024 Family and Community Support Answer [...] Visit [facility] MATERNAL MEDICINE [address] [facility] [address] [place] [address] 11/08/2025 10:45 AM EST Appointment [facility] US PER DIAG CTR [address] [facility] [address] 11/15/2025 11:30 AM EST Office Visit [facility] MATERNAL MEDICINE [address] [address] 11/15/2025 11:30 AM EST Appointment [facility] [address] [facility] [address] 11/22/2025 10:45 AM EST Office Visit [facility] MATERNAL MEDICINE [address] [address] 11/22/2025 10:45 AM EST Appointment [facility] [address] [facility] [address] documented as of this encounter Visit Diagnoses Not on filedocumented in this encounter Care Teams Cvt Tech Relationship Specialty Start Date End Date Provider, [place] [address] PCP - General 08/19/24 documented as of this encounter
--- NOTE | 2025-11-02 13:04 | US_ITS ---
PROCEDURE: US OB BIOPHYSICAL PROFILE CLINICAL INDICATION: BPP with S/D ratio COMPARISON: US US OB <= 14 WEEKS FETUS from 04/30/2025 US US OB /MATERNAL DETAIL from 08/04/2025 US US OB BIOPHYSICAL PROFILE from 10/19/2025 US US OB BIOPHYSICAL PROFILE from 10/29/2025 FINDINGS: Transabdominal sonographic images of the uterus were obtained. From her established due date she is 32weeks 4days. The following parameters are obtained: Viable Fetus in the breech presentation with an anterior placenta grade 2. There are multiple small lakes. The cervix measures 3.83 cm in length. Measurements: heart Rate = 142bpm Amniotic fluid index: 12.96cm, MVP 4.61 cm. Qualitative AFV:2 Breathing movements: 2 Gross Body Movements: 2 Tone: 2 Biophysical profile score: 8 Doppler evaluation of the umbilical artery: SD ratio: 2.58-3.14 Resistive index: 0.68 No obvious anomalies evident.Kidneys, stomach, bladder, four-chamber heart, three-vessel cord appear normal. IMPRESSION: 1. Viable fetus in the breech presentation with an anterior placenta grade 2. There are multiple small lakes throughout the placenta. 2. The cord is inserted marginally in the placenta. 3. The fluid is within normal limits with an amniotic fluid index 12.96 cm, MVP 4.61 cm. 4. Biophysical profile 8/8 with good breathing movement and movement seen. 5. SD ratio is normal 2.58-3.14. 6. Limited anatomical scan appears normal. Dictated by: Polo Catherine MD 11/02/2025 13:42 Polo Catherine MD in OV 11/02/2025 13:42
== END 2025-11-02 23:59 | disposition home or self-care (01) ==
LOC: RAD 12:53
PROVIDERS: PCP Obstetrics & Gynecology; Visit Provider Obstetrics & Gynecology
DX: O32.1XX0 Maternal care for breech presentation, not applicable or unspecified (principal); O28.3 Abnormal ultrasonic finding on antenatal screening of mother; O43.893 Other placental disorders, third trimester; O36.5930 Maternal care for other known or suspected poor fetal growth, third trimester, not applicable or unspecified; O10.913 Unspecified pre-existing hypertension complicating pregnancy, third trimester; Z3A.32 32 weeks gestation of pregnancy
CPT/HCPCS: 76819

== ENCOUNTER 2025-11-03 09:37 | Outpatient (CLI) | payer BC, SELFPAY ==
--- OUTSIDE RECORDS SUMMARY | 2025-09-23 08:52 | XMS_ITS | Encounter Summary ---
Author Organization [facility] Address [address] [place] [address] Care Team Providers Care Strand And Binder Controller Name Role Phone Provider, No Known Primary Care Provider Unavail able Reason for Referral * Diagnostic Imaging (Routine) - Closed Specialty Diagnoses / Procedures Referred By Ritesh winchester Referred To Contact Radiology Diagnoses Uterine size-date discrepancy in second trimester Marginal insertion of umbilical cord affecting management of mother in second trimester 23 weeks gestation of Maternal chronic hypertension in second trimester Procedures US [facility] Diagnostic [place] Brian Wesley MD [address] [place] [address] Phone: tel: fax: [facility] [address] [place] [address] Phone: tel: Referral ID Status Reason Start Date Expiration Date Visits Re quested Visits Authorized [id number] Closed 09/02/2025 12/02/2026 1 1 Reason for Visit * Diagnostic Imaging (Routine) - Closed Specialty Diagnoses / Procedures Referred By Ritesh winchester Referred To Contact Radiology Diagnoses Uterine size-date discrepancy in second trimester Marginal insertion of umbilical cord affecting management of mother in second trimester 23 weeks gestation of Maternal chronic hypertension in second trimester Procedures [facility] Diagnostic [place] Brian Wesley MD [address] [address] Phone: tel: fax: [facility] [address] [place] [address] Phone: tel: Referral ID Status Reason Start Date Expiration Date Visits Re quested Visits Authorized [id number] Closed 09/02/2025 12/02/2026 1 1 Encounter Details Date Type Department Care Team (Late st Contact Info) Description 09/23/2025 9:52 AM EDT - 09/23/2025 11:59 PM EDT Hospital Encounter [facility] PER DIAG CTR [address] [place] [address] Brian Wesley MD [address] [facility] [address] [place] [address] Uterine size-date discrepancy in second trimester; Marginal [...] Description 11/08/2025 10:45 AM EST Office Visit [facility] [address] [facility] [address] 11/08/2025 10:45 AM EST Appointment [facility] [address] [place] [address] 11/15/2025 11:30 AM EST Office Visit [facility] [address] [facility] [address] [place] [address] 11/15/2025 11:30 AM EST Appointment [facility] [address] [place] [address] 11/22/2025 10:45 AM EST Office Visit [facility] [address] [facility] [address] [place] [address] 11/22/2025 10:45 AM EST Appointment [facility] [address] [place] [address] documented as of this encounter Procedures Procedure Name Priority Date/Time Associated Diagnosis Comments [facility] Routine 09/23/2025 10:28 AM EDT Uterine size-date discrepancy in second trimester Marginal insertion of umbilical cord affecting management of mother in second trimester 23 weeks gestation of Maternal chronic hypertension in second trimester documented in this encounter Results * [facility] (09/23/2025 10:28 AM EDT) Anatomical Region Laterality Modality Ultrasound 09/23/2025 10:0 6 AM EDT Narrative 09/23/2025 10:58 AM EDT PAT NAME: FARIDA LYNN MED REC#: [id number] DA: [id number] PAT GEND: F PAT TYPE: O EXAM BLAISE: [id number] REF PHYS AMY CORCORAN Comparison Studies The [...] EFW (oz) 12 oz EFW by: Hadlock (OPM-KY-MZ-FL) Extended Tibia 40.1 mm 25w 2d 8% Emeli Fibula 39.3 mm 24w 5d 14% Emeli Foot 47.9 mm 9% Chitty Radius 32.4 mm 23w 1d 13% Emeli Ulna 37.2 mm 24w 5d 1% Emeli Cav. septi pel. tr 5.4 mm Director Script 4.1 mm CM 8.6 mm 94% Nicolaides [...] Heart / Thorax 3-vessel view: Appears normal 8-cnlzru-ffyabaw view: Appears normal Cord insertion: Normal Stomach: [...] Follow-up scheduled in 2wks. Coding ======= Description: 20939-72 Follow Up Ultrasound Description: 66913-01 Doppler Umbilical Artery Enterostomal Nurse: RT Benjamin Hutchison , [facility] Physician: Lis Jeffrey MD Electronically signed by: Lis Jeffrey MD at: 10:58 Procedure Note Lis Jeffrey MD - 09/23/2025 PAT NAME: FARIDA LYNN MED REC#: [id number] DA: 1990 PAT GEND: F PAT TYPE: O EXAM BLAISE: [id number] REF PHYS AMY CORCORAN Comparison Studies The findings of this study are compared to the prior ultrasound studydated 09/02/25 Patient Status Outpatient Indication ======== IUGR. Marginal PCI. Obesity BMI 34. Maternal Assessment Pgkslx795 cm Height (ft)5 ft Height (in)3 in Pwlgin77 kg Weight (lb)191 lb BMI33.84 kg/m Method ======= Transabdominal ultrasound examination. View: Suboptimal view: limited byfetal position ========= Botello . Number of fetuses: 1 Dating ====== Method of dating:based on stated PAULA GA by prior nnfuepzwxf79 w + 6 d PAULA by prior [...] Hadlock Femur46.7 mm 25w 4d 7% Hadlock Aubpsfe96.5 mm 24w 0d <1% Emeli HC / AC1.16 GYN479 g 25w 0d 3% Hadlock EFW (lb)1 lb EFW (oz)12 oz EFW by:Hadlock (KSU-QK-LJ-FL) Extended Tibia40.1 mm 25w 2d 8% Emeli Bdgeis60.3 mm 24w 5d 14% Emeli Foot47.9 mm 9% Chitty Fqzvnb96.4 mm 23w 1d 13% Emeli Ulna37.2 mm 24w 5d 1% Emeli Cav. septi pel. tr5.4 mm Vp4.1 mm CM8.6 mm 94% Nicolaides Head / Face / Neck Cephalic index0.74 8% Nicolaides Extremities / Bony Struc FL / BPD0.75 FL / HC0.20 FL / AC0.23 Other Structures UZB073 bpm General Evaluation Cardiac activity present. FHR [...] normal Heart / Thorax 3-vessel view:Appears normal 5-vktwjq-ijvubxp view:Appears normal Cord insertion:Normal Stomach:Appears normal Kidneys:Appears normal Bladder:Appears normal Gender:female Wants to know gender:yes Maternal Structures Uterus / Cervix Cervix:Visualized Approach:Transabdominal Cervical .3 mm Doppler Arterial Umbilical A PI1.15 71% [...] Recommendation Follow-up scheduled in 2wks. Coding ======= Description:93634-89 Follow Up Ultrasound Description:72154-99 Doppler Umbilical Artery Enterostomal Nurse: RT Kianna R , [facility] Physician: Lis Jeffrey MD Electronically [...] trimester documented in this encounter Care Teams Strand And Binder Controller Relationship Specialty Start Date End Date Provider, [place] [address] PCP - General 08/19/24 documented as of this encounter
--- OUTSIDE RECORDS SUMMARY | 2025-09-23 09:15 | XMS_ITS | Encounter Summary ---
Author Organization [facility] Address [address] [id number] Care Team Providers Care Library Monitor Name Role Phone Provider, No Known Primary [...] unspecified fetus 26 weeks gestation of Procedures [facility] Lis Jeffrey MD [address] [address] Phone: tel: fax: Referral ID Status Reason Start Date Expiration Date Visits Re quested Visits Authorized [id number] Closed 09/23/2025 12/23/2026 1 1 Reason for Visit * Reason Comments IUGR, MPCI Encounter Details Date Type Department Care Team (Late st Contact Info) Description 09/23/2025 10:15 AM EDT Office Visit [facility]NAL MEDICINE [address] [facility] [address] [place] [phone] Lis Jeffrey MD [address] [facility] [address] [place], [place] [phone] Marginal insertion of umbilical cord affecting management [...] of mother in second trimester (Primary) - [facility]; Future 2. Maternal chronic [...] Description 11/08/2025 10:45 AM EST Office Visit [facility]NAL MEDICINE [address] [address] 11/08/2025 10:45 AM EST Appointment [facility] [address] [place] [address] 11/15/2025 11:30 AM EST Office Visit [facility] MATERNAL MEDICINE [address] [address] 11/15/2025 11:30 AM EST Appointment [facility] [address] [place] [address] 11/22/2025 10:45 AM EST Office Visit [facility]NAL MEDICINE [address] [place] [address] 11/22/2025 10:45 AM EST Appointment [facility] [address] [place] [address] documented as of this encounter Results * [facility] (10/11/2025 10:30 AM EST) Anatomical Region Laterality Modality Ultrasound 10/11/2025 9:59 AM EST Narrative 10/12/2025 7:46 PM EST PAT NAME: FARIDA LYNN MED REC#: [id number] DA: [id number] PAT GEND: F PAT TYPE: O EXAM BLAISE: [id number] REF PHYS AMY CONLEY Comparison Studies The [...] EFW (oz) 5 oz EFW by: Hadlock (RVX-ED-XY-FL) Extended Cav. septi pel. tr 5.7 mm Grades 7 8 Tutor 5.0 mm CM 7.1 mm 55% Nicolaides [...] Normal Heart / Thorax 3-vessel view: Normal 1-hyhqww-cacwudz view: normal Cord insertion: Normal Stomach: Appears [...] Normal appearing limited anatomy Normal fluid BPP 07/09 UA doppler normal Marginal cord insertion Coding ======= Description: 80755-51 Follow Up Ultrasound Description: 37783-95 BPP without NST Description: 42492-41 Doppler Umbilical Artery Branch Service Leader: Albina Roberts RDMS Physician: Danielle Allen MD, FACOG Electronically signed by: Danielle Allen MD, FACOG at: 19:46 Procedure Note Danielle Allen MD - 10/12/2025 PAT NAME: FARIDA LYNN MED REC#: [id number] DA: [id number] PAT GEND: F PAT TYPE: O EXAM BLAISE: [id number] REF PHYS AMY CONLEY Comparison Studies The findings of this study are compared to the prior ultrasound studydated 09/23/2025 Patient Status Outpatient Indication ======== IUGR. Marginal PCI. Obesity BMI 34. Maternal Assessment Ltdsve593 cm Height (ft)5 ft Height (in)3 in Lnuork83 kg Weight (lb)194 lb BMI34.38 kg/m Method ======= Transabdominal ultrasound examination. View: Good view ========= Botello . Number of fetuses: 1 Dating ====== Method of dating:based on stated PAULA GA by prior cozcfglfmw58 w + 3 d PAULA by prior assessment:12/24/2025 Ultrasound examination on:10/11/2025 GA by U/S based upon:AC, BPD, Femur, HC GA by U/S27 w + 3 d PAULA by U/S:01/07/2026 Previous dating:based on stated PAULA, selected on 09/23/2025 Agreed PAULA of previous datin12/24/2025 Assigned:based on stated PAULA, selected on 10/11/2025 Assigned GA29 w + 3 d Assigned PAULA:12/24/2025 icxidj891 d Biometry Standard BPD68.2 mm 27w 3d 2% Hadlock OFD92.9 mm 30w 0d 65% Emeli HC258.2 mm 28w 0d 2% Hadlock Cerebellum tr35.3 mm 29w 3d 50% Hill AC227.3 mm 27w 1d 2% Hadlock Femur50.5 mm 27w 1d 1% Hadlock Wtvvepl53.3 mm 25w 3d <1% Emeli HC / AC1.14 EFW1,044 g 26w 6d 2% Hadlock EFW (lb)2 lb EFW (oz)5 oz EFW by:Hadlock (CNL-SR-PW-FL) Extended Cav. septi pel. tr5.7 mm Vp5.0 mm CM7.1 mm 55% Nicolaides Head / Face / Neck Cephalic index0.73 5% Nicolaides Extremities / Bony Struc FL / BPD0.74 FL / HC0.20 FL / AC0.22 Other Structures VAC247 bpm General Evaluation Cardiac activity present. FHR [...] LVOT view:Normal Heart / Thorax 3-vessel view:Normal 7-bmpqjp-wyrnygr view:normal Cord insertion:Normal Stomach:Appears normal Kidneys:Appears normal Bladder:Appears normal Gender:female Wants to know gender:yes Maternal Structures Uterus / Cervix Cervical rbqzny37.7 mm Doppler Arterial Umbilical A PI0.97 51% [...] doppler normal Marginal cord insertion Coding ======= Description:01504-10 Follow Up Ultrasound Description:11925-38 BPP without NST Description:09611-77 Doppler Umbilical Artery Branch Service Leader: Albina Roberts RDMS Physician: Danielle Allen MD, [...] of documented in this encounter Care Teams Library Monitor Relationship Specialty Start Date End Date Provider, [place] [address] PCP - General 08/19/24 documented as of this encounter
--- OUTSIDE RECORDS SUMMARY | 2025-10-11 09:44 | XMS_ITS | Encounter Summary ---
Author Organization [facility] Address [address] [place] [address] Care Team Providers Care Desktop Administrator Name Role Phone Provider, No Known Primary [...] unspecified fetus 26 weeks gestation of Procedures [facility] Diagnostic [place] Lis Jeffrey MD [address] [place] [address] Phone: tel: fax: Referral ID Status Reason Start Date Expiration Date Visits Re quested Visits Authorized [id number] Closed 09/23/2025 12/23/2026 1 1 Reason for Visit * Diagnostic Imaging (Routine) - Closed Specialty Diagnoses / Procedures Referred By Ritesh winchester Referred To Contact Radiology Diagnoses Marginal insertion of umbilical cord affecting management of mother in second trimester Maternal chronic hypertension in second trimester Poor growth affecting management of mother in third trimester, single or unspecified fetus 26 weeks gestation of Procedures [facility] [place] Lis Jeffrey MD [address] [id number] Phone: tel: fax: Referral ID Status Reason Start Date Expiration Date Visits Re quested Visits Authorized [id number] Closed 09/23/2025 12/23/2026 1 1 Encounter Details Date Type Department Care Team (Late st Contact Info) Description 10/11/2025 9:44 AM EST - 10/11/2025 11:59 PM [facility] [address] [place] [address] Lis Jeffrye MD [address] [place] [address] Marginal insertion of umbilical cord [...] 11/08/2025 10:45 AM EST Office Visit [facility] MATERNAL MEDICINE [address] [address] 11/08/2025 10:45 AM EST Appointment [facility] US PER DIAG CTR [address] [place] [address] 11/15/2025 11:30 AM EST Office Visit [facility] MATERNAL MEDICINE [address] [place] [address] 11/15/2025 11:30 AM EST Appointment [facility] US PER DIAG CTR [address] [place] [address] 11/22/2025 10:45 AM EST Office Visit [facility] MATERNAL MEDICINE [address] [address] 11/22/2025 10:45 AM EST Appointment [facility] US PER DIAG CTR [address] [facility] [place] [address] documented as of this encounter Procedures Procedure Name Priority Date/Time Associated Diagnosis Comments [facility] Routine 10/11/2025 10:30 AM EST Marginal insertion of umbilical cord affecting management of mother in second trimester Maternal chronic hypertension in second trimester Poor growth affecting management of mother in third trimester, single or unspecified fetus 26 weeks gestation of documented in this encounter Results * [facility] (10/11/2025 10:30 AM EST) Anatomical Region Laterality Modality Ultrasound 10/11/2025 9:59 AM EST Narrative 10/12/2025 7:46 PM EST PAT NAME: FARIDA LYNN MED REC#: [id number] DA: 1990 PAT GEND: F PAT TYPE: O EXAM BLAISE: [id number] REF PHYS AMY CORCORAN Comparison Studies The [...] EFW (oz) 5 oz EFW by: Hadlock (EDZ-IN-JG-FL) Extended Cav. septi pel. tr 5.7 mm Core Fitter 5.0 mm CM 7.1 mm 55% Nicolaides [...] Normal Heart / Thorax 3-vessel view: Normal 1-vqpmtj-ouldaha view: normal Cord insertion: Normal Stomach: Appears [...] normal Marginal cord insertion Coding ======= Description: 59338-14 Follow Up Ultrasound Description: 68588-29 BPP without NST Description: 27111-88 Doppler Umbilical Artery Network Developer: Albina Roberts RDMS Physician: Danielle Allen MD, FACOG Electronically signed by: Danielle Allen MD, FACOG at: 19:46 Procedure Note Danielle Allen MD - 10/12/2025 PAT NAME: FARIDA LYNN MED REC#: [id number] DA: [id number] PAT GEND: F PAT TYPE: O EXAM BLAISE: [id number] REF PHYS AMY CORCORAN Comparison Studies The findings of this study are compared to the prior ultrasound studydated 09/23/2025 Patient Status Outpatient Indication ======== IUGR. Marginal PCI. Obesity BMI 34. Maternal Assessment Tmjpvz625 cm Height (ft)5 ft Height (in)3 in Cmtfdd31 kg Weight (lb)194 lb BMI34.38 kg/m Method ======= Transabdominal ultrasound examination. View: Good view ========= Botello . Number of fetuses: 1 Dating ====== Method of dating:based on stated PAULA GA by prior efaaoysxvd45 w + 3 d PAULA by prior assessment:12/24/2025 Ultrasound examination on:10/11/2025 GA by U/S based upon:AC, BPD, Femur, HC GA by U/S27 w + 3 d PAULA by U/S:01/07/2026 Previous dating:based on stated PAULA, selected on 09/23/2025 Agreed PAULA of previous datin12/24/2025 Assigned:based on stated PAULA, selected on 10/11/2025 Assigned GA29 w + 3 d Assigned PAULA:12/24/2025 oimdpy211 d Biometry Standard BPD68.2 mm 27w 3d 2% Hadlock OFD92.9 mm 30w 0d 65% Emeli HC258.2 mm 28w 0d 2% Hadlock Cerebellum tr35.3 mm 29w 3d 50% Hill AC227.3 mm 27w 1d 2% Hadlock Femur50.5 mm 27w 1d 1% Hadlock Rgrloly23.3 mm 25w 3d <1% Emeli HC / AC1.14 EFW1,044 g 26w 6d 2% Hadlock EFW (lb)2 lb EFW (oz)5 oz EFW by:Hadlock (JFK-XH-YK-FL) Extended Cav. septi pel. tr5.7 mm Vp5.0 mm CM7.1 mm 55% Nicolaides Head / Face / Neck Cephalic index0.73 5% Nicolaides Extremities / Bony Struc FL / BPD0.74 FL / HC0.20 FL / AC0.22 Other Structures FZN493 bpm General Evaluation Cardiac activity present. FHR [...] LVOT view:Normal Heart / Thorax 3-vessel view:Normal 3-udypjr-iywvedh view:normal Cord insertion:Normal Stomach:Appears normal Kidneys:Appears normal Bladder:Appears normal Gender:female Wants to know gender:yes Maternal Structures Uterus / Cervix Cervical kgosrt84.7 mm Doppler Arterial Umbilical A PI0.97 51% [...] doppler normal Marginal cord insertion Coding ======= Description:98355-67 Follow Up Ultrasound Description:31431-22 BPP without NST Description:34767-21 Doppler Umbilical Artery Network Developer: Albina Roberts RDMS Physician: Danielle Allen MD, [...] of documented in this encounter Care Teams Desktop Administrator Relationship Specialty Start Date End Date Provider, No Known [facility] [place] [address] PCP - General 08/19/24 documented as of this encounter
--- OUTSIDE RECORDS SUMMARY | 2025-10-11 10:15 | XMS_ITS | Encounter Summary ---
Author Organization [facility] Address [address] [phone] Care Team Providers Care Oil And Gas Superintendent Name Role Phone Provider, No Known Primary Care Provider Unavail able Reason for Referral * Diagnostic Imaging (Routine) - Closed Specialty Diagnoses / Procedures Referred By Ritesh t Referred To Contact Radiology Diagnoses Poor growth affecting management of mother in third trimester, single or unspecified fetus Maternal chronic hypertension in second trimester Procedures [facility] Danielle Allen MD [address] [address] Phone: tel: fax: Referral ID Status Reason Start Date Expiration Date Visits Re quested Visits Authorized [id number] Closed 10/13/2025 01/12/2027 1 1 Reason for Visit * Reason Comments IUGR, Marginal Cord Insertion, MO Encounter Details Date Type Department Care Team (Late st Contact Info) Description 10/11/2025 10:15 AM EST Office Visit [facility] [address] [facility] [address] [place] [phone] Danielle Allen MD [address] [phone] Poor growth affecting management of mother in [...] EST Maternal/ Medicine Follow Up Note Name: Fraida Lynn : 1990 Referring Provider: Amy Conley [...] in your office Orders: - [facility]; Future 2. Maternal chronic hypertension in second trimester - [facility]; Future Follow Up 1 week [...] [facility]. Danielle Allen MD FACOG Maternal Medicine, [facility] 10/11/2025 documented in this encounter Plan of Treatment Upcoming Encounters Date Type Department Care Team (Late st Contact Info) Description 11/08/2025 10:45 AM EST Office Visit [facility] MED[facility] [address] [address] 11/08/2025 10:45 AM EST Appointment [facility] [address] [place] [address] 11/15/2025 11:30 AM EST Office Visit [facility] MEDICINE [address] [place] [phone] 11/15/2025 11:30 AM EST Appointment [facility] [address] [place] [address] 11/22/2025 10:45 AM EST Office Visit [facility] [address] [address] 11/22/2025 10:45 AM EST Appointment [facility] [address] [place] [address] documented as of this encounter Results * [facility] (10/18/2025 10:21 AM EST) Anatomical Region Laterality Modality Ultrasound 10/18/2025 9:57 AM EST Narrative 10/18/2025 10:27 AM EST PAT NAME: FARIDA LYNN [facility] REC#: [id number] DA: 1990 PAT GEND: F PAT TYPE: O EXAM BLAISE: [id number] REF PHYS AMY CONLEY Comparison Studies The [...] NSTs in your office. Coding ======= Description: 96913-46 BPP without NST Description: 33364-38 Doppler Umbilical Artery Outside Event Sales Specialist: Eunice Manning RDMS Physician: Jung Angeles MD, FACOG Electronically signed by: Jung Angeles MD, FACOG at: 10:27 Procedure Note Jung Angeles MD - 10/18/2025 PAT NAME: FARIDA LYNN MED REC#: [id number] DA: [id number] PAT GEND: F PAT TYPE: O EXAM BLAISE: [id number] REF PHYS AMY CONLEY Comparison Studies The findings of this study are compared to the prior ultrasound studydated 10/11/25 Patient Status Outpatient Indication ======== IUGR. Marginal PCI. Obesity BMI 34. Maternal Assessment Hqrnir803 cm Height (ft)5 ft Height (in)3 in Kbdohr02 kg Weight (lb)196 lb BMI34.73 kg/m Method ======= Transabdominal ultrasound examination ========= Botello . Number of fetuses: 1 Dating ====== Method of dating:based on stated PAULA GA by prior [id number] w + 3 d PAULA by prior assessment:12/24/2025 Previous dating:based on stated PAULA, selected on 10/11/2025 Agreed PAULA of previous datin12/24/2025 Assigned:based on stated PAULA, selected on 10/18/2025 Assigned GA30 w + 3 d Assigned PAULA:12/24/2025 d General Evaluation Cardiac activity present. FHR [...] weekly NSTs in your office. Coding ======= Description:80489-85 BPP without NST Description:30451-65 Doppler Umbilical Artery Outside Event Sales Specialist: Eunice Manning RDMS Physician: Jung Angeles MD, [...] trimester documented in this encounter Care Teams Oil And Gas Superintendent Relationship Specialty Start Date End Date Provider, [place] [address] PCP - General 08/19/24 documented as of this encounter
--- OUTSIDE RECORDS SUMMARY | 2025-10-18 09:34 | XMS_ITS | Encounter Summary ---
Author Organization [facility] Address [address] [id number] Care Team Providers Care Implementation Coordinator Name Role Phone Provider, No Known Primary Care Provider Unavail able Reason for Referral * Diagnostic Imaging (Routine) - Closed Specialty Diagnoses / Procedures Referred By Ritesh winchester Referred To Contact Radiology Diagnoses Poor growth affecting management of mother in third trimester, single or unspecified fetus Maternal chronic hypertension in second trimester Procedures [facility] Diagnostic [place] Danielle Allen MD [address] [facility] [place] [address] Phone: tel: fax: Referral ID Status Reason Start Date Expiration Date Visits Re quested Visits Authorized [id number] Closed 10/13/2025 01/12/2027 1 1 Reason for Visit * Diagnostic Imaging (Routine) - Closed Specialty Diagnoses / Procedures Referred By Ritesh winchester Referred To Contact Radiology Diagnoses Poor growth affecting management of mother in third trimester, single or unspecified fetus Maternal chronic hypertension in second trimester Procedures [facility] Diagnostic [place] Danielle Allen MD [address] [place] [address] Phone: tel: fax: Referral ID Status Reason Start Date Expiration Date Visits Re quested Visits Authorized [id number] Closed 10/13/2025 01/12/2027 1 1 Encounter Details Date Type Department Care Team (Late st Contact Info) Description 10/18/2025 9:34 AM EST - 10/18/2025 11:59 PM EST Hospital Encounter [facility] PER DIAG [facility] [address] [place] [address] Danielle Allen MD [address] [place] [address] Poor growth affecting management of mother in [...] Description 11/08/2025 10:45 AM EST Office Visit [facility] MATERNAL MEDICINE [address] [address] 11/08/2025 10:45 AM EST Appointment [facility] US PER DIAG CTR [address] [place] [address] 11/15/2025 11:30 AM EST Office Visit [facility] MATERNAL MEDICINE [address] [address] 11/15/2025 11:30 AM EST Appointment [facility] US PER DIAG [facility] [address] [place] [address] 11/22/2025 10:45 AM EST Office Visit [facility] MATERNAL MEDICINE [address] [address] 11/22/2025 10:45 AM EST Appointment [facility] US PER DIAG [facility] [address] [place] [address] documented as of this encounter Procedures Procedure Name Priority Date/Time Associated Diagnosis Comments [facility] Routine 10/18/2025 10:21 AM EST Poor growth affecting management of mother in third trimester, single or unspecified fetus Maternal chronic hypertension in second trimester documented in this encounter Results * [facility] (10/18/2025 10:21 AM EST) Anatomical Region Laterality Modality Ultrasound 10/18/2025 9:57 AM EST Narrative 10/18/2025 10:27 AM EST PAT NAME: FARIDA LYNN MED REC#: [id number] DA: 1990 PAT GEND: F PAT TYPE: O EXAM BLAISE: [id number] REF PHYS AMY CORCORAN Comparison Studies The [...] NSTs in your office. Coding ======= Description: 60773-22 BPP without NST Description: 12296-39 Doppler Umbilical Artery Poultry Boner: Eunice Manning RDMS Physician: Jung Angeles MD, FACOG Electronically signed by: Jung Angeles MD, FACOG at: 10:27 Procedure Note Jung Angeles MD - 10/18/2025 PAT NAME: FARIDA LYNN MED REC#: [id number] DA: [id number] PAT GEND: F PAT TYPE: O EXAM BLAISE: [id number] REF PHYS NIOL AMY Comparison Studies The findings of this study are compared to the prior ultrasound studydated 10/11/25 Patient Status Outpatient Indication ======== IUGR. Marginal PCI. Obesity BMI 34. Maternal Assessment Joonem192 cm Height (ft)5 ft Height (in)3 in Tkcvlh15 kg Weight (lb)196 lb BMI34.73 kg/m Method ======= Transabdominal ultrasound examination ========= Botello . Number of fetuses: 1 Dating ====== Method of dating:based on stated PAULA GA by prior [id number] w + 3 d PAULA by prior assessment:12/24/2025 Previous dating:based on stated PAULA, selected on 10/11/2025 Agreed PAULA of previous datin12/24/2025 Assigned:based on stated PAULA, selected on 10/18/2025 Assigned GA30 w + 3 d Assigned PAULA:12/24/2025 [id number] d General Evaluation Cardiac activity present. FHR [...] weekly NSTs in your office. Coding ======= Description:28097-10 BPP without NST Description:79049-06 Doppler Umbilical Artery Poultry Boner: Eunice Manning RDMS Physician: Jung Angeles MD, FACOG Electronically signed by: Jung Angeles MD, KYOG at: 10:27 us Danielle Allen MD [facility] [place] Final Result documented in this encounter Visit Diagnoses Diagnosis Poor growth affecting management of mother in third trimester, single or unspecified fetus Maternal chronic hypertension in second trimester documented in this encounter Care Teams Implementation Coordinator Relationship Specialty Start Date End Date Provider, [place] [address] PCP - General 08/19/24 documented as of this encounter
--- OUTSIDE RECORDS SUMMARY | 2025-10-18 10:15 | XMS_ITS | Encounter Summary ---
Author Organization [facility] Address [address] [id number] Care Team Providers Care Social Media Sr Strategy Manager Name Role Phone Provider, No Known Primary Care Provider Unavail able Reason for Referral * Diagnostic Imaging (Routine) - Authorized Specialty Diagnoses / Procedures Referred By Contac t Referred To Contact Radiology Diagnoses Poor growth affecting management of mother in third trimester, single or unspecified fetus Maternal chronic hypertension in third trimester Procedures [facility] Jung Angeles MD [address] [facility] [address] [place] [address] Phone: tel: fax: Referral ID Status Reason Start Date Expiration Date V isits Requested Visits Authorized [id number] Authorized 10/18/2025 01/17/2027 5 5 Reason for Visit * Reason Comments IUGR, MPCI, MO GHTN Encounter Details Date Type Department Care Team (Late st Contact Info) Description 10/18/2025 10:15 AM EST Office Visit [facility] [address] [place] [address] Jung Angeles MD [address] [place] [address] Poor growth affecting management of mother in [...] e 08/19/2024 Family and Community Support Answer Reese e Recorded Help with Day-to-Day Activities Not [...] Description 11/08/2025 10:45 AM EST Office Visit [facility] [address] [address] 11/08/2025 10:45 AM EST Appointment [facility] [address] [place] [address] 11/15/2025 11:30 AM EST Office Visit [facility] [address] [address] 11/15/2025 11:30 AM EST Appointment [facility] [address] [place] [address] 11/22/2025 10:45 AM EST Office Visit [facility] [address] [address] 11/22/2025 10:45 AM EST Appointment [facility] [address] [place] [address] Scheduled Orders Name Type Priority Associated Diagnoses Orde r Schedule [facility] Imaging Routine Poor growth affecting management of mother in third trimester, single or unspecified fetus Maternal chronic hypertension in third trimester Once a week for 5 Occurrences starting 10/18/2025 until 10/18/2026, 1 completed documented as of this encounter Results * [facility] (10/25/2025 11:18 AM EST) Anatomical Region Laterality Modality Ultrasound 10/25/2025 10:4 2 AM EST Narrative 10/25/2025 11:26 AM EST PAT NAME: JULIA LYNN MED REC#: [id number] DA: 1990 PAT GEND: F PAT TYPE: O EXAM REESE: [id number] REF PHYS AMY CONLEY Comparison Studies The [...] by U/S 29 w + 3 d PAULA by U/S: 01/07/2026 Method of dating: Restore [...] EFW (oz) 0 oz EFW by: Hadlock ([id number]-FL) Extended Cav. septi pel. tr 5.9 mm Endless Track Vehicle Mechanic 3.4 mm CM 7.4 mm 56% Nicolaides [...] Normal Heart / Thorax 3-vessel view: Normal 6-ruxspf-lkhofmc view: normal Cord insertion: Normal Stomach: Appears [...] here in 2 weeks. Coding ======= Description: 64042-84 Follow Up Ultrasound Description: 20760-04 BPP without NST Description: 86961-18 Doppler Umbilical Artery Surveillance Monitor: Tiki Ta RDMS Physician: Jung Angeles MD, FACOG Electronically signed by: Jung Angeles MD, FACOG at: 11:26 Procedure Note Jung Angeles MD - 10/25/2025 PAT NAME: JULIA LYNN MED REC#: [id number] DA: [id number] PAT GEND: F PAT TYPE: O EXAM REESE: [id number] REF PHYS AMY CONLEY Comparison Studies The findings of this study are compared to the prior ultrasound studydated 10/18/25. Patient Status Outpatient Indication ======== IUGR. Marginal PCI. Obesity BMI 35. Maternal Assessment Hdbhff899 cm Height (ft)5 ft Height (in)3 in Rwtlix62 kg Weight (lb)197 lb BMI34.91 kg/m Method ======= Transabdominal ultrasound examination ========= Botello . Number of fetuses: 1 Dating ====== GA by prior [id number] w + 3 d PAULA by prior [...] GA31 w + 3 d Assigned PAULA:12/24/2025 [id number] d Biometry Standard BPD73.0 mm 29w 2d 2% Hadlock OFD98.4 mm 31w 6d 60% Emeli HC274.2 mm 30w 0d 1% Hadlock Cerebellum tr39.3 mm 31w 5d 40% Hill AC249.9 mm 29w 1d 3% Hadlock Femur55.2 mm 29w 1d 2% Hadlock Xqnczdn44.3 mm 29w 0d 3% Emeli HC / AC1.10 EFW1,361 g 28w 6d 3% Hadlock EFW (lb)3 lb EFW (oz)0 oz EFW by:Hadlock (ZMU-QJ-MD-FL) Extended Cav. septi pel. tr5.9 mm Vp3.4 mm CM7.4 mm 56% Nicolaides Head / Face / Neck Cephalic index0.74 6% Nicolaides Extremities / Bony Struc FL / BPD0.76 FL / HC0.20 FL / AC0.22 Other Structures PRM784 bpm General Evaluation Cardiac activity present. FHR [...] LVOT view:Normal Heart / Thorax 3-vessel view:Normal 7-bhasbs-ziebbyk view:normal Cord insertion:Normal Stomach:Appears normal Kidneys:Appears normal [...] up here in 2 weeks. Coding ======= Description:84100-00 Follow Up Ultrasound Description:55333-90 BPP without NST Description:60257-25 Doppler Umbilical Artery Surveillance Monitor: Tiki Ta RDMS Physician: Jung Angeles MD, FACOG Electronically signed by: Jung Angeles MD, FACOG at: 11:26 us Jung Angeles MD IMG US ORDERABLES Final Result documented in this encounter Visit Diagnoses Diagnosis Poor growth affecting management of mother in third trimester, single or unspecified fetus- Primary Maternal chronic hypertension in third trimester documented in this encounter Care Teams Social Media Sr Strategy Manager Relationship Specialty Start Date End Date Provider, No Known [facility] [place] [address] PCP - General 08/19/24 documented as of this encounter
--- OUTSIDE RECORDS SUMMARY | 2025-10-25 09:49 | XMS_ITS | Encounter Summary ---
Author Organization [facility] Address [address] [place] [address] Care Team Providers Care Electric Lift Truck Driver Name Role Phone Provider, No Known Primary Care Provider Unavail able Reason for Visit * Diagnostic Imaging (Routine) - Authorized Specialty Diagnoses / Procedures Referred By Ritesh t Referred To Contact Radiology Diagnoses Poor growth affecting management of mother in third trimester, single or unspecified fetus Maternal chronic hypertension in third trimester Procedures [facility] Angeles, Jung Harmon MD [address] [facility] [address] [place] [address] Phone: tel: fax: Referral ID Status Reason Start Date Expiration Date V isits Requested Visits Authorized [id number] Authorized 10/18/2025 01/17/2027 5 5 Encounter Details Date Type Department Care Team (Latest Contact Info) Description 10/25/2025 9:49 AM EST - 10/25/2025 11:59 PM [facility] Hospital Encounter [facility] US PER DIAG CTR [address] [place] [address] Amy Conley, DO [address] [address] Discharge Disposition: Home or Self Care Social [...] 11/08/2025 10:45 AM EST Office Visit [facility] MATERNAL MEDICINE [address] [place] [address] 11/08/2025 10:45 AM EST Appointment [facility] PER DIAG CTR [address] [place] [address] 11/15/2025 11:30 AM EST Office Visit [facility] [address] [facility] [address] [place] [address] 11/15/2025 11:30 AM EST Appointment [facility] US PER DIAG CTR [address] [place] [address] 11/22/2025 10:45 AM EST Office Visit [facility] MED[facility] [address] [facility] [address] [place] [address] 11/22/2025 10:45 AM EST Appointment [facility] US PER DIAG CTR [address] [place] [address] documented as of this encounter Procedures Procedure Name Priority Date/Time Associated Diagnosis Comments [facility] Routine 10/25/2025 11:18 AM EST Poor growth affecting management of mother in third trimester, single or unspecified fetus Maternal chronic hypertension in third trimester documented in this encounter Results * [facility] (10/25/2025 11:18 AM EST) Anatomical Region Laterality Modality Ultrasound 10/25/2025 10:4 2 AM EST Narrative 10/25/2025 11:26 AM EST PAT NAME: FARIDA LYNN [facility] REC#: [id number] DA: [id number] PAT GEND: F PAT TYPE: O EXAM BLAISE: [id number] REF PHYS AMY CONLEY Comparison Studies The [...] EFW (oz) 0 oz EFW by: Hadlock (JCG-KJ-UH-FL) Extended Cav. septi pel. tr 5.9 mm Auto Fleet Manager 3.4 mm CM 7.4 mm 56% Nicolaides [...] Normal Heart / Thorax 3-vessel view: Normal 9-kbmrpf-rvdljeb view: normal Cord insertion: Normal Stomach: Appears [...] here in 2 weeks. Coding ======= Description: 07988-03 Follow Up Ultrasound Description: 23632-01 BPP without NST Description: 13379-99 Doppler Umbilical Artery Varitype Operator: Tiki Ta RDMS Physician: Jung Angeles MD, FACOG Electronically signed by: Jung Angeles MD, FACOG at: 11:26 Procedure Note Jung Angeles MD - 10/25/2025 PAT NAME: FARIDA LYNN MED REC#: [id number] DA: 1990 PAT GEND: F PAT TYPE: O EXAM BLAISE: [id number] REF PHYS AMY CONLEY Comparison Studies The findings of this study are compared to the prior ultrasound studydated 10/18/25. Patient Status Outpatient Indication ======== IUGR. Marginal PCI. Obesity BMI 35. Maternal Assessment Vrkrby459 cm Height (ft)5 ft Height (in)3 in Xzmupi85 kg Weight (lb)197 lb BMI34.91 kg/m Method [...] Hadlock Femur55.2 mm 29w 1d 2% Hadlock Lpualkc55.3 mm 29w 0d 3% Emeli HC / AC1.10 EFW1,361 g 28w 6d 3% Hadlock EFW (lb)3 lb EFW (oz)0 oz EFW by:Hadlock (UTU-AF-BQ-FL) Extended Cav. septi pel. tr5.9 mm Vp3.4 mm CM7.4 mm 56% Nicolaides Head / Face / Neck Cephalic index0.74 6% Nicolaides Extremities / Bony Struc FL / BPD0.76 FL / HC0.20 FL / AC0.22 Other Structures NMP619 bpm General Evaluation Cardiac activity present. FHR [...] LVOT view:Normal Heart / Thorax 3-vessel view:Normal 6-zamjak-moerjpv view:normal Cord insertion:Normal Stomach:Appears normal Kidneys:Appears normal [...] up here in 2 weeks. Coding ======= Description:64149-31 Follow Up Ultrasound Description:24737-97 BPP without NST Description:15802-58 Doppler Umbilical Artery Varitype Operator: Tiki Ta RDMS Physician: Jung Angeles MD, FACOG Electronically signed by: Jung Angeles MD, FACOG at: 11:26 us Jung Angeles MD IMG US ORDERABLES Final Result documented in this encounter Visit Diagnoses Not on filedocumented in this encounter Care Teams Electric Lift Truck Driver Relationship Specialty Start Date End Date Provider, [place] [address] PCP - General 08/19/24 documented as of this encounter
--- OUTSIDE RECORDS SUMMARY | 2025-10-25 10:15 | XMS_ITS | Encounter Summary ---
Author Organization [facility] Address [address] [place] [address] Care Team Providers Care Detention Officer Name Role Phone Provider, No Known Primary Care Provider Unavail able Reason for Visit * Reason Comments IUGR, marginal PCI, obesity Encounter Details Date Type Department Care Team (Late st Contact Info) Description 10/25/2025 10:15 AM EST Office Visit [facility] MATERNAL MEDICINE [address] [place] [phone] Jung Angeles MD [address] [facility] [address] [place] [address] Poor growth affecting management of mother in [...] Dopplers. Patient reports twice-weekly testing with primary ASPHALT MIXER and given 1 of these being performed [...] Dopplers. Patient reports twice-weekly testing with primary ASPHALT MIXER and given 1 of these being performed [...] [facility] Jung Angeles MD, FACOG Maternal Medicine, [facility] documented in this encounter Plan of Treatment Upcoming Encounters Date Type Department Care Team (Late st Contact Info) Description 11/08/2025 10:45 AM EST Office Visit [facility] MATERNAL MEDICINE [address] [address] 11/08/2025 10:45 AM EST Appointment [facility] [address] [place] [address] 11/15/2025 11:30 AM EST Office Visit [facility] MATERNAL MEDICINE [address] [address] 11/15/2025 11:30 AM EST Appointment [facility] [address] [place] [address] 11/22/2025 10:45 AM EST Office Visit [facility] MATERNAL MEDICINE [address] [place] [address] 11/22/2025 10:45 AM EST Appointment [facility] [address] [place] [address] documented as of this encounter Visit Diagnoses Diagnosis Poor growth affecting management of mother in third trimester, single or unspecified fetus- Primary Maternal chronic hypertension in third trimester documented in this encounter Care Teams Detention Officer Relationship Specialty Start Date End Date Provider, [place] [address] PCP - General 08/19/24 documented as of this encounter
--- OUTSIDE RECORDS SUMMARY | 2025-11-03 09:41 | XMS_ITS | Clinical Summary ---
Author Organization [facility] Address [address] [id number] Care Team Providers Care Spike Maker Name Role Phone Provider, No Known Primary [...] Dopplers. Patient reports twice-weekly testing with primary DIETARY SUPERVISOR and given 1 of these being [...] Description 10/25/2025 10:15 AM EST Office Visit [facility] [address] [place] [address] Jung Angeles MD Poor growth affecting management of mother in third trimester, single or unspecified fetus (Primary Dx); Maternal chronic hypertension in third trimester 10/25/2025 9:49 AM EST - 10/25/2025 11:59 PM EST Hospital Encounter [facility] [address] [place] [address] Amy Conley DO Discharge Disposition: Home or Self Care 10/25/2025 Travel 10/18/2025 10:15 AM EST Office Visit [facility]INE [address] [facility] [address] [address] [place] [phone] Jung Angeles MD Poor growth affecting management of mother in third trimester, single or unspecified fetus (Primary Dx); Maternal chronic hypertension in third trimester 10/18/2025 9:34 AM EST - 10/18/2025 11:59 PM EST Hospital Encounter [facility] [address] [place] [phone] Danielle Allen MD Poor growth affecting management of mother in third trimester, single or unspecified fetus; Maternal chronic hypertension in second trimester Discharge Disposition: Home or Self Care 10/18/2025 Travel 10/11/2025 10:15 AM EST Office Visit [facility] [address] [facility] [address] [place] [phone] Danielle Allen MD Poor growth affecting management of mother in third trimester, single or unspecified fetus (Primary Dx); Maternal chronic hypertension in second trimester 10/11/2025 9:44 AM EST - 10/11/2025 11:59 PM EST Hospital Encounter [facility] [address] [place] [phone] Lis Jeffrey MD Marginal insertion of umbilical cord affecting management of mother in second trimester; Maternal chronic hypertension in second trimester; Poor growth affecting management of mother in third trimester, single or unspecified fetus; 26 weeks gestation of Discharge Disposition: Home or Self Care 10/11/2025 Travel 09/23/2025 10:15 AM EDT Office Visit [facility] [address] [facility] [address] [address] [place] [phone] Lis Jeffrey MD Marginal insertion of umbilical cord affecting management of mother in second trimester (Primary Dx); Maternal chronic hypertension in second trimester; Poor growth affecting management of mother in third trimester, single or unspecified fetus; 26 weeks gestation of 09/23/2025 9:52 AM EDT - 09/23/2025 11:59 PM EDT Hospital Encounter [facility] [address] [place] [phone] Brian Wesley MD Uterine size-date discrepancy in second trimester; Marginal insertion of umbilical cord affecting management of mother in second trimester; 23 weeks gestation of ; Maternal chronic hypertension in second trimester Discharge Disposition: Home or Self Care 09/23/2025 Travel 09/06/2025 Telephone [facility] [address] [place] [phone] Brian Wesley MD Advice Only (Pt has question for Nurse.) 09/02/2025 10:30 AM EDT - 09/02/2025 11:59 PM EDT Hospital Encounter [facility] [address] [place] [place] [phone] Amy Conley, Maternal care for other known or suspected poor growth, second trimester, not applicable or unspecified; Marginal insertion of umbilical cord affecting management of mother in second trimester; , unspecified gestational age Discharge Disposition: Home or Self Care 09/02/2025 10:30 AM EDT Office Visit [facility]INE [address] [address] Brian Wesley MD Uterine size-date discrepancy in second trimester (Primary Dx); Marginal insertion of umbilical cord affecting management of mother in second trimester; 23 weeks gestation of ; Maternal chronic hypertension in second trimester 09/02/2025 Telephone [facility] [address] [phone] Jodie Garcia vaccine manager Only 09/02/2025 Travel from Last 3 [...] 10:45 AM EST Office Visit [facility] [address] [facility] [address] [place] [phone] 11/08/2025 10:45 AM EST Appointment [facility] [address] [place] [address] 11/15/2025 11:30 AM EST Office Visit [facility] [address] [facility] [address] [place] [phone] 11/15/2025 11:30 AM EST Appointment [facility] [address] [place] [address] 11/22/2025 10:45 AM EST Office Visit [facility] MED[facility] [address] [address] 11/22/2025 10:45 AM EST Appointment [facility] [address] [place] [address] Health Maintenance Due Date Last Done Comments [...] Procedure Name Priority Date/Time Associated Diagnosis Comments [facility] Routine 10/25/2025 11:18 AM EST Poor growth affecting management of mother in third trimester, single or unspecified fetus Maternal chronic hypertension in third trimester [facility] Routine 10/18/2025 10:21 AM EST Poor growth affecting management of mother in third trimester, single or unspecified fetus Maternal chronic hypertension in second trimester [facility] Routine 10/11/2025 10:30 AM EST Marginal insertion of umbilical cord affecting management of mother in second trimester Maternal chronic hypertension in second trimester Poor growth affecting management of mother in third trimester, single or unspecified fetus [address] [facility] Routine 09/23/2025 10:28 AM EDT Uterine size-date discrepancy in second trimester Marginal insertion of umbilical cord affecting management of mother in second trimester 23 weeks gestation of Maternal chronic hypertension in second trimester [facility] Routine 09/02/2025 11:30 AM EDT Maternal care for other known or suspected poor growth, second trimester, not applicable or unspecified Marginal insertion of umbilical cord affecting management of mother in second trimester , unspecified gestational age from Last 3 Months Results * [facility] (10/25/2025 11:18 AM EST) Only the most recent of5 resultswithin the time period is included. Anatomical Region Laterality Modality Ultrasound 10/25/2025 10:4 2 AM EST Narrative 10/25/2025 11:26 AM EST PAT NAME: FARIDA LYNN [facility] REC#: [id number] DA: 1990 PAT GEND: F PAT TYPE: O EXAM BLAISE: [id number] REF PHYS AMY CONLEY Comparison Studies The [...] EFW (oz) 0 oz EFW by: Hadlock ([id number]) Extended Cav. septi pel. tr 5.9 mm Aesthetics Instructor 3.4 mm CM 7.4 mm 56% Nicolaides [...] Normal Heart / Thorax 3-vessel view: Normal 7-fdjpzk-ybaujob view: normal Cord insertion: Normal Stomach: Appears [...] here in 2 weeks. Coding ======= Description: 83037-09 Follow Up Ultrasound Description: 86363-57 BPP without NST Description: 22059-36 Doppler Umbilical Artery Development Coordinator: Tiki aT RDMS Physician: Jung Angeles MD, FACOG Electronically signed by: Jung Angeles MD, FACOG at: 11:26 Procedure Note Jung Angeles MD - 10/25/2025 PAT NAME: FARIDA LYNN MED REC#: [id number] DA: 1990 PAT GEND: F PAT TYPE: O EXAM BLAISE: [id number] REF PHYS AMY CONLEY Comparison Studies The findings of this study are compared to the prior ultrasound studydated 10/18/25. Patient Status Outpatient Indication ======== IUGR. Marginal PCI. Obesity BMI 35. Maternal Assessment Uhmqaz596 cm Height (ft)5 ft Height (in)3 in Idtdbz36 kg Weight (lb)197 lb BMI34.91 kg/m Method ======= Transabdominal ultrasound examination ========= Botello . Number of fetuses: 1 Dating ====== GA by prior [id number] w + 3 d PAULA by prior [...] GA31 w + 3 d Assigned PAULA:12/24/2025 ocduul300 d Biometry Standard BPD73.0 mm 29w 2d 2% Hadlock OFD98.4 mm 31w 6d 60% Emeli HC274.2 mm 30w 0d 1% Hadlock Cerebellum tr39.3 mm 31w 5d 40% Hill AC249.9 mm 29w 1d 3% Hadlock Femur55.2 mm 29w 1d 2% Hadlock Ftwuxxx22.3 mm 29w 0d 3% Emeli HC / AC1.10 EFW1,361 g 28w 6d 3% Hadlock EFW (lb)3 lb EFW (oz)0 oz EFW by:Hadlock ([id number]) Extended Cav. septi pel. tr5.9 mm Vp3.4 mm CM7.4 mm 56% Nicolaides Head / Face / Neck Cephalic index0.74 6% Nicolaides Extremities / Bony Struc FL / BPD0.76 FL / HC0.20 FL / AC0.22 Other Structures FHV761 bpm General Evaluation Cardiac activity present. FHR [...] LVOT view:Normal Heart / Thorax 3-vessel view:Normal 1-rbrwqp-iskcdjr view:normal Cord insertion:Normal Stomach:Appears normal Kidneys:Appears normal [...] up here in 2 weeks. Coding ======= Description:47518-99 Follow Up Ultrasound Description:43575-24 BPP without NST Description:07277-49 Doppler Umbilical Artery Development Coordinator: Tiki Ta RDMS Physician: Jung Angeles MD, FACOG Electronically signed by: Jung Angeles MD, FACOG at: 11:26 us Jung Angeles MD [facility] ORDER[facility]LES Final Result from Last [address] EMPLOYEE Care Teams Spike Maker Relationship Specialty Start Date End Date Provider, No Known [facility] [place] [address] PCP - General 08/19/24
--- OUTSIDE RECORDS SUMMARY | 2025-11-03 09:41 | XMS_ITS | Encounter Summary ---
Author Organization [facility] Address [address] [place] [address] Care Team Providers Care Merchandising Manager Name Role Phone Provider, No Known [...] 11/08/2025 10:45 AM EST Office Visit [facility] [address] [facility] [address] [place] [phone] 11/08/2025 10:45 AM EST Appointment [facility] [address] [facility] [place] [address] 11/15/2025 11:30 AM EST Office Visit [facility] [address] [address] 11/15/2025 11:30 AM EST Appointment [facility] [address] [facility] [place] [address] 11/22/2025 10:45 AM EST Office Visit [facility] [address] [address] 11/22/2025 10:45 AM EST Appointment [facility] [address] [facility] [place] [address] documented as of this encounter Visit Diagnoses Not on filedocumented in this encounter Care Teams Merchandising Manager Relationship Specialty Start Date End Date Provider, [place] [address] PCP - General 08/19/24 documented as of this encounter
--- OUTSIDE RECORDS SUMMARY | 2025-11-03 09:41 | XMS_ITS | Encounter Summary ---
Author Organization [facility] Address [address] [place] [address] Care Team Providers Care Activated Sludge Operator Name Role Phone Provider, No Known [...] [facility] [address] [facility] [address] [place] [phone] 11/08/2025 10:45 AM EST Appointment [facility] [address] [facility] [address] 11/15/2025 11:30 AM EST Office Visit [facility] MEDICINE [address] [address] 11/15/2025 11:30 AM EST [facility]ointment [facility] [address] [facility] [place] [address] 11/22/2025 10:45 AM EST Office Visit [facility] MEDICINE [address] [address] 11/22/2025 10:45 AM EST Appointment [facility] [address] [facility] [place] [address] documented as of this encounter Visit Diagnoses Not on filedocumented in this encounter Care Teams Activated Sludge Operator Relationship Specialty Start Date End Date Provider, [place] [address] PCP - General 08/19/24 documented as of this encounter
--- OUTSIDE RECORDS SUMMARY | 2025-11-03 09:41 | XMS_ITS | Encounter Summary ---
Author Organization [facility] Address [address] [place] [address] Care Team Providers Care Recovery Rn Name Role Phone Provider, No Known Primary [...] Visit [facility] [address] [facility] [address] [place] [phone] 11/08/2025 10:45 AM EST Appointment [facility] [address] [facility] [place] [address] 11/15/2025 11:30 AM EST Office Visit [facility] MEDICINE [address] [address] 11/15/2025 11:30 AM EST Appointment [facility] [address] [facility] [place] [address] 11/22/2025 10:45 AM EST Office Visit [facility] MAT[facility] MEDICINE [address] [address] 11/22/2025 10:45 AM EST Appointment [facility] [address] [facility] [place] [address] documented as of this encounter Visit Diagnoses Not on filedocumented in this encounter Care Teams Recovery Rn Relationship Specialty Start Date End Date Provider, [place] [address] PCP - General 08/19/24 documented as of this encounter
--- OUTSIDE RECORDS SUMMARY | 2025-11-03 09:41 | XMS_ITS | Encounter Summary ---
Author Organization [facility] Address [address] [place] [address] Care Team Providers Care Forest Management Professor Name Role Phone Provider, No Known Primary [...] 11/08/2025 10:45 AM EST Office Visit [facility] MEDICINE [address] [facility] [address] [place] [phone] 11/08/2025 10:45 AM EST Appointment [facility] [address] [facility] [place] [address] 11/15/2025 11:30 AM EST Office Visit [facility]NAL MEDICINE [address] [address] 11/15/2025 11:30 AM EST Appointment [facility] [address] [facility] [place] [address] 11/22/2025 10:45 AM EST Office Visit [facility] MATERNAL MEDICINE [address] [address] 11/22/2025 10:45 AM EST Appointment [facility] [address] [facility] [place] [address] documented as of this encounter Visit Diagnoses Not on filedocumented in this encounter Care Teams Forest Management Professor Relationship Specialty Start Date End Date Provider, [place] [address] PCP - General 08/19/24 documented as of this encounter
--- OUTSIDE RECORDS SUMMARY | 2025-11-03 09:41 | XMS_ITS | Encounter Summary ---
Author Organization [facility] Address [address] [place] [address] Care Team Providers Care Hand Miter Operator Name Role Phone Provider, No Known Primary Care Provider Unavail able Reason for Visit * Reason Onset Date Comments Advice Only 09/06/2025 Pt has question for Nurse. Encounter Details Date Type Department Care Team (Late st Contact Info) Description 09/06/2025 Telephone [facility] [address] [place] [phone] Brian Wesley MD [address] [facility] [address] [place] [address] Advice Only (Pt has question for Nurse.) [...] [facility] [address] [facility] [address] 11/08/2025 10:45 AM EST Appointment [facility] [address] [place] [address] 11/15/2025 11:30 AM EST Office Visit [facility] [address] [facility] [address] 11/15/2025 11:30 AM EST Appointment [facility] [address] [facility] [place] [address] 11/22/2025 10:45 AM EST Office Visit [facility] [address] [facility] [address] 11/22/2025 10:45 AM EST Appointment [facility] [address] [place] [phone] documented as of this encounter Visit Diagnoses Not on filedocumented in this encounter Care Teams Hand Miter Operator Relationship Specialty Start Date End Date Provider, No Known [facility] [place] [address] PCP - General 08/19/24 documented as of this encounter
[2025-11-03 09:54] VITALS: BP 125/69; PULSE 85; RESP 19; TEMP 36.7; O2SAT 99; BMI 35.8
== END 2025-11-03 10:22 | disposition home or self-care (01) ==
LOC: OBOUT 09:38 → OB 09:39
PROVIDERS: Visit Provider Nurse Practitioner Obstetrics & Gynecology
DX: Z34.83 Encounter for supervision of other normal pregnancy, third trimester (principal); Z3A.32 32 weeks gestation of pregnancy
CPT/HCPCS: 99212

== ENCOUNTER 2025-11-06 09:44 | Outpatient (CLI) | payer BC, SELFPAY ==
--- OUTSIDE RECORDS SUMMARY | 2025-09-23 08:52 | XMS_ITS | Encounter Summary ---
Author Organization [facility] Address [address] [place] [address] Care Team Providers Care Planning Supervisor Name Role Phone Provider, No Known Primary Care Provider Unavail able Reason for Referral * Diagnostic Imaging (Routine) - Closed Specialty Diagnoses / Procedures Referred By Ritesh winchester Referred To Contact Radiology Diagnoses Uterine size-date discrepancy in second trimester Marginal insertion of umbilical cord affecting management of mother in second trimester 23 weeks gestation of Maternal chronic hypertension in second trimester Procedures [facility] Diagnostic [facility] Brian Wesley MD [address] [place] [address] Phone: tel: fax: [facility] US PER DIAG CTR [address] [place] [address] Phone: tel: Referral ID Status Reason Start Date Expiration Date Visits Re quested Visits Authorized [id number] Closed 09/02/2025 12/02/2026 1 1 Reason for Visit * Diagnostic Imaging (Routine) - Closed Specialty Diagnoses / Procedures Referred By Ritesh winchester Referred To Contact Radiology Diagnoses Uterine size-date discrepancy in second trimester Marginal insertion of umbilical cord affecting management of mother in second trimester 23 weeks gestation of Maternal chronic hypertension in second trimester Procedures [facility] Diagnostic [place] Brian Wesley MD [address] [address] Phone: tel: fax: [facility] US PER DIAG [facility] [address] [place] [address] Phone: tel: Referral ID Status Reason Start Date Expiration Date Visits Re quested Visits Authorized [id number] Closed 09/02/2025 12/02/2026 1 1 Encounter Details Date Type Department Care Team (Late st Contact Info) Description 09/23/2025 9:52 AM EDT - 09/23/2025 11:59 PM EDT Hospital Encounter [facility] PER DIAG CTR [address] [place] [address] Brian Wesley MD [address] [facility] [address] [place] [address] Uterine size-date discrepancy in second trimester; Marginal [...] 10:45 AM EST Office Visit [facility] [address] [facility] [address] 11/08/2025 10:45 AM EST Appointment [facility] US PER DIAG CTR [address] [place] [address] 11/15/2025 11:30 AM EST Office Visit [facility] [address] [facility] [address] [place] [address] 11/15/2025 11:30 AM EST Appointment [facility] US PER DIAG CTR [address] [place] [address] 11/22/2025 10:45 AM EST Office Visit [facility] [address] [facility] [address] [place] [address] 11/22/2025 10:45 AM EST Appointment [facility] US PER DIAG CTR [address] [place] [address] documented as of this encounter Procedures Procedure Name Priority Date/Time Associated Diagnosis Comments [facility] Routine 09/23/2025 10:28 AM EDT Uterine size-date discrepancy in second trimester Marginal insertion of umbilical cord affecting management of mother in second trimester 23 weeks gestation of Maternal chronic hypertension in second trimester documented in this encounter Results * [facility] (09/23/2025 10:28 AM EDT) Anatomical Region Laterality Modality Ultrasound 09/23/2025 10:0 6 AM EDT Narrative 09/23/2025 10:58 AM EDT PAT NAME: FARIDA LYNN MED REC#: [id number] DA: [id number] PAT GEND: F PAT TYPE: O EXAM BLAISE: [id number] REF PHYS AMY CORCORAN Comparison Studies The [...] EFW (oz) 12 oz EFW by: Hadlock ([id number]) Extended Tibia 40.1 mm 25w 2d 8% Emeli Fibula 39.3 mm 24w 5d 14% Emeli Foot 47.9 mm 9% Chitty Radius 32.4 mm 23w 1d 13% Emeli Ulna 37.2 mm 24w 5d 1% Emeli Cav. septi pel. tr 5.4 mm Broadcast Supervisor 4.1 mm CM 8.6 mm 94% [...] Heart / Thorax 3-vessel view: Appears normal 0-gnlzap-qeajmzz view: Appears normal Cord insertion: Normal Stomach: [...] Follow-up scheduled in 2wks. Coding ======= Description: 11532-18 Follow Up Ultrasound Description: 16636-78 Doppler Umbilical Artery Acupuncturist: RT Benjamin Hutchison , [facility] Physician: Lis Jeffrey MD Electronically signed by: Lis Jeffrey MD at: 10:58 Procedure Note Lis Jeffrey MD - 09/23/2025 PAT NAME: FARIDA LYNN MED REC#: [id number] DA: 1990 PAT GEND: F PAT TYPE: O EXAM BLAISE: [id number] REF PHYS AMY CORCORAN Comparison Studies The findings of this study are compared to the prior ultrasound studydated 09/02/25 Patient Status Outpatient Indication ======== IUGR. Marginal PCI. Obesity BMI 34. Maternal Assessment Ypxeje194 cm Height (ft)5 ft Height (in)3 in Iqspdz46 kg Weight (lb)191 lb BMI33.84 kg/m Method ======= Transabdominal ultrasound examination. View: Suboptimal view: limited byfetal position ========= Botello . Number of fetuses: 1 Dating ====== Method of dating:based on stated PAULA GA by prior hjxqhwlmfu10 w + 6 d PAULA by prior assessment:12/24/2025 Ultrasound examination on:09/23/2025 GA by U/S based upon:AC, BPD, Femur, HC GA by U/S25 w + 2 d PAULA by U/S:01/04/2026 Previous dating:based on stated PAULA, selected on 09/02/2025 Agreed PAULA of previous datin12/24/2025 Assigned:based on stated PAULA, selected on 09/23/2025 Assigned GA26 w + 6 d Assigned PAULA:12/24/2025 [id number] d Biometry Standard BPD62.4 mm 25w 2d 4% Hadlock OFD84.3 mm 27w 2d 66% Emeli HC235.6 mm 25w 4d 3% Hadlock Cerebellum tr32.3 mm 27w 4d 87% Hill AC202.9 mm 24w 6d 3% Hadlock Femur46.7 mm 25w 4d 7% Hadlock Gkkomqc56.5 mm 24w 0d <1% Emeli HC / AC1.16 VIZ219 g 25w 0d 3% Hadlock EFW (lb)1 lb EFW (oz)12 oz EFW by:Hadlock ([id number]-FL) Extended Tibia40.1 mm 25w 2d 8% Emeli Ptgtmx84.3 mm 24w 5d 14% Emeli Foot47.9 mm 9% Chitty Xxyvxw19.4 mm 23w 1d 13% Emeli Ulna37.2 mm 24w 5d 1% Emeli Cav. septi pel. tr5.4 mm Vp4.1 mm CM8.6 mm 94% Nicolaides Head / Face / Neck Cephalic index0.74 8% Nicolaides Extremities / Bony Struc FL / BPD0.75 FL / HC0.20 FL / AC0.23 Other Structures [id number] bpm General Evaluation Cardiac activity present. FHR [...] normal Heart / Thorax 3-vessel view:Appears normal 1-yjchzy-yfbtdpv view:Appears normal Cord insertion:Normal Stomach:Appears normal Kidneys:Appears normal Bladder:Appears normal Gender:female Wants to know gender:yes Maternal Structures Uterus / Cervix Cervix:Visualized Approach:Transabdominal Cervical ihtfdb01.3 mm Doppler Arterial Umbilical A PI1.15 71% [...] Recommendation Follow-up scheduled in 2wks. Coding ======= Description:48095-39 Follow Up Ultrasound Description:18694-07 Doppler Umbilical Artery Acupuncturist: RT Kianna R , [facility] [...] trimester documented in this encounter Care Teams Planning Supervisor Relationship Specialty Start Date End Date Provider, [place] [address] PCP - General 08/19/24 documented as of this encounter
--- OUTSIDE RECORDS SUMMARY | 2025-09-23 09:15 | XMS_ITS | Encounter Summary ---
Author Organization [facility] Address [address] [phone] Care Team Providers Care Proposal Engineer Name Role Phone Provider, No Known [...] unspecified fetus 26 weeks gestation of Procedures [facility] Lis Jeffrey MD [address] [address] Phone: tel: fax: Referral ID Status Reason Start Date Expiration Date Visits Re quested Visits Authorized [id number] Closed 09/23/2025 12/23/2026 1 1 Reason for Visit * Reason Comments IUGR, MPCI Encounter Details Date Type Department Care Team (Late st Contact Info) Description 09/23/2025 10:15 AM EDT Office Visit [facility] MATERNAL MEDICINE [address] [facility] [address] [place] [phone] Lis Jeffrey MD [address] [facility] [address] [place], [place] [phone] Marginal insertion of umbilical cord affecting management [...] of mother in second trimester (Primary) - [facility]; Future 2. Maternal chronic hypertension [...] Description 11/08/2025 10:45 AM EST Office Visit [facility] MATERNAL MEDICINE [address] [address] 11/08/2025 10:45 AM EST Appointment [facility] PER DIAG [facility] [address] [place] [address] 11/15/2025 11:30 AM EST Office Visit [facility] MATERNAL MEDICINE [address] [address] 11/15/2025 11:30 AM EST Appointment [facility] PER DI[facility] [address] [place] [address] 11/22/2025 10:45 AM EST Office Visit [facility] MATERNAL MEDICINE [address] [place] [address] 11/22/2025 10:45 AM EST Appointment [facility] PER DI[facility] [address] [place] [address] documented as of this encounter Results * [facility] (10/11/2025 10:30 AM EST) Anatomical Region Laterality Modality Ultrasound 10/11/2025 9:59 AM EST Narrative 10/12/2025 7:46 PM EST PAT NAME: FARIDA LYNN MED REC#: [id number] DA: [id number] PAT GEND: F PAT TYPE: O EXAM BLAISE: [id number] REF PHYS AMY CONLEY Comparison Studies The [...] EFW (oz) 5 oz EFW by: Hadlock (OSI-AX-IS-FL) Extended Cav. septi pel. tr 5.7 mm Hydraulic Rubbish Compactor Mechanic 5.0 mm CM 7.1 mm 55% Nicolaides [...] Normal Heart / Thorax 3-vessel view: Normal 5-yonmun-mfpqdzh view: normal Cord insertion: Normal Stomach: Appears [...] normal Marginal cord insertion Coding ======= Description: 75837-08 Follow Up Ultrasound Description: 64227-25 BPP without NST Description: 81282-19 Doppler Umbilical Artery Federal Judge: Albina Roberts RDMS Physician: Danielle Allen MD, FACOG Electronically signed by: Danielle Allen MD, FACOG at: 19:46 Procedure Note Danielle Allen MD - 10/12/2025 PAT NAME: FARIDA LYNN MED REC#: [id number] DA: [id number] PAT GEND: F PAT TYPE: O EXAM BLAISE: [id number] REF PHYS AMY CONLEY Comparison Studies The findings of this study are compared to the prior ultrasound studydated 09/23/2025 Patient Status Outpatient Indication ======== IUGR. Marginal PCI. Obesity BMI 34. Maternal Assessment Yfgmnm988 cm Height (ft)5 ft Height (in)3 in Zexwud48 kg Weight (lb)194 lb BMI34.38 kg/m Method ======= Transabdominal ultrasound examination. View: Good view ========= Botello . Number of fetuses: 1 Dating ====== Method of dating:based on stated PAULA GA by prior ecixclviyy10 w + 3 d PAULA by prior assessment:12/24/2025 Ultrasound examination on:10/11/2025 GA by U/S based upon:AC, BPD, Femur, HC GA by U/S27 w + 3 d PAULA by U/S:01/07/2026 Previous dating:based on stated PAULA, selected on 09/23/2025 Agreed PAULA of previous datin12/24/2025 Assigned:based on stated PAULA, selected on 10/11/2025 Assigned GA29 w + 3 d Assigned PAULA:12/24/2025 txhujn035 d Biometry Standard BPD68.2 mm 27w 3d 2% Hadlock OFD92.9 mm 30w 0d 65% Emeli HC258.2 mm 28w 0d 2% Hadlock Cerebellum tr35.3 mm 29w 3d 50% Hill AC227.3 mm 27w 1d 2% Hadlock Femur50.5 mm 27w 1d 1% Hadlock Sitxkfl33.3 mm 25w 3d <1% Emeli HC / AC1.14 EFW1,044 g 26w 6d 2% Hadlock EFW (lb)2 lb EFW (oz)5 oz EFW by:Hadlock (XTQ-SB-XU-FL) Extended Cav. septi pel. tr5.7 mm Vp5.0 mm CM7.1 mm 55% Nicolaides Head / Face / Neck Cephalic index0.73 5% Nicolaides Extremities / Bony Struc FL / BPD0.74 FL / HC0.20 FL / AC0.22 Other Structures IUJ114 bpm General Evaluation Cardiac activity present. FHR [...] LVOT view:Normal Heart / Thorax 3-vessel view:Normal 3-ihnqvq-xyfehlu view:normal Cord insertion:Normal Stomach:Appears normal Kidneys:Appears normal Bladder:Appears normal Gender:female Wants to know gender:yes Maternal Structures Uterus / Cervix Cervical tiizyr22.7 mm Doppler Arterial Umbilical A PI0.97 51% [...] doppler normal Marginal cord insertion Coding ======= Description:58303-75 Follow Up Ultrasound Description:78927-12 BPP without NST Description:22186-96 Doppler Umbilical Artery Federal Judge: Albina Roberts RDMS Physician: Danielle Allen MD, [...] of documented in this encounter Care Teams Proposal Engineer Relationship Specialty Start Date End Date Provider, [place] [address] PCP - General 08/19/24 documented as of this encounter
--- OUTSIDE RECORDS SUMMARY | 2025-10-11 09:44 | XMS_ITS | Encounter Summary ---
Author Organization [facility] Address [address] [place] [address] Care Team Providers Care Key Person Name Role Phone Provider, No Known Primary [...] fetus 26 weeks gestation of Procedures [facility] Diagnostic [place] Lis Jeffrey MD [address] [place] [address] Phone: tel: fax: Referral ID Status Reason Start Date Expiration Date Visits Re quested Visits Authorized [id number] Closed 09/23/2025 12/23/2026 1 1 Reason for [...] fetus 26 weeks gestation of Procedures [facility] Diagnostic [place] Lis Jeffrey MD [address] [id number] Phone: tel: fax: Referral ID Status Reason Start Date Expiration Date Visits Re quested Visits Authorized [id number] Closed 09/23/2025 12/23/2026 1 1 Encounter Details Date Type Department Care Team (Late st Contact Info) Description 10/11/2025 9:44 AM EST - 10/11/2025 11:59 PM [facility] Hospital Encounter [facility] PER DIAG CTR [address] [place] [address] Lis Jeffrey MD [address] [place] [address] Marginal insertion of umbilical cord [...] Description 11/08/2025 10:45 AM EST Office Visit [facility] MATERNAL MEDICINE [address] [address] 11/08/2025 10:45 AM EST Appointment [facility] US PER DIAG CTR [address] [place] [address] 11/15/2025 11:30 AM EST Office Visit [facility] MATERNAL MEDICINE [address] [place] [address] 11/15/2025 11:30 AM EST Appointment [facility] US PER DIAG CTR [address] [place] [address] 11/22/2025 10:45 AM EST Office Visit [facility] MATERNAL MEDICINE [address] [address] 11/22/2025 10:45 AM EST Appointment [facility] US PER DIAG CTR [address] [place] [address] documented as of this encounter Procedures Procedure Name Priority Date/Time Associated Diagnosis Comments [facility] Routine 10/11/2025 10:30 AM EST Marginal insertion of umbilical cord affecting management of mother in second trimester Maternal chronic hypertension in second trimester Poor growth affecting management of mother in third trimester, single or unspecified fetus 26 weeks gestation of documented in this encounter Results * [facility] (10/11/2025 10:30 AM EST) Anatomical Region Laterality Modality Ultrasound 10/11/2025 9:59 AM EST Narrative 10/12/2025 7:46 PM EST PAT NAME: FARIDA LYNN MED REC#: [id number] DA: 1990 PAT GEND: F PAT TYPE: O EXAM BLAISE: [id number] REF PHYS AMY CORCORAN Comparison Studies The [...] EFW (oz) 5 oz EFW by: Hadlock (YPS-AQ-FK-FL) Extended Cav. septi pel. tr 5.7 mm Strapper 5.0 mm CM 7.1 mm 55% Nicolaides [...] Normal Heart / Thorax 3-vessel view: Normal 5-spbwvs-rvbsazb view: normal Cord insertion: Normal Stomach: Appears [...] normal Marginal cord insertion Coding ======= Description: 59222-58 Follow Up Ultrasound Description: 72875-01 BPP without NST Description: 60093-79 Doppler Umbilical Artery Toaster Element Repairer: Albina Roberts RDMS Physician: Danielle Allen MD, FACOG Electronically signed by: Danielle Allen MD, FACOG at: 19:46 Procedure Note Danielle Allen MD - 10/12/2025 PAT NAME: FARIDA LYNN MED REC#: [id number] DA: [id number] PAT GEND: F PAT TYPE: O EXAM BLAISE: [id number] REF PHYS AMY CORCORAN Comparison Studies The findings of this study are compared to the prior ultrasound studydated 09/23/2025 Patient Status Outpatient Indication ======== IUGR. Marginal PCI. Obesity BMI 34. Maternal Assessment Gqabty716 cm Height (ft)5 ft Height (in)3 in Rpcvnr68 kg Weight (lb)194 lb BMI34.38 kg/m Method ======= Transabdominal ultrasound examination. View: Good view ========= Botello . Number of fetuses: 1 Dating ====== Method of dating:based on stated PAULA GA by prior onlunnoixf29 w + 3 d PAULA by prior assessment:12/24/2025 Ultrasound examination on:10/11/2025 GA by U/S based upon:AC, BPD, Femur, HC GA by U/S27 w + 3 d PAULA by U/S:01/07/2026 Previous dating:based on stated PAULA, selected on 09/23/2025 Agreed PAULA of previous datin12/24/2025 Assigned:based on stated PAULA, selected on 10/11/2025 Assigned GA29 w + 3 d Assigned PAULA:12/24/2025 gjiqvj134 d Biometry Standard BPD68.2 mm 27w 3d 2% Hadlock OFD92.9 mm 30w 0d 65% Emeli HC258.2 mm 28w 0d 2% Hadlock Cerebellum tr35.3 mm 29w 3d 50% Hill AC227.3 mm 27w 1d 2% Hadlock Femur50.5 mm 27w 1d 1% Hadlock Pnwamdu35.3 mm 25w 3d <1% Emeli HC / AC1.14 EFW1,044 g 26w 6d 2% Hadlock EFW (lb)2 lb EFW (oz)5 oz EFW by:Hadlock (TRL-MW-KB-FL) Extended Cav. septi pel. tr5.7 mm Vp5.0 mm CM7.1 mm 55% Nicolaides Head / Face / Neck Cephalic index0.73 5% Nicolaides Extremities / Bony Struc FL / BPD0.74 FL / HC0.20 FL / AC0.22 Other Structures NAU016 bpm General Evaluation Cardiac activity present. FHR [...] LVOT view:Normal Heart / Thorax 3-vessel view:Normal 8-geytye-nbzzqlv view:normal Cord insertion:Normal Stomach:Appears normal Kidneys:Appears normal Bladder:Appears normal Gender:female Wants to know gender:yes Maternal Structures Uterus / Cervix Cervical gexuxz01.7 mm Doppler Arterial Umbilical A PI0.97 51% [...] doppler normal Marginal cord insertion Coding ======= Description:32155-39 Follow Up Ultrasound Description:78063-21 BPP without NST Description:78212-75 Doppler Umbilical Artery Toaster Element Repairer: Albina Roberts RDMS Physician: Danielle Allen MD, [...] of documented in this encounter Care Teams Key Person Relationship Specialty Start Date End Date Provider, No Known [facility] [place] [address] PCP - General 08/19/24 documented as of this encounter
--- OUTSIDE RECORDS SUMMARY | 2025-10-11 10:15 | XMS_ITS | Encounter Summary ---
Author Organization [facility] Address [address] [id number] Care Team Providers Care Railroad Conductor Name Role Phone Provider, No Known Primary Care Provider Unavail able Reason for Referral * Diagnostic Imaging (Routine) - Closed Specialty Diagnoses / Procedures Referred By Ritesh t Referred To Contact Radiology Diagnoses Poor growth affecting management of mother in third trimester, single or unspecified fetus Maternal chronic hypertension in second trimester Procedures [facility] Danielle Allen MD [address] [address] Phone: tel: fax: Referral ID Status Reason Start Date Expiration Date Visits Re quested Visits Authorized [id number] Closed 10/13/2025 01/12/2027 1 1 Reason for Visit * Reason Comments IUGR, Marginal Cord Insertion, [place] Encounter Details Date Type Department Care Team (Late st Contact Info) Description 10/11/2025 10:15 AM EST Office Visit [facility] [address] [facility] [address] [place] [phone] Danielle Allen MD [address] [id number] Poor growth affecting management of mother in [...] in your office Orders: - [facility]; Future 2. Maternal chronic hypertension in second trimester - [facility]; Future Follow Up 1 week [...] CVS. Danielle Allen MD FACOG Maternal Medicine, [facility] 10/11/2025 documented in this encounter Plan of Treatment Upcoming Encounters Date Type Department Care Team (Late st Contact Info) Description 11/08/2025 10:45 AM EST Office Visit [facility] MATERNAL MEDICINE [address] [address] 11/08/2025 10:45 AM EST Appointment [facility] [address] [place] [address] 11/15/2025 11:30 AM EST Office Visit [facility] MATERNAL MEDICINE [address] [place] [phone] 11/15/2025 11:30 AM EST Appointment [facility] [address] [place] [address] 11/22/2025 10:45 AM EST Office Visit [facility] MATERNAL MEDICINE [address] [address] 11/22/2025 10:45 AM EST Appointment [facility] [address] [place] [address] documented as of this encounter Results * [facility] (10/18/2025 10:21 AM EST) Anatomical Region Laterality Modality Ultrasound 10/18/2025 9:57 AM EST Narrative 10/18/2025 10:27 AM EST PAT NAME: FARIDA LYNN [facility] REC#: [id number] DA: 1990 PAT GEND: F PAT TYPE: O EXAM BLAISE: [id number] REF PHYS AMY CONLEY Comparison Studies The [...] NSTs in your office. Coding ======= Description: 67408-84 BPP without NST Description: 63166-22 Doppler Umbilical Artery Child Development Instructor: Eunice Manning RDMS Physician: Jung Angeles MD, FACOG Electronically signed by: Jung Angeles MD, FACOG at: 10:27 Procedure Note Jung Angeles MD - 10/18/2025 PAT NAME: FARIDA LYNN MED REC#: [id number] DA: [id number] PAT GEND: F PAT TYPE: O EXAM BLAISE: [id number] REF PHYS AMY CONLEY Comparison Studies The findings of this study are compared to the prior ultrasound studydated 10/11/25 Patient Status Outpatient Indication ======== IUGR. Marginal PCI. Obesity BMI 34. Maternal Assessment Pdhusw194 cm Height (ft)5 ft Height (in)3 in Kmvmdz29 kg Weight (lb)196 lb BMI34.73 kg/m Method ======= Transabdominal ultrasound examination ========= Botello . Number of fetuses: 1 Dating ====== Method of dating:based on stated PAULA GA by prior [id number] w + 3 d PAULA by prior assessment:12/24/2025 Previous dating:based on stated PAULA, selected on 10/11/2025 Agreed PAULA of previous datin12/24/2025 Assigned:based on stated PAULA, selected on 10/18/2025 Assigned GA30 w + 3 d Assigned PAULA:12/24/2025 [id number] d General Evaluation Cardiac activity present. FHR [...] weekly NSTs in your office. Coding ======= Description:93637-45 BPP without NST Description:98210-03 Doppler Umbilical Artery Child Development Instructor: Eunice Manning RDMS Physician: Jung Angeles MD, [...] trimester documented in this encounter Care Teams Railroad Conductor Relationship Specialty Start Date End Date Provider, [place] [address] PCP - General 08/19/24 documented as of this encounter
--- OUTSIDE RECORDS SUMMARY | 2025-10-18 09:34 | XMS_ITS | Encounter Summary ---
Author Organization [facility] Address [address] [phone] Care Team Providers Care Manager Sterile Name Role Phone Provider, No Known Primary Care Provider Unavail able Reason for Referral * Diagnostic Imaging (Routine) - Closed Specialty Diagnoses / Procedures Referred By Ritesh winchester Referred To Contact Radiology Diagnoses Poor growth affecting management of mother in third trimester, single or unspecified fetus Maternal chronic hypertension in second trimester Procedures [facility] Diagnostic [place] Danielle Allen MD [address] [facility] [place] [address] Phone: tel: fax: Referral ID Status Reason Start Date Expiration Date Visits Re quested Visits Authorized [id number] Closed 10/13/2025 01/12/2027 1 1 Reason for Visit * Diagnostic Imaging (Routine) - Closed Specialty Diagnoses / Procedures Referred By Ritesh winchester Referred To Contact Radiology Diagnoses Poor growth affecting management of mother in third trimester, single or unspecified fetus Maternal chronic hypertension in second trimester Procedures [facility] Diagnostic [place] Danielle Allen MD [address] [place] [address] Phone: tel: fax: Referral ID Status Reason Start Date Expiration Date Visits Re quested Visits Authorized [id number] Closed 10/13/2025 01/12/2027 1 1 Encounter Details Date Type Department Care Team (Late st Contact Info) Description 10/18/2025 9:34 AM EST - 10/18/2025 11:59 PM EST Hospital Encounter [facility] [address] [place] [address] Danielle Allen MD [address] [place] [address] Poor growth affecting management of mother in [...] [facility] [address] [address] 11/08/2025 10:45 AM EST Appointment [facility] PER DIAG [facility] [address] [place] [address] 11/15/2025 11:30 AM EST Office Visit [facility] [address] [address] 11/15/2025 11:30 AM EST Appointment [facility] DI[facility] [address] [place] [address] 11/22/2025 10:45 AM EST Office Visit [facility] [address] [address] 11/22/2025 10:45 AM EST Appointment [facility] PER DI[facility] [address] [place] [address] documented as of this encounter Procedures Procedure Name Priority Date/Time Associated Diagnosis Comments [facility] Routine 10/18/2025 10:21 AM EST Poor growth affecting management of mother in third trimester, single or unspecified fetus Maternal chronic hypertension in second trimester documented in this encounter Results * [facility] (10/18/2025 10:21 AM EST) Anatomical Region Laterality Modality Ultrasound 10/18/2025 9:57 AM EST Narrative 10/18/2025 10:27 AM EST PAT NAME: FARIDA LYNN MED REC#: [id number] DA: 1990 PAT GEND: F PAT TYPE: O EXAM BLAISE: [id number] REF PHYS AMY CORCORAN Comparison Studies The [...] NSTs in your office. Coding ======= Description: 85204-26 BPP without NST Description: 25255-49 Doppler Umbilical Artery Decorating Machine Operator: Eunice Manning RDMS Physician: Jung Angeles MD, FACOG Electronically signed by: Jung Angeles MD, FACOG at: 10:27 Procedure Note Jung Angeles MD - 10/18/2025 PAT NAME: FARIDA LYNN MED REC#: [id number] DA: [id number] PAT GEND: F PAT TYPE: O EXAM BLAISE: [id number] REF PHYS NILO AMY Comparison Studies The findings of this study are compared to the prior ultrasound studydated 10/11/25 Patient Status Outpatient Indication ======== IUGR. Marginal PCI. Obesity BMI 34. Maternal Assessment Jjidrx774 cm Height (ft)5 ft Height (in)3 in Ylpisd76 kg Weight (lb)196 lb BMI34.73 kg/m Method ======= Transabdominal ultrasound examination ========= Botello . Number of fetuses: 1 Dating ====== Method of dating:based on stated PAULA GA by prior [id number] w + 3 d PAULA by prior assessment:12/24/2025 Previous dating:based on stated PAULA, selected on 10/11/2025 Agreed PAULA of previous datin12/24/2025 Assigned:based on stated PAULA, selected on 10/18/2025 Assigned GA30 w + 3 d Assigned PAULA:12/24/2025 [id number] d General Evaluation Cardiac activity present. FHR [...] weekly NSTs in your office. Coding ======= Description:04226-47 BPP without NST Description:83646-72 Doppler Umbilical Artery Decorating Machine Operator: Eunice Manning RDMS Physician: Jung Angeles MD, FACOG Electronically signed by: Jung Angeles MD, KYOG at: 10:27 us Danielle Allen MD [facility] US ORDERABLES Final Result documented in this encounter Visit Diagnoses Diagnosis Poor growth affecting management of mother in third trimester, single or unspecified fetus Maternal chronic hypertension in second trimester documented in this encounter Care Teams Manager Sterile Relationship Specialty Start Date End Date Provider, [place] [address] PCP - General 08/19/24 documented as of this encounter
--- OUTSIDE RECORDS SUMMARY | 2025-10-18 10:15 | XMS_ITS | Encounter Summary ---
Author Organization [facility] Address [address] [id number] Care Team Providers Care Goring Cutter Name Role Phone Provider, No Known Primary Care Provider Unavail able Reason for Referral * Diagnostic Imaging (Routine) - Authorized Specialty Diagnoses / Procedures Referred By Contac t Referred To Contact Radiology Diagnoses Poor growth affecting management of mother in third trimester, single or unspecified fetus Maternal chronic hypertension in third trimester Procedures [facility] Jung Angeles MD [address] [facility] [address] [place] [address] Phone: tel: fax: Referral ID Status Reason Start Date Expiration Date V isits Requested Visits Authorized [id number] Authorized 10/18/2025 01/17/2027 5 5 Reason for Visit * Reason Comments IUGR, MPCI, MO GHTN Encounter Details Date Type Department Care Team (Late st Contact Info) Description 10/18/2025 10:15 AM EST Office Visit [facility] [address] [place] [address] Jung Angeles MD [address] [place] [address] Poor growth affecting management of mother in [...] Description 11/08/2025 10:45 AM EST Office Visit [facility] [address] [address] 11/08/2025 10:45 AM EST Appointment [facility] [address] [place] [address] 11/15/2025 11:30 AM EST Office Visit [facility] [address] [address] 11/15/2025 11:30 AM EST Appointment [facility] [address] [place] [address] 11/22/2025 10:45 AM EST Office Visit [facility] [address] [address] 11/22/2025 10:45 AM EST Appointment [facility] [address] [place] [address] Scheduled Orders Name Type Priority Associated Diagnoses Orde r Schedule [facility] Imaging Routine Poor growth affecting management of mother in third trimester, single or unspecified fetus Maternal chronic hypertension in third trimester Once a week for 5 Occurrences starting 10/18/2025 until 10/18/2026, 1 completed documented as of this encounter Results * [facility] (10/25/2025 11:18 AM EST) Anatomical Region Laterality Modality Ultrasound 10/25/2025 10:4 2 AM EST Narrative 10/25/2025 11:26 AM EST PAT NAME: JULIA LYNN MED REC#: [id number] DA: 1990 PAT GEND: F PAT TYPE: O EXAM REESE: [id number] REF PHYS AMY CONLEY Comparison Studies The [...] EFW (oz) 0 oz EFW by: Hadlock (IRV-FP-BV-FL) Extended Cav. septi pel. tr 5.9 mm Almond Blancher Hand 3.4 mm CM 7.4 mm 56% Nicolaides [...] Normal Heart / Thorax 3-vessel view: Normal 4-ypfstk-dnzxrtx view: normal Cord insertion: Normal Stomach: Appears [...] here in 2 weeks. Coding ======= Description: 82450-87 Follow Up Ultrasound Description: 02908-23 BPP without NST Description: 50832-00 Doppler Umbilical Artery Salvage Laborer: Tiki Ta RDMS Physician: Jung Angeles MD, FACOG Electronically signed by: Jung Angeles MD, FACOG at: 11:26 Procedure Note Jung Angeles MD - 10/25/2025 PAT NAME: JULIA LYNN MED REC#: [id number] DA: [id number] PAT GEND: F PAT TYPE: O EXAM REESE: [id number] REF PHYS AMY CONLEY Comparison Studies The findings of this study are compared to the prior ultrasound studydated 10/18/25. Patient Status Outpatient Indication ======== IUGR. Marginal PCI. Obesity BMI 35. Maternal Assessment Goxcow755 cm Height (ft)5 ft Height (in)3 in Rljqaf29 kg Weight (lb)197 lb BMI34.91 kg/m Method ======= Transabdominal ultrasound examination ========= Botello . Number of fetuses: 1 Dating ====== GA by prior [id number] w + 3 d PAULA by prior [...] GA31 w + 3 d Assigned PAULA:12/24/2025 qdzwum564 d Biometry Standard BPD73.0 mm 29w 2d 2% Hadlock OFD98.4 mm 31w 6d 60% Emeli HC274.2 mm 30w 0d 1% Hadlock Cerebellum tr39.3 mm 31w 5d 40% Hill AC249.9 mm 29w 1d 3% Hadlock Femur55.2 mm 29w 1d 2% Hadlock Svauvcn15.3 mm 29w 0d 3% Emeli HC / AC1.10 EFW1,361 g 28w 6d 3% Hadlock EFW (lb)3 lb EFW (oz)0 oz EFW by:Hadlock (PRG-GQ-JK-FL) Extended Cav. septi pel. tr5.9 mm Vp3.4 mm CM7.4 mm 56% Nicolaides Head / Face / Neck Cephalic index0.74 6% Nicolaides Extremities / Bony Struc FL / BPD0.76 FL / HC0.20 FL / AC0.22 Other Structures GAC709 bpm General Evaluation Cardiac activity present. FHR [...] LVOT view:Normal Heart / Thorax 3-vessel view:Normal 9-bpvgdt-dxyfvrm view:normal Cord insertion:Normal Stomach:Appears normal Kidneys:Appears normal [...] up here in 2 weeks. Coding ======= Description:47214-55 Follow Up Ultrasound Description:14010-02 BPP without NST Description:49701-56 Doppler Umbilical Artery Salvage Laborer: Tiki Ta RDMS Physician: Jung Angeles MD, FACOG Electronically signed by: Jung Angeles MD, FACOG at: 11:26 us Jung Angeles MD IMG US ORDERABLES Final Result documented in this encounter Visit Diagnoses Diagnosis Poor growth affecting management of mother in third trimester, single or unspecified fetus- Primary Maternal chronic hypertension in third trimester documented in this encounter Care Teams Goring Cutter Relationship Specialty Start Date End Date Provider, No Known [facility] [place] [address] PCP - General 08/19/24 documented as of this encounter
--- OUTSIDE RECORDS SUMMARY | 2025-10-25 09:49 | XMS_ITS | Encounter Summary ---
Author Organization [facility] Address [address] [place] [address] Care Team Providers Care Office Administrative Assistant Name Role Phone Provider, No Known Primary Care Provider Unavail able Reason for Visit * Diagnostic Imaging (Routine) - Authorized Specialty Diagnoses / Procedures Referred By Ritesh t Referred To Contact Radiology Diagnoses Poor growth affecting management of mother in third trimester, single or unspecified fetus Maternal chronic hypertension in third trimester Procedures [facility] Angeles, Jung Harmon MD [address] [facility] [address] [place] [address] Phone: tel: fax: Referral ID Status Reason Start Date Expiration Date V isits Requested Visits Authorized [id number] Authorized 10/18/2025 01/17/2027 5 5 Encounter Details Date Type Department Care Team (Latest Contact Info) Description 10/25/2025 9:49 AM EST - 10/25/2025 11:59 PM [facility] Hospital Encounter [facility] US PER DIAG [facility] [address] [place] [phone] Amy Conley, DO [address] [address] Discharge Disposition: Home or Self Care Social [...] Description 11/08/2025 10:45 AM EST Office Visit [facility] MAT[facility]ICINE [address] [place] [address] 11/08/2025 10:45 AM EST Appointment [facility] PER DIAG CTR [address] [place] [address] 11/15/2025 11:30 AM EST Office Visit [facility] MATERNAL MEDICINE [address] [facility] [address] [place] [phone] 11/15/2025 11:30 AM EST Appointment [facility] US PER DIAG CTR [address] [place] [address] 11/22/2025 10:45 AM EST Office Visit [facility] MATERNAL MEDICINE [address] [facility] [address] [place] [phone] 11/22/2025 10:45 AM EST Appointment [facility] US PER DIAG CTR [address] [place] [address] documented as of this encounter Procedures Procedure Name Priority Date/Time Associated Diagnosis Comments [facility] Routine 10/25/2025 11:18 AM EST Poor growth affecting management of mother in third trimester, single or unspecified fetus Maternal chronic hypertension in third trimester documented in this encounter Results * [facility] (10/25/2025 11:18 AM EST) Anatomical Region Laterality Modality Ultrasound 10/25/2025 10:4 2 AM EST Narrative 10/25/2025 11:26 AM EST PAT NAME: FARIDA LYNN [facility] REC#: [id number] DA: [id number] PAT GEND: F PAT TYPE: O EXAM BLAISE: [id number] REF PHYS AMY CONLEY Comparison Studies The [...] EFW (oz) 0 oz EFW by: Hadlock (TFW-BI-MG-FL) Extended Cav. septi pel. tr 5.9 mm Fieldwork Coordinator 3.4 mm CM 7.4 mm 56% Nicolaides [...] Normal Heart / Thorax 3-vessel view: Normal 2-jjrkml-ryhsqnj view: normal Cord insertion: Normal Stomach: Appears [...] here in 2 weeks. Coding ======= Description: 99276-64 Follow Up Ultrasound Description: 04847-89 BPP without NST Description: 15792-60 Doppler Umbilical Artery Laboratory Helper: Tiki Ta RDMS Physician: Jung Angeles MD, FACOG Electronically signed by: Jung Angeles MD, FACOG at: 11:26 Procedure Note Jung Angeles MD - 10/25/2025 PAT NAME: FARIDA LYNN MED REC#: [id number] DA: 1990 PAT GEND: F PAT TYPE: O EXAM BLAISE: [id number] REF PHYS AMY CONLEY Comparison Studies The findings of this study are compared to the prior ultrasound studydated 10/18/25. Patient Status Outpatient Indication ======== IUGR. Marginal PCI. Obesity BMI 35. Maternal Assessment Hnrwhi049 cm Height (ft)5 ft Height (in)3 in Ciewpa43 kg Weight (lb)197 lb BMI34.91 kg/m Method ======= Transabdominal ultrasound examination ========= Botello . Number of fetuses: 1 Dating ====== GA by prior nniozstlbw83 w + 3 d PAULA by prior [...] GA31 w + 3 d Assigned PAULA:12/24/2025 saweow415 d Biometry Standard BPD73.0 mm 29w 2d 2% Hadlock OFD98.4 mm 31w 6d 60% Emeli HC274.2 mm 30w 0d 1% Hadlock Cerebellum tr39.3 mm 31w 5d 40% Hill AC249.9 mm 29w 1d 3% Hadlock Femur55.2 mm 29w 1d 2% Hadlock Jceffqz04.3 mm 29w 0d 3% Emeli HC / AC1.10 EFW1,361 g 28w 6d 3% Hadlock EFW (lb)3 lb EFW (oz)0 oz EFW by:Hadlock (SJF-IG-LJ-FL) Extended Cav. septi pel. tr5.9 mm Vp3.4 mm CM7.4 mm 56% Nicolaides Head / Face / Neck Cephalic index0.74 6% Nicolaides Extremities / Bony Struc FL / BPD0.76 FL / HC0.20 FL / AC0.22 Other Structures BHT919 bpm General Evaluation Cardiac activity present. FHR [...] LVOT view:Normal Heart / Thorax 3-vessel view:Normal 2-viggjp-qqinifi view:normal Cord insertion:Normal Stomach:Appears normal Kidneys:Appears normal [...] up here in 2 weeks. Coding ======= Description:45718-69 Follow Up Ultrasound Description:97735-40 BPP without NST Description:38168-64 Doppler Umbilical Artery Laboratory Helper: Tiki Ta RDMS Physician: Jung Angeles MD, FACOG Electronically signed by: Jung Angeles MD, FACOG at: 11:26 us Jung Angeles MD IMG US ORDERABLES Final Result documented in this encounter Visit Diagnoses Not on filedocumented in this encounter Care Teams Office Administrative Assistant Relationship Specialty Start Date End Date Provider, [place] [address] PCP - General 08/19/24 documented as of this encounter
--- OUTSIDE RECORDS SUMMARY | 2025-10-25 10:15 | XMS_ITS | Encounter Summary ---
Author Organization [facility] Address [address] [place] [address] Care Team Providers Care Child Care Provider Name Role Phone Provider, No Known Primary Care Provider Unavail able Reason for Visit * Reason Comments IUGR, marginal PCI, obesity Encounter Details Date Type Department Care Team (Late st Contact Info) Description 10/25/2025 10:15 AM EST Office Visit [facility] MATERNAL MED[facility] [address] [place] [phone] Jung Angeles MD [address] [facility] [address] [place] [address] Poor growth affecting management of mother in [...] e 08/19/2024 Family and Community Support Answer Lbaise e Recorded Help with Day-to-Day Activities Not [...] Sign Reading Time Taken Comments Blood Pressure 138/74 10/25/2025 9:54 AM EST Pulse - - Temperature - - Respiratory Rate - - Oxygen Saturation - - Inhaled Oxygen Concentration - - Weight 89.5 kg (197 lb 6.4 oz) 10/25/2025 9:54 A M EST Height - - Body Mass Index 34.97 09/02/2025 10:47 AM EDT documented in this encounter Progress Notes * Jung Angeles MD - 10/25/2025 10:48 AM ESTAssociated Problem(s): Maternal chronic hypertension in third trimester Patient only on Myfed 30 mg daily. Blood pressure today 138/74. No reason to make medication changeat this time. * Jung Angeles MD - 10/25/2025 10:47 AM ESTAssociated Problem(s): Poor growth affecting management of mother in third trimester Patient presents for follow-up growth ultrasound secondary to known growth restriction. Last ultrasound showed overall growth at the 2nd percentile and AC at the 2nd percentile. Today's ultrasound shows overall stable growth at the 3rd percentile and AC at the 3rd percentile. Normal REAGAN, BPP,umbilical artery Dopplers. Patient reports twice-weekly testing with primary RECYCLING CREW SUPERVISOR and given 1 of these being performed is a BPP will have patient follow-up here in 2 weeks. We discussed careful return precautions regarding decreased movement. * Mayuri Loya, RN - 10/25/2025 10:15 AM EST Denies vaginal bleeding, leaking fluid, and contractions Endorses normal movement NIPT negative Next OB follow up appointment with Mary Lou Conley DO on 10/26/25 * Jung Angeles MD - 10/25/2025 10:15 AM EST Maternal/ Medicine Consult Note Date: 10/25/2025 Name: Julia Lynn : 1990 Referring Provider: Mary Lou Conley DO Chief Complaint IUGR, marginal PCI, obesity Subjective History of Present Illness: Julia Lynn is a 35 y.o. 31w3d who presents today for growth restriction PAULA: Estimated Date of Delivery: 12/24/25 ROS: Otherwise Noted in HPI Current Outpatient Medications: aspirin 81 MG chewable tablet, Chew 1 tablet Daily., Disp: , Rfl: NIFEdipine XL (PROCARDIA XL) 30 MG 24 hr tablet, Take 1 tablet by mouth Daily for 150 days., Disp: 30 tablet, Rfl: 4 Vit-Fe Fumarate-FA ( vitamin 27-0.8) 27-0.8 MG tablet tablet, Take 1 tablet by mouth Daily., Disp: , Rfl: Objective Vital Signs BP 138/74 Wt 89.5 kg (197 lb 6.4 oz) Estimated body mass index is 34.97 kg/m?? as calculated from the following: Height as of 09/02/25: 160 cm (63 ). Weight as of this encounter: 89.5 kg (197 lb 6.4 oz). Ultrasound Impression: See Viewpoint Assessment and Plan Julia Lynn is a 35 y.o. 31w3d who presents today for growth restriction Diagnoses and all orders for this visit: 1. Poor growth affecting management of mother in third trimester, single or unspecified fetus(Primary) Assessment & Plan: Patient presents for follow-up growth ultrasound secondary to known growth restriction. Last ultrasound showed overall growth at the 2nd percentile and AC at the 2nd percentile. Today's ultrasound shows overall stable growth at the 3rd percentile and AC at the 3rd percentile. Normal REAGAN, BPP,umbilical artery Dopplers. Patient reports twice-weekly testing with primary RECYCLING CREW SUPERVISOR and given 1 of these being performed is a BPP will have patient follow-up here in 2 weeks. We discussed careful return precautions regarding decreased movement. 2. Maternal chronic hypertension in third trimester Assessment & Plan: Patient only on Myfed 30 mg daily. Blood pressure today 138/74. No reason to make medication changeat this time. Follow Up 2 weeks I spent 10 minutes caring for the [...] other procedures such as amniocentesis or CVS. Jung Angeles MD, FACOG Maternal Medicine, [facility] documented in this encounter Plan of Treatment Upcoming Encounters Date Type Department Care Team (Late st Contact Info) Description 11/08/2025 10:45 AM EST Office Visit [facility] MAT[facility]NAL MEDICINE [address] [address] 11/08/2025 10:45 AM EST [facility]ointment [facility] [address] [place] [address] 11/15/2025 11:30 AM EST Office Visit [facility] MAT[facility]NAL MEDICINE [address] [address] 11/15/2025 11:30 AM EST Appointment [facility] [address] [place] [address] 11/22/2025 10:45 AM EST Office Visit [facility] MATERNAL MEDICINE [address] [place] [address] 11/22/2025 10:45 AM EST Appointment [facility] [address] [place] [address] documented as of this encounter Visit Diagnoses Diagnosis Poor growth affecting management of mother in third trimester, single or unspecified fetus- Primary Maternal chronic hypertension in third trimester documented in this encounter Care Teams Child Care Provider Relationship Specialty Start Date End Date Provider, [place] [address] PCP - General 08/19/24 documented as of this encounter
--- OUTSIDE RECORDS SUMMARY | 2025-11-06 09:47 | XMS_ITS | Encounter Summary ---
Author Organization [facility] Address [address] [place] [address] Care Team Providers Care Data Developer Name Role Phone Provider, No Known Primary [...] Description 11/08/2025 10:45 AM EST Office Visit [facility] [address] [facility] [address] [place] [address] 11/08/2025 10:45 AM EST Appointment [facility] [address] [place] [address] 11/15/2025 11:30 AM EST Office Visit [facility] MED[facility] [address] [address] 11/15/2025 11:30 AM EST Appointment [facility] [address] [place] [address] 11/22/2025 10:45 AM EST Office Visit [facility] MEDIC[facility] [address] [address] 11/22/2025 10:45 AM EST Appointment [facility] [address] [place] [address] documented as of this encounter Visit Diagnoses Not on filedocumented in this encounter Care Teams Data Developer Relationship Specialty Start Date End Date Provider, [place] [address] PCP - General 08/19/24 documented as of this encounter
--- OUTSIDE RECORDS SUMMARY | 2025-11-06 09:48 | XMS_ITS | Clinical Summary ---
[facility] Organization [facility] Address [address] [id number] Care Team Providers Care Shot Bagger Name Role Phone Provider, No Known Primary [...] Dopplers. Patient reports twice-weekly testing with primary MACHINE LEAD BURNER and given 1 of these being performed [...] 10:15 AM EST Office Visit [facility] MATERNAL MEDICINE [address] [place] [address] Jung Angeles MD Poor growth affecting management of mother in third trimester, single or unspecified fetus (Primary Dx); Maternal chronic hypertension in third trimester 10/25/2025 9:49 AM EST - 10/25/2025 11:59 PM EST Hospital Encounter [facility] PER DIAG [facility] [address] [place] [address] Amy Conley DO Discharge Disposition: Home or Self Care 10/25/2025 Travel 10/18/2025 10:15 AM EST Office Visit [facility] MATERNAL MEDICINE [address] [facility] [address] [place] [phone] Jung Angeles MD Poor growth affecting management of mother in third trimester, single or unspecified fetus (Primary Dx); Maternal chronic hypertension in third trimester 10/18/2025 9:34 AM EST - 10/18/2025 11:59 PM EST Hospital Encounter [facility] US PER DIAG [facility] [address] [place] [phone] Danielle Allen MD Poor growth affecting management of mother in third trimester, single or unspecified fetus; Maternal chronic hypertension in second trimester Discharge Disposition: Home or Self Care 10/18/2025 Travel 10/11/2025 10:15 AM EST Office Visit [facility] MATERNAL MEDICINE [address] [facility] [address] [place] [phone] Danielle Allen MD Poor growth affecting management of mother in third trimester, single or unspecified fetus (Primary Dx); Maternal chronic hypertension in second trimester 10/11/2025 9:44 AM EST - 10/11/2025 11:59 PM EST Hospital Encounter [facility] US PER DIAG [facility] [address] [place] [phone] Lis Jeffrey MD Marginal insertion of umbilical cord affecting management of mother in second trimester; Maternal chronic hypertension in second trimester; Poor growth affecting management of mother in third trimester, single or unspecified fetus; 26 weeks gestation of Discharge Disposition: Home or Self Care 10/11/2025 Travel 09/23/2025 10:15 AM EDT Office Visit [facility] MATERNAL MEDICINE [address] [facility] [address] [place] [phone] Lis Jeffrey MD Marginal insertion of umbilical cord affecting management of mother in second trimester (Primary Dx); Maternal chronic hypertension in second trimester; Poor growth affecting management of mother in third trimester, single or unspecified fetus; 26 weeks gestation of 09/23/2025 9:52 AM EDT - 09/23/2025 11:59 PM EDT Hospital Encounter [facility] US PER DIAG [facility] [address] [place] [phone] Brian Wesley MD Uterine size-date discrepancy in second trimester; Marginal insertion of umbilical cord affecting management of mother in second trimester; 23 weeks gestation of ; Maternal chronic hypertension in second trimester Discharge Disposition: Home or Self Care 09/23/2025 Travel 09/06/2025 Telephone [facility] US PER DI[facility] [address] [place] [phone] Brian Wesley MD Advice Only (Pt has question for Nurse.) 09/02/2025 10:30 AM EDT - 09/02/2025 11:59 PM EDT Hospital Encounter [facility] US PER DIAG [facility] [address] [phone] Amy Conley, Maternal care for other known or suspected poor growth, second trimester, not applicable or unspecified; Marginal insertion of umbilical cord affecting management of mother in second trimester; , unspecified gestational age Discharge Disposition: Home or Self Care 09/02/2025 10:30 AM EDT Office Visit [facility] MATERNAL MEDICINE [address] [phone] Brian Wesley MD Uterine size-date discrepancy in second trimester (Primary Dx); Marginal insertion of umbilical cord affecting management of mother in second trimester; 23 weeks gestation of ; Maternal chronic hypertension in second trimester 09/02/2025 Telephone [facility] MATERNAL MEDICINE [address] [phone] Jodie Garcia steam table associate Only 09/02/2025 Travel from Last 3 Months [...] Description 11/08/2025 10:45 AM EST Office Visit [facility] MATERNAL MEDICINE [address] [facility] [address] [place] [phone] 11/08/2025 10:45 AM EST Appointment [facility] PER DIAG [facility] [address] [place] [address] 11/15/2025 11:30 AM EST Office Visit [facility] MATERNAL MEDICINE [address] [facility] [address] [place] [phone] 11/15/2025 11:30 AM EST Appointment [facility] US PER DIAG [facility] [address] [place] [address] 11/22/2025 10:45 AM EST Office Visit [facility] MATERNAL MEDICINE [address] [phone] 11/22/2025 10:45 AM EST Appointment [facility] PER DI[facility] [address] [place] [address] Health Maintenance Due Date Last Done Comments [...] Priority Date/Time Associated Diagnosis Comments [facility] Routine 10/25/2025 11:18 AM EST Poor growth affecting management of mother in third trimester, single or unspecified fetus Maternal chronic hypertension in third trimester [facility] Routine 10/18/2025 10:21 AM EST Poor growth affecting management of mother in third trimester, single or unspecified fetus Maternal chronic hypertension in second trimester [facility] Routine 10/11/2025 10:30 AM EST Marginal insertion of umbilical cord affecting management of mother in second trimester Maternal chronic hypertension in second trimester Poor growth affecting management of mother in third trimester, single or unspecified fetus 26 weeks gestation of [facility] Routine 09/23/2025 10:28 AM EDT Uterine size-date discrepancy in second trimester Marginal insertion of umbilical cord affecting management of mother in second trimester 23 weeks gestation of Maternal chronic hypertension in second trimester [facility] Routine 09/02/2025 11:30 AM EDT Maternal care for other known or suspected poor growth, second trimester, not applicable or unspecified Marginal insertion of umbilical cord affecting management of mother in second trimester , unspecified gestational age from Last 3 Months Results * [facility] (10/25/2025 11:18 AM EST) Only the most recent of5 resultswithin the time period is included. Anatomical Region Laterality Modality Ultrasound 10/25/2025 10:4 2 AM EST Narrative 10/25/2025 11:26 AM EST PAT NAME: FARIDA LYNN [facility] REC#: [id number] DA: 1990 PAT GEND: F PAT TYPE: O EXAM BLAISE: [id number] REF PHYS AMY CONLEY Comparison Studies The [...] EFW (oz) 0 oz EFW by: Hadlock (OOT-VY-LJ-FL) Extended Cav. septi pel. tr 5.9 mm Vapor Coater 3.4 mm CM 7.4 mm 56% Nicolaides [...] Normal Heart / Thorax 3-vessel view: Normal 7-yuugom-jmsxkoh view: normal Cord insertion: Normal Stomach: Appears [...] here in 2 weeks. Coding ======= Description: 20423-08 Follow Up Ultrasound Description: 74237-10 BPP without NST Description: 56715-64 Doppler Umbilical Artery Fuel System Maintenance Supervisor: Tiki Ta RDMS Physician: Jung Angeles MD, FACOG Electronically signed by: Jung Angeles MD, FACOG at: 11:26 Procedure Note Jung Angeles MD - 10/25/2025 PAT NAME: FARIDA LYNN MED REC#: [id number] DA: 1990 PAT GEND: F PAT TYPE: O EXAM BLAISE: [id number] REF PHYS AMY CONLEY Comparison Studies The findings of this study are compared to the prior ultrasound studydated 10/18/25. Patient Status Outpatient Indication ======== IUGR. Marginal PCI. Obesity BMI 35. Maternal Assessment Alqlcv614 cm Height (ft)5 ft Height (in)3 in Gkytbx14 kg Weight (lb)197 lb BMI34.91 kg/m Method ======= Transabdominal ultrasound examination ========= Botello . Number of fetuses: 1 Dating ====== GA by prior [id number] w + 3 d PAULA by prior [...] GA31 w + 3 d Assigned PAULA:12/24/2025 [id number] d Biometry Standard BPD73.0 mm 29w 2d 2% Hadlock OFD98.4 mm 31w 6d 60% Emeli HC274.2 mm 30w 0d 1% Hadlock Cerebellum tr39.3 mm 31w 5d 40% Hill AC249.9 mm 29w 1d 3% Hadlock Femur55.2 mm 29w 1d 2% Hadlock Lhbxanl53.3 mm 29w 0d 3% Emeli HC / AC1.10 EFW1,361 g 28w 6d 3% Hadlock EFW (lb)3 lb EFW (oz)0 oz EFW by:Hadlock (RCG-EZ-SS-FL) Extended Cav. septi pel. tr5.9 mm Vp3.4 mm CM7.4 mm 56% Nicolaides Head / Face / Neck Cephalic index0.74 6% Nicolaides Extremities / Bony Struc FL / BPD0.76 FL / HC0.20 FL / AC0.22 Other Structures EUD260 bpm General Evaluation Cardiac activity present. FHR [...] LVOT view:Normal Heart / Thorax 3-vessel view:Normal 9-nhueub-txyfrtw view:normal Cord insertion:Normal Stomach:Appears normal Kidneys:Appears normal [...] up here in 2 weeks. Coding ======= Description:12466-27 Follow Up Ultrasound Description:39317-07 BPP without NST Description:32387-91 Doppler Umbilical Artery Fuel System Maintenance Supervisor: Tiki Ta RDMS Physician: Jung Angeles MD, FACOG Electronically signed by: Jung Angeles MD, FACOG at: 11:26 us Jung Angeles MD [facility] ORDERABLES Final Result from Last [address] EMPLOYEE Care Teams Shot Bagger Relationship Specialty Start Date End Date Provider, No Known [facility] [place] [address] PCP - General 08/19/24
--- OUTSIDE RECORDS SUMMARY | 2025-11-06 09:49 | XMS_ITS | Encounter Summary ---
Author Organization [facility] Address [address] [place] [address] Care Team Providers Care Claims Coordinator Name Role Phone Provider, No Known [...] 10:45 AM EST Office Visit [facility] MATERNAL MEDICINE [address] [facility] [address] [place] [phone] 11/08/2025 10:45 AM EST Appointment [facility] [address] [facility] [place] [address] 11/15/2025 11:30 AM EST Office Visit [facility] MATERNAL MEDICINE [address] [phone] 11/15/2025 11:30 AM EST Appointment [facility] PER [facility]AG CTR [address] [facility] [place] [place] [address] 11/22/2025 10:45 AM EST Office Visit [facility] MATERNAL MEDICINE [address] [phone] 11/22/2025 10:45 AM EST Appointment [facility] PER [facility] [address] [facility] [place] [address] documented as of this encounter Visit Diagnoses Not on filedocumented in this encounter Care Teams Claims Coordinator Relationship Specialty Start Date End Date Provider, [place] [address] PCP - General 08/19/24 documented as of this encounter
--- OUTSIDE RECORDS SUMMARY | 2025-11-06 09:49 | XMS_ITS | Encounter Summary ---
Author Organization [facility] Address [address] [place] [address] Care Team Providers Care Mainframe Programmer Analyst Name Role Phone Provider, No Known [...] [facility] MATERNAL MEDICINE [address] [facility] [address] [place] [phone] 11/08/2025 10:45 AM EST Appointment [facility] PER [facility] [address] [facility] [address] 11/15/2025 11:30 AM EST Office Visit [facility] MATERNAL MEDICINE [address] [phone] 11/15/2025 11:30 AM EST Appointment [facility] US PER DIAG [facility] [address] [facility] [place] [address] 11/22/2025 10:45 AM EST Office Visit [facility] MATERNAL MEDICINE [address] [phone] 11/22/2025 10:45 AM EST Appointment [facility] PER DI[facility] [address] [facility] [address] documented as of this encounter Visit Diagnoses Not on filedocumented in this encounter Care Teams Mainframe Programmer Analyst Relationship Specialty Start Date End Date Provider, [place] [address] PCP - General 08/19/24 documented as of this encounter
--- OUTSIDE RECORDS SUMMARY | 2025-11-06 09:49 | XMS_ITS | Encounter Summary ---
Author Organization [facility] Address [address] [place] [address] Care Team Providers Care Oracle Ebs Developer Name Role Phone Provider, No Known [...] [facility] MATERNAL MEDICINE [address] [facility] [address] [place] [phone] 11/08/2025 10:45 AM EST Appointment [facility] [address] [facility] [place] [place] [address] 11/15/2025 11:30 AM EST Office Visit [facility] MATERNAL MEDICINE [address] [phone] 11/15/2025 11:30 AM EST Appointment [facility] US PER DIAG CTR [address] [facility] [place] [place] [address] 11/22/2025 10:45 AM EST Office Visit [facility] MATERNAL MEDICINE [address] [phone] 11/22/2025 10:45 AM EST Appointment [facility] US PER [facility] [address] [facility] [place] [place] [address] documented as of this encounter Visit Diagnoses Not on filedocumented in this encounter Care Teams Oracle Ebs Developer Relationship Specialty Start Date End Date Provider, [place] [address] PCP - General 08/19/24 documented as of this encounter
[2025-11-06 09:54] VITALS: BMI 36.6
[2025-11-06 10:02] VITALS: BMI 36.6
[2025-11-06 10:05] LABS: Microscopic, Urine URINE MICROSCOPIC (MICROSCOPIC)
[2025-11-06 10:13] VITALS: BP 129/79; PULSE 94; RESP 16; TEMP 36.8; O2SAT 96
[2025-11-06 10:16] LABS: Bilirubin,Urine Negative (Negative); Color,Urine YELLOW (Yellow); Glucose,Urine (UA) Negative (Negative); Ketones,Urine Negative (Negative); Leukocyte Esterase,Urine Negative (Negative); PH,Urine 6.0 (5.0-8.5); Protein,Urine Negative (Negative); Specific Gravity, Urine 1.020 (1.005-1.030); Urobilinogen,Urine 0.2 EU/dl (0.2)
[2025-11-06 10:35] LABS: Bacteria,Urine 1+ /lpf
== END 2025-11-06 10:41 | disposition home or self-care (01) ==
LOC: OBOUT 09:45 → OB 09:46
PROVIDERS: Visit Provider Nurse Practitioner Obstetrics & Gynecology
DX: Z34.83 Encounter for supervision of other normal pregnancy, third trimester (principal); Z3A.33 33 weeks gestation of pregnancy
CPT/HCPCS: 81001; 99212

== ENCOUNTER 2025-11-11 09:54 | Outpatient (CLI) | payer BC, SELFPAY ==
[2025-11-11 10:24] VITALS: BP 123/75; PULSE 102; RESP 17; TEMP 36.8; O2SAT 98; BMI 36.6
== END 2025-11-11 10:59 | disposition home or self-care (01) ==
LOC: OBOUT 09:56 → OB 09:57
PROVIDERS: Visit Provider Obstetrics & Gynecology
DX: Z34.83 Encounter for supervision of other normal pregnancy, third trimester (principal); Z3A.33 33 weeks gestation of pregnancy
CPT/HCPCS: 99212

== ENCOUNTER 2025-11-16 12:50 | Outpatient (CLI) | payer BC, SELFPAY ==
--- OUTSIDE RECORDS SUMMARY | 2024-08-25 10:00 | XMS_ITS ---
Author Organization [facility] Address [address] [place] [address] Care Team Providers Care Windows Administrator Name Role Phone Matamoros, Henna Unavailable [phone] Sharon Bautista Unavailable [phone] Results Component Value Reference Range Notes *US OB Complete Transabdomin al/Vaginal Reviewed date:08/27/2024 04:41:33 PM Interpretation: Performing Lab: Notes/Report: [facility] Women's Health Transvaginal Obstetric Study Report Name: FARIDA RONQUILLO Accession/Encounter No:[id number] : 1990 Age: 34 Gender: F Race: [...] 1 of 1 Imaging Center - , [facility] Lyn REASON FOR VISIT early OB Bleeding LLQ pain Social History Sex Assigned At : Social History Observation Description Sex Assigned At Female Encounters Encounter Location Date Provider Diagnosis [facility]-NR [address] [place] [address] 08/25/2024 Sharon Bautista Bleeding in early O20.9 Assessments Encounter Date Diagnosis (ICD Code) Assessment Notes Treatment Notes Treatment Clinical Notes Section Notes 08/25/2024 Bleeding in early (ICD-10 - O20.9) Plan Of Treatment No Information Progress Notes * Charles RONQUILLOJozefB: 992 (35 yo F)Acc No.[id number]:08/25/2024 Progress Note Patient: Farida Zimmerman Provider: Andrey Bautista NP :1990 A ge:34 Y S ex:Female Date:08/25/2024 Address:[facility] [address], [place] , [id number] Subjective: * Chief Complaints: * e promise OB Bleeding LLQ pain Assessment: * Assessment: 1. B leeding in early - O20.9 Plan: * Treatment: Billing Information: * Procedure Codes: * Electronic signature of Octavio Bautista NP on 11/16/2025 at 12:53 PM EST Sign off status: Pending Visit Status: Nancy RAMÍREZ (Check Out) * Provider: Andrey Bautista NP Date: 0 08/25/2024 Generated for Jesika trevino/Marleny/Amandaitting on: 1 01/17/2025 12:53 PM EST
--- OUTSIDE RECORDS SUMMARY | 2024-12-25 09:15 | XMS_ITS ---
Author Organization [facility] Address [address] [place] [address] Care Team Providers Care Mis Manager Name Role Phone MatamorosHenna gregorio Unavailable [phone] Brandy Barillas Unavailable [phone] REASON FOR VISIT Annual Social History Sex Assigned At : Social History Observation Description Sex Assigned At Female Section Notes: Age you started smokin Amount of Use: Some days but not every day Do you have any sikh or culture customs that your provider should [...] No Encounters Encounter Location Date Provider Diagnosis [facility]-NR [address] [place] [address] 12/25/2024 Brandy Barillas Plan Of Treatment No Information Progress Notes * Charles RONQUILLOJozefB: 992 (35 yo F)Acc No.[id number]:12/25/2024 Progress Note Patient: Julia Zimmerman Provider: Errol Barillas MD :1990 A ge:34 Y S ex:Female Date:12/25/2024 Address:[address], [place], [id number] Subjective: * Chief Complaints: * A nnual * Medical History: Asthma Medical History Verified * Information Security Director History: P ap Smear History: D ate [...] * Hospitalization/Major Diagno stic Procedure: Admit for [place] 2011 Hospitalization Verified. * Family History: F [...] not every day Do you have any sikh or culture customs that your provider should [...] Electronic signature of Alon Barillas MD on 11/16/2025 at 12:52 PM EST Sign off status: Pending Visit Status: N /S (No-Show) * Provider: Errol Barillas MD Date: 0 12/25/2024 Generated for Jesika trevino/Marleny/Macey on: 1 01/17/2025 12:52 PM EST
--- OUTSIDE RECORDS SUMMARY | 2025-09-23 08:52 | XMS_ITS | Encounter Summary ---
Author Organization [facility] Address [address] [place] [address] Care Team Providers Care Telecommunications Support Name Role Phone Provider, No Known Primary Care Provider Unavail able Reason for Referral * Diagnostic Imaging (Routine) - Closed Specialty Diagnoses / Procedures Referred By Ritesh winchester Referred To Contact Radiology Diagnoses Uterine size-date discrepancy in second trimester Marginal insertion of umbilical cord affecting management of mother in second trimester 23 weeks gestation of Maternal chronic hypertension in second trimester Procedures [facility] Diagnostic [place] Brian Wesley MD [address] [place] [address] Phone: tel: fax: [facility] [address] [place] [address] Phone: tel: Referral ID Status Reason Start Date Expiration Date Visits Re quested Visits Authorized [id number] Closed 09/02/2025 12/02/2026 1 1 Reason for Visit * Diagnostic Imaging (Routine) - Closed Specialty Diagnoses / Procedures Referred By Ritesh winchester Referred To Contact Radiology Diagnoses Uterine size-date discrepancy in second trimester Marginal insertion of umbilical cord affecting management of mother in second trimester 23 weeks gestation of Maternal chronic hypertension in second trimester Procedures [facility] Diagnostic [place] Brian Wesley MD [address] [address] Phone: tel: fax: [facility] [address] [place] [address] Phone: tel: Referral ID Status Reason Start Date Expiration Date Visits Re quested Visits Authorized [id number] Closed 09/02/2025 12/02/2026 1 1 Encounter Details Date Type Department Care Team (Late st Contact Info) Description 09/23/2025 9:52 AM EDT - 09/23/2025 11:59 PM EDT Hospital Encounter [facility] [address] [place] [address] Brian Wesley MD [address] [facility] [address] [place] [address] Uterine size-date discrepancy in second trimester; Marginal [...] Care Team (Late st Contact Info) Description 11/22/2025 10:45 AM EST Office Visit [facility]NAL MEDICINE [address] [facility] [address] [place] [address] 11/22/2025 10:45 AM EST Appointment [facility] [address] [place] [address] documented as of this encounter Procedures Procedure Name Priority Date/Time Associated Diagnosis Comments [facility] Routine 09/23/2025 10:28 AM EDT Uterine size-date discrepancy in second trimester Marginal insertion of umbilical cord affecting management of mother in second trimester 23 weeks gestation of Maternal chronic hypertension in second trimester documented in this encounter Results * [facility] (09/23/2025 10:28 AM EDT) Anatomical Region Laterality Modality Ultrasound 09/23/2025 10:0 6 AM EDT Narrative 09/23/2025 10:58 AM EDT PAT NAME: FARIDA LYNN MED REC#: [id number] DA: [id number] PAT GEND: F PAT TYPE: O EXAM BLAISE: [id number] REF PHYS AMY CORCORAN Comparison Studies The [...] EFW (oz) 12 oz EFW by: Hadlock (DSQ-PJ-GP-FL) Extended Tibia 40.1 mm 25w 2d 8% Emeli Fibula 39.3 mm 24w 5d 14% Emeli Foot 47.9 mm 9% Chitty Radius 32.4 mm 23w 1d 13% Emeli Ulna 37.2 mm 24w 5d 1% Emeli Cav. septi pel. tr 5.4 mm Flame Degreaser 4.1 mm CM 8.6 mm 94% Nicolaides [...] Heart / Thorax 3-vessel view: Appears normal 9-oytjif-xedkipo view: Appears normal Cord insertion: Normal Stomach: [...] Follow-up scheduled in 2wks. Coding ======= Description: 88289-31 Follow Up Ultrasound Description: 13884-85 Doppler Umbilical Artery Lease Operator: RT Benjamin Hutchison , [facility] Physician: Lis Jeffrey MD Electronically signed by: Lis Jeffrey MD at: 10:58 Procedure Note Lis Jeffrey MD - 09/23/2025 PAT NAME: FARIDA LYNN MED REC#: [id number] DA: [id number] PAT GEND: F PAT TYPE: O EXAM BLAISE: [id number] REF PHYS AMY CORCORAN Comparison Studies The findings of this study are compared to the prior ultrasound studydated 09/02/25 Patient Status Outpatient Indication ======== IUGR. Marginal PCI. Obesity BMI 34. Maternal Assessment Uogdbc559 cm Height (ft)5 ft Height (in)3 in Czhdbq54 kg Weight (lb)191 lb BMI33.84 kg/m Method ======= Transabdominal ultrasound examination. View: Suboptimal view: limited byfetal position ========= Botello . Number of fetuses: 1 Dating ====== Method of dating:based on stated PAULA GA by prior lucirgpkkt25 w + 6 d PAULA by prior [...] Hadlock Femur46.7 mm 25w 4d 7% Hadlock Blvwevy31.5 mm 24w 0d <1% Emeli HC / AC1.16 PPP227 g 25w 0d 3% Hadlock EFW (lb)1 lb EFW (oz)12 oz EFW by:Hadlock ([id number]-[id number]-FL) Extended Tibia40.1 mm 25w 2d 8% Emeli Munwys83.3 mm 24w 5d 14% Emeli Foot47.9 mm 9% Chitty Pvxfqq37.4 mm 23w 1d 13% Emeli Ulna37.2 mm 24w 5d 1% Emlei Cav. septi pel. tr5.4 mm Vp4.1 mm CM8.6 mm 94% Nicolaides Head / Face / Neck Cephalic index0.74 8% Nicolaides Extremities / Bony Struc FL / BPD0.75 FL / HC0.20 FL / AC0.23 Other Structures ARR610 bpm General Evaluation Cardiac activity present. FHR [...] normal Heart / Thorax 3-vessel view:Appears normal 4-qddtbh-krzzqgx view:Appears normal Cord insertion:Normal Stomach:Appears normal Kidneys:Appears normal Bladder:Appears normal Gender:female Wants to know gender:yes Maternal Structures Uterus / Cervix Cervix:Visualized Approach:Transabdominal Cervical tqkypv06.3 mm Doppler Arterial Umbilical A PI1.15 71% [...] Recommendation Follow-up scheduled in 2wks. Coding ======= Description:40910-23 Follow Up Ultrasound Description:31252-04 Doppler Umbilical Artery Lease Operator: RT Benjamin Hutchison , [facility] Physician: Lis Jeffrey MD Electronically signed by: Lsi Jeffrey MD at: 10:58 us Brian Wesley MD IMG US ORDERABLES Final Re sult documented in this encounter Visit Diagnoses Diagnosis Uterine size-date discrepancy in second trimester Marginal insertion of umbilical cord affecting management of mother in second trimester 23 weeks gestation of Maternal chronic hypertension in second trimester documented in this encounter Care Teams Telecommunications Support Relationship Specialty Start Date End Date Provider, No Known [place] [id number] PCP - General 08/19/24 documented as of this encounter
--- OUTSIDE RECORDS SUMMARY | 2025-09-23 09:15 | XMS_ITS | Encounter Summary ---
Author Organization [facility] Address [address] [phone] Care Team Providers Care Agency Trainer Name Role Phone Provider, No Known Primary [...] unspecified fetus 26 weeks gestation of Procedures [facility] Lis Jeffrey MD [address] [address] Phone: tel: fax: Referral ID Status Reason Start Date Expiration Date Visits Re quested Visits Authorized [id number] Closed 09/23/2025 12/23/2026 1 1 Reason for Visit * Reason Comments IUGR, MPCI Encounter Details Date Type Department Care Team (Late st Contact Info) Description 09/23/2025 10:15 AM EDT Office Visit [facility] MATERNAL MEDICINE [address] [facility] [address] [place] [phone] Lis Jeffrey MD [address] [facility] [address] [place], [place] [phone] Marginal insertion of umbilical cord affecting management [...] of mother in second trimester (Primary) - [facility]; Future 2. Maternal chronic hypertension [...] Follow-up scheduled here in 2wks Orders: - [facility]; Future 3. Poor growth affecting management of mother in third trimester, single or unspecified fetus Assessment & Plan: Growth improved somewhat on today's exam. - Follow-up scheduled in 2wks - Continue Nifedipine and ASA 81mgs - If BP's begin to creep up so consistently >130/80, will consider changing to BID Orders: - [facility]; Future 4. 26 weeks gestation of - [facility]; Future Follow Up Return in [...] Description 11/22/2025 10:45 AM EST Office Visit [facility] MATERNAL MEDICINE [address] [facility] [address] [place] [address] 11/22/2025 10:45 AM EST Appointment [facility] PER DIAG CTR [address] [place] [address] documented as of this encounter Results * [facility] (10/11/2025 10:30 AM EST) Anatomical Region Laterality Modality Ultrasound 10/11/2025 9:59 AM EST Narrative 10/12/2025 7:46 PM EST PAT NAME: FARIDA LYNN MED REC#: [id number] DA: 1990 PAT GEND: F PAT TYPE: O EXAM LBAISE: [id number] REF PHYS AMY CONLEY Comparison Studies The [...] EFW (oz) 5 oz EFW by: Hadlock (XST-EO-DO-FL) Extended Cav. septi pel. tr 5.7 mm Hog Slaughterer 5.0 mm CM 7.1 mm 55% Nicolaides [...] Normal Heart / Thorax 3-vessel view: Normal 5-zhudhv-ojgnpnw view: normal Cord insertion: Normal Stomach: Appears [...] normal Marginal cord insertion Coding ======= Description: 10969-46 Follow Up Ultrasound Description: 47710-68 BPP without NST Description: 60842-78 Doppler Umbilical Artery [employer] Technician: Albina Roberts RDMS Physician: Danielle Allen MD, FACOG Electronically signed by: Danielle Allen MD, FACOG at: 19:46 Procedure Note Danielle Allen MD - 10/12/2025 PAT NAME: FARIDA LYNN MED REC#: [id number] DA: 1990 PAT GEND: F PAT TYPE: O EXAM BLAISE: [id number] REF PHYS AMY CONLEY Comparison Studies The findings of this study are compared to the prior ultrasound studydated 09/23/2025 Patient Status Outpatient Indication ======== IUGR. Marginal PCI. Obesity BMI 34. Maternal Assessment Dkiylf940 cm Height (ft)5 ft Height (in)3 in Rtwodl92 kg Weight (lb)194 lb BMI34.38 kg/m Method ======= Transabdominal ultrasound examination. View: Good view ========= Botello . Number of fetuses: 1 Dating ====== Method of dating:based on stated PAULA GA by prior ywmbmvdedq40 w + 3 d PAULA by prior [...] Hadlock Femur50.5 mm 27w 1d 1% Hadlock Endaqmq84.3 mm 25w 3d <1% Emeli HC / AC1.14 EFW1,044 g 26w 6d 2% Hadlock EFW (lb)2 lb EFW (oz)5 oz EFW by:Hadlock (ZQE-OM-OC-FL) Extended Cav. septi pel. tr5.7 mm Vp5.0 mm CM7.1 mm 55% Nicolaides Head / Face / Neck Cephalic index0.73 5% Nicolaides Extremities / Bony Struc FL / BPD0.74 FL / HC0.20 FL / AC0.22 Other Structures BNA796 bpm General Evaluation Cardiac activity present. FHR [...] LVOT view:Normal Heart / Thorax 3-vessel view:Normal 4-jftgzg-aivdftm view:normal Cord insertion:Normal Stomach:Appears normal Kidneys:Appears normal Bladder:Appears normal Gender:female Wants to know gender:yes Maternal Structures Uterus / Cervix Cervical mnfqip40.7 mm Doppler Arterial Umbilical A PI0.97 51% Jolanta Umbilical A RI0.63 41% Jolanta Umbilical A PS-37.14 cm/s Umbilical A ED-14.51 cm/s Umbilical A TAmax-24.65 cm/s Umbilical A MD-14.35 cm/s Umbilical A S / D2.72 38% Joalnta Umbilical A HR153 bpm Biophysical Profile 2: breathing movements 2: Gross body movements 2: tone 2: Amniotic fluid volume 8 Biophysical profile score Consultation / Office Visit Office note to follow Impression Breech Severe IUGR noted Normal appearing limited anatomy Normal fluid BPP 8/8 UA doppler normal Marginal cord insertion Coding ======= Description:06050-01 Follow Up Ultrasound Description:81833-94 BPP without NST Description:03291-05 Doppler Umbilical Artery [employer] Technician: Albina Roberts RDMS Physician: Danielle Allen MD, [...] of documented in this encounter Care Teams Agency Trainer Relationship Specialty Start Date End Date Provider, [place] [address] PCP - General 08/19/24 documented as of this encounter
--- OUTSIDE RECORDS SUMMARY | 2025-10-11 09:44 | XMS_ITS | Encounter Summary ---
Author Organization [facility] Address [address] [place] [address] Care Team Providers Care Corporate Licensed Broker Name Role Phone Provider, No Known Primary [...] fetus 26 weeks gestation of Procedures [facility] Diagnostic [place] Lis Jeffrey MD [address] [place] [address] Phone: tel: fax: Referral ID Status Reason Start Date Expiration Date Visits Re quested Visits Authorized [id number] Closed 09/23/2025 12/23/2026 1 1 Reason for [...] fetus 26 weeks gestation of Procedures [facility] Diagnostic [place] Lis Jeffrey MD [address] [id number] Phone: tel: fax: Referral ID Status Reason Start Date Expiration Date Visits Re quested Visits Authorized [id number] Closed 09/23/2025 12/23/2026 1 1 Encounter Details Date Type Department Care Team (Late st Contact Info) Description 10/11/2025 9:44 AM EST - 10/11/2025 11:59 PM [facility] Hospital Encounter [facility] PER DIAG CTR [address] [place] [address] Lis Jeffrey MD [address] [place] [address] Marginal insertion of umbilical cord [...] Description 11/22/2025 10:45 AM EST Office Visit [facility]ERNAL MEDIC[facility] [address] [facility] [address] [place] [address] 11/22/2025 10:45 AM EST Appointment [facility] US PER DIAG CTR [address] [place] [address] documented as of this encounter Procedures Procedure Name Priority Date/Time Associated Diagnosis Comments [facility] Routine 10/11/2025 10:30 AM EST Marginal insertion of umbilical cord affecting management of mother in second trimester Maternal chronic hypertension in second trimester Poor growth affecting management of mother in third trimester, single or unspecified fetus 26 weeks gestation of documented in this encounter Results * [facility] (10/11/2025 10:30 AM EST) Anatomical Region Laterality Modality Ultrasound 10/11/2025 9:59 AM EST Narrative 10/12/2025 7:46 PM EST PAT NAME: FARIDA LYNN MED REC#: [id number] DA: 1990 PAT GEND: F PAT TYPE: O EXAM BLAISE: [id number] REF PHYS AMY CORCORAN Comparison Studies The [...] EFW (oz) 5 oz EFW by: Hadlock (LSV-HJ-LG-FL) Extended Cav. septi pel. tr 5.7 mm Sewer Cleaner 5.0 mm CM 7.1 mm 55% Nicolaides [...] Normal Heart / Thorax 3-vessel view: Normal 0-dyiond-fclrqps view: normal Cord insertion: Normal Stomach: Appears [...] normal Marginal cord insertion Coding ======= Description: 02454-91 Follow Up Ultrasound Description: 11706-09 BPP without NST Description: 53692-28 Doppler Umbilical [place] [employer] Police: Albina Roberts RDMS Physician: Danielle Allen MD, FACOG Electronically signed by: Danielle Allen MD, FACOG at: 19:46 Procedure Note Danielle Allen MD - 10/12/2025 PAT NAME: FARIDA LYNN [facility] REC#: [id number] DA: 1990 PAT GEND: F PAT TYPE: O EXAM BLAISE: [id number] REF PHYS AMY CORCORAN Comparison Studies The findings of this study are compared to the prior ultrasound studydated 09/23/2025 Patient Status Outpatient Indication ======== IUGR. Marginal PCI. Obesity BMI 34. Maternal Assessment Nfkbei849 cm Height (ft)5 ft Height (in)3 in Ffnoop56 kg Weight (lb)194 lb BMI34.38 kg/m Method ======= Transabdominal ultrasound examination. View: Good view ========= Botello . Number of fetuses: 1 Dating ====== Method of dating:based on stated PAULA GA by prior bnsowwzyze87 w + 3 d PAULA by prior assessment:12/24/2025 Ultrasound examination on:10/11/2025 GA by U/S based upon:AC, BPD, Femur, HC GA by U/S27 w + 3 d PAULA by U/S:01/07/2026 Previous dating:based on stated PAULA, selected on 09/23/2025 Agreed PUALA of previous datin12/24/2025 Assigned:based on stated PAULA, selected on 10/11/2025 Assigned GA29 w + 3 d Assigned PAULA:12/24/2025 hsmkby397 d Biometry Standard BPD68.2 mm 27w 3d 2% Hadlock OFD92.9 mm 30w 0d 65% Emeli HC258.2 mm 28w 0d 2% Hadlock Cerebellum tr35.3 mm 29w 3d 50% Hill AC227.3 mm 27w 1d 2% Hadlock Femur50.5 mm 27w 1d 1% Hadlock Qncnojx31.3 mm 25w 3d <1% Emeli HC / AC1.14 EFW1,044 g 26w 6d 2% Hadlock EFW (lb)2 lb EFW (oz)5 oz EFW by:Hadlock (HIY-ZB-JA-FL) Extended Cav. septi pel. tr5.7 mm Vp5.0 mm CM7.1 mm 55% Nicolaides Head / Face / Neck Cephalic index0.73 5% Nicolaides Extremities / Bony Struc FL / BPD0.74 FL / HC0.20 FL / AC0.22 Other Structures TTF988 bpm General Evaluation Cardiac activity present. FHR [...] LVOT view:Normal Heart / Thorax 3-vessel view:Normal 5-qtnqcx-yujpipx view:normal Cord insertion:Normal Stomach:Appears normal Kidneys:Appears normal Bladder:Appears normal Gender:female Wants to know gender:yes Maternal Structures Uterus / Cervix Cervical bceqxg01.7 mm Doppler Arterial Umbilical A PI0.97 51% [...] normal Marginal cord insertion Coding ======= Description: Follow Up Ultrasound Description: BPP without NST Description: Doppler Umbilical [place] [employer] Police: Albina Roberts RDMS Physician: Danielle Allen MD, [...] of documented in this encounter Care Teams Corporate Licensed Broker Relationship Specialty Start Date End Date Provider, No Known [facility] [place] [address] PCP - General 08/19/24 documented as of this encounter
--- OUTSIDE RECORDS SUMMARY | 2025-10-11 10:15 | XMS_ITS | Encounter Summary ---
Author Organization [facility] Address [address] [phone] Care Team Providers Care Poker Manager Name Role Phone Provider, No Known Primary Care Provider Unavail able Reason for Referral * Diagnostic Imaging (Routine) - Closed Specialty Diagnoses / Procedures Referred By Ritesh t Referred To Contact Radiology Diagnoses Poor growth affecting management of mother in third trimester, single or unspecified fetus Maternal chronic hypertension in second trimester Procedures [facility] Danielle Allen MD [address] [address] Phone: tel: fax: Referral ID Status Reason Start Date Expiration Date Visits Re quested Visits Authorized [id number] Closed 10/13/2025 01/12/2027 1 1 Reason for Visit * Reason Comments IUGR, Marginal Cord Insertion, MO Encounter Details Date Type Department Care Team (Late st Contact Info) Description 10/11/2025 10:15 AM EST Office Visit [facility] [address] [facility] [address] [place] [phone] Danielle Allen MD [address] [phone] Poor growth affecting management of mother in [...] weeks testing in your office Orders: - [facility]; Future 2. Maternal chronic hypertension in second trimester - [facility]; Future Follow Up [...] CVS. Danielle Allen MD FACOG Maternal Medicine, [facility] [place] 10/11/2025 documented in this encounter Plan of Treatment Upcoming Encounters Date Type Department Care Team (Late st Contact Info) Description 11/22/2025 10:45 AM EST Office Visit [facility] MEDICAL [facility] MATERNAL MEDICINE 1700 [facility] [address] [place] [address] 11/22/2025 10:45 AM EST Appointment [facility] [address] [place] [address] documented as of this encounter Results * [facility] [place] (10/18/2025 10:21 AM EST) Anatomical Region Laterality Modality Ultrasound 10/18/2025 9:57 AM EST Narrative 10/18/2025 10:27 AM EST PAT NAME: FARIDA LYNN [facility] REC#: [id number] DA: [id number] PAT GEND: F PAT TYPE: O EXAM BLAISE: [id number] REF PHYS AMY CONLEY Comparison Studies The [...] NSTs in your office. Coding ======= Description: 55215-55 BPP without NST Description: 48444-81 Doppler Umbilical Artery Legal File Clerk: Eunice Manning RDMS Physician: Jung Angeles MD, FACOG Electronically signed by: Jung Angeles MD, FACOG at: 10:27 Procedure Note Jung Angeles MD - 10/18/2025 PAT NAME: FARIDA LYNN MED REC#: [id number] DA: 1990 PAT GEND: F PAT TYPE: O EXAM BLAISE: [id number] REF PHYS AMY CONLEY Comparison Studies The findings of this study are compared to the prior ultrasound studydated 10/11/25 Patient Status Outpatient Indication ======== IUGR. Marginal PCI. Obesity BMI 34. Maternal Assessment Dzfuon315 cm Height (ft)5 ft Height (in)3 in Gxjneg24 kg Weight (lb)196 lb BMI34.73 kg/m Method ======= Transabdominal ultrasound examination ========= Botello . Number of fetuses: 1 Dating ====== Method of dating:based on stated PAULA GA by prior otqqzmemto74 w + 3 d PAULA by prior assessment:12/24/2025 Previous dating:based on stated PAULA, selected on 10/11/2025 Agreed PAULA of previous datin12/24/2025 Assigned:based on stated PAULA, selected on 10/18/2025 Assigned GA30 w + 3 d Assigned PAULA:12/24/2025 [id number] d General Evaluation Cardiac activity present. FHR [...] weekly NSTs in your office. Coding ======= Description:66962-51 BPP without NST Description:40838-25 Doppler Umbilical Artery Legal File Clerk: Eunice Manning RDMS Physician: Jung Angeles [...] trimester documented in this encounter Care Teams Poker Manager Relationship Specialty Start Date End Date Provider, [place] [address] PCP - General 08/19/24 documented as of this encounter
--- OUTSIDE RECORDS SUMMARY | 2025-10-18 09:34 | XMS_ITS | Encounter Summary ---
Author Organization [facility] Address [address] [id number] Care Team Providers Care Lye Machine Operator Name Role Phone Provider, No Known Primary Care Provider Unavail able Reason for Referral * Diagnostic Imaging (Routine) - Closed Specialty Diagnoses / Procedures Referred By Ritesh winchester Referred To Contact Radiology Diagnoses Poor growth affecting management of mother in third trimester, single or unspecified fetus Maternal chronic hypertension in second trimester Procedures [facility] [place] Danielle Allen MD [address] [facility] [place] [address] Phone: tel: fax: Referral ID Status Reason Start Date Expiration Date Visits Re quested Visits Authorized [id number] Closed 10/13/2025 01/12/2027 1 1 Reason for Visit * Diagnostic Imaging (Routine) - Closed Specialty Diagnoses / Procedures Referred By Ritesh winchester Referred To Contact Radiology Diagnoses Poor growth affecting management of mother in third trimester, single or unspecified fetus Maternal chronic hypertension in second trimester Procedures [facility] [place] Danielle Allen MD [address] [place] [address] Phone: tel: fax: Referral ID Status Reason Start Date Expiration Date Visits Re quested Visits Authorized [id number] Closed 10/13/2025 01/12/2027 1 1 Encounter Details Date Type Department Care Team (Late st Contact Info) Description 10/18/2025 9:34 AM EST - 10/18/2025 11:59 PM EST Hospital Encounter [facility] [address] [place] [address] Danielle Allen MD [address] [place] [address] Poor growth affecting management of mother in [...] Description 11/22/2025 10:45 AM EST Office [facility] [address] [facility] [address] [place] [address] 11/22/2025 10:45 AM EST Appointment [facility] [address] [place] [id number] documented as of this encounter Procedures Procedure Name Priority Date/Time Associated Diagnosis Comments [facility] Routine 10/18/2025 10:21 AM EST Poor growth affecting management of mother in third trimester, single or unspecified fetus Maternal chronic hypertension in second trimester documented in this encounter Results * [facility] (10/18/2025 10:21 AM EST) Anatomical Region Laterality Modality Ultrasound 10/18/2025 9:57 AM EST Narrative 10/18/2025 10:27 AM EST PAT NAME: FARIDA LYNN MED REC#: [id number] DA: [id number] PAT GEND: F PAT TYPE: O EXAM BLAISE: [id number] REF PHYS AMY CORCORAN Comparison Studies The [...] NSTs in your office. Coding ======= Description: 56960-86 BPP without NST Description: 97340-07 Doppler Umbilical Artery Education Director: Eunice Manning RDMS Physician: Jung Angeles MD, FACOG Electronically signed by: Jung Angeles MD, FACOG at: 10:27 Procedure Note Jung Angeles MD - 10/18/2025 PAT NAME: FARIDA LYNN MED REC#: [id number] DA: 1990 PAT GEND: F PAT TYPE: O EXAM BLAISE: [id number] REF PHYS AMY CORCORAN Comparison Studies The findings of this study are compared to the prior ultrasound studydated 10/11/25 Patient Status Outpatient Indication ======== IUGR. Marginal PCI. Obesity BMI 34. Maternal Assessment [id number] cm Height (ft)5 ft Height (in)3 in Hkfyoq55 kg Weight (lb)196 lb BMI34.73 kg/m Method ======= Transabdominal ultrasound examination ========= [place] . Number of fetuses: 1 Dating ====== Method of dating:based on stated PAULA GA by prior [id number] w + 3 d PAULA by prior [...] weekly NSTs in your office. Coding ======= Description:10418-07 BPP without NST Description:14139-79 Doppler Umbilical Artery Education Director: Eunice Manning RDMS Physician: Jung Angeles MD, FACOG Electronically signed by: Jung Angeles MD, FACOG at: 10:27 us Danielle Allen MD IMG US ORDERABLES Final Result documented in this encounter Visit Diagnoses Diagnosis Poor growth affecting management of mother in third trimester, single or unspecified fetus Maternal chronic hypertension in second trimester documented in this encounter Care Teams Lye Machine Operator Relationship Specialty Start Date End Date Provider, [place] [address] PCP - General 08/19/24 documented as of this encounter
--- OUTSIDE RECORDS SUMMARY | 2025-10-18 10:15 | XMS_ITS | Encounter Summary ---
Author Organization [facility] Address [address] [phone] Care Team Providers Care Marble Ceiling Installer Name Role Phone Provider, No Known Primary Care Provider Unavail able Reason for Referral * Diagnostic Imaging (Routine) - Authorized Specialty Diagnoses / Procedures Referred By Contac t Referred To Contact Radiology Diagnoses Poor growth affecting management of mother in third trimester, single or unspecified fetus Maternal chronic hypertension in third trimester Procedures [facility] Jung Angeles MD [address] [facility] [address] [place] [address] Phone: tel: fax: Referral ID Status Reason Start Date Expiration Date V isits Requested Visits Authorized [id number] Authorized 10/18/2025 01/17/2027 5 5 Reason for Visit * Reason Comments IUGR, MPCI, MO GHTN Encounter Details Date Type Department Care Team (Late st Contact Info) Description 10/18/2025 10:15 AM EST Office Visit [facility] MATERNAL MEDICINE [address] [place] [address] Jung Angeles MD [address] [place] [address] Poor growth affecting management of mother in [...] Description 11/22/2025 10:45 AM EST Office Visit [facility] MATERNAL MEDICINE [address] [facility] [address] [place] [phone] 11/22/2025 10:45 AM EST Appointment [facility] [address] [place] [phone] Scheduled Orders Name Type Priority Associated Diagnoses Orde r Schedule [facility] [place] Imaging Routine Poor growth affecting management of mother in third trimester, single or unspecified fetus Maternal chronic hypertension in third trimester Once a week for 5 Occurrences starting 10/18/2025 until 10/18/2026, 2 completed documented as of this encounter Results * [facility] (11/08/2025 11:32 AM EST) Anatomical Region Laterality Modality Ultrasound 11/08/2025 10:5 3 AM EST Narrative 11/08/2025 11:43 AM EST PAT NAME: FARIDA LYNN MED REC#: [id number] DA: [id number] PAT GEND: F PAT TYPE: O EXAM BLAISE: [id number] REF PHYS SARAH CONLEYLEY Comparison Studies The findings of this study [...] EFW (oz) 9 oz EFW by: Hadlock (MGV-ZD-AW-FL) Extended Cav. septi pel. tr 5.7 mm Embedded Software Development Engineer 5.4 mm CM 7.0 mm 39% Nicolaides [...] Normal Heart / Thorax 3-vessel view: Normal 3-epvvtn-trcfurq view: normal Cord insertion: Normal Stomach: Appears [...] Consultation / Office Visit Type: Consultation See [facility] for full consult note. Impression Single, [...] an earlier indication arises Coding ======= Description: 40336-84 Follow Up Ultrasound Description: 69634-10 BPP without NST Description: 25052-20 Doppler Umbilical Artery Flow Trader: Hoa Crump RDMS Physician: Ed Ng MD Electronically signed by: Ed Ng MD at: 11:43 Procedure Note Ed Ng MD - 11/08/2025 PAT NAME: FARIDA LYNN MED REC#: [id number] DA: 1990 PAT GEND: F PAT TYPE: O EXAM BLAISE: [id number] REF PHYS AMY CONLEY Comparison Studies The findings of this study are compared to the prior ultrasound studydated Patient Status Outpatient Indication ======== IUGR. Marginal PCI. Obesity BMI 35. Maternal Assessment Usiaau903 cm Height (ft)5 ft Height (in)3 in Gfofqq51 kg Weight (lb)200 lb BMI35.44 kg/m Method ======= Transabdominal ultrasound examination. View: Adequate view ========= Botello . Number of fetuses: 1 Dating ====== Method of dating:based on stated PAULA GA by prior atsstnxfki66 w + 3 d PAULA by prior assessment:12/24/2025 Ultrasound examination on:11/08/2025 GA by U/S based upon:AC, BPD, Femur, HC GA by U/S31 w + 0 d PAULA by U/S:01/10/2026 Previous dating:based on stated PAULA, selected on 10/18/2025 Agreed PAULA of previous datin12/24/2025 Assigned:based on stated PAULA, selected on 11/08/2025 Assigned GA33 w + 3 d Assigned PAULA:12/24/2025 emekbt102 d Biometry Standard BPD77.4 mm 31w 0d 2% Hadlock VVY904.1 mm 34w 4d 72% Emeli HC291.2 mm 32w 1d 2% Hadlock Cerebellum tr43.2 mm 33w 5d 37% Hill AC264.4 mm 30w 4d 1% Hadlock Femur58.0 mm 30w 2d <1% Hadlock HC / AC1.10 EFW1,619 g 30w 2d 2% Hadlock EFW (lb)3 lb EFW (oz)9 oz EFW by:Hadlock (ECE-JU-XW-FL) Extended Cav. septi pel. tr5.7 mm Vp5.4 mm CM7.0 mm 39% Nicolaides Nasal bone11.1 mm Head / Face / Neck Cephalic index0.74 3% Nicolaides Extremities / Bony Struc FL / BPD0.75 FL / HC0.20 FL / AC0.22 Other Structures BJM450 bpm General Evaluation Cardiac activity present. FHR [...] LVOT view:Normal Heart / Thorax 3-vessel view:Normal 2-usscry-lfixvmg view:normal Cord insertion:Normal Stomach:Appears normal Kidneys:Appears normal [...] Consultation / Office Visit Type: Consultation See [facility] for full consult note. Impression Single, [...] week, unless an earlier indicationarises Coding ======= Description:03517-62 Follow Up Ultrasound Description:02714-33 BPP without NST Description:84112-01 Doppler Umbilical Artery Flow Trader: Hoa Crump RDMS Physician: Ed Ng MD Electronically signed by: Ed Ng MD at: 11:43 us Jung Angeles MD IMG US ORDERABLES Final Result * [facility] (10/25/2025 11:18 AM EST) Anatomical Region Laterality Modality Ultrasound 10/25/2025 10:4 2 AM EST Narrative 10/25/2025 11:26 AM EST PAT NAME: FARIDA LYNN MED REC#: [id number] DA: 1990 PAT GEND: F PAT TYPE: O EXAM BLAISE: [id number] REF PHYS AMY CONLEY Comparison Studies The [...] EFW (oz) 0 oz EFW by: Hadlock (VVX-GT-DZ-FL) Extended Cav. septi pel. tr 5.9 mm Embedded Software Development Engineer 3.4 mm CM 7.4 mm 56% Nicolaides [...] Normal Heart / Thorax 3-vessel view: Normal 3-sxoqoz-thfmhaq view: normal Cord insertion: Normal Stomach: Appears [...] here in 2 weeks. Coding ======= Description: 82291-83 Follow Up Ultrasound Description: 10412-94 BPP without NST Description: 42209-73 Doppler Umbilical Artery Flow Trader: Tiki Ta RDMS Physician: Jung Angeles MD, FACOG Electronically signed by: Jung Angeles MD, FACOG at: 11:26 Procedure Note Jung Angeles MD - 10/25/2025 PAT NAME: FARIDA LYNN MED REC#: [id number] DA: 1990 PAT GEND: F PAT TYPE: O EXAM BLAISE: [id number] REF PHYS AMY CONLEY Comparison Studies The findings of this study are compared to the prior ultrasound studydated 10/18/25. Patient Status Outpatient Indication ======== IUGR. Marginal PCI. Obesity BMI 35. Maternal Assessment Chjtbz862 cm Height (ft)5 ft Height (in)3 in Ohwskw64 kg Weight (lb)197 lb BMI34.91 kg/m Method ======= Transabdominal ultrasound examination ========= Botello . Number of fetuses: 1 Dating ====== GA by prior kcokqmgrrn69 w + 3 d PAULA by prior [...] Hadlock Femur55.2 mm 29w 1d 2% Hadlock Ltuuiwp47.3 mm 29w 0d 3% Emeli HC / AC1.10 EFW1,361 g 28w 6d 3% Hadlock EFW (lb)3 lb EFW (oz)0 oz EFW by:Hadlock (SEB-HY-NP-FL) Extended Cav. septi pel. tr5.9 mm Vp3.4 mm CM7.4 mm 56% Nicolaides Head / Face / Neck Cephalic index0.74 6% Nicolaides Extremities / Bony Struc FL / BPD0.76 FL / HC0.20 FL / AC0.22 Other Structures OCJ842 bpm General Evaluation Cardiac activity present. FHR [...] LVOT view:Normal Heart / Thorax 3-vessel view:Normal 3-tlotop-eyfqhvd view:normal Cord insertion:Normal Stomach:Appears normal Kidneys:Appears normal [...] up here in 2 weeks. Coding ======= Description:48520-31 Follow Up Ultrasound Description:08752-40 BPP without NST Description:56439-00 Doppler Umbilical Artery Flow Trader: Tiki Ta RDMS Physician: Jung Angeles MD, FACOG Electronically signed by: Jung Angeles MD, FACOG at: 11:26 us Jung Angeles MD IMG US ORDERABLES Final Result documented in this encounter Visit Diagnoses Diagnosis Poor growth affecting management of mother in third trimester, single or unspecified fetus- Primary Maternal chronic hypertension in third trimester documented in this encounter Care Teams Marble Ceiling Installer Relationship Specialty Start Date End Date Provider, [place] [address] PCP - General 08/19/24 documented as of this encounter
--- OUTSIDE RECORDS SUMMARY | 2025-10-25 09:49 | XMS_ITS | Encounter Summary ---
Author Organization [facility] Address [address] [place] [address] Care Team Providers Care Contract Post Office Clerk Name Role Phone Provider, No Known Primary Care Provider Unavail able Reason for Visit * Diagnostic Imaging (Routine) - Authorized Specialty Diagnoses / Procedures Referred By Ritesh t Referred To Contact Radiology Diagnoses Poor growth affecting management of mother in third trimester, single or unspecified fetus Maternal chronic hypertension in third trimester Procedures [facility] Angeles, Jung Harmon MD [address] [facility] [address] [place] [address] Phone: tel: fax: Referral ID Status Reason Start Date Expiration Date V isits Requested Visits Authorized [id number] Authorized 10/18/2025 01/17/2027 5 5 Encounter Details Date Type Department Care Team (Latest Contact Info) Description 10/25/2025 9:49 AM EST - 10/25/2025 11:[address] [facility] Hospital Encounter [facility] US PER DIAG CTR [address] [place] [address] Amy Conley, DO [address] [address] Discharge Disposition: Home or Self Care Social [...] Description 11/22/2025 10:45 AM EST Office Visit [facility] MAT[facility] [address] [place] [address] 11/22/2025 10:45 AM EST Appointment [facility] PER DIAG CTR [address] [place] [address] documented as of this encounter Procedures Procedure Name Priority Date/Time Associated Diagnosis Comments [facility] Routine 10/25/2025 11:18 AM EST Poor growth affecting management of mother in third trimester, single or unspecified fetus Maternal chronic hypertension in third trimester documented in this encounter Results * [facility] (10/25/2025 11:18 AM EST) Anatomical Region Laterality Modality Ultrasound 10/25/2025 10:4 2 AM EST Narrative 10/25/2025 11:26 AM EST PAT NAME: FARIDA LYNN MED REC#: [id number] DA: 1990 PAT GEND: F PAT TYPE: O EXAM BLAISE: [id number] REF PHYS AMY CONLEY Comparison Studies The [...] EFW (oz) 0 oz EFW by: Hadlock (URU-GU-AZ-FL) Extended Cav. septi pel. tr 5.9 mm Supervisor Data Processing 3.4 mm CM 7.4 mm 56% Nicolaides [...] Normal Heart / Thorax 3-vessel view: Normal 2-anhnju-isblbef view: normal Cord insertion: Normal Stomach: Appears [...] here in 2 weeks. Coding ======= Description: 09349-75 Follow Up Ultrasound Description: 20077-05 BPP without NST Description: 26314-64 Doppler Umbilical Artery Scout: Tiki Ta RDMS Physician: Jung Angeles MD, FACOG Electronically signed by: Jung Angeles MD, FACOG at: 11:26 Procedure Note Jung Angeles MD - 10/25/2025 PAT NAME: FARIDA LYNN MED REC#: [id number] DA: [id number] PAT GEND: F PAT TYPE: O EXAM BLAISE: [id number] REF PHYS AMY CONLEY Comparison Studies The findings of this study are compared to the prior ultrasound studydated 10/18/25. Patient Status Outpatient Indication ======== IUGR. Marginal PCI. Obesity BMI 35. Maternal Assessment Drtqnr672 cm Height (ft)5 ft Height (in)3 in Gxiijx15 kg Weight (lb)197 lb BMI34.91 kg/m Method ======= Transabdominal ultrasound examination ========= Botello . Number of fetuses: 1 Dating ====== GA by prior ijyrnjpwtj07 w + 3 d PAULA by prior [...] GA31 w + 3 d Assigned PAULA:12/24/2025 azjlvp578 d Biometry Standard BPD73.0 mm 29w 2d 2% Hadlock OFD98.4 mm 31w 6d 60% Emeli HC274.2 mm 30w 0d 1% Hadlock Cerebellum tr39.3 mm 31w 5d 40% Hill AC249.9 mm 29w 1d 3% Hadlock Femur55.2 mm 29w 1d 2% Hadlock Utreazl14.3 mm 29w 0d 3% Emeli HC / AC1.10 EFW1,361 g 28w 6d 3% Hadlock EFW (lb)3 lb EFW (oz)0 oz EFW by:Hadlock (CQL-RS-WR-FL) Extended Cav. septi pel. tr5.9 mm Vp3.4 mm CM7.4 mm 56% Nicolaides Head / Face / Neck Cephalic index0.74 6% Nicolaides Extremities / Bony Struc FL / BPD0.76 FL / HC0.20 FL / AC0.22 Other Structures IBC743 bpm General Evaluation Cardiac activity present. FHR [...] LVOT view:Normal Heart / Thorax 3-vessel view:Normal 5-ocjfvm-zzzxsdy view:normal Cord insertion:Normal Stomach:Appears normal Kidneys:Appears normal [...] up here in 2 weeks. Coding ======= Description:70082-82 Follow Up Ultrasound Description:45374-03 BPP without NST Description:02475-70 Doppler Umbilical Artery Scout: Tiki Ta RDMS Physician: Jung Angeles MD, FACOG Electronically signed by: Jung Angeles MD, FACOG at: 11:26 us Jung Angeles MD IMG ORDERABLES Final Result documented in this encounter Visit Diagnoses Not on filedocumented in this encounter Care Teams Contract Post Office Clerk Relationship Specialty Start Date End Date Provider, [place] [address] PCP - General 08/19/24 documented as of this encounter
--- OUTSIDE RECORDS SUMMARY | 2025-10-25 10:15 | XMS_ITS | Encounter Summary ---
Author Organization [facility] Address [address] [place] [address] Care Team Providers Care Hardware Sales Assistant Name Role Phone Provider, No Known Primary Care Provider Unavail able Reason for Visit * Reason Comments IUGR, marginal PCI, obesity Encounter Details Date Type Department Care Team (Late st Contact Info) Description 10/25/2025 10:15 AM EST Office Visit [facility] MATERNAL MEDICINE [address] [place] [phone] Jung Angeles MD [address] [facility] [address] [place] [address] Poor growth affecting management of mother in [...] Dopplers. Patient reports twice-weekly testing with primary INSOLE STIFFENER and given 1 of these being performed [...] Dopplers. Patient reports twice-weekly testing with primary INSOLE STIFFENER and given 1 of these being performed [...] procedures such as amniocentesis or CVS. Jung Anglees MD, FACOG Maternal Medicine, [facility] documented in this encounter Plan of Treatment Upcoming Encounters Date Type Department Care Team (Late st Contact Info) Description 11/22/2025 10:45 AM EST Office Visit [facility] MAT[facility]NAL MEDICINE [address] [facility] [address] [place] [address] 11/22/2025 10:45 AM EST Appointment [facility] US PER DIAG CTR [address] [place] [address] documented as of this encounter Visit Diagnoses Diagnosis Poor growth affecting management of mother in third trimester, single or unspecified fetus- Primary Maternal chronic hypertension in third trimester documented in this encounter Care Teams Hardware Sales Assistant Relationship Specialty Start Date End Date Provider, [place] [address] PCP - General 08/19/24 documented as of this encounter
--- OUTSIDE RECORDS SUMMARY | 2025-11-08 10:19 | XMS_ITS | Encounter Summary ---
Author Organization [facility] Address [address] [place] [address] Care Team Providers Care Trade Manager Name Role Phone Provider, No Known Primary Care Provider Unavail able Reason for Visit * Diagnostic Imaging (Routine) - Authorized Specialty Diagnoses / Procedures Referred By Ritesh t Referred To Contact Radiology Diagnoses Poor growth affecting management of mother in third trimester, single or unspecified fetus Maternal chronic hypertension in third trimester Procedures [facility] [place], Jung Harmon MD [address] [facility] [address] [place] [address] Phone: tel: fax: Referral ID Status Reason Start Date Expiration Date V isits Requested Visits Authorized [id number] Authorized 10/18/2025 01/17/2027 5 5 Encounter Details Date Type Department Care Team (Latest Contact Info) Description 11/08/2025 10:19 AM EST - 11/08/2025 11:59 PM [facility] Hospital Encounter [facility] US PER DIAG CTR [address] [place] [id number] Amy Conley, DO [address] [address] Discharge Disposition: Home or Self Care Social [...] Description 11/22/2025 10:45 AM EST Office Visit [facility] [address] [place] [address] 11/22/2025 10:45 AM EST Appointment [facility] PER DIAG CTR [address] [place] [address] documented as of this encounter Procedures Procedure Name Priority Date/Time Associated Diagnosis Comments [facility] Routine 11/08/2025 11:32 AM EST Poor growth affecting management of mother in third trimester, single or unspecified fetus Maternal chronic hypertension in third trimester documented in this encounter Results * [facility] (11/08/2025 11:32 AM EST) Anatomical Region Laterality Modality Ultrasound 11/08/2025 10:5 3 AM EST Narrative 11/08/2025 11:43 AM EST PAT NAME: FARIDA LYNN MED REC#: [id number] DA: 1990 PAT GEND: F PAT TYPE: O EXAM BLAISE: [id number] REF PHYS AMY CONLEY Comparison Studies The [...] EFW (oz) 9 oz EFW by: Hadlock (NFU-FD-QW-FL) Extended Cav. septi pel. tr 5.7 mm Transferrer 5.4 mm CM 7.0 mm 39% Nicolaides [...] Normal Heart / Thorax 3-vessel view: Normal 1-edrafe-gxujgmp view: normal Cord insertion: Normal Stomach: Appears [...] an earlier indication arises Coding ======= Description: 73741-11 Follow Up Ultrasound Description: 38978-21 BPP without NST Description: 66726-08 Doppler Umbilical Artery Casino Worker: Hoa Crump RDMS Physician: Ed Ng MD Electronically signed by: Ed Ng MD at: 11:43 Procedure Note Ed Ng MD - 11/08/2025 PAT NAME: FARIDA LYNN MED REC#: [id number] DA: 1990 PAT GEND: F PAT TYPE: O EXAM BLAISE: [id number] REF PHYS AMY CONLEY Comparison Studies The findings of this study are compared to the prior ultrasound studydated Patient Status Outpatient Indication ======== IUGR. Marginal PCI. Obesity BMI 35. Maternal Assessment Gwuzty588 cm Height (ft)5 ft Height (in)3 in Ruftqu38 kg Weight (lb)200 lb BMI35.44 kg/m Method ======= Transabdominal ultrasound examination. View: Adequate view ========= Botello . Number of fetuses: 1 Dating ====== Method of dating:based on stated PAULA GA by prior [id number] w + 3 d PAULA by prior [...] Standard BPD77.4 mm 31w 0d 2% Hadlock YSI780.1 mm 34w 4d 72% Emeli HC291.2 mm 32w 1d 2% Hadlock Cerebellum tr43.2 mm 33w 5d 37% Hill AC264.4 mm 30w 4d 1% Hadlock Femur58.0 mm 30w 2d <1% Hadlock HC / AC1.10 EFW1,619 g 30w 2d 2% Hadlock EFW (lb)3 lb EFW (oz)9 oz EFW by:Hadlock (TEX-AA-UB-FL) Extended Cav. septi pel. tr5.7 mm Vp5.4 mm CM7.0 mm 39% Nicolaides Nasal bone11.1 mm Head / Face / Neck Cephalic index0.74 3% Nicolaides Extremities / Bony Struc FL / BPD0.75 FL / HC0.20 FL / AC0.22 Other Structures AGS439 bpm General Evaluation Cardiac activity present. FHR [...] LVOT view:Normal Heart / Thorax 3-vessel view:Normal 5-netcoh-ttdzcay view:normal Cord insertion:Normal Stomach:Appears normal Kidneys:Appears normal [...] week, unless an earlier indicationarises Coding ======= Description:08209-11 Follow Up Ultrasound Description:87765-35 BPP without NST Description:03301-54 Doppler Umbilical Artery Casino Worker: Hoa Crump RDMS Physician: Ed Ng MD Electronically signed by: Ed Ng MD at: 11:43 us Jung Angeles MD IMG US ORDERABLES Final Result documented in this encounter Visit Diagnoses Not on filedocumented in this encounter Care Teams Trade Manager Relationship Specialty Start Date End Date Provider, [place] [address] PCP - General 08/19/24 documented as of this encounter
--- OUTSIDE RECORDS SUMMARY | 2025-11-08 10:45 | XMS_ITS | Encounter Summary ---
Author Organization [facility] Address [address] [place] [id number] Care Team Providers Care Fireworks Inspector Name Role Phone Provider, No Known Primary Care Provider Unavail able Reason for Visit * Reason Comments IUGR Encounter Details Date Type Department Care Team (Late st Contact Info) Description 11/08/2025 10:45 AM EST Office Visit [facility] MATERNAL MEDICINE [address] [place], [place] [address] [place] [address] [place] [address] [place] [address] Poor growth affecting management of mother in [...] Sign Reading Time Taken Comments Blood Pressure 124/68 11/08/2025 10:41 AM EST Pulse - - Temperature - - Respiratory Rate - - Oxygen Saturation - - Inhaled Oxygen Concentration - - Weight 90.8 kg (200 lb 3.2 oz) 11/08/2025 10:41 AM EST Height - - Body Mass Index 35.46 09/02/2025 10:47 AM EDT documented in this encounter Progress Notes * Ed Ng MD - 11/08/2025 11:12 AM ESTAssociated Problem(s): Poor growth affecting management of mother in third trimester - Dating criteria previously reviewed and appropriate - NIPS previously reviewed and low risk - Last growth US 10/25/25: EFW 3%, AC 3%, UA Dopplers WNL - Growth US today (11/08): EFW 2%, AC 1%, UA Dopplers WNL Recommendations: - Continue twice weekly testing (NST's) in your office - Continue once weekly BPP/Doppler studies (your office) - Follow up in 2 weeks for growth assessment (PDC) - Indicated delivery will be dependent on testing and Doppler studies moving forward but would tentatively plan for the 37th week * Ed Ng MD - 11/08/2025 11:08 AM ESTAssociated Problem(s): Maternal chronic hypertension in third trimester - Current regimen: Nifedipine 30 mg XL daily - Continues low dose ASA prophylaxis - Previously counseled on risks to - US today (11/08): EFW 2%, AC 1% Recommendations: - Titrate oral antihypertensive regimen as needed to maintain a BP profile of <140/90 - Continue serial growth ultrasounds in the third trimester - Continue twice weekly testing (NST's) in your office through delivery - Indicated delivery is dependent on growth and BP control near term, but would tentatively plan between 37-38 weeks * Carole Smith RN - 11/08/2025 10:45 AM EST Denies vaginal bleeding, leaking fluid, and contractions. Endorses normal movement. NIPT negative. Next OB follow-up appointment with Dr. Conley on 11/10/25. * Ed Ng MD - 11/08/2025 10:45 AM EST Images from the original note were not included. Maternal Medicine Follow Up Note Date: 11/08/2025 Name: Julia Lynn : 1990 PAULA: Estimated Date of Delivery: 12/24/25 Referring Provider: Mary Lou Conley DO Chief Complaint: IUGR Subjective History of Present Illness: Julia Lynn is a 35 y.o. at 33w3d who presents today for follow up consultation given a that is complicated by FGR and cHTN. Today, she is overall doing well and denies any vaginal bleeding, leakage of fluid, or regular contractions. She reports movement. ROS: Review of Systems Constitutional: Negative for chills and fever. Eyes: Negative for visual disturbance. Respiratory: Negative for cough and shortness of breath. Cardiovascular: Negative for chest pain. Gastrointestinal: Negative for abdominal pain, nausea and vomiting. Genitourinary: Negative for vaginal bleeding. Skin: Negative for rash. Neurological: Negative for headache. Psychiatric/Behavioral: The patient is not nervous/anxious. Objective Vital Signs: BP 124/68 Wt 90.8 kg (200 lb 3.2 oz) Estimated body mass index is 35.46 kg/m?? as calculated from the following: Height as of 09/02/25: 160 cm (63 ). Weight as of this encounter: 90.8 kg (200 lb 3.2 oz). Physical Exam Vitals and nursing note reviewed. Constitutional: General: She is not in acute distress. Appearance: Normal appearance. HENT: Head: Normocephalic. Pulmonary: Effort: Pulmonary effort is normal. No respiratory distress. Abdominal: Tenderness: There is no abdominal tenderness. Skin: General: Skin is warm and dry. Neurological: Mental Status: She is alert. Psychiatric: Mood and Affect: Mood normal. Behavior: Behavior normal. Ultrasound Impression: Single, viable intrauterine at 33w3d in [place] [...] are appreciated within the limitations of ultrasound Assessment and Plan Julia Lynn is a 35 y.o. at 33w3d with a that is complicated by the following: Diagnoses and all orders for this visit: 1. Poor growth affecting management of mother in third trimester, single or unspecified fetus(Primary) Assessment & Plan: - Dating criteria previously reviewed and appropriate - NIPS previously reviewed and low risk - Last growth 10/25/25: EFW 3%, AC 3%, UA Dopplers WNL - Growth US today (11/08): EFW 2%, AC 1%, UA Dopplers WNL Recommendations: - Continue twice weekly testing (NST's) in your office - Continue once weekly BPP/Doppler studies (your office) - Follow up in 2 weeks for growth assessment (PDC) - Indicated delivery will be dependent on testing and Doppler studies moving forward but would tentatively plan for the 37th week Orders: - [facility]; Future 2. Maternal chronic hypertension in third trimester Assessment & Plan: - Current regimen: Nifedipine 30 mg XL daily - Continues low dose ASA prophylaxis - Previously counseled on risks to - US today (11/08): EFW 2%, AC 1% Recommendations: - Titrate oral antihypertensive regimen as needed to maintain a BP profile of <140/90 - Continue serial growth ultrasounds in the third trimester - Continue twice weekly testing (NST's) in your office through delivery - Indicated delivery is dependent on growth and BP control near term, but would tentatively plan between 37-38 weeks Orders: - [facility] [place]; Future Follow Up: Return in about 2 weeks (around 11/22/2025) for growth ultrasound. I spent 20 minutes caring for the [...] other procedures such as amniocentesis or CVS. Ed Ng MD, FACOG Maternal Medicine, [facility] documented in this encounter Plan of Treatment Upcoming Encounters Date Type Department Care Team (Late st Contact Info) Description 11/22/2025 10:45 AM EST Office Visit [facility] MATERNAL MEDICINE [address] [facility] [address] [place] [address] 11/22/2025 10:45 AM EST Appointment [facility] US PER DIAG CTR [address] [place] [address] documented as of this encounter Visit Diagnoses Diagnosis Poor growth affecting management of mother in third trimester, single or unspecified fetus- Primary Maternal chronic hypertension in third trimester documented in this encounter Care Teams Fireworks Inspector Relationship Specialty Start Date End Date Provider, No Known [facility] [place] [address] PCP - General 08/19/24 documented as of this encounter
--- OUTSIDE RECORDS SUMMARY | 2025-11-16 12:52 | XMS_ITS | Encounter Summary ---
Author Organization [facility] Address [address] [place] [address] Care Team Providers Care Block Sawyer Name Role Phone Provider, No Known Primary [...] Description 11/22/2025 10:45 AM EST Office Visit [facility] MATERNAL MEDICINE [address] [facility] [address] [place] [address] 11/22/2025 10:45 AM EST Appointment [facility] PER DIAG CTR [address] [place] [address] documented as of this encounter Visit Diagnoses Not on filedocumented in this encounter Care Teams Block Sawyer Relationship Specialty Start Date End Date Provider, No Known [facility] [place] [place] [address] PCP - General 08/19/24 documented as of this encounter
--- OUTSIDE RECORDS SUMMARY | 2025-11-16 12:53 | XMS_ITS | Encounter Summary ---
Author Organization [facility] Address [address] [place] [address] Care Team Providers Care Neurology Manager Name [...] Description 11/22/2025 10:45 AM EST Office Visit [facility]NAL MEDICINE [address] [facility] [address] [place] [address] 11/22/2025 10:45 AM EST Appointment [facility] PER DIAG [facility] [address] [place] [address] documented as of this encounter Visit Diagnoses Not on filedocumented in this encounter Care Teams Neurology Manager Relationship Specialty Start Date End Date Provider, No Known [facility] [place] [address] PCP - General 08/19/24 documented as of this encounter
--- OUTSIDE RECORDS SUMMARY | 2025-11-16 12:53 | XMS_ITS | Clinical Summary ---
Author Organization [facility] Address [address] [id number] Care Team Providers Care Manufacturing Team Leader Name Role Phone Provider, No Known Primary [...] for 150 days. 30 tablet 4 09/02/2025 6 Active Active Problems Problem Noted Date Diagnosed Date Poor growth affecting management of mother in third trimester 09/23/2025 Assessment & Plan (11/08/2025 11:40 AM EST): - Dating criteria previously reviewed and appropriate [...] would tentatively plan for the 37th week Assessment & Plan (10/25/2025 11:25 AM EST): Patient presents for follow-up growth ultrasound secondary to known growth restriction. Last ultrasound showed overall growth at the 2nd percentile and AC at the 2nd percentile. Today's ultrasound shows overall stable growth at the 3rd percentile and AC at the 3rd percentile. Normal REAGAN, BPP, umbilical artery Dopplers. Patient reports twice-weekly testing with primary BRAKE LINING DRILLER and given 1 of these being performed [...] management of mother in second trimester 09/02/2025 Maternal chronic hypertension in third trimester 09/02/2025 Assessment & Plan (11/08/2025 11:40 AM EST): - Current regimen: Nifedipine 30 mg XL [...] but would tentatively plan between 37-38 weeks Assessment & Plan (10/25/2025 10:48 AM EST): [...] Date entered valentina or to episode creation Resolved Problems Problem Noted Date Diagnosed Date Resolved Date Uterine size-date discrepanc y in second trimester 09/02/2025 11/08/2025 Assessment & Plan (09/02/2025 11:33 AM EDT): [...] to 3 weeks time to assess growth. Encounters Date Type Department Care Team Description 11/08/2025 10:45 AM EST Office Visit [facility] MATERNAL MEDICINE [address] [phone] Ed Ng MD Poor growth affecting management of mother in third trimester, single or unspecified fetus (Primary Dx); Maternal chronic hypertension in third trimester 11/08/2025 10:19 AM EST - 11/08/2025 11:59 PM EST Hospital Encounter [facility] US PER DIAG CTR [address] [place] [address] Amy Conley, DO Discharge Disposition: Home or Self Care 11/08/2025 Travel 10/25/2025 10:15 AM EST Office Visit [facility] MATERNAL MEDICINE [address] [address] Jung Angeles MD Poor growth affecting management of mother in third trimester, single or unspecified fetus (Primary Dx); Maternal chronic hypertension in third trimester 10/25/2025 9:49 AM EST - 10/25/2025 11:59 PM EST Hospital Encounter [facility] US PER DIAG CTR [address] [place] [address] Amy Conley, DO Discharge Disposition: Home or Self Care 10/25/2025 Travel 10/18/2025 10:15 AM EST Office Visit [facility] MATERNAL MEDICINE [address] [address] Jung Angeles MD Poor growth affecting management of mother in third trimester, single or unspecified fetus (Primary Dx); Maternal chronic hypertension in third trimester 10/18/2025 9:34 AM EST - 10/18/2025 11:59 PM EST Hospital Encounter [facility] US PER DIAG CTR [address] [place] [address] Danielle Allen MD Poor growth affecting management of mother in third trimester, single or unspecified fetus; Maternal chronic hypertension in second trimester Discharge Disposition: Home or Self Care 10/18/2025 Travel 10/11/2025 10:15 AM EST Office Visit [facility] MATERNAL MEDICINE [address] [facility] [place] [address] [place] [address] Danielle Allen MD Poor growth affecting management of mother in third trimester, single or unspecified fetus (Primary Dx); Maternal chronic hypertension in second trimester 10/11/2025 9:44 AM EST - 10/11/2025 11:59 PM EST Hospital Encounter [facility] US PER DIAG CTR [address] [place] [address] Lis Jeffrey MD Marginal insertion of umbilical cord affecting management of mother in second trimester; Maternal chronic hypertension in second trimester; Poor growth affecting management of mother in third trimester, single or unspecified fetus; 26 weeks gestation of Discharge Disposition: Home or Self Care 10/11/2025 Travel 09/23/2025 10:15 AM EDT Office Visit [facility] MATERNAL MEDICINE [address] [facility] [place] [address] [place] [address] Lis Jeffrey MD Marginal insertion of umbilical cord affecting management of mother in second trimester (Primary Dx); Maternal chronic hypertension in second trimester; Poor growth affecting management of mother in third trimester, single or unspecified fetus; 26 weeks gestation of 09/23/2025 9:52 AM EDT - 09/23/2025 11:59 PM EDT Hospital Encounter [facility] US PER DIAG CTR [address] [place] [phone] Brian Wesley MD Uterine size-date discrepancy in second trimester; Marginal insertion of umbilical cord affecting management of mother in second trimester; 23 weeks gestation of ; Maternal chronic hypertension in second trimester Discharge Disposition: Home or Self Care 09/23/2025 Travel 09/06/2025 Telephone [facility] PER DIAG CTR [address] [phone] Brian Wesley MD Advice Only (Pt has question for Nurse.) 09/02/2025 10:30 AM EDT - 09/02/2025 11:59 PM EDT Hospital Encounter [facility] US PER DIAG [facility] [address] [phone] Amy Conley, DO Maternal care for other known or suspected poor growth, second trimester, not applicable or unspecified; Marginal insertion of umbilical cord affecting management of mother in second trimester; , unspecified gestational age Discharge Disposition: Home or Self Care 09/02/2025 10:30 AM EDT Office Visit [facility] MATERNAL MEDICINE [address] [address] Brian Wesley MD Uterine size-date discrepancy in second trimester (Primary Dx); Marginal insertion of umbilical cord affecting management of mother in second trimester; 23 weeks gestation of ; Maternal chronic hypertension in second trimester 09/02/2025 Telephone [facility] MATERNAL MEDICINE [address] [address] Jodie Garcia construction grip Only 09/02/2025 Travel from Last 3 Months [...] 3.2 oz) 11/08/2025 10:41 AM EST Height 160 cm (5' 3 ) 09/02/2025 10:47 AM EDT Body Mass Index 35.46 09/02/2025 10:47 AM EDT Plan of Treatment Upcoming Encounters Date Type Department Care Team (Late st Contact Info) Description 11/22/2025 10:45 AM EST Office Visit [facility] MATERNAL MEDICINE [address] [place] [address] 11/22/2025 10:45 AM EST Appointment [facility] US PER DIAG CTR [address] [place] [address] Health Maintenance Due Date Last Done Comments [...] [facility] Routine 11/08/2025 11:32 AM EST Poor growth affecting management of mother in third trimester, single or unspecified fetus Maternal chronic hypertension in third trimester [facility] Routine 10/25/2025 11:18 AM EST Poor growth affecting management of mother in third trimester, single or unspecified fetus Maternal chronic hypertension in third trimester [facility] Routine 10/18/2025 10:21 AM EST Poor growth affecting management of mother in third trimester, single or unspecified fetus Maternal chronic hypertension in second trimester [facility] Routine 10/11/2025 10:30 AM EST Marginal insertion of umbilical cord affecting management of mother in second trimester Maternal chronic hypertension in second trimester Poor growth affecting management of mother in third trimester, single or unspecified fetus 26 weeks gestation of [facility] Routine 09/23/2025 10:28 AM EDT Uterine size-date discrepancy in second trimester Marginal insertion of umbilical cord affecting management of mother in second trimester 23 weeks gestation of Maternal chronic hypertension in second trimester [facility] Routine 09/02/2025 11:30 AM EDT Maternal care for other known or suspected poor growth, second trimester, not applicable or unspecified Marginal insertion of umbilical cord affecting management of mother in second trimester , unspecified gestational age from Last 3 Months Results * [facility] (11/08/2025 11:32 AM EST) Only the most recent of6 resultswithin the time period is included. Anatomical Region Laterality Modality Ultrasound 11/08/2025 10:5 3 AM EST Narrative 11/08/2025 11:43 AM EST PAT NAME: FARIDA LYNN MED REC#: [id number] DA: 1990 PAT GEND: F PAT TYPE: O EXAM BLAISE: [id number] REF PHYS AMY CONLEY Comparison Studies The [...] EFW (oz) 9 oz EFW by: Hadlock ([id number]) Extended Cav. septi pel. tr 5.7 mm Sodium Methylate Operator 5.4 mm CM 7.0 mm 39% Nicolaides [...] Normal Heart / Thorax 3-vessel view: Normal 4-dhlrqk-jegerbc view: normal Cord insertion: Normal Stomach: Appears [...] an earlier indication arises Coding ======= Description: 93768-64 Follow Up Ultrasound Description: 62354-27 BPP without NST Description: 87869-00 Doppler Umbilical Artery Machine Bobbin Winder: Hoa Crump RDMS Physician: Ed Ng MD Electronically signed by: Ed Ng MD at: 11:43 Procedure Note Ed Ng MD - 11/08/2025 PAT NAME: FARIDA LYNN MED REC#: [id number] DA: [id number] PAT GEND: F PAT TYPE: O EXAM BLAISE: [id number] REF PHYS AMY CONLEY Comparison Studies The findings of this study are compared to the prior ultrasound studydated Patient Status Outpatient Indication ======== IUGR. Marginal PCI. Obesity BMI 35. Maternal Assessment Lymdlf034 cm Height (ft)5 ft Height (in)3 in Qjsmkq05 kg Weight (lb)200 lb BMI35.44 kg/m Method [...] Standard BPD77.4 mm 31w 0d 2% Hadlock HNQ037.1 mm 34w 4d 72% Emeli HC291.2 mm 32w 1d 2% Hadlock Cerebellum tr43.2 mm 33w 5d 37% Hill AC264.4 mm 30w 4d 1% Hadlock Femur58.0 mm 30w 2d <1% Hadlock HC / AC1.10 EFW1,619 g 30w 2d 2% Hadlock EFW (lb)3 lb EFW (oz)9 oz EFW by:Hadlock ([id number]) Extended Cav. septi pel. tr5.7 mm Vp5.4 mm CM7.0 mm 39% Nicolaides Nasal bone11.1 mm Head / Face / Neck Cephalic index0.74 3% Nicolaides Extremities / Bony Struc FL / BPD0.75 FL / HC0.20 FL / AC0.22 Other Structures FJF970 bpm General Evaluation Cardiac activity present. FHR [...] LVOT view:Normal Heart / Thorax 3-vessel view:Normal 4-kvxrnj-ugrdera view:normal Cord insertion:Normal Stomach:Appears normal Kidneys:Appears normal [...] week, unless an earlier indicationarises Coding ======= Description:73851-52 Follow Up Ultrasound Description:37096-86 BPP without NST Description:56470-21 Doppler Umbilical Artery Machine Bobbin Winder: Hoa Crump RDMS Physician: Ed Ng MD Electronically signed by: Ed Ng MD at: 11:43 us Jung Angeles MD [facility] [place] ORDER[place]LES Final Result from Last 3 Months Insurance EMPLOYEE Care Teams Manufacturing Team Leader Relationship Specialty Start Date End Date Provider, No Known [facility] [place] [address] PCP - General 08/19/24
--- OUTSIDE RECORDS SUMMARY | 2025-11-16 12:53 | XMS_ITS | Patient Health Record ---
Author Organization [facility] Address [address] [facility] [[email or web address] [address] [place] [address] Care Team Providers Care Reinforcing Steel Worker Name Role Phone Henna Matamoros Unavailable [phone] Brandy Barillas Unavailable [phone] Allergies No Known Allergies Reason For Referral No Information Social History Sex Assigned At : Social History Observation Description Sex Assigned At Female Section Notes: Age you started smokin Amount of Use: Some days but not every day Do you have any adventist or culture customs that your provider should [...] not every day Do you have any adventist or culture customs that your provider should [...] not every day Do you have any adventist or culture customs that your provider should [...] not every day Do you have any adventist or culture customs that your provider should [...] W/U Status Risk Notes Problem Missed period (70434238) Missed period (N92.6) Active confirmed Plan Of Treatment Future Test Test Name Order Date *US OB Complete Transabdominal/Vaginal 0 08/25/2024 Insurance Providers Payer Name Payer Address Payer Phone Subscriber Number Group Number Insured Name Patient Relationship to Insured Coverage Start Date Coverage End Date Jose BERRYO [address] [place] [address] [id number] Julia Salas Self - patient is the insured Medical (General) History Medical History History ICD Code Asthma Surgical History Surgery Date(Month/Year) None Hospitalization History Reason Date(Month/Year) Admit for [facility] 2011
--- OUTSIDE RECORDS SUMMARY | 2025-11-16 12:53 | XMS_ITS | Encounter Summary ---
Author Organization [facility] Address [address] [place] [address] Care Team Providers Care Mortgage Specialist Name Role Phone Provider, No Known [...] Description 11/22/2025 10:45 AM EST Office Visit [facility] MEDIC[facility] [address] [facility] [address] [place] [address] 11/22/2025 10:45 AM EST Appointment [facility] PER DIAG CTR [address] [place] [address] documented as of this encounter Visit Diagnoses Not on filedocumented in this encounter Care Teams Mortgage Specialist Relationship Specialty Start Date End Date Provider, No Known [facility] [place] [address] PCP - General 08/19/24 documented as of this encounter
--- OUTSIDE RECORDS SUMMARY | 2025-11-16 12:53 | XMS_ITS | Encounter Summary ---
Author Organization [facility] Address [address] [place] [address] Care Team Providers Care Commercial Subcontractor Name Role Phone Provider, No Known Primary [...] Description 11/22/2025 10:45 AM EST Office Visit [facility] MEDICINE [address] [facility] [address] [place] [address] 11/22/2025 10:45 AM EST Appointment [facility] PER DIAG CTR [address] [place] [address] documented as of this encounter Visit Diagnoses Not on filedocumented in this encounter Care Teams Commercial Subcontractor Relationship Specialty Start Date End Date Provider, No Known [facility] [place] [address] PCP - General 08/19/24 documented as of this encounter
--- OUTSIDE RECORDS SUMMARY | 2025-11-16 12:54 | XMS_ITS | Encounter Summary ---
Author Organization [facility] Address [address] [place] [address] Care Team Providers Care Production Superintendent Hydro Name Role Phone Provider, No Known Primary Care Provider Unavail able Encounter Details Date Type Department Care Team (Latest Contact Info) Description 11/08/2025 Travel Social History Tobacco Use Types Packs/Day [...] Description 11/22/2025 10:45 AM EST Office Visit [facility] MAT[facility]NAL MEDICINE [address] [facility] [address] [place] [address] 11/22/2025 10:45 AM EST Appointment [facility] PER DIAG CTR [address] [place] [address] documented as of this encounter Visit Diagnoses Not on filedocumented in this encounter Care Teams Production Superintendent Hydro Relationship Specialty Start Date End Date Provider, No Known [facility] [place] [address] PCP - General 08/19/24 documented as of this encounter
--- NOTE | 2025-11-16 13:00 | US_ITS ---
PROCEDURE: US OB BIOPHYSICAL PROFILE CLINICAL INDICATION: Needs BPP on 11/16/25 COMPARISON: US US OB <= 14 WEEKS FETUS from 04/30/2025 US US OB /MATERNAL DETAIL from 08/04/2025 US US OB BIOPHYSICAL PROFILE from 10/19/2025 US US OB BIOPHYSICAL PROFILE from 10/29/2025 US US OB BIOPHYSICAL PROFILE from 11/02/2025 FINDINGS: Transabdominal sonographic images of the uterus were obtained. From her established due date she is 34weeks 4days. The following parameters are obtained: Viable Fetus in the breech presentation with and anterior placenta grade 2. There are several placental lakes. The cervix measures 3.70 cm in length. Measurements: heart Rate = 128bpm Amniotic fluid index: 12.36cm, MVP 3.77 cm Qualitative AFV:2 Breathing movements: 2 Gross Body Movements: 2 Tone: 2 Biophysical profile score: 8 No obvious anomalies evident.Kidneys, stomach, bladder, four-chamber heart, three-vessel cord appear normal. IMPRESSION: 1. Viable fetus in the BREECH presentation with an anterior placenta grade 2. There are several small placental lakes. 2. The fluid is within normal limits with an amniotic fluid index 12.36 cm, MVP 3.77 cm. 3. Biophysical profile is 8/8 with good breathing movement and movement seen. 4. Limited anatomical scan appears normal. 5. An inferior marginal cord insertion was noted at her 20 week ultrasound. This may account for the IUGR. Continued close follow-up with weekly ultrasounds is suggested. SD ratio with each ultrasound as well. Dictated by: Polo Catherine MD 11/16/2025 15:03 Polo Catherine MD in OV 11/16/2025 15:03
== END 2025-11-16 23:59 | disposition home or self-care (01) ==
LOC: RAD 12:50
PROVIDERS: PCP Obstetrics & Gynecology; Visit Provider Obstetrics & Gynecology
DX: O32.1XX0 Maternal care for breech presentation, not applicable or unspecified (principal); O28.3 Abnormal ultrasonic finding on antenatal screening of mother; O10.913 Unspecified pre-existing hypertension complicating pregnancy, third trimester; O36.5930 Maternal care for other known or suspected poor fetal growth, third trimester, not applicable or unspecified; O43.893 Other placental disorders, third trimester; Z3A.34 34 weeks gestation of pregnancy
CPT/HCPCS: 76819

== ENCOUNTER 2025-11-19 09:46 | Outpatient (CLI) | payer BC, SELFPAY ==
--- OUTSIDE RECORDS SUMMARY | 2024-08-25 10:00 | XMS_ITS ---
Author Organization [facility] Address [address] [place] [address] Care Team Providers Care Lead Pony Rider Name Role Phone Matamoros, Henna Unavailable [phone] Sharon Bautista Unavailable [phone] Results Component Value Reference Range Notes *US OB Complete Transabdomin al/Vaginal Reviewed date:08/27/2024 04:41:33 PM Interpretation: Performing Lab: Notes/Report: [facility] Women's Health Transvaginal Obstetric Study Report Name: FARIDA RONQUILLO Accession/Encounter No:[id number] : 1990 Age: 34 Gender: F Race: [...] 1 of 1 Imaging Center - , [facility] Lyn REASON FOR VISIT early OB Bleeding LLQ pain Social History Sex Assigned At : Social History Observation Description Sex Assigned At Female Encounters Encounter Location Date Provider Diagnosis [facility]-NR [address] [place] [address] 08/25/2024 Sharon Bautista Bleeding in early O20.9 Assessments Encounter Date Diagnosis (ICD Code) Assessment Notes Treatment Notes Treatment Clinical Notes Section Notes 08/25/2024 Bleeding in early (ICD-10 - O20.9) Plan Of Treatment No Information Progress Notes * Charles RONQUILLOJozefB: 992 (35 yo F)Acc No.[id number]:08/25/2024 Progress Note Patient: Farida Zimmerman Provider: Andrey Bautista NP :1990 A ge:34 Y S ex:Female Date:08/25/2024 Address:[facility] [address], [place] , [id number] Subjective: * Chief Complaints: * e promise OB Bleeding LLQ pain Assessment: * Assessment: 1. B leeding in early - O20.9 Plan: * Treatment: Billing Information: * Procedure Codes: * Electronic signature of Octavio Bautista NP on 11/19/2025 at 09:50 AM EST Sign off status: Pending Visit Status: Nancy RAMÍREZ (Check Out) * Provider: Andrey Bautista NP Date: 0 08/25/2024 Generated for Jesika trevino/Marleny/Amandaitting on: 1 01/20/2025 09:50 AM EST
--- OUTSIDE RECORDS SUMMARY | 2024-12-25 09:15 | XMS_ITS ---
Author Organization [facility] Address [address] [place] [address] Care Team Providers Care Manager Of Disaster Recovery Name Role Phone Henna Matamoros Unavailable [phone] Brandy Barillas Unavailable [phone] REASON FOR VISIT Annual Social History Sex Assigned At : Social History Observation Description Sex Assigned At Female Section Notes: Age you started smokin Amount of Use: Some days but not every day Do you have any bahai or culture customs that your provider should [...] No Encounters Encounter Location Date Provider Diagnosis [facility] [address] [place] [address] 12/25/2024 Brandy Barillas Plan Of Treatment No Information Progress Notes * Charles RONQUILLOJozefB: [birth year] (35 yo F)Acc No.[id number]:12/25/2024 Progress Note Patient: Julia Zimmerman Provider: Errol Barillas MD :1990 A ge:34 Y S ex:Female Date:12/25/2024 Address:[address], [place], [id number] Subjective: * Chief Complaints: * A nnual * Medical History: Asthma Medical History Verified * Security Business Analyst History: P ap Smear History: D ate [...] * Hospitalization/Major Diagno stic Procedure: Admit for [place] 2011 Hospitalization Verified. * Family History: F [...] not every day Do you have any bahai or culture customs that your provider should [...] Electronic signature of Alon Barillas MD on 11/19/2025 at 09:50 AM EST Sign off status: Pending Visit Status: N /S (No-Show) * Provider: Errol Barillas MD Date: 0 12/25/2024 Generated for Jesika trevino/Marleny/Macey on: 01/20/2025 09:50 AM EST
--- OUTSIDE RECORDS SUMMARY | 2025-09-23 08:52 | XMS_ITS | Encounter Summary ---
Author Organization [facility] Address [address] [place] [address] Care Team Providers Care Street Worker Name Role Phone Provider, No Known Primary Care Provider Unavail able Reason for Referral * Diagnostic Imaging (Routine) - Closed Specialty Diagnoses / Procedures Referred By Ritesh winchester Referred To Contact Radiology Diagnoses Uterine size-date discrepancy in second trimester Marginal insertion of umbilical cord affecting management of mother in second trimester 23 weeks gestation of Maternal chronic hypertension in second trimester Procedures US [facility] Diagnostic [place] Brian Wesley MD [address] [place] [address] Phone: tel: fax: [facility] US PER DIAG CTR [address] [place] [address] Phone: tel: Referral ID Status Reason Start Date Expiration Date Visits Re quested Visits Authorized [id number] Closed 09/02/2025 12/02/2026 1 1 Reason for Visit * Diagnostic Imaging (Routine) - Closed Specialty Diagnoses / Procedures Referred By Ritesh winchester Referred To Contact Radiology Diagnoses Uterine size-date discrepancy in second trimester Marginal insertion of umbilical cord affecting management of mother in second trimester 23 weeks gestation of Maternal chronic hypertension in second trimester Procedures US [facility] Diagnostic [place] Brian Wesley MD [address] [address] Phone: tel: fax: [facility] US PER DIAG CTR [address] [place] [address] Phone: tel: Referral ID Status Reason Start Date Expiration Date Visits Re quested Visits Authorized [id number] Closed 09/02/2025 12/02/2026 1 1 Encounter Details Date Type Department Care Team (Late st Contact Info) Description 09/23/2025 9:52 AM EDT - 09/23/2025 11:59 PM EDT Hospital Encounter [facility] CTR [address] [place] [address] Brian Wesley MD [address] [facility] [address] [place] [address] Uterine size-date discrepancy in second trimester; Marginal [...] Description 11/22/2025 10:45 AM EST Office Visit [facility] [address] [facility] [address] [place] [address] 11/22/2025 10:45 AM EST Appointment [facility] US PER DIAG CTR [address] [place] [address] documented as of this encounter Procedures Procedure Name Priority Date/Time Associated Diagnosis Comments [facility] Routine 09/23/2025 10:28 AM EDT Uterine size-date discrepancy in second trimester Marginal insertion of umbilical cord affecting management of mother in second trimester 23 weeks gestation of Maternal chronic hypertension in second trimester documented in this encounter Results * Replaced by [facility] (09/23/2025 10:28 AM EDT) Anatomical Region Laterality Modality Ultrasound 09/23/2025 10:0 6 AM EDT Narrative 09/23/2025 10:58 AM EDT PAT NAME: FARIDA LYNN MED REC#: [id number] DA: [id number] PAT GEND: F PAT TYPE: O EXAM BLAISE: [id number] REF PHYS AMY CORCORAN Comparison Studies The [...] EFW (oz) 12 oz EFW by: Hadlock ([id number]-FL) Extended Tibia 40.1 mm 25w 2d 8% Emeli Fibula 39.3 mm 24w 5d 14% Emeli Foot 47.9 mm 9% Chitty Radius 32.4 mm 23w 1d 13% Emeli Ulna 37.2 mm 24w 5d 1% Emeli Cav. septi pel. tr 5.4 mm Staff Design Engineer 4.1 mm CM 8.6 mm 94% Nicolaides [...] Heart / Thorax 3-vessel view: Appears normal 4-wflwil-evjpnzx view: Appears normal Cord insertion: Normal Stomach: [...] Follow-up scheduled in 2wks. Coding ======= Description: 32220-20 Follow Up Ultrasound Description: 88218-25 Doppler Umbilical Artery Dump Grader: RT Benjamin Hutchison , [facility] Physician: Lis Jeffrey MD Electronically signed by: Lis Jeffrey MD at: 10:58 Procedure Note Lis Jeffrey MD - 09/23/2025 PAT NAME: FARIDA LYNN MED REC#: [id number] DA: [id number] PAT GEND: F PAT TYPE: O EXAM BLAISE: [id number] REF PHYS AMY CORCORAN Comparison Studies The findings of this study are compared to the prior ultrasound studydated 09/02/25 Patient Status Outpatient Indication ======== IUGR. Marginal PCI. Obesity BMI 34. Maternal Assessment Stiwsg905 cm Height (ft)5 ft Height (in)3 in Mhznst57 kg Weight (lb)191 lb BMI33.84 kg/m Method ======= Transabdominal ultrasound examination. View: Suboptimal view: limited byfetal position ========= Botello . Number of fetuses: 1 Dating ====== Method of dating:based on stated PAULA GA by prior dwmjkpfemm96 w + 6 d PAULA by prior assessment:12/24/2025 Ultrasound examination on:09/23/2025 GA by U/S based upon:AC, BPD, Femur, HC GA by U/S25 w + 2 d PAULA by U/S:01/04/2026 Previous dating:based on stated PAULA, selected on 09/02/2025 Agreed PAULA of previous datin12/24/2025 Assigned:based on stated PAULA, selected on 09/23/2025 Assigned GA26 w + 6 d Assigned PAULA:12/24/2025 eujrhi232 d Biometry Standard BPD62.4 mm 25w 2d 4% Hadlock OFD84.3 mm 27w 2d 66% Emeli HC235.6 mm 25w 4d 3% Hadlock Cerebellum tr32.3 mm 27w 4d 87% Hill AC202.9 mm 24w 6d 3% Hadlock Femur46.7 mm 25w 4d 7% Hadlock Llidkai52.5 mm 24w 0d <1% Emeli HC / AC1.16 HSP767 g 25w 0d 3% Hadlock EFW (lb)1 lb EFW (oz)12 oz EFW by:Hadlock ([id number]-[id number]-FL) Extended Tibia40.1 mm 25w 2d 8% Emeli Znusrn69.3 mm 24w 5d 14% Emeli Foot47.9 mm 9% Chitty Fqdyxw24.4 mm 23w 1d 13% Emeli Ulna37.2 mm 24w 5d 1% Emeli Cav. septi pel. tr5.4 mm Vp4.1 mm CM8.6 mm 94% Nicolaides Head / Face / Neck Cephalic index0.74 8% Nicolaides Extremities / Bony Struc FL / BPD0.75 FL / HC0.20 FL / AC0.23 Other Structures NKO894 bpm General Evaluation Cardiac activity present. FHR [...] normal Heart / Thorax 3-vessel view:Appears normal 4-qnzxmt-ndjaxdh view:Appears normal Cord insertion:Normal Stomach:Appears normal Kidneys:Appears normal Bladder:Appears normal Gender:female Wants to know gender:yes Maternal Structures Uterus / Cervix Cervix:Visualized Approach:Transabdominal Cervical yhnvib28.3 mm Doppler Arterial Umbilical A PI1.15 71% [...] Recommendation Follow-up scheduled in 2wks. Coding ======= Description:37962-94 Follow Up Ultrasound Description:19029-03 Doppler Umbilical Artery Dump Grader: RT Benjamin Hutchison , [facility] Physician: Lis Jeffrey MD Electronically [...] trimester documented in this encounter Care Teams Street Worker Relationship Specialty Start Date End Date Provider, No Known [place] [id number] PCP - General 08/19/24 documented as of this encounter
--- OUTSIDE RECORDS SUMMARY | 2025-09-23 09:15 | XMS_ITS | Encounter Summary ---
Author Organization [facility] Address [address] [address] Care Team Providers Care Belt Operator Name Role Phone Provider, No Known Primary [...] unspecified fetus 26 weeks gestation of Procedures [facility] Lis Jeffrey MD [address] [address] Phone: tel: fax: Referral ID Status Reason Start Date Expiration Date Visits Re quested Visits Authorized [id number] Closed 09/23/2025 12/23/2026 1 1 Reason for Visit * Reason Comments IUGR, MPCI Encounter Details Date Type Department Care Team (Late st Contact Info) Description 09/23/2025 10:15 AM EDT Office Visit [facility]ERNAL MEDICINE [address] [facility] [address] [place] [phone] Lis Jeffrey MD [address] [facility] [address] [place], [place] [address] Marginal insertion of umbilical cord affecting management [...] of mother in second trimester (Primary) - [facility]; Future 2. Maternal chronic hypertension [...] Follow-up scheduled here in 2wks Orders: - [facility]; Future 3. Poor growth affecting management of mother in third trimester, single or unspecified fetus Assessment & Plan: Growth improved somewhat on today's exam. - Follow-up scheduled in 2wks - Continue Nifedipine and ASA 81mgs - If BP's begin to creep up so consistently >130/80, will consider changing to BID Orders: - [facility]; Future 4. 26 weeks gestation of - [facility]; Future Follow Up Return in [...] Description 11/22/2025 10:45 AM EST Office Visit [facility] MATERNAL MEDICINE [address] [facility] [address] [place] [address] 11/22/2025 10:45 AM EST Appointment [facility] [address] [place] [address] documented as of this encounter Results * [facility] (10/11/2025 10:30 AM EST) Anatomical Region Laterality Modality Ultrasound 10/11/2025 9:59 AM EST Narrative 10/12/2025 7:46 PM EST PAT NAME: FARIDA LYNN MED REC#: [id number] DA: 1990 PAT GEND: F PAT TYPE: O EXAM BLAISE: [id number] REF PHYS AMY CONLEY Comparison Studies The [...] EFW (oz) 5 oz EFW by: Hadlock (BRH-QI-GO-FL) Extended Cav. septi pel. tr 5.7 mm Internist Medical Doctor Md 5.0 mm CM 7.1 mm 55% Nicolaides [...] Normal Heart / Thorax 3-vessel view: Normal 3-szvghj-odentpx view: normal Cord insertion: Normal Stomach: Appears [...] normal Marginal cord insertion Coding ======= Description: 87355-14 Follow Up Ultrasound Description: 76917-68 BPP without NST Description: 00986-69 Doppler Umbilical Artery Patient Service Technician Pst: Albina Roberts RDMS Physician: Danielle Allen MD, FACOG Electronically signed by: Danielle Allen MD, FACOG at: 19:46 Procedure Note Danielle Allen MD - 10/12/2025 PAT NAME: FARIDA LYNN MED REC#: [id number] DA: 1990 PAT GEND: F PAT TYPE: O EXAM BLAISE: [id number] REF PHYS AMY CONLEY Comparison Studies The findings of this study are compared to the prior ultrasound studydated 09/23/2025 Patient Status Outpatient Indication ======== IUGR. Marginal PCI. Obesity BMI 34. Maternal Assessment Uykvcn374 cm Height (ft)5 ft Height (in)3 in Zqvmnb38 kg Weight (lb)194 lb BMI34.38 kg/m Method ======= Transabdominal ultrasound examination. View: Good view ========= Botello . Number of fetuses: 1 Dating ====== Method of dating:based on stated PAULA GA by prior syfsjngonp90 w + 3 d PAULA by prior assessment:12/24/2025 Ultrasound examination on:10/11/2025 GA by U/S based upon:AC, BPD, Femur, HC GA by U/S27 w + 3 d PAULA by U/S:01/07/2026 Previous dating:based on stated PAULA, selected on 09/23/2025 Agreed PAULA of previous datin12/24/2025 Assigned:based on stated PAULA, selected on 10/11/2025 Assigned GA29 w + 3 d Assigned PAULA:12/24/2025 d Biometry Standard BPD68.2 mm 27w 3d 2% Hadlock OFD92.9 mm 30w 0d 65% Emeli HC258.2 mm 28w 0d 2% Hadlock Cerebellum tr35.3 mm 29w 3d 50% Hill AC227.3 mm 27w 1d 2% Hadlock Femur50.5 mm 27w 1d 1% Hadlock Qleqnbm47.3 mm 25w 3d <1% Emeli HC / AC1.14 EFW1,044 g 26w 6d 2% Hadlock EFW (lb)2 lb EFW (oz)5 oz EFW by:Hadlock (NBK-FU-AS-FL) Extended Cav. septi pel. tr5.7 mm Vp5.0 mm CM7.1 mm 55% Nicolaides Head / Face / Neck Cephalic index0.73 5% Nicolaides Extremities / Bony Struc FL / BPD0.74 FL / HC0.20 FL / AC0.22 Other Structures TFH959 bpm General Evaluation Cardiac activity present. FHR [...] LVOT view:Normal Heart / Thorax 3-vessel view:Normal 3-lyewuw-oxmffko view:normal Cord insertion:Normal Stomach:Appears normal Kidneys:Appears normal Bladder:Appears normal Gender:female Wants to know gender:yes Maternal Structures Uterus / Cervix Cervical amewcy70.7 mm Doppler Arterial Umbilical A PI0.97 51% Jolanta Umbilical A RI0.63 41% Jolanta Umbilical A PS-37.14 cm/s Umbilical A ED-14.51 cm/s Umbilical A TAmax-24.65 cm/s Umbilical A MD-14.35 cm/s Umbilical A S / D2.72 38% Jolanta Umbilical A HR153 bpm Biophysical Profile 2: breathing movements 2: Gross body movements 2: tone 2: Amniotic fluid volume 8 Biophysical profile score Consultation / Office Visit Office note to follow Impression Breech Severe IUGR noted Normal appearing limited anatomy Normal fluid BPP 8/8 UA doppler normal Marginal cord insertion Coding ======= Description:91105-75 Follow Up Ultrasound Description:06042-06 BPP without NST Description:51522-14 Doppler Umbilical Artery Patient Service Technician Pst: Albina Roberts RDMS Physician: Danielle Allen MD, FACOG Electronically signed by: Danielle Allen MD, FACOG at: 1119:46 us Lis Jeffrey MD IMG US ORDERABLES [...] of documented in this encounter Care Teams Belt Operator Relationship Specialty Start Date End Date Provider, [place] [address] PCP - General 08/19/24 documented as of this encounter
--- OUTSIDE RECORDS SUMMARY | 2025-10-11 09:44 | XMS_ITS | Encounter Summary ---
Author Organization [facility] Address [address] [place] [address] Care Team Providers Care Binder Technician Name Role Phone Provider, No Known [...] gestation of Procedures [facility] Diagnostic [place] Lis Jeffrey MD [address] [place] [address] Phone: tel: fax: Referral ID Status Reason Start Date Expiration Date Visits Re quested Visits Authorized [id number] Closed 09/23/2025 12/23/2026 1 1 Reason for [...] gestation of Procedures [facility] [place] Lis Jeffrey MD [address] [id number] Phone: tel: fax: Referral ID Status Reason Start Date Expiration Date Visits Re quested Visits Authorized [id number] Closed 09/23/2025 12/23/2026 1 1 Encounter Details Date Type Department Care Team (Late st Contact Info) Description 10/11/2025 9:44 AM EST - 10/11/2025 11:59 PM [facility] Hospital Encounter [facility] PER DIAG CTR [address] [place] [address] Lis Jeffrey MD [address] [place] [address] Marginal insertion of umbilical cord [...] Description 11/22/2025 10:45 AM EST Office Visit [facility] [address] [facility] [address] [place] [address] 11/22/2025 10:45 AM EST Appointment [facility] US PER DIAG CTR [address] [place] [address] documented as of this encounter Procedures Procedure Name Priority Date/Time Associated Diagnosis Comments [facility] Routine 10/11/2025 10:30 AM EST Marginal insertion of umbilical cord affecting management of mother in second trimester Maternal chronic hypertension in second trimester Poor growth affecting management of mother in third trimester, single or unspecified fetus 26 weeks gestation of documented in this encounter Results * [facility] (10/11/2025 10:30 AM EST) Anatomical Region Laterality Modality Ultrasound 10/11/2025 9:59 AM EST Narrative 10/12/2025 7:46 PM EST PAT NAME: FARIDA LYNN MED REC#: [id number] DA: 1990 PAT GEND: F PAT TYPE: O EXAM BLAISE: [id number] REF PHYS AMY CORCORAN Comparison Studies The [...] EFW (oz) 5 oz EFW by: Hadlock (ENH-PD-NB-FL) Extended Cav. septi pel. tr 5.7 mm Aquacultural Worker Supervisor 5.0 mm CM 7.1 mm 55% Nicolaides [...] Normal Heart / Thorax 3-vessel view: Normal 7-wtryag-hiyglas view: normal Cord insertion: Normal Stomach: Appears [...] normal Marginal cord insertion Coding ======= Description: 96638-24 Follow Up Ultrasound Description: 30081-63 BPP without NST Description: 55744-16 Doppler Umbilical Artery [place] Linebacker Crewmember: Albina Roberts RDMS Physician: Danielle Allen MD, FACOG Electronically signed by: Danielle Allen MD, FACOG at: 19:46 Procedure Note Danielle Allen MD - 10/12/2025 PAT NAME: FARIDA LYNN [facility] REC#: [id number] DA: 1990 PAT GEND: F PAT TYPE: O EXAM BLAISE: [id number] REF PHYS AMY CORCORAN Comparison Studies The findings of this study are compared to the prior ultrasound studydated 09/23/2025 Patient Status Outpatient Indication ======== IUGR. Marginal PCI. Obesity BMI 34. Maternal Assessment Jqyvku505 cm Height (ft)5 ft Height (in)3 in Ijprkx55 kg Weight (lb)194 lb BMI34.38 kg/m Method ======= Transabdominal ultrasound examination. View: Good view ========= Botello . Number of fetuses: 1 Dating ====== Method of dating:based on stated PAULA GA by prior povkggzxqy29 w + 3 d PAULA by prior assessment:12/24/2025 Ultrasound examination on:10/11/2025 GA by U/S based upon:AC, BPD, Femur, HC GA by U/S27 w + 3 d PAULA by U/S:01/07/2026 Previous dating:based on stated PAULA, selected on 09/23/2025 Agreed PAULA of previous datin12/24/2025 Assigned:based on stated PAULA, selected on 10/11/2025 Assigned GA29 w + 3 d Assigned PAULA:12/24/2025 bhfadq249 d Biometry Standard BPD68.2 mm 27w 3d 2% Hadlock OFD92.9 mm 30w 0d 65% Emeli HC258.2 mm 28w 0d 2% Hadlock Cerebellum tr35.3 mm 29w 3d 50% Hill AC227.3 mm 27w 1d 2% Hadlock Femur50.5 mm 27w 1d 1% Hadlock Dacqdoe60.3 mm 25w 3d <1% Emeli HC / AC1.14 EFW1,044 g 26w 6d 2% Hadlock EFW (lb)2 lb EFW (oz)5 oz EFW by:Hadlock (DPZ-LH-CW-FL) Extended Cav. septi pel. tr5.7 mm Vp5.0 mm CM7.1 mm 55% Nicolaides Head / Face / Neck Cephalic index0.73 5% Nicolaides Extremities / Bony Struc FL / BPD0.74 FL / HC0.20 FL / AC0.22 Other Structures VXE173 bpm General Evaluation Cardiac activity present. FHR [...] LVOT view:Normal Heart / Thorax 3-vessel view:Normal 6-nxfpwm-ozwvjpl view:normal Cord insertion:Normal Stomach:Appears normal Kidneys:Appears normal Bladder:Appears normal Gender:female Wants to know gender:yes Maternal Structures Uterus / Cervix Cervical dsfmyb70.7 mm Doppler Arterial Umbilical A PI0.97 51% [...] BPP without NST Description: Doppler Umbilical Artery Bradley Linebacker Crewmember: Albina Roberts RDMS Physician: Danielle Allen MD, [...] of documented in this encounter Care Teams Binder Technician Relationship Specialty Start Date End Date Provider, No Known [place] [address] PCP - General 08/19/24 documented as of this encounter
--- OUTSIDE RECORDS SUMMARY | 2025-10-11 10:15 | XMS_ITS | Encounter Summary ---
Author Organization [facility] Address [address] [phone] Care Team Providers Care Docking Saw Operator Name Role Phone Provider, No Known Primary Care Provider Unavail able Reason for Referral * Diagnostic Imaging (Routine) - Closed Specialty Diagnoses / Procedures Referred By Ritesh t Referred To Contact Radiology Diagnoses Poor growth affecting management of mother in third trimester, single or unspecified fetus Maternal chronic hypertension in second trimester Procedures [facility] Danielle Allen MD [address] [address] Phone: tel: fax: Referral ID Status Reason Start Date Expiration Date Visits Re quested Visits Authorized [id number] Closed 10/13/2025 01/12/2027 1 1 Reason for Visit * Reason Comments IUGR, Marginal Cord Insertion, MO Encounter Details Date Type Department Care Team (Late st Contact Info) Description 10/11/2025 10:15 AM EST Office Visit [facility] [facility] [address] [place] [phone] Danielle Allen MD [address] [phone] Poor growth affecting management of mother in [...] weeks testing in your office Orders: - [facility]; Future 2. Maternal chronic hypertension in second trimester - [facility]; Future Follow Up 1 [...] [facility]. Danielle Allen MD FACOG Maternal Medicine, [facility] 10/11/2025 documented in this encounter Plan of Treatment Upcoming Encounters Date Type Department Care Team (Late st Contact Info) Description 11/22/2025 10:45 AM EST Office Visit [facility] [address]00 [facility] [address] [place] [address] 11/22/2025 10:45 AM EST Appointment [facility] [address] [place] [address] documented as of this encounter Results * [facility] (10/18/2025 10:21 AM EST) Anatomical Region Laterality Modality Ultrasound 10/18/2025 9:57 AM EST Narrative 10/18/2025 10:27 AM EST PAT NAME: FARIDA LYNN [facility] REC#: [id number] DA: [id number] PAT GEND: F PAT TYPE: O EXAM BLAISE: [id number] REF PHYS AMY CONLEY Comparison Studies The [...] amniotic fluid volume Normal umbilical Dopplers BPP 8/8 Recommendation Follow up in 1 week. Recommend weekly NSTs in your office. Coding ======= Description: 37097-57 BPP without NST Description: 78697-18 Doppler Umbilical Artery Mail Carrier And Clerk: Eunice Manning RDMS Physician: Jung Angeles MD, FACOG Electronically signed by: Jung Angeles MD, FACOG at: 10:27 Procedure Note Jung Angeles MD - 10/18/2025 PAT NAME: FARIDA LYNN MED REC#: [id number] DA: 1990 PAT GEND: F PAT TYPE: O EXAM BLAISE: [id number] REF PHYS AMY CONLEY Comparison Studies The findings of this study are compared to the prior ultrasound studydated 10/11/25 Patient Status Outpatient Indication ======== IUGR. Marginal PCI. Obesity BMI 34. Maternal Assessment Quvwag132 cm Height (ft)5 ft Height (in)3 in Exxalw76 kg Weight (lb)196 lb BMI34.73 kg/m Method ======= Transabdominal ultrasound examination ========= Botello . Number of fetuses: 1 Dating ====== Method of dating:based on stated PAULA GA by prior [id number] w + 3 d PAULA by prior [...] amniotic fluid volume Normal umbilical Dopplers BPP 8/8 Recommendation Follow up in 1 week. Recommend weekly NSTs in your office. Coding ======= Description:40485-88 BPP without NST Description:89616-99 Doppler Umbilical Artery Mail Carrier And Clerk: Eunice Manning RDMS Physician: Jung Angeles MD, [...] trimester documented in this encounter Care Teams Docking Saw Operator Relationship Specialty Start Date End Date Provider, [place] [address] PCP - General 08/19/24 documented as of this encounter
--- OUTSIDE RECORDS SUMMARY | 2025-10-18 09:34 | XMS_ITS | Encounter Summary ---
Author Organization [facility] Address [address] [id number] Care Team Providers Care Ocean Export Coordinator Name Role Phone Provider, No Known Primary Care Provider Unavail able Reason for Referral * Diagnostic Imaging (Routine) - Closed Specialty Diagnoses / Procedures Referred By Ritesh winchester Referred To Contact Radiology Diagnoses Poor growth affecting management of mother in third trimester, single or unspecified fetus Maternal chronic hypertension in second trimester Procedures [facility] Diagnostic [place] Danielle Allen MD [address] [facility] [place] [address] Phone: tel: fax: Referral ID Status Reason Start Date Expiration Date Visits Re quested Visits Authorized [id number] Closed 10/13/2025 01/12/2027 1 1 Reason for Visit * Diagnostic Imaging (Routine) - Closed Specialty Diagnoses / Procedures Referred By Ritesh winchester Referred To Contact Radiology Diagnoses Poor growth affecting management of mother in third trimester, single or unspecified fetus Maternal chronic hypertension in second trimester Procedures [facility] Diagnostic [place] Danielle Allen MD [address] [place] [address] Phone: tel: fax: Referral ID Status Reason Start Date Expiration Date Visits Re quested Visits Authorized [id number] Closed 10/13/2025 01/12/2027 1 1 Encounter Details Date Type Department Care Team (Late st Contact Info) Description 10/18/2025 9:34 AM EST - 10/18/2025 11:59 PM EST Hospital Encounter [facility] [address] [place] [address] Danielle Allen MD [address] [place] [address] Poor growth affecting management of mother in [...] Description 11/22/2025 10:45 AM EST Office Visit [facility] [address] [facility] [address] [place] [address] 11/22/2025 10:45 AM EST Appointment [facility] PER [facility] [address] [place] [address] documented as of this encounter Procedures Procedure Name Priority Date/Time Associated Diagnosis Comments [facility] Routine 10/18/2025 10:21 AM EST Poor growth affecting management of mother in third trimester, single or unspecified fetus Maternal chronic hypertension in second trimester documented in this encounter Results * On license of [facility] (10/18/2025 10:21 AM EST) Anatomical Region Laterality Modality Ultrasound 10/18/2025 9:57 AM EST Narrative 10/18/2025 10:27 AM EST PAT NAME: FARIDA LYNN MED REC#: [id number] DA: [id number] PAT GEND: F PAT TYPE: O EXAM BLAISE: [id number] REF PHYS AMY CORCORAN Comparison Studies The [...] NSTs in your office. Coding ======= Description: 26882-02 BPP without NST Description: 24299-80 Doppler Umbilical Artery Rn Anesthetist: Eunice Manning RDMS Physician: Jung Angeles MD, FACOG Electronically signed by: Jung Angeles MD, FACOG at: 10:27 Procedure Note Jung Angeles MD - 10/18/2025 PAT NAME: FARIDA LYNN MED REC#: [id number] DA: 1990 PAT GEND: F PAT TYPE: O EXAM BLAISE: [id number] REF PHYS AMY CORCORAN Comparison Studies The findings of this study are compared to the prior ultrasound studydated 10/11/25 Patient Status Outpatient Indication ======== IUGR. Marginal PCI. Obesity BMI 34. Maternal Assessment Zfgifj314 cm Height (ft)5 ft Height (in)3 in Vydrau93 kg Weight (lb)196 lb BMI34.73 kg/m Method ======= Transabdominal ultrasound examination ========= Botello . Number of fetuses: 1 Dating ====== Method of dating:based on stated PAULA GA by prior [id number] w + 3 d PAULA by prior assessment:12/24/2025 Previous dating:based on stated PAULA, selected on 10/11/2025 Agreed PAULA of previous datin12/24/2025 Assigned:based on stated PAULA, selected on 10/18/2025 Assigned GA30 w + 3 d Assigned PAULA:12/24/2025 [id number] d General Evaluation Cardiac activity present. FHR [...] Amniotic fluid volume 8 Biophysical profile score Doppler Arterial Umbilical A [...] weekly NSTs in your office. Coding ======= Description:97322-40 BPP without NST Description:34405-55 Doppler Umbilical Artery Rn Anesthetist: Eunice Manning RDMS Physician: Jung Angeles MD, FACOG Electronically signed by: Jung Angeles MD, FACOG at: 10:27 us Danielle Allen MD IM[facility] US ORDERABLES Final Result documented in this encounter Visit Diagnoses Diagnosis Poor growth affecting management of mother in third trimester, single or unspecified fetus Maternal chronic hypertension in second trimester documented in this encounter Care Teams Ocean Export Coordinator Relationship Specialty Start Date End Date Provider, [place] [address] PCP - General 08/19/24 documented as of this encounter
--- OUTSIDE RECORDS SUMMARY | 2025-10-18 10:15 | XMS_ITS | Encounter Summary ---
Author Organization [facility] Address [address] [id number] Care Team Providers Care Drug Safety Assistant Name Role Phone Provider, No Known Primary Care Provider Unavail able Reason for Referral * Diagnostic Imaging (Routine) - Authorized Specialty Diagnoses / Procedures Referred By Contac t Referred To Contact Radiology Diagnoses Poor growth affecting management of mother in third trimester, single or unspecified fetus Maternal chronic hypertension in third trimester Procedures [facility] Jung Angeles MD [address] [facility] [address] [place] [address] Phone: tel: fax: Referral ID Status Reason Start Date Expiration Date V isits Requested Visits Authorized [id number] Authorized 10/18/2025 01/17/2027 5 5 Reason for Visit * Reason Comments IUGR, MPCI, MO GHTN Encounter Details Date Type Department Care Team (Late st Contact Info) Description 10/18/2025 10:15 AM EST Office Visit [facility] [address] [place] [address] Jung Angeles MD [address] [place] [address] Poor growth affecting management of mother in [...] Description 11/22/2025 10:45 AM EST Office Visit [facility] [address] [facility] [address] [place] [address] 11/22/2025 10:45 AM EST Appointment [facility] US PER DI[facility] [address] [place] [phone] Scheduled Orders Name Type Priority Associated Diagnoses Orde r Schedule [facility] [place] Imaging Routine Poor growth affecting management of mother in third trimester, single or unspecified fetus Maternal chronic hypertension in third trimester Once a week for 5 Occurrences starting 10/18/2025 until 10/18/2026, 2 completed documented as of this encounter Results * [facility] (11/08/2025 11:32 AM EST) Anatomical Region Laterality Modality Ultrasound 11/08/2025 10:5 3 AM EST Narrative 11/08/2025 11:43 AM EST PAT NAME: FARIDA LYNN MED REC#: [id number] DA: [id number] PAT GEND: F PAT TYPE: O EXAM BLAISE: [id number] REF PHYS SARAH CONLEYLEY Comparison Studies The [...] EFW (oz) 9 oz EFW by: Hadlock ([id number]-[id number]-FL) Extended Cav. septi pel. tr 5.7 mm Psychologist 5.4 mm CM 7.0 mm 39% Nicolaides [...] Normal Heart / Thorax 3-vessel view: Normal 3-ekalbe-upuslsu view: normal Cord insertion: Normal Stomach: Appears [...] Consultation / Office Visit Type: Consultation See [facility] for full consult note. Impression [...] an earlier indication arises Coding ======= Description: 20069-82 Follow Up Ultrasound Description: 73493-56 BPP without NST Description: 63025-78 Doppler Umbilical Artery Tenant Selector: Hoa Crump RDMS Physician: Ed Ng MD Electronically signed by: Ed Ng MD at: 11:43 Procedure Note Ed Ng MD - 11/08/2025 PAT NAME: FARIDA LYNN MED REC#: [id number] DA: 1990 PAT GEND: F PAT TYPE: O EXAM BLAISE: [id number] REF PHYS AMY CONLEY Comparison Studies The findings of this study are compared to the prior ultrasound studydated Patient Status Outpatient Indication ======== IUGR. Marginal PCI. Obesity BMI 35. Maternal Assessment Fyhdlr380 cm Height (ft)5 ft Height (in)3 in Epkjbv70 kg Weight (lb)200 lb BMI35.44 kg/m Method ======= Transabdominal ultrasound examination. View: Adequate view ========= Botello . Number of fetuses: 1 Dating ====== Method of dating:based on stated PAULA GA by prior ffijjrlqti22 w + 3 d PAULA by prior assessment:12/24/2025 Ultrasound examination on:11/08/2025 GA by U/S based upon:AC, BPD, Femur, HC GA by U/S31 w + 0 d PAULA by U/S:01/10/2026 Previous dating:based on stated PAULA, selected on 10/18/2025 Agreed PAULA of previous datin12/24/2025 Assigned:based on stated PAULA, selected on 11/08/2025 Assigned GA33 w + 3 d Assigned PAULA:12/24/2025 bzupbg191 d Biometry Standard BPD77.4 mm 31w 0d 2% Hadlock UDW464.1 mm 34w 4d 72% Emeli HC291.2 mm 32w 1d 2% Hadlock Cerebellum tr43.2 mm 33w 5d 37% Hill AC264.4 mm 30w 4d 1% Hadlock Femur58.0 mm 30w 2d <1% Hadlock HC / AC1.10 EFW1,619 g 30w 2d 2% Hadlock EFW (lb)3 lb EFW (oz)9 oz EFW by:Hadlock (AJL-HA-HO-FL) Extended Cav. septi pel. tr5.7 mm Vp5.4 mm CM7.0 mm 39% Nicolaides Nasal bone11.1 mm Head / Face / Neck Cephalic index0.74 3% Nicolaides Extremities / Bony Struc FL / BPD0.75 FL / HC0.20 FL / AC0.22 Other Structures KHS759 bpm General Evaluation Cardiac activity present. FHR [...] LVOT view:Normal Heart / Thorax 3-vessel view:Normal 5-zdxsca-hdknguc view:normal Cord insertion:Normal Stomach:Appears normal Kidneys:Appears normal [...] Consultation / Office Visit Type: Consultation See [facility] for full consult note. Impression [...] week, unless an earlier indicationarises Coding ======= Description:51485-64 Follow Up Ultrasound Description:89256-52 BPP without NST Description:21227-91 Doppler Umbilical Artery Tenant Selector: Hoa Crump RDMS Physician: Ed Ng MD Electronically signed by: Ed Ng MD at: 11:43 us Jung Angeles MD IMG US ORDERABLES Final Result * [facility] (10/25/2025 11:18 AM EST) Anatomical Region Laterality Modality Ultrasound 10/25/2025 10:4 2 AM EST Narrative 10/25/2025 11:26 AM EST PAT NAME: FARIDA LYNN MED REC#: [id number] DA: 1990 PAT GEND: F PAT TYPE: O EXAM BLAISE: [id number] REF PHYS AMY CONLEY Comparison Studies The [...] EFW (oz) 0 oz EFW by: Hadlock (WKD-FX-UH-FL) Extended Cav. septi pel. tr 5.9 mm Psychologist 3.4 mm CM 7.4 mm 56% Nicolaides [...] Normal Heart / Thorax 3-vessel view: Normal 5-gvmeyx-znnyqlq view: normal Cord insertion: Normal Stomach: Appears [...] here in 2 weeks. Coding ======= Description: 67011-05 Follow Up Ultrasound Description: 24142-34 BPP without NST Description: 72496-07 Doppler Umbilical Artery Tenant Selector: Tiki Ta RDMS Physician: Jung Angeles MD, FACOG Electronically signed by: Jung Angeles MD, FACOG at: 11:26 Procedure Note Jung Angeles MD - 10/25/2025 PAT NAME: FARIDA LYNN MED REC#: [id number] DA: 1990 PAT GEND: F PAT TYPE: O EXAM BLAISE: [id number] REF PHYS AMY CONLEY Comparison Studies The findings of this study are compared to the prior ultrasound studydated 10/18/25. Patient Status Outpatient Indication ======== IUGR. Marginal PCI. Obesity BMI 35. Maternal Assessment Lvwpgf108 cm Height (ft)5 ft Height (in)3 in Rprghg98 kg Weight (lb)197 lb BMI34.91 kg/m Method ======= Transabdominal ultrasound examination ========= Botello . Number of fetuses: 1 Dating ====== GA by prior efpyrntqrm59 w + 3 d PAULA by prior [...] GA31 w + 3 d Assigned PAULA:12/24/2025 ryineg722 d Biometry Standard BPD73.0 mm 29w 2d 2% Hadlock OFD98.4 mm 31w 6d 60% Emeli HC274.2 mm 30w 0d 1% Hadlock Cerebellum tr39.3 mm 31w 5d 40% Hill AC249.9 mm 29w 1d 3% Hadlock Femur55.2 mm 29w 1d 2% Hadlock Wqaaskw72.3 mm 29w 0d 3% Emeli HC / AC1.10 EFW1,361 g 28w 6d 3% Hadlock EFW (lb)3 lb EFW (oz)0 oz EFW by:Hadlock (TYY-EP-YA-FL) Extended Cav. septi pel. tr5.9 mm Vp3.4 mm CM7.4 mm 56% Nicolaides Head / Face / Neck Cephalic index0.74 6% Nicolaides Extremities / Bony Struc FL / BPD0.76 FL / HC0.20 FL / AC0.22 Other Structures MNZ576 bpm General Evaluation Cardiac activity present. FHR [...] LVOT view:Normal Heart / Thorax 3-vessel view:Normal 5-fyyefu-lsohtrw view:normal Cord insertion:Normal Stomach:Appears normal Kidneys:Appears normal [...] up here in 2 weeks. Coding ======= Description:67035-95 Follow Up Ultrasound Description:53569-37 BPP without NST Description:06944-91 Doppler Umbilical Artery Tenant Selector: Tiki Ta RDMS Physician: Jung Angeles MD, FACOG Electronically signed by: Jung Angeles MD, FACOG at: 11:26 us Jung Angeles MD IMG US ORDERABLES Final Result documented in this encounter Visit Diagnoses Diagnosis Poor growth affecting management of mother in third trimester, single or unspecified fetus- Primary Maternal chronic hypertension in third trimester documented in this encounter Care Teams Drug Safety Assistant Relationship Specialty Start Date End Date Provider, [place] [address] PCP - General 08/19/24 documented as of this encounter
--- OUTSIDE RECORDS SUMMARY | 2025-10-25 09:49 | XMS_ITS | Encounter Summary ---
Author Organization [facility] Address [address] [place] [address] Care Team Providers Care Cat Tender Name Role Phone Provider, No Known Primary Care Provider Unavail able Reason for Visit * Diagnostic Imaging (Routine) - Authorized Specialty Diagnoses / Procedures Referred By Ritesh t Referred To Contact Radiology Diagnoses Poor growth affecting management of mother in third trimester, single or unspecified fetus Maternal chronic hypertension in third trimester Procedures [facility] Angeles, Jung Harmon MD [address] [facility] [address] [place] [address] Phone: tel: fax: Referral ID Status Reason Start Date Expiration Date V isits Requested Visits Authorized [id number] Authorized 10/18/2025 01/17/2027 5 5 Encounter Details Date Type Department Care Team (Latest Contact Info) Description 10/25/2025 9:49 AM EST - 10/25/2025 11:59 PM [facility] Hospital Encounter [facility] US PER DIAG CTR [address] [place] [address] Amy Conley, DO [address] [address] Discharge Disposition: Home or Self Care Social [...] Description 11/22/2025 10:45 AM EST Office Visit [facility] MATERNAL MEDICINE [address] [place] [address] 11/22/2025 10:45 AM EST Appointment [facility] PER DIAG CTR [address] [place] [address] documented as of this encounter Procedures Procedure Name Priority Date/Time Associated Diagnosis Comments [facility] Routine 10/25/2025 11:18 AM EST Poor growth affecting management of mother in third trimester, single or unspecified fetus Maternal chronic hypertension in third trimester documented in this encounter Results * [facility] (10/25/2025 11:18 AM EST) Anatomical Region Laterality Modality Ultrasound 10/25/2025 10:4 2 AM EST Narrative 10/25/2025 11:26 AM EST PAT NAME: FARIDA LYNN MED REC#: [id number] DA: 1990 PAT GEND: F PAT TYPE: O EXAM BLAISE: [id number] REF PHYS AMY CONLEY Comparison Studies The [...] GA 31 w + 3 d Assigned PUALA: 12/24/2025 length 280 d Biometry Standard BPD [...] EFW (oz) 0 oz EFW by: Hadlock (EPF-PD-UT-FL) Extended Cav. septi pel. tr 5.9 mm Basketballs And Footballs Reverser 3.4 mm CM 7.4 mm 56% Nicolaides [...] Normal Heart / Thorax 3-vessel view: Normal 6-kvgazh-azamymj view: normal Cord insertion: Normal Stomach: Appears [...] here in 2 weeks. Coding ======= Description: 11855-35 Follow Up Ultrasound Description: 30987-75 BPP without NST Description: 38304-50 Doppler Umbilical Artery Master Dyer: Tiki Ta RDMS Physician: Jung Angeles MD, FACOG Electronically signed by: Jung Angeles MD, FACOG at: 11:26 Procedure Note Jung Angeles MD - 10/25/2025 PAT NAME: FARIDA LYNN MED REC#: [id number] DA: [id number] PAT GEND: F PAT TYPE: O EXAM BLAISE: [id number] REF PHYS AMY CONLEY Comparison Studies The findings of this study are compared to the prior ultrasound studydated 10/18/25. Patient Status Outpatient Indication ======== IUGR. Marginal PCI. Obesity BMI 35. Maternal Assessment Dlqqnt887 cm Height (ft)5 ft Height (in)3 in Tsamfi67 kg Weight (lb)197 lb BMI34.91 kg/m Method [...] Hadlock Femur55.2 mm 29w 1d 2% Hadlock Bvlfdoe31.3 mm 29w 0d 3% Emeli HC / AC1.10 EFW1,361 g 28w 6d 3% Hadlock EFW (lb)3 lb EFW (oz)0 oz EFW by:Hadlock (KMI-QO-UD-FL) Extended Cav. septi pel. tr5.9 mm Vp3.4 mm CM7.4 mm 56% Nicolaides Head / Face / Neck Cephalic index0.74 6% Nicolaides Extremities / Bony Struc FL / BPD0.76 FL / HC0.20 FL / AC0.22 Other Structures ZVS191 bpm General Evaluation Cardiac activity present. FHR [...] LVOT view:Normal Heart / Thorax 3-vessel view:Normal 8-yrkolc-hgolfyd view:normal Cord insertion:Normal Stomach:Appears normal Kidneys:Appears normal [...] up here in 2 weeks. Coding ======= Description:30554-55 Follow Up Ultrasound Description:77648-92 BPP without NST Description:86854-86 Doppler Umbilical Artery Master Dyer: Tiki Ta RDMS Physician: Jung Angeles MD, FACOG Electronically signed by: Jung Angeles MD, FACOG at: 11:26 us Jung Angeles MD IMG ORDERABLES Final Result documented in this encounter Visit Diagnoses Not on filedocumented in this encounter Care Teams Cat Tender Relationship Specialty Start Date End Date Provider, [place] [address] PCP - General 08/19/24 documented as of this encounter
--- OUTSIDE RECORDS SUMMARY | 2025-10-25 10:15 | XMS_ITS | Encounter Summary ---
Author Organization [facility] Address [address] [place] [address] Care Team Providers Care Soccer Coach Name Role Phone Provider, No Known Primary Care Provider Unavail able Reason for Visit * Reason Comments IUGR, marginal PCI, obesity Encounter Details Date Type Department Care Team (Late st Contact Info) Description 10/25/2025 10:15 AM EST Office Visit [facility] MATERNAL MEDICINE [address] [place] [phone] Jung Angeles MD [address] [facility] [address] [place] [address] Poor growth affecting management of mother in [...] Dopplers. Patient reports twice-weekly testing with primary ASSISTANT PRODUCTION MANAGER and given 1 of these being performed [...] Dopplers. Patient reports twice-weekly testing with primary ASSISTANT PRODUCTION MANAGER and given 1 of these being performed [...] [facility] Jung Angeles MD, FACOG Maternal Medicine, [facility] documented in this encounter Plan of Treatment Upcoming Encounters Date Type Department Care Team (Late st Contact Info) Description 11/22/2025 10:45 AM EST Office Visit [facility] MATERNAL MEDICINE [address] [facility] [address] [place] [address] 11/22/2025 10:45 AM EST Appointment [facility] PER DI[facility] [address] [place] [address] documented as of this encounter Visit Diagnoses Diagnosis Poor growth affecting management of mother in third trimester, single or unspecified fetus- Primary Maternal chronic hypertension in third trimester documented in this encounter Care Teams Soccer Coach Relationship Specialty Start Date End Date Provider, [place] [address] PCP - General 08/19/24 documented as of this encounter
--- OUTSIDE RECORDS SUMMARY | 2025-11-08 10:19 | XMS_ITS | Encounter Summary ---
Author Organization [facility] Address [address] [place] [address] Care Team Providers Care Regulatory Product Manager Name Role Phone Provider, No Known Primary Care Provider Unavail able Reason for Visit * Diagnostic Imaging (Routine) - Authorized Specialty Diagnoses / Procedures Referred By iRtesh t Referred To Contact Radiology Diagnoses Poor growth affecting management of mother in third trimester, single or unspecified fetus Maternal chronic hypertension in third trimester Procedures [facility] [place], Jung Harmon MD [address] [facility] [address] [place] [address] Phone: tel: fax: Referral ID Status Reason Start Date Expiration Date V isits Requested Visits Authorized [id number] Authorized 10/18/2025 01/17/2027 5 5 Encounter Details Date Type Department Care Team (Latest Contact Info) Description 11/08/2025 10:19 AM EST - 11/08/2025 11:59 PM [facility] Hospital Encounter [facility] US PER DIAG CTR [address] [place] [id number] Amy Conley, DO [address] [address] Discharge Disposition: Home or Self Care Social [...] Description 11/22/2025 10:45 AM EST Office Visit [facility] [address] [place] [address] 11/22/2025 10:45 AM EST Appointment [facility] PER DIAG CTR [address] [place] [address] documented as of this encounter Procedures Procedure Name Priority Date/Time Associated Diagnosis Comments [facility] Routine 11/08/2025 11:32 AM EST Poor growth affecting management of mother in third trimester, single or unspecified fetus Maternal chronic hypertension in third trimester documented in this encounter Results * [facility] (11/08/2025 11:32 AM EST) Anatomical Region Laterality Modality Ultrasound 11/08/2025 10:5 3 AM EST Narrative 11/08/2025 11:43 AM EST PAT NAME: FARIDA LYNN MED REC#: [id number] DA: 1990 PAT GEND: F PAT TYPE: O EXAM BLAISE: [id number] REF PHYS AMY CONLEY Comparison Studies The [...] of previous datin12/24/2025 Assigned: based on stated PUALA, selected on 11/08/2025 Assigned GA 33 w [...] EFW (oz) 9 oz EFW by: Hadlock (QDW-EF-FT-FL) Extended Cav. septi pel. tr 5.7 mm Sports Marketing Specialist 5.4 mm CM 7.0 mm 39% [...] Normal Heart / Thorax 3-vessel view: Normal 2-cfqqae-epjimbh view: normal Cord insertion: Normal Stomach: Appears [...] / Office Visit Type: Consultation See [facility] for full consult note. Impression Single, viable [...] an earlier indication arises Coding ======= Description: 69879-79 Follow Up Ultrasound Description: 58358-10 BPP without NST Description: 31583-20 Doppler Umbilical Artery Chicle Grinder Feeder: Hoa Crump RDMS Physician: Ed Ng MD Electronically signed by: Ed Ng MD at: 11:43 Procedure Note Ed Ng MD - 11/08/2025 PAT NAME: FARIDA LYNN MED REC#: [id number] DA: 1990 PAT GEND: F PAT TYPE: O EXAM BLAISE: [id number] REF PHYS AMY CONLEY Comparison Studies The findings of this study are compared to the prior ultrasound studydated Patient Status Outpatient Indication ======== IUGR. Marginal PCI. Obesity BMI 35. Maternal Assessment Hxkcdy673 cm Height (ft)5 ft Height (in)3 in Mhnbpz04 kg Weight (lb)200 lb BMI35.44 kg/m Method ======= Transabdominal ultrasound examination. View: Adequate view ========= Botello . Number of fetuses: 1 Dating ====== Method of dating:based on stated PAULA GA by prior [id number] w + 3 d PAULA by prior assessment:12/24/2025 Ultrasound examination on:11/08/2025 GA by U/S based upon:AC, BPD, Femur, HC GA by U/S31 w + 0 d PAULA by U/S:01/10/2026 Previous dating:based on stated PAULA, selected on 10/18/2025 Agreed PAULA of previous datin12/24/2025 Assigned:based on stated PAULA, selected on 11/08/2025 Assigned GA33 w + 3 d Assigned PAULA:12/24/2025 [id number] d Biometry Standard BPD77.4 mm 31w 0d 2% Hadlock XME346.1 mm 34w 4d 72% Emeli HC291.2 mm 32w 1d 2% Hadlock Cerebellum tr43.2 mm 33w 5d 37% Hill AC264.4 mm 30w 4d 1% Hadlock Femur58.0 mm 30w 2d <1% Hadlock HC / AC1.10 EFW1,619 g 30w 2d 2% Hadlock EFW (lb)3 lb EFW (oz)9 oz EFW by:Hadlock (TWN-DI-XV-FL) Extended Cav. septi pel. tr5.7 mm Vp5.4 mm CM7.0 mm 39% Nicolaides Nasal bone11.1 mm Head / Face / Neck Cephalic index0.74 3% Nicolaides Extremities / Bony Struc FL / BPD0.75 FL / HC0.20 FL / AC0.22 Other Structures GKG985 bpm General Evaluation Cardiac activity present. FHR [...] LVOT view:Normal Heart / Thorax 3-vessel view:Normal 4-fsxwqf-uoarbcl view:normal Cord insertion:Normal Stomach:Appears normal Kidneys:Appears normal [...] / Office Visit Type: Consultation See [facility] for full consult note. Impression Single, viable [...] week, unless an earlier indicationarises Coding ======= Description:75156-59 Follow Up Ultrasound Description:54806-27 BPP without NST Description:00535-43 Doppler Umbilical Artery Chicle Grinder Feeder: Hoa Crump RDMS Physician: Ed Ng MD Electronically signed by: Ed Ng MD at: 11:43 us Jung Angeles MD IMG US ORDERABLES Final Result documented in this encounter Visit Diagnoses Not on filedocumented in this encounter Care Teams Regulatory Product Manager Relationship Specialty Start Date End Date Provider, [place] [address] PCP - General 08/19/24 documented as of this encounter
--- OUTSIDE RECORDS SUMMARY | 2025-11-08 10:45 | XMS_ITS | Encounter Summary ---
Author Organization [facility] Address [address] [phone] Care Team Providers Care Flat Machine Cutter Name Role Phone Provider, No Known Primary Care Provider Unavail able Reason for Visit * Reason Comments IUGR Encounter Details Date Type Department Care Team (Late st Contact Info) Description 11/08/2025 10:45 AM EST Office Visit [facility] MATERNAL MEDICINE [address] [place], [place] [phone] [place] [address] [place] [address] [place] [address] Poor growth affecting management of mother in [...] plan for the 37th week Orders: - [facility]; Future 2. Maternal chronic [...] tentatively plan between 37-38 weeks Orders: - [facility] [place]; Future Follow Up: Return in about 2 [...] CVS. Ed Ng MD, FACOG Maternal Medicine, [facility] documented in this encounter Plan of Treatment Upcoming Encounters Date Type Department Care Team (Late st Contact Info) Description 11/22/2025 10:45 AM EST Office Visit [facility] MATERNAL MEDICINE [address] [facility] [address] [place] [address] 11/22/2025 10:45 AM EST Appointment [facility] US PER DIAG [facility] [address] [place] [phone] documented as of this encounter Visit Diagnoses Diagnosis Poor growth affecting management of mother in third trimester, single or unspecified fetus- Primary Maternal chronic hypertension in third trimester documented in this encounter Care Teams Flat Machine Cutter Relationship Specialty Start Date End Date Provider, No Known [facility] [place] [address] PCP - General 08/19/24 documented as of this encounter
--- OUTSIDE RECORDS SUMMARY | 2025-11-19 09:49 | XMS_ITS | Encounter Summary ---
Author Organization [facility] Address [address] [place] [address] Care Team Providers Care Felt Puller Name Role Phone Provider, No Known [...] [facility] [address] [facility] [address] [place] [address] 11/22/2025 10:45 AM EST Appointment [facility] [address] [place] [address] documented as of this encounter Visit Diagnoses Not on filedocumented in this encounter Care Teams Felt Puller Relationship Specialty Start Date End Date Provider, No Known [facility] [place] [address] PCP - General 08/19/24 documented as of this encounter
--- OUTSIDE RECORDS SUMMARY | 2025-11-19 09:50 | XMS_ITS | Encounter Summary ---
Author Organization [facility] Address [address] [place] [address] Care Team Providers Care Hospitality Coordinator Name Role Phone Provider, No Known [...] Description 11/22/2025 10:45 AM EST Office Visit [facility] [address] [facility] [address] [place] [address] 11/22/2025 10:45 AM EST Appointment [facility] [address] [place] [address] documented as of this encounter Visit Diagnoses Not on filedocumented in this encounter Care Teams Hospitality Coordinator Relationship Specialty Start Date End Date Provider, No Known [facility] [place] [address] PCP - General 08/19/24 documented as of this encounter
--- OUTSIDE RECORDS SUMMARY | 2025-11-19 09:50 | XMS_ITS | Patient Health Record ---
Author Organization [facility] Address [address] [facility] [address] [place] [address] Care Team Providers Care Hook And Eye Sewing Machine Operator Name Role Phone Henna Matamoros Unavailable [phone] Brandy Barillas Unavailable [phone] Allergies No Known Allergies Reason For Referral [...] W/U Status Risk Notes Problem Missed period (25441350) Missed period (N92.6) Active confirmed Plan Of Treatment Future Test Test Name Order Date *US OB Complete Transabdominal/Vaginal 0 08/25/2024 Insurance Providers Payer Name Payer Address Payer Phone Subscriber Number Group Number Insured Name Patient Relationship to Insured Coverage Start Date Coverage End Date Jose BERRYO [address] [place] [address] [id number] Julia Salas Self - patient is the insured Medical (General) History Medical History History ICD Code Asthma Surgical History Surgery Date(Month/Year) None Hospitalization History Reason Date(Month/Year) Admit for [facility] 2011
--- OUTSIDE RECORDS SUMMARY | 2025-11-19 09:50 | XMS_ITS | Clinical Summary ---
Author Organization [facility] Address [address] [place] [id number] Care Team Providers Care Generation Engineer Name Role Phone Provider, No Known [...] Dopplers. Patient reports twice-weekly testing with primary DRUG ROOM CLERK and given 1 of these being performed [...] [facility]NAL MEDICINE [address] [phone] Ed Ng MD Poor growth affecting management of mother in third trimester, single or unspecified fetus (Primary Dx); Maternal chronic hypertension in third trimester 11/08/2025 10:19 AM EST - 11/08/2025 11:59 PM EST Hospital Encounter [facility] US PER DIAG CTR [address] [place] [address] Amy Conley, DO Discharge Disposition: Home or Self Care 11/08/2025 Travel 10/25/2025 10:15 AM EST Office Visit [facility]ERNAL MEDICINE [address] [address] Jung Angeles MD Poor growth affecting management of mother in third trimester, single or unspecified fetus (Primary Dx); Maternal chronic hypertension in third trimester 10/25/2025 9:49 AM EST - 10/25/2025 11:59 PM EST Hospital Encounter [facility] US PER DIAG CTR [address] [place] [address] Amy Conley, DO Discharge Disposition: Home or Self Care 10/25/2025 Travel 10/18/2025 10:15 AM EST Office Visit [facility]ERNAL MEDICINE [address] [address] Jung Angeles MD Poor growth affecting management of mother in third trimester, single or unspecified fetus (Primary Dx); Maternal chronic hypertension in third trimester 10/18/2025 9:34 AM EST - 10/18/2025 11:59 PM EST Hospital Encounter [facility] US PER DIAG CTR [address] [place] [address] Danielle Allen MD Poor growth affecting management of mother in third trimester, single or unspecified fetus; Maternal chronic hypertension in second trimester Discharge Disposition: Home or Self Care 10/18/2025 Travel 10/11/2025 10:15 AM EST Office Visit [facility] [address] [facility] [address] [place] [phone] Danielle Allen MD Poor growth affecting management of mother in third trimester, single or unspecified fetus (Primary Dx); Maternal chronic hypertension in second trimester 10/11/2025 9:44 AM EST - 10/11/2025 11:59 PM EST Hospital Encounter [facility] US PER DIAG CTR [address] [place] [address] Lis Jeffrey MD Marginal insertion of umbilical cord affecting management of mother in second trimester; Maternal chronic hypertension in second trimester; Poor growth affecting management of mother in third trimester, single or unspecified fetus; 26 weeks gestation of Discharge Disposition: Home or Self Care 10/11/2025 Travel 09/23/2025 10:15 AM EDT Office Visit [facility] [address] [facility] [address] [place] [phone] Lis Jeffrey MD Marginal insertion of umbilical cord affecting management of mother in second trimester (Primary Dx); Maternal chronic hypertension in second trimester; Poor growth affecting management of mother in third trimester, single or unspecified fetus; 26 weeks gestation of 09/23/2025 9:52 AM EDT - 09/23/2025 11:59 PM EDT Hospital Encounter [facility] US PER DIAG CTR [address] [place] [phone] Brian Wesley MD Uterine size-date discrepancy in second trimester; Marginal insertion of umbilical cord affecting management of mother in second trimester; 23 weeks gestation of ; Maternal chronic hypertension in second trimester Discharge Disposition: Home or Self Care 09/23/2025 Travel 09/06/2025 Telephone [facility] PER DIAG [facility] [address] [place] [phone] Brian Wesley MD Advice Only (Pt has question for Nurse.) 09/02/2025 10:30 AM EDT - 09/02/2025 11:59 PM EDT Hospital Encounter [facility] US PER DIAG CTR [address] [place] [phone] Amy Conley, DO Maternal care for other known or suspected poor growth, second trimester, not applicable or unspecified; Marginal insertion of umbilical cord affecting management of mother in second trimester; , unspecified gestational age Discharge Disposition: Home or Self Care 09/02/2025 10:30 AM EDT Office Visit [facility]NAL MEDICINE [address] [address] Brian Wesley MD Uterine size-date discrepancy in second trimester (Primary Dx); Marginal insertion of umbilical cord affecting management of mother in second trimester; 23 weeks gestation of ; Maternal chronic hypertension in second trimester 09/02/2025 Telephone [facility] MEDICINE [address] [address] Jodie Garcia claim technician Only 09/02/2025 Travel from Last 3 Months [...] Description 11/22/2025 10:45 AM EST Office Visit [facility] [address] [place] [address] 11/22/2025 10:45 AM EST Appointment [facility] US PER DIAG CTR [address] [place] [address] Health Maintenance Due Date Last [...] Procedure Name Priority Date/Time Associated Diagnosis Comments [facility] Routine 11/08/2025 11:32 AM EST Poor growth affecting management of mother in third trimester, single or unspecified fetus Maternal chronic hypertension in third trimester [facility] Routine 10/25/2025 11:18 AM EST Poor growth affecting management of mother in third trimester, single or unspecified fetus Maternal chronic hypertension in third trimester [facility] Routine 10/18/2025 10:21 AM EST Poor growth affecting management of mother in third trimester, single or unspecified fetus Maternal chronic hypertension in second trimester [facility] Routine 10/11/2025 10:30 AM EST Marginal insertion of umbilical cord affecting management of mother in second trimester Maternal chronic hypertension in second trimester Poor growth affecting management of mother in third trimester, single or unspecified fetus 26 weeks gestation of [facility] Routine 09/23/2025 10:28 AM EDT Uterine size-date discrepancy in second trimester Marginal insertion of umbilical cord affecting management of mother in second trimester 23 weeks gestation of Maternal chronic hypertension in second trimester [facility] Routine 09/02/2025 11:30 AM EDT Maternal care for other known or suspected poor growth, second trimester, not applicable or unspecified Marginal insertion of umbilical cord affecting management of mother in second trimester , unspecified gestational age from Last 3 Months Results * [facility] (11/08/2025 11:32 AM EST) Only the most recent of6 resultswithin the time period is included. Anatomical Region Laterality Modality Ultrasound 11/08/2025 10:5 3 AM EST Narrative 11/08/2025 11:43 AM EST PAT NAME: FARIDA LYNN MED REC#: [id number] DA: 1990 PAT GEND: F PAT TYPE: O EXAM BLAISE: [id number] REF PHYS MAY CONLEY Comparison Studies The findings of this [...] EFW (oz) 9 oz EFW by: Hadlock (UCR-UC-UP-FL) Extended Cav. septi pel. tr 5.7 mm Senior Field Service Engineer 5.4 mm CM 7.0 mm 39% [...] Normal Heart / Thorax 3-vessel view: Normal 4-oubnbi-sirleqn view: normal Cord insertion: Normal Stomach: Appears [...] an earlier indication arises Coding ======= Description: 75754-95 Follow Up Ultrasound Description: 41560-50 BPP without NST Description: 04375-32 Doppler Umbilical Artery Imaging Technician: Hoa Crump RDMS Physician: Ed Ng MD Electronically signed by: Ed Ng MD at: 11:43 Procedure Note Ed Ng MD - 11/08/2025 PAT NAME: FARIDA LYNN MED REC#: [id number] DA: [id number] PAT GEND: F PAT TYPE: O EXAM BLAISE: [id number] REF PHYS AMY CONLEY Comparison Studies The findings of this study are compared to the prior ultrasound studydated Patient Status Outpatient Indication ======== IUGR. Marginal PCI. Obesity BMI 35. Maternal Assessment Xtttyb998 cm Height (ft)5 ft Height (in)3 in Wvbcxq88 kg Weight (lb)200 lb BMI35.44 kg/m Method ======= Transabdominal ultrasound examination. View: Adequate view ========= Botello . Number of fetuses: 1 Dating ====== Method of dating:based on stated APULA GA by prior [id number] w + 3 d PAULA by prior assessment:12/24/2025 Ultrasound examination on:11/08/2025 GA by U/S based upon:AC, BPD, Femur, HC GA by U/S31 w + 0 d PAULA by U/S:01/10/2026 Previous dating:based on stated PAULA, selected on 10/18/2025 Agreed PAULA of previous datin12/24/2025 Assigned:based on stated PAULA, selected on 11/08/2025 Assigned GA33 w + 3 d Assigned PAULA:12/24/2025 [id number] d Biometry Standard BPD77.4 mm 31w 0d 2% Hadlock BPC387.1 mm 34w 4d 72% Emeli HC291.2 mm 32w 1d 2% Hadlock Cerebellum tr43.2 mm 33w 5d 37% Hill AC264.4 mm 30w 4d 1% Hadlock Femur58.0 mm 30w 2d <1% Hadlock HC / AC1.10 EFW1,619 g 30w 2d 2% Hadlock EFW (lb)3 lb EFW (oz)9 oz EFW by:Hadlock (LTZ-RI-AM-FL) Extended Cav. septi pel. tr5.7 mm Vp5.4 mm CM7.0 mm 39% Nicolaides Nasal bone11.1 mm Head / Face / Neck Cephalic index0.74 3% Nicolaides Extremities / Bony Struc FL / BPD0.75 FL / HC0.20 FL / AC0.22 Other Structures [id number] bpm General Evaluation Cardiac activity present. FHR [...] LVOT view:Normal Heart / Thorax 3-vessel view:Normal 0-qnfqza-ahwxvnr view:normal Cord insertion:Normal Stomach:Appears normal Kidneys:Appears normal [...] week, unless an earlier indicationarises Coding ======= Description:08283-68 Follow Up Ultrasound Description:76554-90 BPP without NST Description:47378-59 Doppler Umbilical Artery Imaging Technician: Hoa Crump RDMS Physician: Ed Ng MD Electronically signed by: Ed Ng MD at: 11:43 us Jung Angeles MD [facility] US ORDERABLES Final Result from Last 3 Months Insurance EMPLOYEE Care Teams Generation Engineer Relationship Specialty Start Date End Date Provider, No Known [facility] [place] [address] PCP - General 08/19/24
--- OUTSIDE RECORDS SUMMARY | 2025-11-19 09:50 | XMS_ITS | Encounter Summary ---
Author Organization [facility] Address [address] [place] [address] Care Team Providers Care Deputy Attorney General Name Role Phone Provider, No Known [facility] [address] [facility] [address] [place] [address] 11/22/2025 10:45 AM EST Appointment [facility] [address] [place] [address] documented as of this encounter Visit Diagnoses Not on filedocumented in this encounter Care Teams Deputy Attorney General Relationship Specialty Start Date End Date Provider, No Known [facility] [place] [address] PCP - General 08/19/24 documented as of this encounter
--- OUTSIDE RECORDS SUMMARY | 2025-11-19 09:50 | XMS_ITS | Encounter Summary ---
Author Organization [facility] Address [address] [place] [address] Care Team Providers Care Farm Consultant Name Role Phone Provider, No Known [...] [facility] [address] [facility] [address] [place] [address] 11/22/2025 10:45 AM EST Appointment [facility] PER [facility] [address] [place] [address] documented as of this encounter Visit Diagnoses Not on filedocumented in this encounter Care Teams Farm Consultant Relationship Specialty Start Date End Date Provider, No Known [facility] [place] [address] PCP - General 08/19/24 documented as of this encounter
--- OUTSIDE RECORDS SUMMARY | 2025-11-19 09:51 | XMS_ITS | Encounter Summary ---
Author Organization [facility] Address [address] [place] [address] Care Team Providers Care Corporate Financial Analyst Name Role Phone Provider, No Known [...] AM EST Office Visit [facility] [address] [facility] [address] [place] [address] 11/22/2025 10:45 AM EST Appointment [facility] [address] [place] [address] documented as of this encounter Visit Diagnoses Not on filedocumented in this encounter Care Teams Corporate Financial Analyst Relationship Specialty Start Date End Date Provider, No Known [facility] [place] [address] PCP - General 08/19/24 documented as of this encounter
[2025-11-19 09:55] VITALS: BMI 36.3
[2025-11-19 10:13] VITALS: BP 121/78; PULSE 98; RESP 18; TEMP 36.9; O2SAT 100; BMI 36.3
== END 2025-11-19 10:53 | disposition home or self-care (01) ==
LOC: OBOUT 09:48 → OB 09:50
PROVIDERS: PCP Obstetrics & Gynecology; Visit Provider Obstetrics & Gynecology
DX: Z34.83 Encounter for supervision of other normal pregnancy, third trimester (principal); Z3A.35 35 weeks gestation of pregnancy
CPT/HCPCS: 99212

== ENCOUNTER 2025-11-23 10:11 | Outpatient (CLI) | payer BC, SELFPAY | END 2025-11-23 23:59 | disposition home or self-care (01) | LOC: LAB.DROPOF 11-26 10:12 | PROVIDERS: Visit Provider Obstetrics & Gynecology | DX: O36.5990 Maternal care for other known or suspected poor fetal growth, unspecified trimester, not applicable or unspecified (principal); O10.919 Unspecified pre-existing hypertension complicating pregnancy, unspecified trimester; Z3A.00 Weeks of gestation of pregnancy not specified | CPT/HCPCS: 86403 ==

== ENCOUNTER 2025-11-26 09:53 | Outpatient (CLI) | payer BC, SELFPAY ==
--- OUTSIDE RECORDS SUMMARY | 2024-08-25 10:00 | XMS_ITS ---
Author Organization [facility], [place], operated [facility] Address [address] [place] [address] Care Team Providers Care Hand Cooper Helper Name Role Phone Matamoros, Henna Unavailable [phone] hSaron Bautista Unavailable [phone] Results Component Value Reference Range Notes *US OB Complete Transabdomin al/Vaginal Reviewed date:08/27/2024 04:41:33 PM Interpretation: Performing Lab: Notes/Report: [facility] Women's Health Transvaginal Obstetric Study Report Name: FARIDA RONQUILLO Accession/Encounter No:[id number] : 1990 Age: 34 Gender: F Race: White Study Date: Aug 25, 2024 Study Time: 04:01 PM Reading Group: Varsha Espinosa MD Referring Group: Sharon Bautista NP Ordering Phys: Sharon Bautista NP Performing User: Eunice Sheridan RDMS Equipment: Affiniti 30 Study Quality: Good Indications: Early OB bleeding A 1st Trimester ultrasound was performed. General Information Trimester: 1st trimester Gestations: 0 Gestational Age (Best) Best: 5w 4d Determined by: LMP PAULA: 2025-04-23 Gestational Age (LMP) LMP: 5w 4d First Day of LMP: 2024-07-17 PAULA: 2025-04-23 Findings: General: Sonographic evaluation reveals no evidence of intrauterine nor ectopic . Maternal Anatomy: Cervix is 1.97 cm long. The uterus is 6.06 x 4.22 x 5.51 cm, with volume of 73.8 ml. The endometrium measures 15.7 mm. Conclusions: No definite IUP noted. Thickened, heterogeneous endometrium with small cystic areas. Left ovary appears normal. Right ovary has complex cyst , possible CL. No free fluid or obvious adnexal masses were appreciated at this time. Approved By: Varsha Espinosa MD Approved at: August 27, 2024 04:17 PM EDT Electronically Signed on Studycast FARIDA DAY 2024-08-25 Page 1 of 1 Imaging Center - , [facility] Lyn REASON FOR VISIT early OB Bleeding LLQ pain Social History Sex Assigned At : Social History Observation Description Sex Assigned At Female Encounters Encounter Location Date Provider Diagnosis [facility]-NR [address] [place] [address] 08/25/2024 Sharon Bautista Bleeding in early O20.9 Assessments Encounter Date Diagnosis (ICD Code) Assessment Notes Treatment Notes Treatment Clinical Notes Section Notes 08/25/2024 Bleeding in early (ICD-10 - O20.9) Plan Of Treatment No Information Progress Notes * Charles RONQUILLOJozefB: 9[birth year] (35 yo F)Acc No.[id number]:08/25/2024 Progress Note Patient: Farida Zimmerman Provider: Andrey Bautista NP :1990 A ge:34 Y S ex:Female Date:08/25/2024 Address:[facility] [address], [place] , [id number] Subjective: * Chief Complaints: * e promise OB Bleeding LLQ pain Assessment: * Assessment: 1. B leeding in early - O20.9 Plan: * Treatment: Billing Information: * Procedure Codes: * Electronic signature of Octavio Bautista NP on 11/26/2025 at 09:56 AM EST Sign off status: Pending Visit Status: Nancy RAMÍREZ (Check Out) * Provider: Andrey Bautista NP Date: 0 08/25/2024 Generated for Jesika trevino/Marleny/Amandaitting on: 1 01/27/2025 09:56 AM EST
--- OUTSIDE RECORDS SUMMARY | 2024-12-25 09:15 | XMS_ITS ---
Author Organization [facility] Address [address] [place] [address] Care Team Providers Care Substation Electrician Supervisor Name Role Phone Henna Matamoros Unavailable [phone] Brandy Barillas Unavailable [phone] REASON FOR VISIT Annual Social History Sex Assigned At : Social History Observation Description Sex Assigned At Female Section Notes: Age you started smokin Amount of Use: Some days but not every day Do you have any restorationism or culture customs that your provider should [...] No Encounters Encounter Location Date Provider Diagnosis [facility]-NR [address] [place] [address] 12/25/2024 Brandy Barillas Plan Of Treatment No Information Progress Notes * Charles RONQUILLOJozefB: 992 (35 yo F)Acc No.[id number]:12/25/2024 Progress Note Patient: Julia Zimmerman Provider: Errol Barillas MD :1990 A ge:34 Y S ex:Female Date:12/25/2024 Address:[address], [place], [id number] Subjective: * Chief Complaints: * A nnual * Medical History: Asthma Medical History Verified * Penal Officer History: P ap Smear History: D ate [...] * Hospitalization/Major Diagno stic Procedure: Admit for [place] 2011 Hospitalization Verified. * Family History: F [...] not every day Do you have any restorationism or culture customs that your provider should [...] Electronic signature of Alon Barillas MD on 11/26/2025 at 09:55 AM EST Sign off status: Pending Visit Status: N /S (No-Show) * Provider: Errol Barillas MD Date: 0 12/25/2024 Generated for Jesika trevino/Marleny/Macey on: 01/27/2025 09:55 AM EST
--- OUTSIDE RECORDS SUMMARY | 2025-10-11 09:44 | XMS_ITS | Encounter Summary ---
Author Organization [facility] Address [address] [place] [address] Care Team Providers Care Marketing Database Coordinator Name Role Phone Provider, No Known [...] gestation of Procedures [facility] [place] Lis Jeffrey MD [address] [place] [address] Phone: tel: fax: Referral ID Status Reason Start Date Expiration Date Visits Re quested Visits Authorized [id number] Closed 09/23/2025 12/23/2026 1 1 Reason for [...] gestation of Procedures [facility] Diagnostic [place] Lis Jeffrey MD [address] [id number] Phone: tel: fax: Referral ID Status Reason Start Date Expiration Date Visits Re quested Visits Authorized [id number] Closed 09/23/2025 12/23/2026 1 1 Encounter Details Date Type Department Care Team (Late st Contact Info) Description 10/11/2025 9:44 AM EST - 10/11/2025 11:59 PM [facility] Hospital Encounter [facility] PER DIAG CTR [address] [place] [address] Lis Jeffrey MD [address] [place] [address] Marginal insertion of umbilical cord [...] Procedure Name Priority Date/Time Associated Diagnosis Comments [facility] Routine 10/11/2025 10:30 AM [...] EST PAT NAME: FARIDA LYNN MED REC#: [id number] DA: [id number] PAT GEND: F PAT TYPE: O EXAM BLAISE: [id number] REF PHYS AMY CORCORAN Comparison Studies The [...] EFW (oz) 5 oz EFW by: Hadlock (IBR-RY-YE-FL) Extended Cav. septi pel. tr 5.7 mm Advertising Intern 5.0 mm CM 7.1 mm 55% Nicolaides [...] Normal Heart / Thorax 3-vessel view: Normal 9-gjfxav-szgxwko view: normal Cord insertion: Normal Stomach: Appears [...] normal Marginal cord insertion Coding ======= Description: 12067-52 Follow Up Ultrasound Description: 30233-47 BPP without NST Description: 52286-44 Doppler Umbilical [place] Monitor: Albina Roberts RDMS Physician: Danielle Allen MD, FACOG Electronically signed by: Danielle Allen MD, FACOG at: 19:46 Procedure Note Danielle Allen MD - 10/12/2025 PAT NAME: FARIDA LYNN MED REC#: [id number] DA: 1990 PAT GEND: F PAT TYPE: O EXAM BLAISE: [id number] REF PHYS AMY CORCORAN Comparison Studies The findings of this study are compared to the prior ultrasound studydated 09/23/2025 Patient Status Outpatient Indication ======== IUGR. Marginal PCI. Obesity BMI 34. Maternal Assessment Ehrpfh260 cm Height (ft)5 ft Height (in)3 in Kwrkhs18 kg Weight (lb)194 lb BMI34.38 kg/m Method ======= Transabdominal ultrasound examination. View: Good view ========= Botello . Number of fetuses: 1 Dating ====== Method of dating:based on stated PAULA GA by prior fgzffwsihv24 w + 3 d PAULA by prior assessment:12/24/2025 Ultrasound examination on:10/11/2025 GA by U/S based upon:AC, BPD, Femur, HC GA by U/S27 w + 3 d PAULA by U/S:01/07/2026 Previous dating:based on stated PAULA, selected on 09/23/2025 Agreed PAULA of previous datin12/24/2025 Assigned:based on stated PAULA, selected on 10/11/2025 Assigned GA29 w + 3 d Assigned PAULA:12/24/2025 [place]266 d Biometry Standard BPD68.2 mm 27w 3d 2% Hadlock OFD92.9 mm 30w 0d 65% Emeli HC258.2 mm 28w 0d 2% Hadlock Cerebellum tr35.3 mm 29w 3d 50% Hill AC227.3 mm 27w 1d 2% Hadlock Femur50.5 mm 27w 1d 1% Hadlock Povtjgx90.3 mm 25w 3d <1% Emeli HC / AC1.14 EFW1,044 g 26w 6d 2% Hadlock EFW (lb)2 lb EFW (oz)5 oz EFW by:Hadlock (OKI-EK-XQ-FL) Extended Cav. septi pel. tr5.7 mm Vp5.0 mm CM7.1 mm 55% Nicolaides Head / Face / Neck Cephalic index0.73 5% Nicolaides Extremities / Bony Struc FL / BPD0.74 FL / HC0.20 FL / AC0.22 Other Structures NXM226 bpm General Evaluation Cardiac activity present. FHR [...] LVOT view:Normal Heart / Thorax 3-vessel view:Normal 9-aciviq-pmlyhzj view:normal Cord insertion:Normal Stomach:Appears normal Kidneys:Appears normal Bladder:Appears normal Gender:female Wants to know gender:yes Maternal Structures Uterus / Cervix Cervical ataxce46.7 mm Doppler Arterial Umbilical A PI0.97 51% [...] doppler normal Marginal cord insertion Coding ======= Description:82659-57 Follow Up Ultrasound Description:92529-93 BPP without NST Description:72723-41 Doppler Umbilical [facility] Monitor: Albina Roberts RDMS Physician: Danielle Allen MD, [...] of documented in this encounter Care Teams Marketing Database Coordinator Relationship Specialty Start Date End Date Provider, [place] [address] PCP - General 08/19/24 documented as of this encounter
--- OUTSIDE RECORDS SUMMARY | 2025-10-11 10:15 | XMS_ITS | Encounter Summary ---
Author Organization [facility] Address [address] [phone] Care Team Providers Care It Operations Specialist Name Role Phone Provider, No Known Primary Care Provider Unavail able Reason for Referral * Diagnostic Imaging (Routine) - Closed Specialty Diagnoses / Procedures Referred By Ritesh t Referred To Contact Radiology Diagnoses Poor growth affecting management of mother in third trimester, single or unspecified fetus Maternal chronic hypertension in second trimester Procedures [facility] Danielle Allen MD [address] [address] Phone: tel: fax: Referral ID Status Reason Start Date Expiration Date Visits Re quested Visits Authorized [id number] Closed 10/13/2025 01/12/2027 1 1 Reason for Visit * Reason Comments IUGR, Marginal Cord Insertion, MO Encounter Details Date Type Department Care Team (Late st Contact Info) Description 10/11/2025 10:15 AM EST Office Visit [facility] MATERNAL MEDICINE [address] [facility] [address] [place] [phone] Danielle Allen MD [address] [phone] Poor growth affecting management of mother in [...] in your office Orders: - [facility]; Future 2. Maternal chronic hypertension in second trimester - [facility]; Future Follow Up 1 week [...] CVS. Danielle Allen MD FACOG Maternal Medicine, [facility] Diagnostic [place] 10/11/2025 documented in this encounter Plan of Treatment Not on file documented as of this encounter Results * [facility] (10/18/2025 10:21 AM EST) Anatomical Region Laterality Modality Ultrasound 10/18/2025 9:57 AM EST Narrative 10/18/2025 10:27 AM EST PAT NAME: FARIDA LYNN MED REC#: [id number] DA: [id number] PAT GEND: F PAT TYPE: O EXAM BLAISE: [id number] REF PHYS AMY CONLEY Comparison Studies The [...] NSTs in your office. Coding ======= Description: 72798-73 BPP without NST Description: 63645-31 Doppler Umbilical Artery Customer Relations Specialist: Eunice Manning RDMS Physician: Jung Angeles MD, FACOG Electronically signed by: Jung Angeles MD, FACOG at: 10:27 Procedure Note Jung Angeles MD - 10/18/2025 PAT NAME: FARIDA LYNN MED REC#: [id number] DA: 1990 PAT GEND: F PAT TYPE: O EXAM BLAISE: [id number] REF PHYS AMY CONLEY Comparison Studies The findings of this study are compared to the prior ultrasound studydated 10/11/25 Patient Status Outpatient Indication ======== IUGR. Marginal PCI. Obesity BMI 34. Maternal Assessment Orovoe876 cm Height (ft)5 ft Height (in)3 in Rvbjqx01 kg Weight (lb)196 lb BMI34.73 kg/m Method ======= Transabdominal ultrasound examination ========= Botello . Number of fetuses: 1 Dating ====== Method of dating:based on stated PAULA GA by prior [id number] w + 3 d PAULA by prior assessment:12/24/2025 Previous dating:based on stated PAULA, selected on 10/11/2025 Agreed PAULA of previous datin12/24/2025 Assigned:based on stated PAULA, selected on 10/18/2025 Assigned GA30 w + 3 d Assigned PAULA:12/24/2025 [id number] d General Evaluation Cardiac activity present. FHR [...] weekly NSTs in your office. Coding ======= Description:60037-04 BPP without NST Description:57948-68 Doppler Umbilical Artery Customer Relations Specialist: Eunice Manning RDMS Physician: Jung Angeles [...] trimester documented in this encounter Care Teams It Operations Specialist Relationship Specialty Start Date End Date Provider, No Known [facility] [place] [address] PCP - General 08/19/24 documented as of this encounter
--- OUTSIDE RECORDS SUMMARY | 2025-10-18 09:34 | XMS_ITS | Encounter Summary ---
Author Organization [facility] Address [address] [id number] Care Team Providers Care Cone Picker Name Role Phone Provider, No Known Primary Care Provider Unavail able Reason for Referral * Diagnostic Imaging (Routine) - Closed Specialty Diagnoses / Procedures Referred By Ritesh winchester Referred To Contact Radiology Diagnoses Poor growth affecting management of mother in third trimester, single or unspecified fetus Maternal chronic hypertension in second trimester Procedures [facility] [place] Danielle Allen MD [address] [place] [address] Phone: tel: fax: Referral ID Status Reason Start Date Expiration Date Visits Re quested Visits Authorized [id number] Closed 10/13/2025 01/12/2027 1 1 Reason for Visit * Diagnostic Imaging (Routine) - Closed Specialty Diagnoses / Procedures Referred By Ritesh winchester Referred To Contact Radiology Diagnoses Poor growth affecting management of mother in third trimester, single or unspecified fetus Maternal chronic hypertension in second trimester Procedures [facility] [place] Danielle Allen MD [address] [place] [address] Phone: tel: fax: Referral ID Status Reason Start Date Expiration Date Visits Re quested Visits Authorized [id number] Closed 10/13/2025 01/12/2027 1 1 Encounter Details Date Type Department Care Team (Late st Contact Info) Description 10/18/2025 9:34 AM EST - 10/18/2025 11:59 PM EST Hospital Encounter [facility] [address] [place] [address] Danielle Allen MD [address] [place] [address] Poor growth affecting management of mother in [...] Procedure Name Priority Date/Time Associated Diagnosis Comments [facility] Routine 10/18/2025 10:21 AM EST Poor growth affecting management of mother in third trimester, single or unspecified fetus Maternal chronic hypertension in second trimester documented in this encounter Results * [facility] (10/18/2025 10:21 AM EST) Anatomical Region Laterality Modality Ultrasound 10/18/2025 9:57 AM EST Narrative 10/18/2025 10:27 AM EST PAT NAME: FARIDA LYNN MED REC#: [id number] DA: [id number] PAT GEND: F PAT TYPE: O EXAM BLAISE: [id number] REF PHYS AMY CORCORAN Comparison Studies The [...] NSTs in your office. Coding ======= Description: 01324-34 BPP without NST Description: 09773-73 Doppler Umbilical Artery Manager Facility: Eunice Manning RDMS Physician: Jung Angeles MD, FACOG Electronically signed by: Jung Angeles MD, FACOG at: 10:27 Procedure Note Jung Angeles MD - 10/18/2025 PAT NAME: FARIDA LYNN [facility] REC#: [id number] DA: 1990 PAT GEND: F PAT TYPE: O EXAM BLAISE: [id number] REF PHYS AMY CORCORAN Comparison Studies The findings of this study are compared to the prior ultrasound studydated 10/11/25 Patient Status Outpatient Indication ======== IUGR. Marginal PCI. Obesity BMI 34. Maternal Assessment [id number] cm Height (ft)5 ft Height (in)3 in Kvusdz66 kg Weight (lb)196 lb BMI34.73 kg/m Method ======= Transabdominal ultrasound examination ========= [place] . Number of fetuses: 1 Dating ====== Method of dating:based on stated PAULA GA by prior [id number] w + 3 d PAULA by prior assessment:12/24/2025 Previous dating:based on stated PAULA, selected on 10/11/2025 Agreed PAULA of previous datin12/24/2025 Assigned:based on stated PAULA, selected on 10/18/2025 Assigned GA30 w + 3 d Assigned PAULA:12/24/2025 [id number] d General Evaluation Cardiac activity present. FHR [...] weekly NSTs in your office. Coding ======= Description:14822-70 BPP without NST Description:18018-94 Doppler Umbilical Artery Manager Facility: Eunice Manning RDMS Physician: Jung Angeles MD, FACOG Electronically signed by: Jung Angeles MD, FACOG at: 10:27 us Danielle Allen MD IMG US ORDERABLES Final Result documented in this encounter Visit Diagnoses Diagnosis Poor growth affecting management of mother in third trimester, single or unspecified fetus Maternal chronic hypertension in second trimester documented in this encounter Care Teams Cone Picker Relationship Specialty Start Date End Date Provider, [place] [address] PCP - General 08/19/24 documented as of this encounter
--- OUTSIDE RECORDS SUMMARY | 2025-10-18 10:15 | XMS_ITS | Encounter Summary ---
Author Organization [facility] Address [address] [id number] Care Team Providers Care Data Warehouse Analyst Name Role Phone Provider, No Known Primary Care Provider Unavail able Reason for Referral * Diagnostic Imaging (Routine) - Authorized Specialty Diagnoses / Procedures Referred By Contac t Referred To Contact Radiology Diagnoses Poor growth affecting management of mother in third trimester, single or unspecified fetus Maternal chronic hypertension in third trimester Procedures [facility] Jung Angeles MD [address] [facility] [address] [place] [address] Phone: tel: fax: Referral ID Status Reason Start Date Expiration Date V isits Requested Visits Authorized [id number] Authorized 10/18/2025 01/17/2027 5 5 Reason for Visit * Reason Comments IUGR, MPCI, MO GHTN Encounter Details Date Type Department Care Team (Late st Contact Info) Description 10/18/2025 10:15 AM EST Office Visit [facility] MATERNAL MEDICINE [address] [place] [address] Jung Angeles MD [address] [place] [address] Poor growth affecting management of mother in [...] documented in this encounter Plan of Treatment Pending Results Name Type Priority Associated Diagnoses Date /Time [facility] Imaging Routine Poor growth affecting management of mother in third trimester, single or unspecified fetus Maternal chronic hypertension in third trimester 11/22/2025 10:59 AM EST Scheduled Orders Name Type Priority Associated Diagnoses Orde r Schedule [facility] Imaging Routine Poor growth affecting management of mother in third trimester, single or unspecified fetus Maternal chronic hypertension in third trimester Once a week for 5 Occurrences starting 10/18/2025 until 10/18/2026, 2 completed documented as of this encounter Results * [facility] (11/08/2025 11:32 AM EST) Anatomical Region Laterality Modality Ultrasound 11/08/2025 10:5 3 AM EST Narrative 11/08/2025 11:43 AM EST PAT NAME: FARIDA LYNN MED REC#: [id number] DA: [id number] PAT GEND: F PAT TYPE: O EXAM BLAISE: [id number] REF PHYS AMY CONLEY Comparison Studies The [...] EFW (oz) 9 oz EFW by: Hadlock ([id number]-FL) Extended Cav. septi pel. tr 5.7 mm Screening Specialist 5.4 mm CM 7.0 mm 39% Nicolaides [...] Normal Heart / Thorax 3-vessel view: Normal 2-ctsgja-emmrexi view: normal Cord insertion: Normal Stomach: Appears [...] an earlier indication arises Coding ======= Description: 47455-49 Follow Up Ultrasound Description: 43603-23 BPP without NST Description: 70037-22 Doppler Umbilical Artery Bathhouse Keeper: Hoa Crump RDMS Physician: Ed Ng MD Electronically signed by: Ed Ng MD at: 11:43 Procedure Note Ed Ng MD - 11/08/2025 PAT NAME: FARIDA LYNN MED REC#: [id number] DA: 1990 PAT GEND: F PAT TYPE: O EXAM BLAISE: [id number] REF PHYS AMY CONLEY Comparison Studies The findings of this study are compared to the prior ultrasound studydated Patient Status Outpatient Indication ======== IUGR. Marginal PCI. Obesity BMI 35. Maternal Assessment Tssyoa687 cm Height (ft)5 ft Height (in)3 in Smsieo26 kg Weight (lb)200 lb BMI35.44 kg/m Method ======= Transabdominal ultrasound examination. View: Adequate view ========= Botello . Number of fetuses: 1 Dating ====== Method of dating:based on stated PAULA GA by prior [id number] w + 3 d PAULA by prior assessment:12/24/2025 Ultrasound examination on:11/08/2025 GA by U/S based upon:AC, BPD, Femur, HC GA by U/S31 w + 0 d PAULA by U/S:01/10/2026 Previous dating:based on stated PAULA, selected on 10/18/2025 Agreed PAULA of previous datin12/24/2025 Assigned:based on stated PAULA, selected on 11/08/2025 Assigned GA33 w + 3 d Assigned PAULA:12/24/2025 [id number] d Biometry Standard BPD77.4 mm 31w 0d 2% Hadlock PDG266.1 mm 34w 4d 72% Emeli HC291.2 mm 32w 1d 2% Hadlock Cerebellum tr43.2 mm 33w 5d 37% Hill AC264.4 mm 30w 4d 1% Hadlock Femur58.0 mm 30w 2d <1% Hadlock HC / AC1.10 EFW1,619 g 30w 2d 2% Hadlock EFW (lb)3 lb EFW (oz)9 oz EFW by:Hadlock (CTM-RL-ZK-FL) Extended Cav. septi pel. tr5.7 mm Vp5.4 mm CM7.0 mm 39% Nicolaides Nasal bone11.1 mm Head / Face / Neck Cephalic index0.74 3% Nicolaides Extremities / Bony Struc FL / BPD0.75 FL / HC0.20 FL / AC0.22 Other Structures LVU195 bpm General Evaluation Cardiac activity present. FHR [...] LVOT view:Normal Heart / Thorax 3-vessel view:Normal 1-kntyet-ypnjwci view:normal Cord insertion:Normal Stomach:Appears normal Kidneys:Appears normal [...] week, unless an earlier indicationarises Coding ======= Description:22909-53 Follow Up Ultrasound Description:53714-42 BPP without NST Description:61385-79 Doppler Umbilical Artery Bathhouse Keeper: Hoa Crump RDMS Physician: Ed Ng MD Electronically signed by: Ed Ng MD at: 11:43 us Jung Angeles MD IMG US ORDERABLES Final Result * [facility] (10/25/2025 11:18 AM EST) Anatomical Region Laterality Modality Ultrasound 10/25/2025 10:4 2 AM EST Narrative 10/25/2025 11:26 AM EST PAT NAME: FARIDA LYNN MED REC#: [id number] DA: 1990 PAT GEND: F PAT TYPE: O EXAM BLAISE: [id number] REF PHYS AMY CONLEY Comparison Studies The [...] EFW (oz) 0 oz EFW by: Hadlock (HWQ-OP-UI-FL) Extended Cav. septi pel. tr 5.9 mm Screening Specialist 3.4 mm CM 7.4 mm 56% Nicolaides [...] Normal Heart / Thorax 3-vessel view: Normal 3-hujqnw-ediwvpd view: normal Cord insertion: Normal Stomach: Appears [...] here in 2 weeks. Coding ======= Description: 51851-00 Follow Up Ultrasound Description: 67904-41 BPP without NST Description: 42550-03 Doppler Umbilical Artery Bathhouse Keeper: Tiki Ta RDMS Physician: Jung Angeles MD, FACOG Electronically signed by: Jung Angeles MD, FACOG at: 11:26 Procedure Note Jung Angeles MD - 10/25/2025 PAT NAME: FARIDA LYNN MED REC#: [id number] DA: 1990 PAT GEND: F PAT TYPE: O EXAM BLAISE: [id number] REF PHYS AMY CONLEY Comparison Studies The findings of this study are compared to the prior ultrasound studydated 10/18/25. Patient Status Outpatient Indication ======== IUGR. Marginal PCI. Obesity BMI 35. Maternal Assessment Tzqxay974 cm Height (ft)5 ft Height (in)3 in Xrmgvy72 kg Weight (lb)197 lb BMI34.91 kg/m Method ======= Transabdominal ultrasound examination ========= Botello . Number of fetuses: 1 Dating ====== GA by prior vrdwnvxius72 w + 3 d PAULA by prior [...] Hadlock Femur55.2 mm 29w 1d 2% Hadlock Ohpktug04.3 mm 29w 0d 3% Emeli HC / AC1.10 EFW1,361 g 28w 6d 3% Hadlock EFW (lb)3 lb EFW (oz)0 oz EFW by:Hadlock ([id number]-QF-GY-FL) Extended Cav. septi pel. tr5.9 mm Vp3.4 mm CM7.4 mm 56% Nicolaides Head / Face / Neck Cephalic index0.74 6% Nicolaides Extremities / Bony Struc FL / BPD0.76 FL / HC0.20 FL / AC0.22 Other Structures WMZ510 bpm General Evaluation Cardiac activity present. FHR [...] LVOT view:Normal Heart / Thorax 3-vessel view:Normal 4-wdlsyg-rmcggbp view:normal Cord insertion:Normal Stomach:Appears normal Kidneys:Appears normal [...] up here in 2 weeks. Coding ======= Description:98035-48 Follow Up Ultrasound Description:79185-23 BPP without NST Description:49149-90 Doppler Umbilical Artery Bathhouse Keeper: Tiki aT RDMS Physician: Jung Angeles MD, FACOG Electronically signed by: Jung Angeles MD, FACOG at: 11:26 us Jung Angeles MD IMG US ORDERABLES Final Result documented in this encounter Visit Diagnoses Diagnosis Poor growth affecting management of mother in third trimester, single or unspecified fetus- Primary Maternal chronic hypertension in third trimester documented in this encounter Care Teams Data Warehouse Analyst Relationship Specialty Start Date End Date Provider, No Known [facility] [address] PCP - General 08/19/24 documented as of this encounter
--- OUTSIDE RECORDS SUMMARY | 2025-10-25 09:49 | XMS_ITS | Encounter Summary ---
Author Organization [facility] Address [address] [place] [address] Care Team Providers Care Drug Enforcement Administration Agent Name Role Phone Provider, No Known Primary Care Provider Unavail able Reason for Visit * Diagnostic Imaging (Routine) - Authorized Specialty Diagnoses / Procedures Referred By Ritesh t Referred To Contact Radiology Diagnoses Poor growth affecting management of mother in third trimester, single or unspecified fetus Maternal chronic hypertension in third trimester Procedures [facility] Angeles, Jung Harmon MD [address] [facility] [address] [place] [address] Phone: tel: fax: Referral ID Status Reason Start Date Expiration Date V isits Requested Visits Authorized [id number] Authorized 10/18/2025 01/17/2027 5 5 Encounter Details Date Type Department Care Team (Latest Contact Info) Description 10/25/2025 9:49 AM EST - 10/25/2025 11:59 PM [facility] Hospital Encounter [facility] US PER DIAG CTR [address] [place] [address] Amy Conley, DO [address] [address] Discharge Disposition: Home or Self Care Social [...] Priority Date/Time Associated Diagnosis Comments [facility] Routine 10/25/2025 11:18 AM EST Poor growth affecting management of mother in third trimester, single or unspecified fetus Maternal chronic hypertension in third trimester documented in this encounter Results * [facility] (10/25/2025 11:18 AM EST) Anatomical Region Laterality Modality Ultrasound 10/25/2025 10:4 2 AM EST Narrative 10/25/2025 11:26 AM EST PAT NAME: FARIDA LYNN MED REC#: [id number] DA: 1990 PAT GEND: F PAT TYPE: O EXAM BLAISE: [id number] REF PHYS AMY CONLEY Comparison Studies The [...] EFW (oz) 0 oz EFW by: Hadlock (RCB-AZ-TB-FL) Extended Cav. septi pel. tr 5.9 mm Plate Cleaner 3.4 mm CM 7.4 mm 56% Nicolaides [...] Normal Heart / Thorax 3-vessel view: Normal 2-agoauz-mzekxev view: normal Cord insertion: Normal Stomach: Appears [...] here in 2 weeks. Coding ======= Description: 36669-97 Follow Up Ultrasound Description: 41978-16 BPP without NST Description: 37891-19 Doppler Umbilical Artery Research Spec: Tiki Ta RDMS Physician: Jung Angeles MD, FACOG Electronically signed by: Jung Angeles MD, FACOG at: 11:26 Procedure Note Jung Angeles MD - 10/25/2025 PAT NAME: FARIDA LYNN MED REC#: [id number] DA: [id number] PAT GEND: F PAT TYPE: O EXAM BLAISE: [id number] REF PHYS AMY CONLEY Comparison Studies The findings of this study are compared to the prior ultrasound studydated 10/18/25. Patient Status Outpatient Indication ======== IUGR. Marginal PCI. Obesity BMI 35. Maternal Assessment Lflkky160 cm Height (ft)5 ft Height (in)3 in Xqadih71 kg Weight (lb)197 lb BMI34.91 kg/m Method ======= Transabdominal ultrasound examination ========= Botello . Number of fetuses: 1 Dating ====== GA by prior [id number] w + 3 d PAULA by prior [...] GA31 w + 3 d Assigned PAULA:12/24/2025 [id number] d Biometry Standard BPD73.0 mm 29w 2d 2% Hadlock OFD98.4 mm 31w 6d 60% Emeli HC274.2 mm 30w 0d 1% Hadlock Cerebellum tr39.3 mm 31w 5d 40% Hill AC249.9 mm 29w 1d 3% Hadlock Femur55.2 mm 29w 1d 2% Hadlock Wggxiie15.3 mm 29w 0d 3% Emeli HC / AC1.10 EFW1,361 g 28w 6d 3% Hadlock EFW (lb)3 lb EFW (oz)0 oz EFW by:Hadlock (ZFO-MV-DB-FL) Extended Cav. septi pel. tr5.9 mm Vp3.4 mm CM7.4 mm 56% Nicolaides Head / Face / Neck Cephalic index0.74 6% Nicolaides Extremities / Bony Struc FL / BPD0.76 FL / HC0.20 FL / AC0.22 Other Structures JRU087 bpm General Evaluation Cardiac activity present. FHR [...] LVOT view:Normal Heart / Thorax 3-vessel view:Normal 7-jqscdj-cipwvkk view:normal Cord insertion:Normal Stomach:Appears normal Kidneys:Appears normal [...] up here in 2 weeks. Coding ======= Description:37959-37 Follow Up Ultrasound Description:06014-21 BPP without NST Description:29222-44 Doppler Umbilical Artery Research Spec: Tiki Ta RDMS Physician: Jung Angeles MD, FACOG Electronically signed by: Jung Angeles MD, FACOG at: 11:26 us Jung Angeles MD IMG US ORDERABLES Final Result documented in this encounter Visit Diagnoses Not on filedocumented in this encounter Care Teams Drug Enforcement Administration Agent Relationship Specialty Start Date End Date Provider, [place] [address] PCP - General 08/19/24 documented as of this encounter
--- OUTSIDE RECORDS SUMMARY | 2025-10-25 10:15 | XMS_ITS | Encounter Summary ---
Author Organization [facility] Address [address] [place] [address] Care Team Providers Care Media Production Support Manager Name Role Phone Provider, No Known Primary Care Provider Unavail able Reason for Visit * Reason Comments IUGR, marginal PCI, obesity Encounter Details Date Type Department Care Team (Late st Contact Info) Description 10/25/2025 10:15 AM EST Office Visit [facility] MATERNAL MEDICINE [address] [place] [phone] Jung Angeles MD [address] [facility] [address] [place] [address] Poor growth affecting management of mother in [...] Dopplers. Patient reports twice-weekly testing with primary CARPET JACK and given 1 of these being performed [...] Dopplers. Patient reports twice-weekly testing with primary CARPET JACK and given 1 of these being performed [...] [facility] Jung Angeles MD, FACOG Maternal Medicine, [facility] documented in this encounter Plan of Treatment Not on file documented as of this encounter Visit Diagnoses Diagnosis Poor growth affecting management of mother in third trimester, single or unspecified fetus- Primary Maternal chronic hypertension in third trimester documented in this encounter Care Teams Media Production Support Manager Relationship Specialty Start Date End Date Provider, [place] [address] PCP - General 08/19/24 documented as of this encounter
--- OUTSIDE RECORDS SUMMARY | 2025-11-08 10:19 | XMS_ITS | Encounter Summary ---
Author Organization [facility] Address [address] [place] [address] Care Team Providers Care Ekg Tech Name Role Phone Provider, No Known Primary Care Provider Unavail able Reason for Visit * Diagnostic Imaging (Routine) - Authorized Specialty Diagnoses / Procedures Referred By Ritesh t Referred To Contact Radiology Diagnoses Poor growth affecting management of mother in third trimester, single or unspecified fetus Maternal chronic hypertension in third trimester Procedures [facility] Angeles, Jung Harmon MD [address] [facility] [address] [place] [address] Phone: tel: fax: Referral ID Status Reason Start Date Expiration Date V isits Requested Visits Authorized [id number] Authorized 10/18/2025 01/17/2027 5 5 Encounter Details Date Type Department Care Team (Latest Contact Info) Description 11/08/2025 10:19 AM EST - 11/08/2025 11:59 PM [facility] Hospital Encounter [facility] US PER DIAG CTR [address] [place] [phone] Amy Conley, DO [address] [address] Discharge Disposition: Home or Self Care Social [...] Procedure Name Priority Date/Time Associated Diagnosis Comments [facility] Routine 11/08/2025 11:32 AM EST Poor growth affecting management of mother in third trimester, single or unspecified fetus Maternal chronic hypertension in third trimester documented in this encounter Results * [facility] (11/08/2025 11:32 AM EST) Anatomical Region Laterality Modality Ultrasound 11/08/2025 10:5 3 AM EST Narrative 11/08/2025 11:43 AM EST PAT NAME: FARIDA YLNN MED REC#: [id number] DA: 1990 PAT GEND: F PAT TYPE: O EXAM BLAISE: [id number] REF PHYS AMY CONLEY Comparison Studies The [...] EFW (oz) 9 oz EFW by: Hadlock (VJP-OP-VW-FL) Extended Cav. septi pel. tr 5.7 mm Tosser 5.4 mm CM 7.0 mm 39% Nicolaides [...] Normal Heart / Thorax 3-vessel view: Normal 8-nvgnnd-zdxretq view: normal Cord insertion: Normal Stomach: Appears [...] Office Visit Type: Consultation See [facility] for full consult note. Impression Single, viable [...] table) appear normal The BPP is reassuring (8/8) No abnormalities are appreciated within the limitations of ultrasound Recommendation Continue twice weekly NST's and once weekly BPP/Dopplers in your office until delivery Follow up in 2 weeks for growth assessment (PDC) Agree with delivery in the 37th week, unless an earlier indication arises Coding ======= Description: 31079-67 Follow Up Ultrasound Description: 08646-09 BPP without NST Description: 21624-14 Doppler Umbilical Artery Mandarin Chinese Teacher: Hoa Crump RDMS Physician: Ed Ng MD Electronically signed by: Ed Ng MD at: 11:43 Procedure Note Ed Ng MD - 11/08/2025 PAT NAME: FARIDA LYNN MED REC#: [id number] DA: [id number] PAT GEND: F PAT TYPE: O EXAM BLAISE: [id number] REF PHYS SARAH CONLEYLEY Comparison Studies The findings of this study are compared to the prior ultrasound studydated Patient Status Outpatient Indication ======== IUGR. Marginal PCI. Obesity BMI 35. Maternal Assessment Gyzhnb987 cm Height (ft)5 ft Height (in)3 in Xrjykd95 kg Weight (lb)200 lb BMI35.44 kg/m Method ======= Transabdominal ultrasound examination. View: Adequate view ========= Botello . Number of fetuses: 1 Dating ====== Method of dating:based on stated PAULA GA by prior ovpprkqssm21 w + 3 d PAULA by prior assessment:12/24/2025 Ultrasound examination on:11/08/2025 GA by U/S based upon:AC, BPD, Femur, HC GA by U/S31 w + 0 d PAULA by U/S:01/10/2026 Previous dating:based on stated PAULA, selected on 10/18/2025 Agreed PAULA of previous datin12/24/2025 Assigned:based on stated PAULA, selected on 11/08/2025 Assigned GA33 w + 3 d Assigned PAULA:12/24/2025 d Biometry Standard BPD77.4 mm 31w 0d 2% Hadlock JBO019.1 mm 34w 4d 72% Emeli HC291.2 mm 32w 1d 2% Hadlock Cerebellum tr43.2 mm 33w 5d 37% Hill AC264.4 mm 30w 4d 1% Hadlock Femur58.0 mm 30w 2d <1% Hadlock HC / AC1.10 EFW1,619 g 30w 2d 2% Hadlock EFW (lb)3 lb EFW (oz)9 oz EFW by:Hadlock (KJW-CA-OK-FL) Extended Cav. septi pel. tr5.7 mm Vp5.4 mm CM7.0 mm 39% Nicolaides Nasal bone11.1 mm Head / Face / Neck Cephalic index0.74 3% Nicolaides Extremities / Bony Struc FL / BPD0.75 FL / HC0.20 FL / AC0.22 Other Structures AIU551 bpm General Evaluation Cardiac activity present. FHR [...] LVOT view:Normal Heart / Thorax 3-vessel view:Normal 5-qkmgys-hypuvfm view:normal Cord insertion:Normal Stomach:Appears normal Kidneys:Appears normal [...] Office Visit Type: Consultation See [facility] for full consult note. Impression Single, viable [...] week, unless an earlier indicationarises Coding ======= Description:53156-79 Follow Up Ultrasound Description:05633-98 BPP without NST Description:37123-37 Doppler Umbilical Artery Mandarin Chinese Teacher: Hoa Crump RDMS Physician: Ed Ng MD Electronically signed by: Ed Ng MD at: 11:43 Jung Angeles MD [facility] ORDERABLES Final Result documented in this encounter Visit Diagnoses Not on filedocumented in this encounter Care Teams Ekg Tech Relationship Specialty Start Date End Date Provider, [place] [address] PCP - General 08/19/24 documented as of this encounter
--- OUTSIDE RECORDS SUMMARY | 2025-11-08 10:45 | XMS_ITS | Encounter Summary ---
Author Organization [facility] Address [address] [place] [id number] Care Team Providers Care Respiratory Care Specialist Name Role Phone Provider, No Known Primary Care Provider Unavail able Reason for Visit * Reason Comments IUGR Encounter Details Date Type Department Care Team (Late st Contact Info) Description 11/08/2025 10:45 AM EST Office Visit [facility] MATERNAL MEDICINE [address] [place], [place] [phone] [place] [address] [place] [address] [place] [address] Poor growth affecting management of mother in [...] plan for the 37th week Orders: - [facility] [place]; Future 2. Maternal chronic hypertension in third [...] tentatively plan between 37-38 weeks Orders: - [facility]; Future Follow Up: Return in about 2 [...] CVS. Ed Ng MD, FACOG Maternal Medicine, [facility] documented in this encounter Plan of Treatment Not on file documented as of this encounter Visit Diagnoses Diagnosis Poor growth affecting management of mother in third trimester, single or unspecified fetus- Primary Maternal chronic hypertension in third trimester documented in this encounter Care Teams Respiratory Care Specialist Relationship Specialty Start Date End Date Provider, [place] [address] PCP - General 08/19/24 documented as of this encounter
--- OUTSIDE RECORDS SUMMARY | 2025-11-22 10:24 | XMS_ITS | Encounter Summary ---
Author Organization [facility] Address [address] [place] [address] Care Team Providers Care Pocket Operator Name Role Phone Provider, No Known Primary Care Provider Unavail able Reason for Visit * Diagnostic Imaging (Routine) - Authorized Specialty Diagnoses / Procedures Referred By Ritesh t Referred To Contact Radiology Diagnoses Poor growth affecting management of mother in third trimester, single or unspecified fetus Maternal chronic hypertension in third trimester Procedures [facility] Angeles, Jung Harmon MD [address] [facility] [address] [place] [address] Phone: tel: fax: Referral ID Status Reason Start Date Expiration Date V isits Requested Visits Authorized [id number] Authorized 10/18/2025 01/17/2027 5 5 Encounter Details Date Type Department Care Team (Latest Contact Info) Description 11/22/2025 10:24 AM EST - 11/22/2025 11:59 PM [facility] Hospital Encounter [facility] US PER DIAG CTR [address] [place] [id number] Mary Lou Conley, DO [address] [address] Discharge Disposition: Home or Self Care Social [...] as of this encounter Plan of Treatment Pending Results Name Type Priority Associated Diagnoses Date /Time [facility] Imaging Routine Poor growth affecting management of mother in third trimester, single or unspecified fetus Maternal chronic hypertension in third trimester 11/22/2025 10:59 AM EST documented as of this encounter Visit Diagnoses Not on filedocumented in this encounter Care Teams Pocket Operator Relationship Specialty Start Date End Date Provider, No Known [facility] [address] PCP - General 08/19/24 documented as of this encounter
--- OUTSIDE RECORDS SUMMARY | 2025-11-22 10:45 | XMS_ITS | Encounter Summary ---
Author Organization [facility] Address [address] [id number] Care Team Providers Care Steward/Stewardess Night Name Role Phone Provider, No Known Primary Care Provider Unavail able Reason for Visit * Reason Comments IUGR, Marginal PCI, obesity Encounter Details Date Type Department Care Team (Late st Contact Info) Description 11/22/2025 10:45 AM EST Office Visit [facility] MATERNAL MEDICINE [address] [facility] [address] [place], [place] [phone] Danielle Allen MD [address] [facility] [address] [place] [address] Social History Tobacco Use Types Packs/Day Years [...] 10:47 AM EDT documented in this encounter Plan of Treatment Not on file documented as of this encounter Visit Diagnoses Not on filedocumented in this encounter Care Teams Steward/Stewardess Night Relationship Specialty Start Date End Date Provider, No Known [facility] [place] [address] PCP - General 08/19/24 documented as of this encounter
[2025-11-26 09:55] VITALS: BMI 36.9
--- OUTSIDE RECORDS SUMMARY | 2025-11-26 09:56 | XMS_ITS | Encounter Summary ---
Author Organization [facility] Address [address] [place] [address] Care Team Providers Care Meat Hostess Name Role Phone Provider, No Known Primary [...] on filedocumented in this encounter Care Teams Meat Hostess Relationship Specialty Start Date End Date Provider, [place] [address] PCP - General 08/19/24 documented as of this encounter
--- OUTSIDE RECORDS SUMMARY | 2025-11-26 09:56 | XMS_ITS | Encounter Summary ---
Author Organization [facility] Address [address] [place] [address] Care Team Providers Care Chief Estimator Name Role Phone Provider, No Known Primary [...] on filedocumented in this encounter Care Teams Chief Estimator Relationship Specialty Start Date End Date Provider, [place] [address] PCP - General 08/19/24 documented as of this encounter
--- OUTSIDE RECORDS SUMMARY | 2025-11-26 09:56 | XMS_ITS | Encounter Summary ---
Author Organization [facility] Address [address] [place] [address] Care Team Providers Care Phd Internship Name Role Phone Provider, No Known Primary [...] on filedocumented in this encounter Care Teams Phd Internship Relationship Specialty Start Date End Date Provider, [place] [address] PCP - General 08/19/24 documented as of this encounter
--- OUTSIDE RECORDS SUMMARY | 2025-11-26 09:56 | XMS_ITS | Patient Health Record ---
Author Organization [facility] Address [address] [facility] [address] [place] [address] Care Team Providers Care Coupon And Bond Collection Clerk Name Role Phone Henna Matamoros Unavailable [phone] Brandy Barillas Unavailable [phone] Allergies No Known Allergies Reason For Referral No Information Social History Sex Assigned At : Social History Observation Description Sex Assigned At Female Section Notes: Age you started smokin Amount of Use: Some days but not every day Do you have any sikhism or culture customs that your provider should [...] not every day Do you have any sikhism or culture customs that your provider should [...] not every day Do you have any sikhism or culture customs that your provider should [...] not every day Do you have any sikhism or culture customs that your provider should [...] W/U Status Risk Notes Problem Missed period (25510103) Missed period (N92.6) Active confirmed Plan Of Treatment Future Test Test Name Order Date *US OB Complete Transabdominal/Vaginal 0 08/25/2024 Insurance Providers Payer Name Payer Address Payer Phone Subscriber Number Group Number Insured Name Patient Relationship to Insured Coverage Start Date Coverage End Date Jose BERRYO [address] [place] [address] [id number] Julia Salas Self - patient is the insured Medical (General) History Medical History History ICD Code Asthma Surgical History Surgery Date(Month/Year) None Hospitalization History Reason Date(Month/Year) Admit for [facility] 2011
--- OUTSIDE RECORDS SUMMARY | 2025-11-26 09:56 | XMS_ITS | Clinical Summary ---
Author Organization [facility] Address [address] [id number] Care Team Providers Care Block Greaser Name Role Phone Provider, No Known Primary [...] Dopplers. Patient reports twice-weekly testing with primary NURSERY TEACHER and given 1 of these being [...] Encounters Date Type Department Care Team Description 11/22/2025 10:45 AM EST Office Visit [facility] [address] [phone] Danielle Allen MD 11/22/2025 10:24 AM EST - 11/22/2025 11:59 PM EST Hospital Encounter [facility] [address] [place] [phone] Amy Conley, DO Discharge Disposition: Home or Self Care 11/22/2025 Travel 11/08/2025 10:45 AM EST Office Visit [facility] [address] [address] Ed Ng MD Poor growth affecting management of mother in third trimester, single or unspecified fetus (Primary Dx); Maternal chronic hypertension in third trimester 11/08/2025 10:19 AM EST - 11/08/2025 11:59 PM EST Hospital Encounter [facility] [address] [place] [address] Amy Conley, Discharge Disposition: Home or Self Care 11/08/2025 Travel 10/25/2025 10:15 AM EST Office Visit [facility] [address] [address] Jung Angeles MD Poor growth affecting management of mother in third trimester, single or unspecified fetus (Primary Dx); Maternal chronic hypertension in third trimester 10/25/2025 9:49 AM EST - 10/25/2025 11:59 PM EST Hospital Encounter [facility] [address] [place] [address] Amy Conley DO Discharge Disposition: Home or Self Care 10/25/2025 Travel 10/18/2025 10:15 AM EST Office Visit [facility] [address] [address] Jung Angeles MD Poor growth affecting management of mother in third trimester, single or unspecified fetus (Primary Dx); Maternal chronic hypertension in third trimester 10/18/2025 9:34 AM EST - 10/18/2025 11:59 PM EST Hospital Encounter [facility] [address] [facility] [phone] Danielle Allen MD Poor growth affecting management of mother in third trimester, single or unspecified fetus; Maternal chronic hypertension in second trimester Discharge Disposition: Home or Self Care 10/18/2025 Travel 10/11/2025 10:15 AM EST Office Visit [facility] [address] [address] Danielle Allen MD Poor growth affecting management of mother in third trimester, single or unspecified fetus (Primary Dx); Maternal chronic hypertension in second trimester 10/11/2025 9:44 AM EST - 10/11/2025 11:59 PM EST Hospital Encounter [facility] [address] [place] [phone] Lis Jeffrey MD Marginal insertion of umbilical cord affecting management of mother in second trimester; Maternal chronic hypertension in second trimester; Poor growth affecting management of mother in third trimester, single or unspecified fetus; 26 weeks gestation of Discharge Disposition: Home or Self Care 10/11/2025 Travel 09/23/2025 10:15 AM EDT Office Visit [facility] [address] [facility] [address] [place] [address] Lis Jeffrey MD Marginal insertion of umbilical cord affecting management of mother in second trimester (Primary Dx); Maternal chronic hypertension in second trimester; Poor growth affecting management of mother in third trimester, single or unspecified fetus; 26 weeks gestation of 09/23/2025 9:52 AM EDT - 09/23/2025 11:59 PM EDT Hospital Encounter [facility] [address] [place] [address] Brian Wesley MD Uterine size-date discrepancy in second trimester; Marginal insertion of umbilical cord affecting management of mother in second trimester; 23 weeks gestation of ; Maternal chronic hypertension in second trimester Discharge Disposition: Home or Self Care 09/23/2025 Travel 09/06/2025 Telephone [facility] [address] [facility] [address] Brian Wesley MD Advice Only (Pt has question for Nurse.) 09/02/2025 10:30 AM EDT - 09/02/2025 11:59 PM EDT Hospital Encounter [facility] [address] [place] [address] Amy Conley, DO Maternal care for other known or suspected poor growth, second trimester, not applicable or unspecified; Marginal insertion of umbilical cord affecting management of mother in second trimester; , unspecified gestational age Discharge Disposition: Home or Self Care 09/02/2025 10:30 AM EDT Office Visit [facility] [address] [address] Brian Wesley MD Uterine size-date discrepancy in second trimester (Primary Dx); Marginal insertion of umbilical cord affecting management of mother in second trimester; 23 weeks gestation of ; Maternal chronic hypertension in second trimester 09/02/2025 Telephone [facility] [address] [place] [address] Jodie Garcia machine specialist Only 09/02/2025 Travel from Last 3 Months [...] 9.6 oz) 11/22/2025 10:35 AM EST Height 160 cm (5' 3 ) 09/02/2025 10:47 AM EDT Body Mass Index 36.07 09/02/2025 10:47 AM EDT Plan of Treatment Health Maintenance Due Date Last Done Comments [...] Name Priority Date/Time Associated Diagnosis Comments [facility] Routine 11/08/2025 11:32 AM EST Poor growth affecting management of mother in third trimester, single or unspecified fetus Maternal chronic hypertension in third trimester [facility] Routine 10/25/2025 11:18 AM EST Poor growth affecting management of mother in third trimester, single or unspecified fetus Maternal chronic hypertension in third trimester [facility] Routine 10/18/2025 10:21 AM EST Poor growth affecting management of mother in third trimester, single or unspecified fetus Maternal chronic hypertension in second trimester [facility] Routine 10/11/2025 10:30 AM EST Marginal insertion of umbilical cord affecting management of mother in second trimester Maternal chronic hypertension in second trimester Poor growth affecting management of mother in third trimester, single or unspecified fetus [address] [facility] Routine 09/23/2025 10:28 AM EDT Uterine size-date discrepancy in second trimester Marginal insertion of umbilical cord affecting management of mother in second trimester 23 weeks gestation of Maternal chronic hypertension in second trimester [facility] Routine 09/02/2025 11:30 AM EDT Maternal care for other known or suspected poor growth, second trimester, not applicable or unspecified Marginal insertion of umbilical cord affecting management of mother in second trimester , unspecified gestational age from Last 3 Months Results * [facility] (11/08/2025 11:32 AM EST) Only the most recent of6 resultswithin the time period is included. Anatomical Region Laterality Modality Ultrasound 11/08/2025 10:5 3 AM EST Narrative 11/08/2025 11:43 AM EST PAT NAME: FARIDA LYNN MED REC#: [id number] DA: 1990 PAT GEND: F PAT TYPE: O EXAM BLAISE: [id number] REF PHYS AMY CONLEY Comparison Studies The [...] EFW (oz) 9 oz EFW by: Hadlock ([id number]) Extended Cav. septi pel. tr 5.7 mm Biometric Screener 5.4 mm CM 7.0 mm 39% Nicolaides [...] Normal Heart / Thorax 3-vessel view: Normal 5-sqhmoi-mfcvmnp view: normal Cord insertion: Normal Stomach: Appears [...] Consultation / Office Visit Type: Consultation See [facility] for full consult note. Impression Single, [...] an earlier indication arises Coding ======= Description: 97248-08 Follow Up Ultrasound Description: 38041-89 BPP without NST Description: 53723-63 Doppler Umbilical Artery Housekeeping Supervisor Hotel: [place] RDMS Physician: Ed Ng MD Electronically signed by: Ed Ng MD at: 11:43 Procedure Note Ed Ng MD - 11/08/2025 PAT NAME: FARIDA LYNN MED REC#: [id number] DA: [id number] PAT GEND: F PAT TYPE: O EXAM BLAISE: [id number] REF PHYS AMY CONLEY Comparison Studies The findings of this study are compared to the prior ultrasound studydated Patient Status Outpatient Indication ======== IUGR. Marginal PCI. Obesity BMI 35. Maternal Assessment Tdotyc015 cm Height (ft)5 ft Height (in)3 in Uwdbaf60 kg Weight (lb)200 lb BMI35.44 kg/m Method ======= Transabdominal ultrasound examination. View: Adequate view ========= [place] . Number of fetuses: 1 Dating ====== Method of dating:based on stated PAULA GA by prior [id number] w + 3 d PAULA by prior assessment:12/24/2025 Ultrasound examination on:11/08/2025 GA by U/S based upon:AC, BPD, Femur, HC GA by U/S31 w + 0 d PAULA by U/S:01/10/2026 Previous dating:based on stated PAULA, selected on 10/18/2025 Agreed PAULA of previous datin12/24/2025 Assigned:based on stated PAULA, selected on 11/08/2025 Assigned GA33 w + 3 d Assigned PAULA:12/24/2025 [id number] d Biometry Standard BPD77.4 mm 31w 0d 2% Hadlock HBT065.1 mm 34w 4d 72% Emeli HC291.2 mm 32w 1d 2% Hadlock Cerebellum tr43.2 mm 33w 5d 37% Hill AC264.4 mm 30w 4d 1% Hadlock Femur58.0 mm 30w 2d <1% Hadlock HC / AC1.10 EFW1,619 g 30w 2d 2% Hadlock EFW (lb)3 lb EFW (oz)9 oz EFW by:Hadlock ([id number]) Extended Cav. septi pel. tr5.7 mm Vp5.4 mm CM7.0 mm 39% Nicolaides Nasal bone11.1 mm Head / Face / Neck Cephalic index0.74 3% Nicolaides Extremities / Bony Struc FL / BPD0.75 FL / HC0.20 FL / AC0.22 Other Structures [id number] bpm General Evaluation Cardiac activity present. FHR [...] LVOT view:Normal Heart / Thorax 3-vessel view:Normal 3-nkowji-ekqzamr view:normal Cord insertion:Normal Stomach:Appears normal Kidneys:Appears normal [...] Consultation / Office Visit Type: Consultation See [facility] for full consult note. Impression Single, [...] week, unless an earlier indicationarises Coding ======= Description:09470-82 Follow Up Ultrasound Description:34223-95 BPP without NST Description:37993-04 Doppler Umbilical Artery Housekeeping Supervisor Hotel: [place] RDMS Physician: Ed Ng MD Electronically signed by: Ed Ng MD at: 11:43 Jung Angeles MD [facility] ORDERABLES Final Result from Last [address] [address] EMPLOYEE Care Teams Block Greaser Relationship Specialty Start Date End Date Provider, No Known [facility] [place] [address] PCP - General 08/19/24
--- OUTSIDE RECORDS SUMMARY | 2025-11-26 09:57 | XMS_ITS | Encounter Summary ---
Author Organization [facility] Address [address] [place] [address] Care Team Providers Care Oceanologist Name Role Phone Provider, No Known Primary Care Provider Unavail able Encounter Details Date Type Department Care Team (Latest Contact Info) Description 11/22/2025 Travel Social History Tobacco Use Types Packs/Day [...] on filedocumented in this encounter Care Teams Oceanologist Relationship Specialty Start Date End Date Provider, [place] [address] PCP - General 08/19/24 documented as of this encounter
--- OUTSIDE RECORDS SUMMARY | 2025-11-26 09:57 | XMS_ITS | Encounter Summary ---
Author Organization [facility] Address [address] [place] [address] Care Team Providers Care It Software Developer Name Role Phone Provider, No Known [...] on filedocumented in this encounter Care Teams It Software Developer Relationship Specialty Start Date End Date Provider, [place] [address] PCP - General 08/19/24 documented as of this encounter
[2025-11-26 10:05] VITALS: BP 130/86; PULSE 86; RESP 18; TEMP 36.9; O2SAT 100; BMI 37.1
== END 2025-11-26 10:27 | disposition home or self-care (01) ==
LOC: OBOUT 09:54 → OB 09:55
PROVIDERS: Visit Provider Obstetrics & Gynecology
DX: Z34.83 Encounter for supervision of other normal pregnancy, third trimester (principal); Z3A.36 36 weeks gestation of pregnancy
CPT/HCPCS: 99212

== ENCOUNTER 2025-11-30 07:50 | Outpatient (CLI) | payer BC, SELFPAY ==
--- OUTSIDE RECORDS SUMMARY | 2025-10-11 09:44 | XMS_ITS | Encounter Summary ---
Author Organization [facility] Address [address] [place] [address] Care Team Providers Care Register In Chancery Name Role Phone Provider, No Known Primary [...] unspecified fetus 26 weeks gestation of Procedures [facility] Diagnostic [place] Lis Jeffrey MD [address] [place] [address] Phone: tel: fax: Referral ID Status Reason Start Date Expiration Date Visits Re quested Visits Authorized [id number] Closed 09/23/2025 12/23/2026 1 1 Reason for Visit * Diagnostic Imaging (Routine) - Closed Specialty Diagnoses / Procedures Referred By Ritesh winchester Referred To Contact Radiology Diagnoses Marginal insertion of umbilical cord affecting management of mother in second trimester Maternal chronic hypertension in second trimester Poor growth affecting management of mother in third trimester, single or unspecified fetus 26 weeks gestation of Procedures [facility] Diagnostic [place] Lis Jeffrey MD [address] [id number] Phone: tel: fax: Referral ID Status Reason Start Date Expiration Date Visits Re quested Visits Authorized [id number] Closed 09/23/2025 12/23/2026 1 1 Encounter Details Date Type Department Care Team (Late st Contact Info) Description 10/11/2025 9:44 AM EST - 10/11/2025 11:59 PM [facility] Hospital Encounter [facility] PER DIAG CTR [address] [place] [address] Lis Jeffrey MD [address] [place] [address] Marginal insertion of umbilical cord [...] Procedure Name Priority Date/Time Associated Diagnosis Comments [facility] Routine 10/11/2025 10:30 AM EST Marginal insertion of umbilical cord affecting management of mother in second trimester Maternal chronic hypertension in second trimester Poor growth affecting management of mother in third trimester, single or unspecified fetus 26 weeks gestation of documented in this encounter Results * [facility] (10/11/2025 10:30 AM EST) Anatomical Region Laterality Modality Ultrasound 10/11/2025 9:59 AM EST Narrative 10/12/2025 7:46 PM EST PAT NAME: FARIDA LYNN MED REC#: [id number] DA: [id number] PAT GEND: F PAT TYPE: O EXAM BLAISE: [id number] REF PHYS AMY CORCORAN Comparison Studies The [...] EFW (oz) 5 oz EFW by: Hadlock (DCX-HS-FL-FL) Extended Cav. septi pel. tr 5.7 mm Book Coverer 5.0 mm CM 7.1 mm 55% Nicolaides [...] Normal Heart / Thorax 3-vessel view: Normal 3-upxuna-hrgkmxv view: normal Cord insertion: Normal Stomach: Appears [...] normal Marginal cord insertion Coding ======= Description: 39905-60 Follow Up Ultrasound Description: 04925-13 BPP without NST Description: 45739-66 Doppler Umbilical Artery Long Goods Drier: Albina Roberts RDMS Physician: Danielle Allen MD, FACOG Electronically signed by: Danielle Allen MD, FACOG at: 19:46 Procedure Note Danielle Allen MD - 10/12/2025 PAT NAME: FARIDA LYNN MED REC#: [id number] DA: 1990 PAT GEND: F PAT TYPE: O EXAM BLAISE: [id number] REF PHYS AMY CORCORAN Comparison Studies The findings of this study are compared to the prior ultrasound studydated 09/23/2025 Patient Status Outpatient Indication ======== IUGR. Marginal PCI. Obesity BMI 34. Maternal Assessment Edttfm164 cm Height (ft)5 ft Height (in)3 in Yobuer62 kg Weight (lb)194 lb BMI34.38 kg/m Method ======= Transabdominal ultrasound examination. View: Good view ========= Botello . Number of fetuses: 1 Dating ====== Method of dating:based on stated PAULA GA by prior binjweobek71 w + 3 d PAULA by prior assessment:12/24/2025 Ultrasound examination on:10/11/2025 GA by U/S based upon:AC, BPD, Femur, HC GA by U/S27 w + 3 d PAULA by U/S:01/07/2026 Previous dating:based on stated PAULA, selected on 09/23/2025 Agreed PAULA of previous datin12/24/2025 Assigned:based on stated PAULA, selected on 10/11/2025 Assigned GA29 w + 3 d Assigned PAULA:12/24/2025 dyedep842 d Biometry Standard BPD68.2 mm 27w 3d 2% Hadlock OFD92.9 mm 30w 0d 65% Emeli HC258.2 mm 28w 0d 2% Hadlock Cerebellum tr35.3 mm 29w 3d 50% Hill AC227.3 mm 27w 1d 2% Hadlock Femur50.5 mm 27w 1d 1% Hadlock Iwxybsu41.3 mm 25w 3d <1% Emeli HC / AC1.14 EFW1,044 g 26w 6d 2% Hadlock EFW (lb)2 lb EFW (oz)5 oz EFW by:Hadlock (SRR-SX-HB-FL) Extended Cav. septi pel. tr5.7 mm Vp5.0 mm CM7.1 mm 55% Nicolaides Head / Face / Neck Cephalic index0.73 5% Nicolaides Extremities / Bony Struc FL / BPD0.74 FL / HC0.20 FL / AC0.22 Other Structures KTY376 bpm General Evaluation Cardiac activity present. FHR [...] LVOT view:Normal Heart / Thorax 3-vessel view:Normal 3-sdzxjt-hzwqyxh view:normal Cord insertion:Normal Stomach:Appears normal Kidneys:Appears normal Bladder:Appears normal Gender:female Wants to know gender:yes Maternal Structures Uterus / Cervix Cervical lbihyt83.7 mm Doppler Arterial Umbilical A PI0.97 51% [...] doppler normal Marginal cord insertion Coding ======= Description:40409-79 Follow Up Ultrasound Description:85364-85 BPP without NST Description:00920-91 Doppler Umbilical Artery Long Goods Drier: Albina Roberts RDMS Physician: Danielle Allen MD, [...] of documented in this encounter Care Teams Register In Chancery Relationship Specialty Start Date End Date Provider, [place] [address] PCP - General 08/19/24 documented as of this encounter
--- OUTSIDE RECORDS SUMMARY | 2025-10-11 10:15 | XMS_ITS | Encounter Summary ---
Author Organization [facility] Address [address] [phone] Care Team Providers Care Merchandise Clerk Name Role Phone Provider, No Known Primary Care Provider Unavail able Reason for Referral * Diagnostic Imaging (Routine) - Closed Specialty Diagnoses / Procedures Referred By Ritesh t Referred To Contact Radiology Diagnoses Poor growth affecting management of mother in third trimester, single or unspecified fetus Maternal chronic hypertension in second trimester Procedures [facility] Danielle Allen MD [address] [address] Phone: tel: fax: Referral ID Status Reason Start Date Expiration Date Visits Re quested Visits Authorized [id number] Closed 10/13/2025 01/12/2027 1 1 Reason for Visit * Reason Comments IUGR, Marginal Cord Insertion, MO Encounter Details Date Type Department Care Team (Late st Contact Info) Description 10/11/2025 10:15 AM EST Office Visit [facility] [address] [facility] [address] [place] [phone] Danielle Allen MD [address] [phone] Poor growth affecting management of mother in [...] weeks testing in your office Orders: - [facility]; Future 2. Maternal chronic hypertension in second trimester - [facility]; Future Follow Up 1 week [...] procedures such as amniocentesis or CVS. Danielle lAlen MD FACOG Maternal Medicine, [facility] [place] 10/11/2025 documented in this encounter Plan of Treatment Not on file documented as of this encounter Results * [facility] (10/18/2025 10:21 AM EST) Anatomical Region Laterality Modality Ultrasound 10/18/2025 9:57 AM EST Narrative 10/18/2025 10:27 AM EST PAT NAME: FARIDA LYNN MED REC#: [id number] DA: [id number] PAT GEND: F PAT TYPE: O EXAM BLAISE: [id number] REF PHYS AMY CONLEY Comparison Studies The [...] NSTs in your office. Coding ======= Description: 01519-04 BPP without NST Description: 35560-18 Doppler Umbilical Artery Hydraulic Lift Operator: Eunice Manning RDMS Physician: Jung Angeles MD, FACOG Electronically signed by: Jung Angeles MD, FACOG at: 10:27 Procedure Note Jung Angeles MD - 10/18/2025 PAT NAME: FARIDA LYNN MED REC#: [id number] DA: 1990 PAT GEND: F PAT TYPE: O EXAM BLAISE: [id number] REF PHYS AMY CONLEY Comparison Studies The findings of this study are compared to the prior ultrasound studydated 10/11/25 Patient Status Outpatient Indication ======== IUGR. Marginal PCI. Obesity BMI 34. Maternal Assessment Lxjicj329 cm Height (ft)5 ft Height (in)3 in Lztvgk21 kg Weight (lb)196 lb BMI34.73 kg/m Method ======= Transabdominal ultrasound examination ========= Botello . Number of fetuses: 1 Dating ====== Method of dating:based on stated PAULA GA by prior cnuktqohbi63 w + 3 d PAULA by prior [...] weekly NSTs in your office. Coding ======= Description:34086-39 BPP without NST Description:43623-04 Doppler Umbilical Artery Hydraulic Lift Operator: Eunice Manning RDMS Physician: Jung Angeles MD, [...] trimester documented in this encounter Care Teams Merchandise Clerk Relationship Specialty Start Date End Date Provider, No Known [facility] [place] [address] PCP - General 08/19/24 documented as of this encounter
--- OUTSIDE RECORDS SUMMARY | 2025-10-18 09:34 | XMS_ITS | Encounter Summary ---
Author Organization [facility] Address [address] [id number] Care Team Providers Care Warp Doffer Name Role Phone Provider, No Known Primary Care Provider Unavail able Reason for Referral * Diagnostic Imaging (Routine) - Closed Specialty Diagnoses / Procedures Referred By Ritesh winchester Referred To Contact Radiology Diagnoses Poor growth affecting management of mother in third trimester, single or unspecified fetus Maternal chronic hypertension in second trimester Procedures [facility] Diagnostic [place] Danielle Allen MD [address] [facility] [place] [address] Phone: tel: fax: Referral ID Status Reason Start Date Expiration Date Visits Re quested Visits Authorized [id number] Closed 10/13/2025 01/12/2027 1 1 Reason for Visit * Diagnostic Imaging (Routine) - Closed Specialty Diagnoses / Procedures Referred By Ritesh winchester Referred To Contact Radiology Diagnoses Poor growth affecting management of mother in third trimester, single or unspecified fetus Maternal chronic hypertension in second trimester Procedures [facility] Diagnostic [place] Danielle Allen MD [address] [place] [address] Phone: tel: fax: Referral ID Status Reason Start Date Expiration Date Visits Re quested Visits Authorized [id number] Closed 10/13/2025 01/12/2027 1 1 Encounter Details Date Type Department Care Team (Late st Contact Info) Description 10/18/2025 9:34 AM EST - 10/18/2025 11:59 PM EST Hospital Encounter [facility] [address] [place] [address] Danielle Allen MD [address] [place] [address] Poor growth affecting management of mother in [...] 08/02 Potentially Unsafe Housing Conditions Not on payt e 08/19/2024 Family and Community Support Answer [...] Procedure Name Priority Date/Time Associated Diagnosis Comments [facility] Routine 10/18/2025 10:21 AM EST Poor growth affecting management of mother in third trimester, single or unspecified fetus Maternal chronic hypertension in second trimester documented in this encounter Results * [facility] (10/18/2025 10:21 AM EST) Anatomical Region Laterality Modality Ultrasound 10/18/2025 9:57 AM EST Narrative 10/18/2025 10:27 AM EST PAT NAME: FARIDA LYNN MED REC#: [id number] DA: [id number] PAT GEND: F PAT TYPE: O EXAM BLAISE: [id number] REF PHYS AMY CORCORAN Comparison Studies The [...] NSTs in your office. Coding ======= Description: 19608-83 BPP without NST Description: 32693-61 Doppler Umbilical Artery Supervisor Force Adjustment: Eunice Manning RDMS Physician: Jung Angeles MD, FACOG Electronically signed by: Jung Angeles MD, FACOG at: 10:27 Procedure Note Jung Angeles MD - 10/18/2025 PAT NAME: FARIDA LYNN [facility] REC#: [id number] DA: 1990 PAT GEND: F PAT TYPE: O EXAM BLAISE: [id number] REF PHYS AMY CORCORAN Comparison Studies The findings of this study are compared to the prior ultrasound studydated 10/11/25 Patient Status Outpatient Indication ======== IUGR. Marginal PCI. Obesity BMI 34. Maternal Assessment Djonbs251 cm Height (ft)5 ft Height (in)3 in Zqwkbk84 kg Weight (lb)196 lb BMI34.73 kg/m Method ======= Transabdominal ultrasound examination ========= Botello . Number of fetuses: 1 Dating ====== Method of dating:based on stated PAULA GA by prior [id number] w + 3 d PAULA by prior [...] weekly NSTs in your office. Coding ======= Description:29177-97 BPP without NST Description:87162-96 Doppler Umbilical Artery Supervisor Force Adjustment: Eunice Manning RDMS Physician: Jung Angeles MD, FACOG Electronically signed by: Jung Angeles MD, FACOG at: 10:27 us Danielle Allen MD IMG US ORDERABLES Final Result documented in this encounter Visit Diagnoses Diagnosis Poor growth affecting management of mother in third trimester, single or unspecified fetus Maternal chronic hypertension in second trimester documented in this encounter Care Teams Warp Doffer Relationship Specialty Start Date End Date Provider, [place] [address] PCP - General 08/19/24 documented as of this encounter
--- OUTSIDE RECORDS SUMMARY | 2025-10-18 10:15 | XMS_ITS | Encounter Summary ---
Author Organization [facility] Address [address] [id number] Care Team Providers Care Coloring Room Man Name Role Phone Provider, No Known Primary Care Provider Unavail able Reason for Referral * Diagnostic Imaging (Routine) - Authorized Specialty Diagnoses / Procedures Referred By Contac t Referred To Contact Radiology Diagnoses Poor growth affecting management of mother in third trimester, single or unspecified fetus Maternal chronic hypertension in third trimester Procedures [facility] Jung Angeles MD [address] [facility] [address] [place] [address] Phone: tel: fax: Referral ID Status Reason Start Date Expiration Date V isits Requested Visits Authorized [id number] Authorized 10/18/2025 01/17/2027 5 5 Reason for Visit * Reason Comments IUGR, MPCI, MO GHTN Encounter Details Date Type Department Care Team (Late st Contact Info) Description 10/18/2025 10:15 AM EST Office Visit [facility] MATERNAL MEDICINE [address] [place] [address] Jung Angeles MD [address] [place] [address] Poor growth affecting management of mother in [...] Type Priority Associated Diagnoses Orde r Schedule [facility] Imaging Routine Poor growth affecting management of mother in third trimester, single or unspecified fetus Maternal chronic hypertension in third trimester Once a week for 5 Occurrences starting 10/18/2025 until 10/18/2026, 3 completed documented as of this encounter Results * [facility] (11/22/2025 10:59 AM EST) Anatomical Region Laterality Modality Ultrasound 11/22/2025 10:4 3 AM EST Narrative 11/27/2025 9:45 PM EST PAT NAME: FARIDA LYNN MED REC#: [id number] DA: 1990 PAT GEND: F PAT TYPE: O EXAM BLAISE: [id number] REF PHYS AMY CONLEY Comparison Studies The [...] EFW (oz) 6 oz EFW by: Hadlock (AGY-VL-RH-FL) Extended Cav. septi pel. tr 5.4 mm [employer] 3.7 mm CM 5.2 mm 3% Nicolaides [...] suboptimal Heart / Thorax 3-vessel view: Normal 9-pjufuk-dvcvcit view: normal Cord insertion: Normal Stomach: Appears [...] 8/8 UA doppler normal Coding ======= Description: 51424-37 Follow Up Ultrasound Description: 35953-46 BPP without NST Description: 87983-94 Doppler Umbilical Artery Smart Grid Engineer: Albina Roberts RDMS Physician: Danielle Allen MD, FACOG Electronically signed by: Danielle Allen MD, FACOG at: 21:45 Procedure Note Danielle Allen MD - 11/27/2025 PAT NAME: FARIDA LYNN MED REC#: [id number] DA: 1990 PAT GEND: F PAT TYPE: O EXAM BLAISE: [id number] REF PHYS AMY CONLEY Comparison Studies The findings of this study are compared to the prior ultrasound studydated 11/08/25 Patient Status Outpatient Indication ======== IUGR. Marginal PCI.CHTN. Obesity BMI 35. Maternal Assessment Yrkmmo480 cm Height (ft)5 ft Height (in)3 in Weight (lb)203 lb Method ======= Transabdominal ultrasound examination. View: Adequate view ========= Botello . Number of fetuses: 1 Dating ====== GA by prior rtsppepwyk02 w + 3 d PAULA by prior [...] GA35 w + 3 d Assigned PAULA:12/24/2025 nanxzd531 d Biometry Standard BPD80.9 mm 32w 3d 2% Hadlock KWS559.6 mm 36w 6d 78% Emeli HC307.2 mm 34w 2d 4% Hadlock Cerebellum tr47.5 mm 35w 5d 46% Hill AC287.4 mm 32w 5d 3% Hadlock Femur60.8 mm 31w 4d <1% Hadlock Aitvcqe59.1 mm 29w 6d <1% Emeli HC / AC1.07 EFW1,995 g 32w 1d 3% Hadlock EFW (lb)4 lb EFW (oz)6 oz EFW by:Hadlock (NPB-QO-HA-FL) Extended Cav. septi pel. tr5.4 mm Vp3.7 mm CM5.2 mm 3% Nicolaides Head / Face / Neck Cephalic index0.73 1% Nicolaides Extremities / Bony Struc FL / BPD0.75 FL / HC0.20 FL / AC0.21 Other Structures YCP599 bpm General Evaluation Cardiac activity present. FHR [...] LVOT view:suboptimal Heart / Thorax 3-vessel view:Normal 1-jdvjjt-yqplaiv view:normal Cord insertion:Normal Stomach:Appears normal Kidneys:Appears normal Bladder:Appears normal Gender:female Wants to know gender:yes Maternal Structures Uterus / Cervix Cervical ygmbcf25.3 mm Doppler Arterial Umbilical A PI0.89 61% [...] BPP 8/8 UA doppler normal Coding ======= Description:09075-17 Follow Up Ultrasound Description:30348-65 BPP without NST Description:87274-87 Doppler Umbilical Artery Smart Grid Engineer: Albina Roberts RDMS Physician: Danielle Allen MD, FACOG Electronically signed by: Danielle Allen MD, FACOG at: :45 us Jung Angeles MD IMZane US ORDERABLES Final Result * [facility] (11/08/2025 11:32 AM EST) Anatomical Region Laterality Modality Ultrasound 11/08/2025 10:5 3 AM EST Narrative 11/08/2025 11:43 AM EST PAT NAME: FARIDA LYNN MED REC#: [id number] DA: 1990 PAT GEND: F PAT TYPE: O EXAM BLAISE: [id number] REF PHYS AMY CONLEY Comparison Studies The [...] EFW (oz) 9 oz EFW by: Hadlock (WZQ-WE-DU-FL) Extended Cav. septi pel. tr 5.7 mm [employer] 5.4 mm CM 7.0 mm 39% Nicolaides [...] Normal Heart / Thorax 3-vessel view: Normal 1-urasid-niasbuf view: normal Cord insertion: Normal Stomach: Appears [...] an earlier indication arises Coding ======= Description: 22133-12 Follow Up Ultrasound Description: 79652-96 BPP without NST Description: 74557-94 Doppler Umbilical Artery Smart Grid Engineer: Hoa Crump RDMS Physician: Ed Ng MD Electronically signed by: Ed Ng MD at: 11:43 Procedure Note Ed Ng MD - 11/08/2025 PAT NAME: FARIDA LYNN MED REC#: [id number] DA: [id number] PAT GEND: F PAT TYPE: O EXAM BLAISE: [id number] REF PHYS AMY CONLEY Comparison Studies The findings of this study are compared to the prior ultrasound studydated Patient Status Outpatient Indication ======== IUGR. Marginal PCI. Obesity BMI 35. Maternal Assessment Vgpryz572 cm Height (ft)5 ft Height (in)3 in Lxrttj75 kg Weight (lb)200 lb BMI35.44 kg/m Method ======= Transabdominal ultrasound examination. View: Adequate view ========= Botello . Number of fetuses: 1 Dating ====== Method of dating:based on stated PAULA GA by prior qfmxkeytup63 w + 3 d PAULA by prior assessment:12/24/2025 Ultrasound examination on:11/08/2025 GA by U/S based upon:AC, BPD, Femur, HC GA by U/S31 w + 0 d PAULA by U/S:01/10/2026 Previous dating:based on stated PAULA, selected on 10/18/2025 Agreed PAULA of previous datin12/24/2025 Assigned:based on stated PAULA, selected on 11/08/2025 Assigned GA33 w + 3 d Assigned PAULA:12/24/2025 cbipvs837 d Biometry Standard BPD77.4 mm 31w 0d 2% Hadlock KFY669.1 mm 34w 4d 72% Emeli HC291.2 mm 32w 1d 2% Hadlock Cerebellum tr43.2 mm 33w 5d 37% Hill AC264.4 mm 30w 4d 1% Hadlock Femur58.0 mm 30w 2d <1% Hadlock HC / AC1.10 EFW1,619 g 30w 2d 2% Hadlock EFW (lb)3 lb EFW (oz)9 oz EFW by:Hadlock (AVH-CC-DS-FL) Extended Cav. septi pel. tr5.7 mm Vp5.4 mm CM7.0 mm 39% Nicolaides Nasal bone11.1 mm Head / Face / Neck Cephalic index0.74 3% Nicolaides Extremities / Bony Struc FL / BPD0.75 FL / HC0.20 FL / AC0.22 Other Structures ELS483 bpm General Evaluation Cardiac activity present. FHR [...] LVOT view:Normal Heart / Thorax 3-vessel view:Normal 8-ilxxkv-fsbnfrf view:normal Cord insertion:Normal Stomach:Appears normal Kidneys:Appears normal [...] Consultation / Office Visit Type: Consultation See [facility] for full consult note. Impression Single, viable [...] week, unless an earlier indicationarises Coding ======= Description:63670-40 Follow Up Ultrasound Description:48810-55 BPP without NST Description:56268-97 Doppler Umbilical Artery Smart Grid Engineer: Hoa Crump RDMS Physician: Ed Ng MD Electronically signed by: Ed Ng MD at: 11:43 us Jung Angeles MD IMG US ORDERABLES Final Result * [facility] (10/25/2025 11:18 AM EST) Anatomical Region Laterality Modality Ultrasound 10/25/2025 10:4 2 AM EST Narrative 10/25/2025 11:26 AM EST PAT NAME: FARIDA LYNN MED REC#: [id number] DA: [id number] PAT GEND: F PAT TYPE: O EXAM BLAISE: [id number] REF PHYS AMY CONLEY Comparison Studies The [...] EFW (oz) 0 oz EFW by: Hadlock (GCQ-OS-WS-FL) Extended Cav. septi pel. tr 5.9 mm [employer] 3.4 mm CM 7.4 mm 56% Nicolaides [...] Normal Heart / Thorax 3-vessel view: Normal 7-slbkml-dlqvkzi view: normal Cord insertion: Normal Stomach: Appears [...] here in 2 weeks. Coding ======= Description: 19149-86 Follow Up Ultrasound Description: 56740-63 BPP without NST Description: 49868-87 Doppler Umbilical Artery Smart Grid Engineer: Tiki Ta RDMS Physician: Jung Angeles MD, FACOG Electronically signed by: Jung Angeles MD, FACOG at: 11:26 Procedure Note Jung Angeles MD - 10/25/2025 PAT NAME: FARIDA LYNN MED REC#: [id number] DA: 1990 PAT GEND: F PAT TYPE: O EXAM BLAISE: [id number] REF PHYS AMY CONLEY Comparison Studies The findings of this study are compared to the prior ultrasound studydated 10/18/25. Patient Status Outpatient Indication ======== IUGR. Marginal PCI. Obesity BMI 35. Maternal Assessment Crktwo404 cm Height (ft)5 ft Height (in)3 in Umovlk88 kg Weight (lb)197 lb BMI34.91 kg/m Method ======= Transabdominal ultrasound examination ========= Botello . Number of fetuses: 1 Dating ====== GA by prior wbpexhfier71 w + 3 d PAULA by prior [...] GA31 w + 3 d Assigned PAULA:12/24/2025 roxeqi907 d Biometry Standard BPD73.0 mm 29w 2d 2% Hadlock OFD98.4 mm 31w 6d 60% Emeli HC274.2 mm 30w 0d 1% Hadlock Cerebellum tr39.3 mm 31w 5d 40% Hill AC249.9 mm 29w 1d 3% Hadlock Femur55.2 mm 29w 1d 2% Hadlock Ndvuvny27.3 mm 29w 0d 3% Emeli HC / AC1.10 EFW1,361 g 28w 6d 3% Hadlock EFW (lb)3 lb EFW (oz)0 oz EFW by:Hadlock (AEN-IM-XJ-FL) Extended Cav. septi pel. tr5.9 mm Vp3.4 mm CM7.4 mm 56% Nicolaides Head / Face / Neck Cephalic index0.74 6% Nicolaides Extremities / Bony Struc FL / BPD0.76 FL / HC0.20 FL / AC0.22 Other Structures ONA104 bpm General Evaluation Cardiac activity present. FHR [...] LVOT view:Normal Heart / Thorax 3-vessel view:Normal 8-filrxb-yenmdod view:normal Cord insertion:Normal Stomach:Appears normal Kidneys:Appears normal [...] up here in 2 weeks. Coding ======= Description:79233-30 Follow Up Ultrasound Description:42115-40 BPP without NST Description:64755-18 Doppler Umbilical Artery Smart Grid Engineer: Tiki Ta RDMS Physician: Jung Angeles MD, FACOG Electronically signed by: Jung Angeles MD, FACOG at: 11:26 us Jung Angeles MD IMG US ORDERABLES Final Result documented in this encounter Visit Diagnoses Diagnosis Poor growth affecting management of mother in third trimester, single or unspecified fetus- Primary Maternal chronic hypertension in third trimester documented in this encounter Care Teams Coloring Room Man Relationship Specialty Start Date End Date Provider, [place] [address] PCP - General 08/19/24 documented as of this encounter
--- OUTSIDE RECORDS SUMMARY | 2025-10-25 09:49 | XMS_ITS | Encounter Summary ---
Author Organization [facility] Address [address] [place] [address] Care Team Providers Care District Or District Office Director Name Role Phone Provider, No Known Primary Care Provider Unavail able Reason for Visit * Diagnostic Imaging (Routine) - Authorized Specialty Diagnoses / Procedures Referred By Ritesh t Referred To Contact Radiology Diagnoses Poor growth affecting management of mother in third trimester, single or unspecified fetus Maternal chronic hypertension in third trimester Procedures [facility] Angeles, Jung Harmon MD [address] [facility] [address] [place] [address] Phone: tel: fax: Referral ID Status Reason Start Date Expiration Date V isits Requested Visits Authorized [id number] Authorized 10/18/2025 01/17/2027 5 5 Encounter Details Date Type Department Care Team (Latest Contact Info) Description 10/25/2025 9:49 AM EST - 10/25/2025 11:59 PM [facility] Hospital Encounter [facility] DI[facility] [address] [place] [phone] Amy Conley, DO [address] [address] Discharge Disposition: Home or Self Care Social [...] Name Priority Date/Time Associated Diagnosis Comments [facility] Routine 10/25/2025 11:18 AM EST Poor growth affecting management of mother in third trimester, single or unspecified fetus Maternal chronic hypertension in third trimester documented in this encounter Results * [facility] (10/25/2025 11:18 AM EST) Anatomical Region Laterality Modality Ultrasound 10/25/2025 10:4 2 AM EST Narrative 10/25/2025 11:26 AM EST PAT NAME: FARIDA LYNN MED REC#: [id number] DA: 1990 PAT GEND: F PAT TYPE: O EXAM BLAISE: [id number] REF PHYS AMY CONLEY Comparison Studies The [...] EFW (oz) 0 oz EFW by: Hadlock ([id number]-[id number]-FL) Extended Cav. septi pel. tr 5.9 mm Shoe Singer 3.4 mm CM 7.4 mm 56% Nicolaides [...] Normal Heart / Thorax 3-vessel view: Normal 2-ljjtgx-tkmclhk view: normal Cord insertion: Normal Stomach: Appears [...] here in 2 weeks. Coding ======= Description: 68076-84 Follow Up Ultrasound Description: 23194-96 BPP without NST Description: 78350-24 Doppler Umbilical Artery Television Specialist: Tiki Ta RDMS Physician: Jung Angeles MD, FACOG Electronically signed by: Jung Angeles MD, FACOG at: 11:26 Procedure Note Jung Angeles MD - 10/25/2025 PAT NAME: FARIDA LYNN MED REC#: [id number] DA: [id number] PAT GEND: F PAT TYPE: O EXAM BLAISE: [id number] REF PHYS AMY CONLEY Comparison Studies The findings of this study are compared to the prior ultrasound studydated 10/18/25. Patient Status Outpatient Indication ======== IUGR. Marginal PCI. Obesity BMI 35. Maternal Assessment Dozlvl691 cm Height (ft)5 ft Height (in)3 in Aashiz75 kg Weight (lb)197 lb BMI34.91 kg/m Method ======= Transabdominal ultrasound examination ========= Botello . Number of fetuses: 1 Dating ====== GA by prior jfixydnymj02 w + 3 d PAULA by prior assessment:12/24/2025 Ultrasound examination on:10/25/2025 GA by U/S based upon:AC, BPD, Femur, HC GA by U/S29 w + 3 d PAULA by U/S:01/07/2026 Method of dating:Restore dating from previous exam Previous dating:based on stated PAULA, selected on 10/18/2025 Agreed PAULA of previous datin12/24/2025 Assigned:based on stated PAULA, selected on 10/18/2025 Assigned GA31 w + 3 d Assigned PALUA:12/24/2025 [id number] d Biometry Standard BPD73.0 mm 29w 2d 2% Hadlock OFD98.4 mm 31w 6d 60% Emeli HC274.2 mm 30w 0d 1% Hadlock Cerebellum tr39.3 mm 31w 5d 40% Hill AC249.9 mm 29w 1d 3% Hadlock Femur55.2 mm 29w 1d 2% Hadlock Uwefmkg88.3 mm 29w 0d 3% Emeli HC / AC1.10 EFW1,361 g 28w 6d 3% Hadlock EFW (lb)3 lb EFW (oz)0 oz EFW by:Hadlock (YFT-OB-WL-FL) Extended Cav. septi pel. tr5.9 mm Vp3.4 mm CM7.4 mm 56% Nicolaides Head / Face / Neck Cephalic index0.74 6% Nicolaides Extremities / Bony Struc FL / BPD0.76 FL / HC0.20 FL / AC0.22 Other Structures QIU934 bpm General Evaluation Cardiac activity present. FHR [...] LVOT view:Normal Heart / Thorax 3-vessel view:Normal 8-ywjsyo-tbygffo view:normal Cord insertion:Normal Stomach:Appears normal Kidneys:Appears normal [...] up here in 2 weeks. Coding ======= Description:59817-87 Follow Up Ultrasound Description:27994-72 BPP without NST Description:61435-11 Doppler Umbilical Artery Television Specialist: Tiki Ta RDMS Physician: Jung Angeles MD, FACOG Electronically signed by: Jung Angeles MD, FACOG at: 11:26 us Jung Angeles MD IMG US ORDERABLES Final Result documented in this encounter Visit Diagnoses Not on filedocumented in this encounter Care Teams District Or District Office Director Relationship Specialty Start Date End Date Provider, [place] [address] PCP - General 08/19/24 documented as of this encounter
--- OUTSIDE RECORDS SUMMARY | 2025-10-25 10:15 | XMS_ITS | Encounter Summary ---
Author Organization [facility] Address [address] [place] [address] Care Team Providers Care Parts Puller Name Role Phone Provider, No Known Primary Care Provider Unavail able Reason for Visit * Reason Comments IUGR, marginal PCI, obesity Encounter Details Date Type Department Care Team (Late st Contact Info) Description 10/25/2025 10:15 AM EST Office Visit [facility] MATERNAL MEDICINE [address] [place] [phone] Jung Angeles MD [address] [facility] [address] [place] [address] Poor growth affecting management of mother in [...] Dopplers. Patient reports twice-weekly testing with primary CEILING INSTALLER and given 1 of these being performed [...] Dopplers. Patient reports twice-weekly testing with primary CEILING INSTALLER and given 1 of these being performed [...] [facility] Jung Angeles MD, FACOG Maternal Medicine, [facility] documented in this encounter Plan of Treatment Not on file documented as of this encounter Visit Diagnoses Diagnosis Poor growth affecting management of mother in third trimester, single or unspecified fetus- Primary Maternal chronic hypertension in third trimester documented in this encounter Care Teams Parts Puller Relationship Specialty Start Date End Date Provider, [place] [address] PCP - General 08/19/24 documented as of this encounter
--- OUTSIDE RECORDS SUMMARY | 2025-11-08 10:19 | XMS_ITS | Encounter Summary ---
Author Organization [facility] Address [address] [place] [address] Care Team Providers Care German Professor Name Role Phone Provider, No Known Primary Care Provider Unavail able Reason for Visit * Diagnostic Imaging (Routine) - Authorized Specialty Diagnoses / Procedures Referred By Ritesh t Referred To Contact Radiology Diagnoses Poor growth affecting management of mother in third trimester, single or unspecified fetus Maternal chronic hypertension in third trimester Procedures [facility] [place], Jung Harmon MD [address] [facility] [address] [place] [address] Phone: tel: fax: Referral ID Status Reason Start Date Expiration Date V isits Requested Visits Authorized [id number] Authorized 10/18/2025 01/17/2027 5 5 Encounter Details Date Type Department Care Team (Latest Contact Info) Description 11/08/2025 10:19 AM EST - 11/08/2025 11:59 PM [facility] Hospital Encounter [facility] US PER DIAG CTR [address] [place] [id number] Amy Conley, DO [address] [address] Discharge Disposition: Home or Self Care Social [...] Procedure Name Priority Date/Time Associated Diagnosis Comments [facility] Routine 11/08/2025 11:32 AM EST Poor growth affecting management of mother in third trimester, single or unspecified fetus Maternal chronic hypertension in third trimester documented in this encounter Results * [facility] (11/08/2025 11:32 AM EST) Anatomical Region Laterality Modality Ultrasound 11/08/2025 10:5 3 AM EST Narrative 11/08/2025 11:43 AM EST PAT NAME: FARIDA LYNN MED REC#: [id number] DA: 1990 PAT GEND: F PAT TYPE: O EXAM BLAISE: [id number] REF PHYS AMY CONLEY Comparison Studies The [...] EFW (oz) 9 oz EFW by: Hadlock (PNS-VM-MM-FL) Extended Cav. septi pel. tr 5.7 mm Chisel Trimmer 5.4 mm CM 7.0 mm 39% Nicolaides [...] Normal Heart / Thorax 3-vessel view: Normal 9-qkpkgb-abxmycy view: normal Cord insertion: Normal Stomach: Appears [...] Consultation / Office Visit Type: Consultation See [facility] for full consult note. Impression Single, viable [...] an earlier indication arises Coding ======= Description: 63906-84 Follow Up Ultrasound Description: 56979-40 BPP without NST Description: 59582-49 Doppler Umbilical Artery Student Development Advisor: Hoa Crump RDMS Physician: Ed Ng MD Electronically signed by: Ed Ng MD at: 11:43 Procedure Note Ed Ng MD - 11/08/2025 PAT NAME: FARIDA LYNN MED REC#: [id number] DA: [id number] PAT GEND: F PAT TYPE: O EXAM BLAISE: [id number] REF PHYS SARAH CONLEYLEY Comparison Studies The findings of this study are compared to the prior ultrasound studydated Patient Status Outpatient Indication ======== IUGR. Marginal PCI. Obesity BMI 35. Maternal Assessment Qtmkge523 cm Height (ft)5 ft Height (in)3 in Ubyojg31 kg Weight (lb)200 lb BMI35.44 kg/m Method ======= Transabdominal ultrasound examination. View: Adequate view ========= Botello . Number of fetuses: 1 Dating ====== Method of dating:based on stated PAULA GA by prior [id number] w + 3 d PAULA by prior [...] Standard BPD77.4 mm 31w 0d 2% Hadlock GZG603.1 mm 34w 4d 72% Emeli HC291.2 mm 32w 1d 2% Hadlock Cerebellum tr43.2 mm 33w 5d 37% Hill AC264.4 mm 30w 4d 1% Hadlock Femur58.0 mm 30w 2d <1% Hadlock HC / AC1.10 EFW1,619 g 30w 2d 2% Hadlock EFW (lb)3 lb EFW (oz)9 oz EFW by:Hadlock (MBY-XT-OO-FL) Extended Cav. septi pel. tr5.7 mm Vp5.4 mm CM7.0 mm 39% Nicolaides Nasal bone11.1 mm Head / Face / Neck Cephalic index0.74 3% Nicolaides Extremities / Bony Struc FL / BPD0.75 FL / HC0.20 FL / AC0.22 Other Structures KAJ874 bpm General Evaluation Cardiac activity present. FHR [...] LVOT view:Normal Heart / Thorax 3-vessel view:Normal 9-ytitfh-ghzbnob view:normal Cord insertion:Normal Stomach:Appears normal Kidneys:Appears normal [...] Consultation / Office Visit Type: Consultation See [facility] for full consult note. Impression Single, viable [...] week, unless an earlier indicationarises Coding ======= Description:97741-25 Follow Up Ultrasound Description:90691-94 BPP without NST Description:80853-58 Doppler Umbilical Artery Student Development Advisor: Hoa Crump RDMS Physician: Ed Ng MD Electronically signed by: Ed Ng MD at: 11:43 Jung [place] MD [facility] ORDERABLES Final Result documented in this encounter Visit Diagnoses Not on filedocumented in this encounter Care Teams German Professor Relationship Specialty Start Date End Date Provider, [place] [address] PCP - General 08/19/24 documented as of this encounter
--- OUTSIDE RECORDS SUMMARY | 2025-11-08 10:45 | XMS_ITS | Encounter Summary ---
Author Organization [facility] Address [address] [id number] Care Team Providers Care Fly Maker Name Role Phone Provider, No Known Primary Care Provider Unavail able Reason for Visit * Reason Comments IUGR Encounter Details Date Type Department Care Team (Late st Contact Info) Description 11/08/2025 10:45 AM EST Office Visit [facility] MATERNAL MEDICINE [address] [place], [place] [phone] [place] [address] [place] [address] [place] [address] Poor growth affecting management of mother in [...] plan for the 37th week Orders: - [facility] [place]; Future 2. Maternal chronic hypertension in third [...] tentatively plan between 37-38 weeks Orders: - [facility]; Future Follow Up: Return in about 2 [...] CVS. Ed Ng MD, FACOG Maternal Medicine, [facility] documented in this encounter Plan of Treatment Not on file documented as of this encounter Visit Diagnoses Diagnosis Poor growth affecting management of mother in third trimester, single or unspecified fetus- Primary Maternal chronic hypertension in third trimester documented in this encounter Care Teams Fly Maker Relationship Specialty Start Date End Date Provider, [place] [address] PCP - General 08/19/24 documented as of this encounter
--- OUTSIDE RECORDS SUMMARY | 2025-11-22 10:24 | XMS_ITS | Encounter Summary ---
Author Organization [facility] Address [address] [place] [address] Care Team Providers Care Manager Field Services Name Role Phone Provider, No Known Primary Care Provider Unavail able Reason for Visit * Diagnostic Imaging (Routine) - Authorized Specialty Diagnoses / Procedures Referred By Ritesh t Referred To Contact Radiology Diagnoses Poor growth affecting management of mother in third trimester, single or unspecified fetus Maternal chronic hypertension in third trimester Procedures [facility] Angeles, Jung Harmon MD [address] [facility] [address] [place] [address] Phone: tel: fax: Referral ID Status Reason Start Date Expiration Date V isits Requested Visits Authorized [id number] Authorized 10/18/2025 01/17/2027 5 5 Encounter Details Date Type Department Care Team (Latest Contact Info) Description 11/22/2025 10:24 AM EST - 11/22/2025 11:59 PM [facility] Hospital Encounter [facility] US PER DIAG CTR [address] [place] [id number] Amy Conley, DO [address] [address] Discharge Disposition: Home or Self Care Social [...] [facility] Routine 11/22/2025 10:59 AM EST Poor growth affecting management of mother in third trimester, single or unspecified fetus Maternal chronic hypertension in third trimester documented in this encounter Results * [facility] (11/22/2025 10:59 AM EST) Anatomical Region Laterality Modality Ultrasound 11/22/2025 10:4 3 AM EST Narrative 11/27/2025 9:45 PM EST PAT NAME: FARIDA LYNN MED REC#: [id number] DA: 1990 PAT GEND: F PAT TYPE: O EXAM BLAISE: [id number] REF PHYS AMY CONLEY Comparison Studies The [...] EFW (oz) 6 oz EFW by: Hadlock ([id number]) Extended Cav. septi pel. tr 5.4 mm Corporate Paralegal 3.7 mm CM 5.2 mm 3% Nicolaides [...] suboptimal Heart / Thorax 3-vessel view: Normal 1-oeacva-lfkuoea view: normal Cord insertion: Normal Stomach: Appears [...] 07/09 UA doppler normal Coding ======= Description: 62446-74 Follow Up Ultrasound Description: 27961-52 BPP without NST Description: 49651-79 Doppler Umbilical Artery Bleacher Kraft Pulp: Albina Roberts RDMS Physician: Danielle Allen MD, FACOG Electronically signed by: Danielle Allen MD, FACOG at: 21:45 Procedure Note Danielle Allen MD - 11/27/2025 PAT NAME: FARIDA LYNN MED REC#: [id number] DA: 1990 PAT GEND: F PAT TYPE: O EXAM BLAISE: [id number] REF PHYS AMY CONLEY Comparison Studies The findings of this study are compared to the prior ultrasound studydated 11/08/25 Patient Status Outpatient Indication ======== IUGR. Marginal PCI.CHTN. Obesity BMI 35. Maternal Assessment Ixormj294 cm Height (ft)5 ft Height (in)3 in Weight (lb)203 lb Method ======= Transabdominal ultrasound examination. View: Adequate view ========= Botello . Number of fetuses: 1 Dating ====== GA by prior [id number] w + 3 d PAULA by prior [...] GA35 w + 3 d Assigned PAULA:12/24/2025 [id number] d Biometry Standard BPD80.9 mm 32w 3d 2% Hadlock RZD310.6 mm 36w 6d 78% Emeli HC307.2 mm 34w 2d 4% Hadlock Cerebellum tr47.5 mm 35w 5d 46% Hill AC287.4 mm 32w 5d 3% Hadlock Femur60.8 mm 31w 4d <1% Hadlock Uvkiayb86.1 mm 29w 6d <1% Emeli HC / AC1.07 EFW1,995 g 32w 1d 3% Hadlock EFW (lb)4 lb EFW (oz)6 oz EFW by:Hadlock ([id number]) Extended Cav. septi pel. tr5.4 mm Vp3.7 mm CM5.2 mm 3% Nicolaides Head / Face / Neck Cephalic index0.73 1% Nicolaides Extremities / Bony Struc FL / BPD0.75 FL / HC0.20 FL / AC0.21 Other Structures REG189 bpm General Evaluation Cardiac activity present. FHR [...] LVOT view:suboptimal Heart / Thorax 3-vessel view:Normal 5-ghfdoh-dezbtbo view:normal Cord insertion:Normal Stomach:Appears normal Kidneys:Appears normal Bladder:Appears normal Gender:female Wants to know gender:yes Maternal Structures Uterus / Cervix Cervical fceyah87.3 mm Doppler Arterial Umbilical A PI0.89 61% [...] BPP 8/8 UA doppler normal Coding ======= Description:04181-75 Follow Up Ultrasound Description:56573-91 BPP without NST Description:04570-00 Doppler Umbilical Artery Bleacher Kraft Pulp: Albina Roberts RDMS Physician: Danielle Allen MD, FACOG Electronically signed by: Danielle Allen MD, FACOG at: 1:45 us Jung Angeles MD IMG US ORDERABLES Final Result documented in this encounter Visit Diagnoses Not on filedocumented in this encounter Care Teams Manager Field Services Relationship Specialty Start Date End Date Provider, [place] [address] PCP - General 08/19/24 documented as of this encounter
--- OUTSIDE RECORDS SUMMARY | 2025-11-22 10:45 | XMS_ITS | Encounter Summary ---
Author Organization [facility] Address [address] [id number] Care Team Providers Care Wine Steward Name Role Phone Provider, No Known Primary Care Provider Unavail able Reason for Visit * Reason Comments IUGR, Marginal PCI, obesity Encounter Details Date Type Department Care Team (Late st Contact Info) Description 11/22/2025 10:45 AM EST Office Visit [facility] MEDICINE [address] [facility] [address] [address] [place], [place] [phone] Danielle Allen MD [address] [facility] [address] [place] [address] Marginal insertion of umbilical cord affecting management of mother in second trimester (Primary Dx); Maternal chronic hypertension in third trimester; Poor growth affecting management of mother in third trimester, single or unspecified fetus Social History Tobacco Use Types Packs/Day Years [...] Sign Reading Time Taken Comments Blood Pressure 131/81 11/22/2025 10:35 AM EST Pulse - - Temperature - - Respiratory Rate - - Oxygen Saturation - - Inhaled Oxygen Concentration - - Weight 92.4 kg (203 lb 9.6 oz) 11/22/2025 10:35 AM EST Height - - Body Mass Index 36.07 09/02/2025 10:47 AM EDT documented in this encounter Progress Notes * Danielle Allen MD - 11/27/2025 9:49 PM ESTAssociated Problem(s): Poor growth affecting management of mother in third trimester Severe IUGR noted today with normal fluid, BPP and UA dopplers Blood pressure well controlled today Of note, fetus is in breech presentation We discussed the risks and benefits of ECV I would consider Ms Lynn to be a less than ideal candidate due to the severe growth restriction and increased risk of intolerance leading to emergency CS Recommend continued twice weekly testing including weekly BPP/REAGAN/UA doppler Delivery at 37 weeks GA is appropriate if maternal and testing remains reassuring Follow up with MFM PRN * Carole Smith RN - 11/22/2025 10:45 AM EST Denies vaginal bleeding, leaking fluid, and contractions. Endorses normal movement. NIPT negative. Next OB follow-up appointment with Dr. Conley on 11/23/2025. * Danielle Allen MD - 11/22/2025 10:45 AM EST Maternal/ Medicine Follow Up Note Name: Julia Lynn : 1990 Referring Provider: Mary Lou Conley DO Chief Complaint IUGR, Marginal PCI, obesity Subjective History of Present Illness: Julia Lynn is a 35 y.o. 36w1d who presents today for follow up in the setting of IUGR and marginal cord insertion Undergoing weekly BPP/REAGAN/UA doppler in your office and NSTs Overall well Plan to deliver on 12/08/25 PAULA: Estimated Date of Delivery: 12/24/25 ROS: As noted in HPI. Objective Vital Signs BP 131/81 Wt 92.4 kg (203 lb 9.6 oz) Estimated body mass index is 36.07 kg/m?? as calculated from the following: Height as of 09/02/25: 160 cm (63 ). Weight as of this encounter: 92.4 kg (203 lb 9.6 oz). Ultrasound Impression: See viewpoint Assessment and Plan Julia Lynn is a 35 y.o. 36w1d Diagnoses and all orders for this visit: 1. Marginal insertion of umbilical cord affecting management of mother in second trimester (Primary) 2. Maternal chronic hypertension in third trimester 3. Poor growth affecting management of mother in third trimester, single or unspecified fetus Assessment & Plan: Severe IUGR noted today with normal fluid, BPP and UA dopplers Blood pressure well controlled today Of note, fetus is in breech presentation We discussed the risks and benefits of ECV I would consider Ms Lynn to be a less than ideal candidate due to the severe growth restriction and increased risk of intolerance leading to emergency CS Recommend continued twice weekly testing including weekly BPP/REAGAN/UA doppler Delivery at 37 weeks GA is appropriate if maternal and testing remains reassuring Follow up with MFM PRN Follow Up No follow-ups on file. I spent 30 minutes caring for the [...] [facility] Danielle Allen MD FACOG Maternal Medicine, [facility] 11/22/2025 documented in this encounter Plan of Treatment Not on file documented as of this encounter Visit Diagnoses Diagnosis Marginal insertion of umbilical cord affecting management of mother in second trimester- Primary Maternal chronic hypertension in third trimester Poor growth affecting management of mother in third trimester, single or unspecified fetus documented in this encounter Care Teams Wine Steward Relationship Specialty Start Date End Date Provider, [place] [address] PCP - General 08/19/24 documented as of this encounter
--- OUTSIDE RECORDS SUMMARY | 2025-11-30 07:53 | XMS_ITS | Encounter Summary ---
Author Organization [facility] Address [address] [place] [address] Care Team Providers Care Microbiology Coordinator Name Role Phone Provider, No Known [...] on filedocumented in this encounter Care Teams Microbiology Coordinator Relationship Specialty Start Date End Date Provider, [place] [address] PCP - General 08/19/24 documented as of this encounter
--- OUTSIDE RECORDS SUMMARY | 2025-11-30 07:53 | XMS_ITS | Encounter Summary ---
Author Organization [facility] Address [address] [place] [address] Care Team Providers Care Leak Gang Supervisor Name Role Phone Provider, No Known [...] on filedocumented in this encounter Care Teams Leak Gang Supervisor Relationship Specialty Start Date End Date Provider, [place] [address] PCP - General 08/19/24 documented as of this encounter
--- OUTSIDE RECORDS SUMMARY | 2025-11-30 07:53 | XMS_ITS | Encounter Summary ---
Author Organization [facility] Address [address] [place] [address] Care Team Providers Care Generator Repairer Name Role Phone Provider, No Known Primary [...] on filedocumented in this encounter Care Teams Generator Repairer Relationship Specialty Start Date End Date Provider, [place] [address] PCP - General 08/19/24 documented as of this encounter
--- OUTSIDE RECORDS SUMMARY | 2025-11-30 07:53 | XMS_ITS | Encounter Summary ---
Author Organization [facility] Address [address] [place] [address] Care Team Providers Care Label Maker Name Role Phone Provider, No Known [...] on filedocumented in this encounter Care Teams Label Maker Relationship Specialty Start Date End Date Provider, [place] [address] PCP - General 08/19/24 documented as of this encounter
--- OUTSIDE RECORDS SUMMARY | 2025-11-30 07:53 | XMS_ITS | Clinical Summary ---
Author Organization [facility] Address [address] [id number] Care Team Providers Care Analysis Specialist Name Role Phone Provider, No Known [...] in third trimester 09/23/2025 Assessment & Plan (11/27/2025 9:49 PM EST): Severe IUGR noted today with normal fluid, [...] remains reassuring Follow up with MFM PRN Assessment & Plan (11/08/2025 11:40 AM EST): [...] Dopplers. Patient reports twice-weekly testing with primary JUNIOR ASSISTANT MANAGER and given 1 of these being [...] Visit [facility] [address] [phone] Danielle Allen MD Marginal insertion of umbilical cord affecting management of mother in second trimester (Primary Dx); Maternal chronic hypertension in third trimester; Poor growth affecting management of mother in third trimester, single or unspecified fetus 11/22/2025 10:24 AM EST - 11/22/2025 11:59 PM EST Hospital Encounter [facility] [address] [place] [phone] Amy Conley DO Discharge Disposition: Home or Self Care 11/22/2025 Travel 11/08/2025 10:45 AM EST Office Visit [facility] [address] [place] [phone] Ed Ng MD Poor growth affecting management of mother in third trimester, single or unspecified fetus (Primary Dx); Maternal chronic hypertension in third trimester 11/08/2025 10:19 AM EST - 11/08/2025 11:59 PM EST Hospital Encounter [facility] [address] [place] [address] Amy Conley, DO Discharge Disposition: Home or Self Care 11/08/2025 Travel 10/25/2025 10:15 AM EST Office Visit [facility] [address] [facility] [address] [place] [phone] Jung Angeles MD Poor growth affecting management of mother in third trimester, single or unspecified fetus (Primary Dx); Maternal chronic hypertension in third trimester 10/25/2025 9:49 AM EST - 10/25/2025 11:59 PM EST Hospital Encounter [facility] [address] [place] [address] Amy Conley, DO Discharge Disposition: Home or Self Care 10/25/2025 Travel 10/18/2025 10:15 AM EST Office Visit [facility] [address] [phone] Jung Angeles MD Poor growth affecting management of mother in third trimester, single or unspecified fetus (Primary Dx); Maternal chronic hypertension in third trimester 10/18/2025 9:34 AM EST - 10/18/2025 11:59 PM EST Hospital Encounter [facility] [address] [place] [phone] Danielle Allen MD Poor growth affecting management of mother in third trimester, single or unspecified fetus; Maternal chronic hypertension in second trimester Discharge Disposition: Home or Self Care 10/18/2025 Travel 10/11/2025 10:15 AM EST Office Visit [facility] [address] [facility] [address] [place] [phone] Danielle Allen MD Poor growth affecting management of mother in third trimester, single or unspecified fetus (Primary Dx); Maternal chronic hypertension in second trimester 10/11/2025 9:44 AM EST - 10/11/2025 11:59 PM EST Hospital Encounter [facility] [address] [facility] [phone] Lis Jeffrey MD Marginal insertion of umbilical cord affecting management of mother in second trimester; Maternal chronic hypertension in second trimester; Poor growth affecting management of mother in third trimester, single or unspecified fetus; 26 weeks gestation of Discharge Disposition: Home or Self Care 10/11/2025 Travel 09/23/2025 10:15 AM EDT Office Visit [facility] [address] [facility] [address] [place] [phone] Lis Jeffrey MD Marginal insertion of umbilical cord affecting management of mother in second trimester (Primary Dx); Maternal chronic hypertension in second trimester; Poor growth affecting management of mother in third trimester, single or unspecified fetus; 26 weeks gestation of 09/23/2025 9:52 AM EDT - 09/23/2025 11:59 PM EDT Hospital Encounter [facility] [address] [place] [phone] Brian Wesley MD Uterine size-date discrepancy in second trimester; Marginal insertion of umbilical cord affecting management of mother in second trimester; 23 weeks gestation of ; Maternal chronic hypertension in second trimester Discharge Disposition: Home or Self Care 09/23/2025 Travel 09/06/2025 Telephone [facility] [address] [place] [address] Brian Wesley MD Advice Only (Pt has question for Nurse.) 09/02/2025 10:30 AM EDT - 09/02/2025 11:59 PM EDT Hospital Encounter [facility] [address] [place] [address] Amy Conley, DO Maternal care for other known or suspected poor growth, second trimester, not applicable or unspecified; Marginal insertion of umbilical cord affecting management of mother in second trimester; , unspecified gestational age Discharge Disposition: Home or Self Care 09/02/2025 10:30 AM EDT Office Visit [facility] [address] [facility] [address] [place] [address] Brian Wesley MD Uterine size-date discrepancy in second trimester (Primary Dx); Marginal insertion of umbilical cord affecting management of mother in second trimester; 23 weeks gestation of ; Maternal chronic hypertension in second trimester 09/02/2025 Telephone [facility] [address] [facility] [address] [place] [address] Jodie Garcia vector control specialist Only 09/02/2025 Travel from Last 3 [...] Procedure Name Priority Date/Time Associated Diagnosis Comments [facility] Routine 11/22/2025 10:59 AM EST Poor growth affecting management of mother in third trimester, single or unspecified fetus Maternal chronic hypertension in third trimester [facility] Routine 11/08/2025 11:32 AM EST Poor growth affecting management of mother in third trimester, single or unspecified fetus Maternal chronic hypertension in third trimester [facility] Routine 10/25/2025 11:18 AM EST Poor growth affecting management of mother in third trimester, single or unspecified fetus Maternal chronic hypertension in third trimester [facility] Routine 10/18/2025 10:21 AM EST Poor growth affecting management of mother in third trimester, single or unspecified fetus Maternal chronic hypertension in second trimester [facility] Routine 10/11/2025 10:30 AM EST Marginal insertion of umbilical cord affecting management of mother in second trimester Maternal chronic hypertension in second trimester Poor growth affecting management of mother in third trimester, single or unspecified fetus 26 weeks gestation of [facility] Routine 09/23/2025 10:28 AM EDT Uterine size-date discrepancy in second trimester Marginal insertion of umbilical cord affecting management of mother in second trimester 23 weeks gestation of Maternal chronic hypertension in second trimester [facility] Routine 09/02/2025 11:30 AM EDT Maternal care for other known or suspected poor growth, second trimester, not applicable or unspecified Marginal insertion of umbilical cord affecting management of mother in second trimester , unspecified gestational age from Last 3 Months Results * [facility] (11/22/2025 10:59 AM EST) Only the most recent of7 resultswithin the time period is included. Anatomical Region Laterality Modality Ultrasound 11/22/2025 10:4 3 AM EST Narrative 11/27/2025 9:45 PM EST PAT NAME: FARIDA [facility]NN [facility] REC#: [id number] DA: [id number] PAT GEND: F PAT TYPE: O EXAM BLAISE: [id number] REF PHYS AMY CONLEY Comparison Studies The [...] EFW (oz) 6 oz EFW by: Hadlock ([id number]) Extended Cav. septi pel. tr 5.4 mm Go Cart Mechanic 3.7 mm CM 5.2 mm 3% Nicolaides [...] suboptimal Heart / Thorax 3-vessel view: Normal 7-vcxpms-cattarn view: normal Cord insertion: Normal Stomach: Appears [...] 8/8 UA doppler normal Coding ======= Description: 84995-87 Follow Up Ultrasound Description: 41186-90 BPP without NST Description: 20203-22 Doppler Umbilical Artery Can Dryer: Albina Roberts RDMS Physician: Danielle Allen MD, FACOG Electronically signed by: Danielle Allen MD, FACOG at: 21:45 Procedure Note Danielle Allen MD - 11/27/2025 PAT NAME: FARIDA [facility] REC#: [id number] DA: 1990 PAT GEND: F PAT TYPE: O EXAM BLAISE: [id number] REF PHYS AMY CONLEY Comparison Studies The findings of this study are compared to the prior ultrasound studydated 11/08/25 Patient Status Outpatient Indication ======== IUGR. Marginal PCI.CHTN. Obesity BMI 35. Maternal Assessment Nnexxa405 cm Height (ft)5 ft Height (in)3 in Weight (lb)203 lb Method ======= Transabdominal ultrasound examination. View: Adequate view ========= Botello . Number of fetuses: 1 Dating ====== GA by prior [id number] w + 3 d PAULA by prior [...] GA35 w + 3 d Assigned PAULA:12/24/2025 [id number] d Biometry Standard BPD80.9 mm 32w 3d 2% Hadlock LZJ976.6 mm 36w 6d 78% Emeli HC307.2 mm 34w 2d 4% Hadlock Cerebellum tr47.5 mm 35w 5d 46% Hill AC287.4 mm 32w 5d 3% Hadlock Femur60.8 mm 31w 4d <1% Hadlock Pdjnlmg13.1 mm 29w 6d <1% Emeli HC / AC1.07 EFW1,995 g 32w 1d 3% Hadlock EFW (lb)4 lb EFW (oz)6 oz EFW by:Hadlock ([id number]-[id number]-FL) Extended Cav. septi pel. tr5.4 mm Vp3.7 mm CM5.2 mm 3% Nicolaides Head / Face / Neck Cephalic index0.73 1% Nicolaides Extremities / Bony Struc FL / BPD0.75 FL / HC0.20 FL / AC0.21 Other Structures BUB221 bpm General Evaluation Cardiac activity present. FHR [...] LVOT view:suboptimal Heart / Thorax 3-vessel view:Normal 8-rwxzzx-oobpndy view:normal Cord insertion:Normal Stomach:Appears normal Kidneys:Appears normal Bladder:Appears normal Gender:female Wants to know gender:yes Maternal Structures Uterus / Cervix Cervical fvmqar99.3 mm Doppler Arterial Umbilical A PI0.89 61% [...] BPP 8/8 UA doppler normal Coding ======= Description:37930-75 Follow Up Ultrasound Description:27349-77 BPP without NST Description:64457-26 Doppler Umbilical Artery Can Dryer: Albina Roberts RDMS Physician: Danielle Allen MD, FACOG Electronically signed by: Danielle Allen MD, FACOG at: 1:45 us Jung Angeles MD IMG US ORDERABLES Final Result from Last [address] [place] [address] [place] [address] EMPLOYEE Care Teams Analysis Specialist Relationship Specialty Start Date End Date Provider, No Known [facility] [place] [address] PCP - General 08/19/24
--- OUTSIDE RECORDS SUMMARY | 2025-11-30 07:54 | XMS_ITS | Encounter Summary ---
Author Organization [facility] Address [address] [place] [address] Care Team Providers Care Clerk Entry Level Name Role Phone Provider, No Known Primary [...] on filedocumented in this encounter Care Teams Clerk Entry Level Relationship Specialty Start Date End Date Provider, [place] [address] PCP - General 08/19/24 documented as of this encounter
--- NOTE | 2025-11-30 08:00 | US_ITS ---
PROCEDURE: US OB BIOPHYSICAL PROFILE CLINICAL INDICATION: schedule BPP on 11-30-25 COMPARISON: US US OB <= 14 WEEKS FETUS from 04/30/2025 US US OB /MATERNAL DETAIL from 08/04/2025 US US OB BIOPHYSICAL PROFILE from 10/19/2025 US US OB BIOPHYSICAL PROFILE from 10/29/2025 US US OB BIOPHYSICAL PROFILE from 11/02/2025 US US OB BIOPHYSICAL PROFILE from 11/16/2025 FINDINGS: Transabdominal sonographic images of the uterus were obtained. From her established due date she is 36weeks 4days. The following parameters are obtained: Viable Fetus in the BREECH presentation with an anterior placenta grade 2. There are several placental lakes. Cervix measures 4.19 cm in length Measurements: heart Rate = 129bpm Amniotic fluid index: 10.99cm, MVP 4.73 cm Qualitative AFV:2 Breathing movements: 2 Gross Body Movements: 2 Tone: 2 Biophysical profile score: 8 Doppler evaluation of the umbilical artery: SD ratio: 2.42-3.60 Resistive index: 0.6 No obvious anomalies evident.Kidneys, profile, stomach, bladder, four-chamber heart, three-vessel cord appear normal. IMPRESSION: 1. Viable fetus in the BREECH presentation with an anterior placenta grade 2. There are multiple small placental lakes. 2. The fluid is within normal limits with an amniotic fluid index 10.99 cm, MVP 4.73 cm. 3. Biophysical profile is 8/8 with good breathing movement and movement seen. 4. SD ratio is normal 2.42-3.60. 5. Limited anatomical scan appears normal. Dictated by: Polo Catherine MD 11/30/2025 11:45 Polo Catherine MD in OV 11/30/2025 11:45
== END 2025-11-30 23:59 | disposition home or self-care (01) ==
LOC: RAD 07:51
PROVIDERS: Visit Provider Obstetrics & Gynecology
DX: O32.1XX0 Maternal care for breech presentation, not applicable or unspecified (principal); O28.3 Abnormal ultrasonic finding on antenatal screening of mother; O36.5930 Maternal care for other known or suspected poor fetal growth, third trimester, not applicable or unspecified; O10.913 Unspecified pre-existing hypertension complicating pregnancy, third trimester; Z3A.36 36 weeks gestation of pregnancy
CPT/HCPCS: 76819

== ENCOUNTER 2025-11-30 09:55 | Outpatient (CLI) | payer BC, SELFPAY ==
--- OUTSIDE RECORDS SUMMARY | 2025-10-11 09:44 | XMS_ITS | Encounter Summary ---
Author Organization [facility] Address [address] [place] [address] Care Team Providers Care Toy Assembly Supervisor Name Role Phone Provider, No Known [...] unspecified fetus 26 weeks gestation of Procedures [facility] Diagnostic [place] Lis Jeffrey MD [address] [place] [address] Phone: tel: fax: Referral ID Status Reason Start Date Expiration Date Visits Re quested Visits Authorized [id number] Closed 09/23/2025 12/23/2026 1 1 Reason for Visit * Diagnostic Imaging (Routine) - Closed Specialty Diagnoses / Procedures Referred By Ritesh winchester Referred To Contact Radiology Diagnoses Marginal insertion of umbilical cord affecting management of mother in second trimester Maternal chronic hypertension in second trimester Poor growth affecting management of mother in third trimester, single or unspecified fetus 26 [address] [facility] Diagnostic [place] Lis Jeffrey MD [address] [id number] Phone: tel: fax: Referral ID Status Reason Start Date Expiration Date Visits Re quested Visits Authorized [id number] Closed 09/23/2025 12/23/2026 1 1 Encounter Details Date Type Department Care Team (Late st Contact Info) Description 10/11/2025 9:44 AM EST - 10/11/2025 11:59 PM [facility] Hospital Encounter [facility] PER DIAG CTR [address] [place] [address] Lis Jeffrey MD [address] [place] [address] Marginal insertion of umbilical cord [...] as of this encounter Plan of Treatment Not on file documented as of this encounter Procedures Procedure Name Priority Date/Time Associated Diagnosis Comments [facility] Routine 10/11/2025 10:30 AM EST Marginal insertion of umbilical cord affecting management of mother in second trimester Maternal chronic hypertension in second trimester Poor growth affecting management of mother in third trimester, single or unspecified fetus 26 weeks gestation of documented in this encounter Results * [facility] (10/11/2025 10:30 AM EST) Anatomical Region Laterality Modality Ultrasound 10/11/2025 9:59 AM EST Narrative 10/12/2025 7:46 PM EST PAT NAME: FARIDA LYNN MED REC#: [id number] DA: [id number] PAT GEND: F PAT TYPE: O EXAM BLAISE: [id number] REF PHYS AMY CORCORAN Comparison Studies The [...] EFW (oz) 5 oz EFW by: Hadlock ([id number]-VA-JV-FL) Extended Cav. septi pel. tr 5.7 mm Production Support Analyst 5.0 mm CM 7.1 mm 55% Nicolaides [...] Normal Heart / Thorax 3-vessel view: Normal 9-nfpixa-uedlpwe view: normal Cord insertion: Normal Stomach: Appears [...] normal Marginal cord insertion Coding ======= Description: 10425-20 Follow Up Ultrasound Description: 10478-51 BPP without NST Description: 72201-50 Doppler Umbilical Artery Seating And Mobility Technologist: Albina Roberts RDMS Physician: Danielle Allen MD, FACOG Electronically signed by: Danielle Allen MD, FACOG at: 19:46 Procedure Note Danielle Allen MD - 10/12/2025 PAT NAME: FARIDA LYNN MED REC#: [id number] DA: 1990 PAT GEND: F PAT TYPE: O EXAM BLAISE: [id number] REF PHYS AMY CORCORAN Comparison Studies The findings of this study are compared to the prior ultrasound studydated 09/23/2025 Patient Status Outpatient Indication ======== IUGR. Marginal PCI. Obesity BMI 34. Maternal Assessment Whraup271 cm Height (ft)5 ft Height (in)3 in Yubbnb02 kg Weight (lb)194 lb BMI34.38 kg/m Method ======= Transabdominal ultrasound examination. View: Good view ========= Botello . Number of fetuses: 1 Dating ====== Method of dating:based on stated PAULA GA by prior [id number] w + 3 d PAULA by prior assessment:12/24/2025 Ultrasound examination on:10/11/2025 GA by U/S based upon:AC, BPD, Femur, HC GA by U/S27 w + 3 d PAULA by U/S:01/07/2026 Previous dating:based on stated PAULA, selected on 09/23/2025 Agreed PAULA of previous datin12/24/2025 Assigned:based on stated PAULA, selected on 10/11/2025 Assigned GA29 w + 3 d Assigned PAULA:12/24/2025 yidkuf773 d Biometry Standard BPD68.2 mm 27w 3d 2% Hadlock OFD92.9 mm 30w 0d 65% Emeli HC258.2 mm 28w 0d 2% Hadlock Cerebellum tr35.3 mm 29w 3d 50% Hill AC227.3 mm 27w 1d 2% Hadlock Femur50.5 mm 27w 1d 1% Hadlock Brovyzb57.3 mm 25w 3d <1% Emeli HC / AC1.14 EFW1,044 g 26w 6d 2% Hadlock EFW (lb)2 lb EFW (oz)5 oz EFW by:Hadlock (JDQ-GC-EV-FL) Extended Cav. septi pel. tr5.7 mm Vp5.0 mm CM7.1 mm 55% Nicolaides Head / Face / Neck Cephalic index0.73 5% Nicolaides Extremities / Bony Struc FL / BPD0.74 FL / HC0.20 FL / AC0.22 Other Structures LOX254 bpm General Evaluation Cardiac activity present. FHR [...] LVOT view:Normal Heart / Thorax 3-vessel view:Normal 5-ioxaoy-hewjaps view:normal Cord insertion:Normal Stomach:Appears normal Kidneys:Appears normal Bladder:Appears normal Gender:female Wants to know gender:yes Maternal Structures Uterus / Cervix Cervical bgguoz70.7 mm Doppler Arterial Umbilical A PI0.97 51% [...] doppler normal Marginal cord insertion Coding ======= Description:51568-00 Follow Up Ultrasound Description:06898-21 BPP without NST Description:43792-69 Doppler Umbilical Artery Seating And Mobility Technologist: Albnia Roberts RDMS Physician: Danielle Allen MD, FACOG [...] of documented in this encounter Care Teams Toy Assembly Supervisor Relationship Specialty Start Date End Date Provider, [place] [address] PCP - General 08/19/24 documented as of this encounter
--- OUTSIDE RECORDS SUMMARY | 2025-10-11 10:15 | XMS_ITS | Encounter Summary ---
Author Organization [facility] Address [address] [phone] Care Team Providers Care Sound Truck Operator Name Role Phone Provider, No Known Primary Care Provider Unavail able Reason for Referral * Diagnostic Imaging (Routine) - Closed Specialty Diagnoses / Procedures Referred By Ritesh t Referred To Contact Radiology Diagnoses Poor growth affecting management of mother in third trimester, single or unspecified fetus Maternal chronic hypertension in second trimester Procedures [facility] Danielle Allen MD [address] [address] Phone: tel: fax: Referral ID Status Reason Start Date Expiration Date Visits Re quested Visits Authorized [id number] Closed 10/13/2025 01/12/2027 1 1 Reason for Visit * Reason Comments IUGR, Marginal Cord Insertion, MO Encounter Details Date Type Department Care Team (Late st Contact Info) Description 10/11/2025 10:15 AM EST Office Visit [facility] MEDICINE [address] [facility] [address] [place] [phone] Danielle Allen MD [address] [id number] Poor growth affecting management of mother in [...] Allen MD FACOG Maternal Medicine, [facility] [place] 10/11/2025 documented in this encounter Plan of Treatment Not on file documented as of this encounter Results * [facility] (10/18/2025 10:21 AM EST) Anatomical Region Laterality Modality Ultrasound 10/18/2025 9:57 AM EST Narrative 10/18/2025 10:27 AM EST PAT NAME: FARIDA LYNN MED REC#: [id number] DA: [id number] PAT GEND: F PAT TYPE: O EXAM BLAISE: [id number] REF PHYS AMY CONLEY Comparison Studies The [...] NSTs in your office. Coding ======= Description: 21838-18 BPP without NST Description: 71282-58 Doppler Umbilical Artery Racquet Maker: Eunice Manning RDMS Physician: Jung Angeles MD, FACOG Electronically signed by: Jung Angeles MD, FACOG at: 10:27 Procedure Note Jung Angeles MD - 10/18/2025 PAT NAME: FARIDA LYNN MED REC#: [id number] DA: 1990 PAT GEND: F PAT TYPE: O EXAM BLAISE: [id number] REF PHYS AMY CONLEY Comparison Studies The findings of this study are compared to the prior ultrasound studydated 10/11/25 Patient Status Outpatient Indication ======== IUGR. Marginal PCI. Obesity BMI 34. Maternal Assessment Uvnsfd514 cm Height (ft)5 ft Height (in)3 in Uplwep17 kg Weight (lb)196 lb BMI34.73 kg/m Method ======= Transabdominal ultrasound examination ========= Botello . Number of fetuses: 1 Dating ====== Method of dating:based on stated PAULA GA by prior wyojwgypai37 w + 3 d PAULA by prior [...] weekly NSTs in your office. Coding ======= Description:66735-92 BPP without NST Description:64227-91 Doppler Umbilical Artery Racquet Maker: Eunice Manning RDMS Physician: Jung Angeles MD, [...] trimester documented in this encounter Care Teams Sound Truck Operator Relationship Specialty Start Date End Date Provider, No Known [facility] [place] [address] PCP - General 08/19/24 documented as of this encounter
--- OUTSIDE RECORDS SUMMARY | 2025-10-18 09:34 | XMS_ITS | Encounter Summary ---
Author Organization [facility] Address [address] [id number] Care Team Providers Care Child And Family Therapist Name Role Phone Provider, No Known Primary Care Provider Unavail able Reason for Referral * Diagnostic Imaging (Routine) - Closed Specialty Diagnoses / Procedures Referred By Ritesh winchester Referred To Contact Radiology Diagnoses Poor growth affecting management of mother in third trimester, single or unspecified fetus Maternal chronic hypertension in second trimester Procedures [facility] Diagnostic [place] Danielle Allen MD [address] [place] [address] Phone: tel: fax: Referral ID Status Reason Start Date Expiration Date Visits Re quested Visits Authorized [id number] Closed 10/13/2025 01/12/2027 1 1 Reason for Visit * Diagnostic Imaging (Routine) - Closed Specialty Diagnoses / Procedures Referred By Ritesh winchester Referred To Contact Radiology Diagnoses Poor growth affecting management of mother in third trimester, single or unspecified fetus Maternal chronic hypertension in second trimester Procedures [facility] Diagnostic [place] Danielle Allen MD [address] [place] [address] Phone: tel: fax: Referral ID Status Reason Start Date Expiration Date Visits Re quested Visits Authorized [id number] Closed 10/13/2025 01/12/2027 1 1 Encounter Details Date Type Department Care Team (Late st Contact Info) Description 10/18/2025 9:34 AM EST - 10/18/2025 11:59 PM EST Hospital Encounter [facility] [address] [place] [address] Danielle Allen MD [address] [place] [address] Poor growth affecting management of mother in third trimester, single or unspecified fetus; Maternal chronic hypertension in second trimester Discharge [...] Procedure Name Priority Date/Time Associated Diagnosis Comments [facility] Routine 10/18/2025 10:21 AM EST Poor growth affecting management of mother in third trimester, single or unspecified fetus Maternal chronic hypertension in second trimester documented in this encounter Results * [facility] (10/18/2025 10:21 AM EST) Anatomical Region Laterality Modality Ultrasound 10/18/2025 9:57 AM EST Narrative 10/18/2025 10:27 AM EST PAT NAME: FARIDA LYNN MED REC#: [id number] DA: [id number] PAT GEND: F PAT TYPE: O EXAM BLAISE: [id number] REF PHYS AMY CORCORAN Comparison Studies The [...] NSTs in your office. Coding ======= Description: 72190-52 BPP without NST Description: 80771-61 Doppler Umbilical Artery Manufacturing Operations Manager: Eunice Manning RDMS Physician: Jung Angeles MD, FACOG Electronically signed by: Jung Angeles MD, FACOG at: 10:27 Procedure Note Jung Angeles MD - 10/18/2025 PAT NAME: FARIDA LYNN [facility] REC#: [id number] DA: 1990 PAT GEND: F PAT TYPE: O EXAM BLAISE: [id number] REF PHYS AMY CORCORAN Comparison Studies The findings of this study are compared to the prior ultrasound studydated 10/11/25 Patient Status Outpatient Indication ======== IUGR. Marginal PCI. Obesity BMI 34. Maternal Assessment Dvjwot230 cm Height (ft)5 ft Height (in)3 in Mykwjm90 kg Weight (lb)196 lb BMI34.73 kg/m Method [...] GA30 w + 3 d Assigned PAULA:12/24/2025 [id number] d General Evaluation Cardiac activity present. FHR [...] Amniotic fluid volume 8/8 Biophysical profile score Doppler Arterial Umbilical A [...] weekly NSTs in your office. Coding ======= Description:88905-83 BPP without NST Description:47650-55 Doppler Umbilical Artery Manufacturing Operations Manager: Eunice Manning RDMS Physician: Jung Angeles MD, FACOG Electronically signed by: Jung Angeles MD, FACOG at: 10:27 us Danielle Allen MD IMG US ORDERABLES Final Result documented in this encounter Visit Diagnoses Diagnosis Poor growth affecting management of mother in third trimester, single or unspecified fetus Maternal chronic hypertension in second trimester documented in this encounter Care Teams Child And Family Therapist Relationship Specialty Start Date End Date Provider, [place] [address] PCP - General 08/19/24 documented as of this encounter
--- OUTSIDE RECORDS SUMMARY | 2025-10-18 10:15 | XMS_ITS | Encounter Summary ---
Author Organization [facility] Address [address] [id number] Care Team Providers Care Supervisor Plate Pasting Name Role Phone Provider, No Known Primary Care Provider Unavail able Reason for Referral * Diagnostic Imaging (Routine) - Authorized Specialty Diagnoses / Procedures Referred By Contac t Referred To Contact Radiology Diagnoses Poor growth affecting management of mother in third trimester, single or unspecified fetus Maternal chronic hypertension in third trimester Procedures [facility] Jung Angeles MD [address] [facility] [address] [place] [address] Phone: tel: fax: Referral ID Status Reason Start Date Expiration Date V isits Requested Visits Authorized [id number] Authorized 10/18/2025 01/17/2027 5 5 Reason for Visit * Reason Comments IUGR, MPCI, MO GHTN Encounter Details Date Type Department Care Team (Late st Contact Info) Description 10/18/2025 10:15 AM EST Office Visit [facility] [id number] [address] [facility] [address] [place] [address] Jung Angeles MD [address] [place] [address] Poor growth affecting management of mother in third trimester, single or unspecified fetus (Primary Dx); Maternal chronic hypertension in third trimester Social History Tobacco Use Types Packs/Day [...] Sign Reading Time Taken Comments Blood Pressure 129/74 10/18/2025 9:38 AM EST Pulse - - Temperature - - Respiratory Rate - - Oxygen Saturation - - Inhaled Oxygen Concentration - - Weight 88.9 kg (196 lb) 10/18/2025 9:38 AM EST Height - - Body Mass Index 34.72 09/02/2025 10:47 AM EDT documented in this encounter Progress Notes * Jodie Garcia RN - 10/18/2025 10:15 AM EST Patient denies bleeding, leaking fluid or contractions NIPT negative Patients next follow up with Dr. Conley's office is 10/19/25 * Jung Angeles MD - 10/18/2025 10:15 AM EST Documentation of the ultrasound findings, images, and interpretations will be available in the patient's Viewpoint report which is located in the imaging tab in chart review. documented in this encounter Plan of Treatment Scheduled Orders Name Type Priority Associated Diagnoses Orde r Schedule [facility] Imaging Routine Poor growth affecting management of mother in third trimester, single or unspecified fetus Maternal chronic hypertension in third trimester Once a week for 5 Occurrences starting 10/18/2025 until 10/18/2026, 3 completed documented as of this encounter Results * [facility] (11/22/2025 10:59 AM EST) Anatomical Region Laterality Modality Ultrasound 11/22/2025 10:4 3 AM EST Narrative 11/27/2025 9:45 PM EST PAT NAME: FARIDA LYNN MED REC#: [id number] DA: 1990 PAT GEND: F PAT TYPE: O EXAM BLAISE: [id number] REF PHYS AMY CONLEY Comparison Studies The findings of this study are compared to the prior ultrasound study dated 11/08/25 Patient Status Outpatient Indication ======== IUGR. Marginal PCI.CHTN. Obesity BMI 35. Maternal Assessment Height 160 cm Height (ft) 5 ft Height (in) 3 in Weight (lb) 203 lb Method ======= Transabdominal ultrasound examination. View: Adequate view ========= Botello . Number of fetuses: 1 Dating ====== GA by prior assessment 35 w + 3 d PAULA by prior assessment: 12/24/2025 Ultrasound examination on: 11/22/2025 GA by U/S based upon: AC, BPD, Femur, HC GA by U/S 32 w + 5 d PAULA by U/S: 01/12/2026 Method of dating: Restore dating from previous exam Previous dating: based on stated PAULA, selected on 11/08/2025 Agreed PAULA of previous datin12/24/2025 Assigned: based on stated PAULA, selected on 11/08/2025 Assigned GA 35 w + 3 d Assigned PAULA: 12/24/2025 length 280 d Biometry Standard BPD 80.9 mm 32w 3d 2% Hadlock OFD 110.6 mm 36w 6d 78% Emeli HC 307.2 mm 34w 2d 4% Hadlock Cerebellum tr 47.5 mm 35w 5d 46% Hill AC 287.4 mm 32w 5d 3% Hadlock Femur 60.8 mm 31w 4d <1% Hadlock Humerus 51.1 mm 29w 6d <1% Emeli HC / AC 1.07 EFW 1,995 g 32w 1d 3% Hadlock EFW (lb) 4 lb EFW (oz) 6 oz EFW by: Hadlock (RYJ-AM-QI-FL) Extended Cav. septi pel. tr 5.4 mm Trade Clerk 3.7 mm CM 5.2 mm 3% Nicolaides Head / Face / Neck Cephalic index 0.73 1% Nicolaides Extremities / Bony Struc FL / BPD 0.75 FL / HC 0.20 FL / AC 0.21 Other Structures FHR 123 bpm General Evaluation Cardiac activity present. FHR 123 bpm. movements present. Presentation breech. Placenta Placental site: anterior. Amniotic fluid Amount of AF: normal. MVP 4.5 cm. REAGAN 10.8 cm. Q1 2.5 cm, Q2 2.6 cm, Q3 4.5 cm, Q4 1.3 cm. Anatomy Cranium: Normal Cavum septi pellucidi: Normal Cerebellum: Normal Cisterna magna: Normal Head / Neck Rt lateral ventricle: Normal Lt lateral ventricle: Normal Lips: Normal Profile: Normal Nose: Normal 4-chamber view: Appears normal RVOT view: suboptimal LVOT view: suboptimal Heart / Thorax 3-vessel view: Normal 4-twphut-oxqcfnj view: normal Cord insertion: Normal Stomach: Appears normal Kidneys: Appears normal Bladder: Appears normal Gender: female Wants to know gender: yes Maternal Structures Uterus / Cervix Cervical length 42.3 mm Doppler Arterial Umbilical A PI 0.89 61% Jolanta Umbilical A RI 0.60 61% Jolanta Umbilical A PS -47.25 cm/s Umbilical A ED -18.86 cm/s Umbilical A TAmax -32.17 cm/s Umbilical A MD -17.40 cm/s Umbilical A S / D 2.52 55% Jolanta Umbilical A HR 138 bpm Biophysical Profile 2: breathing movements 2: Gross body movements 2: tone 2: Amniotic fluid volume 8/8 Biophysical profile score Consultation / Office Visit Office note to follow Impression BREECH S<D Normal appearing limited anatomy Normal fluid BPP 8/8 UA doppler normal Coding ======= Description: 36077-25 Follow Up Ultrasound Description: 71986-40 BPP without NST Description: 47770-54 Doppler Umbilical Artery Ultrasound Technologist: Albina Roberts RDMS Physician: Danielle Allen MD, FACOG Electronically signed by: Danielle Allen MD, FACOG at: 21:45 Procedure Note Danielle Allen MD - 11/27/2025 PAT NAME: FARIDA LYNN MED REC#: [id number] DA: 1990 PAT GEND: F PAT TYPE: O EXAM BLAISE: [id number] REF PHYS AMY CONLEY Comparison Studies The findings of this study are compared to the prior ultrasound studydated 11/08/25 Patient Status Outpatient Indication ======== IUGR. Marginal PCI.CHTN. Obesity BMI 35. Maternal Assessment Lsjqil178 cm Height (ft)5 ft Height (in)3 in Weight (lb)203 lb Method ======= Transabdominal ultrasound examination. View: Adequate view ========= Botello . Number of fetuses: 1 Dating ====== GA by prior fixkaocvzx53 w + 3 d PAULA by prior assessment:12/24/2025 Ultrasound examination on:11/22/2025 GA by U/S based upon:AC, BPD, Femur, HC GA by U/S32 w + 5 d PAULA by U/S:01/12/2026 Method of dating:Restore dating from previous exam Previous dating:based on stated PAULA, selected on 11/08/2025 Agreed PAULA of previous datin12/24/2025 Assigned:based on stated PAULA, selected on 11/08/2025 Assigned GA35 w + 3 d Assigned PAULA:12/24/2025 hyxwka426 d Biometry Standard BPD80.9 mm 32w 3d 2% Hadlock FVU640.6 mm 36w 6d 78% Emeli HC307.2 mm 34w 2d 4% Hadlock Cerebellum tr47.5 mm 35w 5d 46% Hill AC287.4 mm 32w 5d 3% Hadlock Femur60.8 mm 31w 4d <1% Hadlock Ytuzsqs15.1 mm 29w 6d <1% Emeli HC / AC1.07 EFW1,995 g 32w 1d 3% Hadlock EFW (lb)4 lb EFW (oz)6 oz EFW by:Hadlock (JUA-RC-MS-FL) Extended Cav. septi pel. tr5.4 mm Vp3.7 mm CM5.2 mm 3% Nicolaides Head / Face / Neck Cephalic index0.73 1% Nicolaides Extremities / Bony Struc FL / BPD0.75 FL / HC0.20 FL / AC0.21 Other Structures LEW738 bpm General Evaluation Cardiac activity present. FHR 123 bpm. movements present. Presentation breech. Placenta Placental site: anterior. Amniotic fluid Amount of AF: normal. MVP 4.5 cm. REAGAN 10.8 cm. Q1 2.5 cm,Q2 2.6 cm, Q3 4.5 cm, Q4 1.3 cm. Anatomy Cranium:Normal Cavum septi pellucidi:Normal Cerebellum:Normal Cisterna magna:Normal Head / Neck Rt lateral ventricle:Normal Lt lateral ventricle:Normal Lips:Normal Profile:Normal Nose:Normal 4-chamber view:Appears normal RVOT view:suboptimal LVOT view:suboptimal Heart / Thorax 3-vessel view:Normal 0-hfygsn-jqsadxb view:normal Cord insertion:Normal Stomach:Appears normal Kidneys:Appears normal Bladder:Appears normal Gender:female Wants to know gender:yes Maternal Structures Uterus / Cervix Cervical bnugtb97.3 mm Doppler Arterial Umbilical A PI0.89 61% Jolanta Umbilical A RI0.60 61% Jolanta Umbilical A PS-47.25 cm/s Umbilical A ED-18.86 cm/s Umbilical A TAmax-32.17 cm/s Umbilical A MD-17.40 cm/s Umbilical A S / D2.52 55% Jolanta Umbilical A HR138 bpm Biophysical Profile 2: breathing movements 2: Gross body movements 2: tone 2: Amniotic fluid volume 8/8 Biophysical profile score Consultation / Office Visit Office note to follow Impression BREECH S<D Normal appearing limited anatomy Normal fluid BPP 8/8 UA doppler normal Coding ======= Description:74898-47 Follow Up Ultrasound Description:40251-07 BPP without NST Description:79019-59 Doppler Umbilical Artery Ultrasound Technologist: Albina Roberts RDMS Physician: Danielle Allen MD, FACOG Electronically signed by: Danielle Allen MD, FACOG at: :45 us Jung Angeles MD IMZane US ORDERABLES Final Result * [facility] (11/08/2025 11:32 AM EST) Anatomical Region Laterality Modality Ultrasound 11/08/2025 10:5 3 AM EST Narrative 11/08/2025 11:43 AM EST PAT NAME: FARIDA LYNN MED REC#: [id number] DA: 1990 PAT GEND: F PAT TYPE: O EXAM BLAISE: [id number] REF PHYS AMY CONLEY Comparison Studies The findings of this study are compared to the prior ultrasound study dated Patient Status Outpatient Indication ======== IUGR. Marginal PCI. Obesity BMI 35. Maternal Assessment Height 160 cm Height (ft) 5 ft Height (in) 3 in Weight 91 kg Weight (lb) 200 lb BMI 35.44 kg/m Method ======= Transabdominal ultrasound examination. View: Adequate view ========= Botello . Number of fetuses: 1 Dating ====== Method of dating: based on stated PAULA GA by prior assessment 33 w + 3 d PAULA by prior assessment: 12/24/2025 Ultrasound examination on: 11/08/2025 GA by U/S based upon: AC, BPD, Femur, HC GA by U/S 31 w + 0 d PAULA by U/S: 01/10/2026 Previous dating: based on stated PAULA, selected on 10/18/2025 Agreed PAULA of previous datin12/24/2025 Assigned: based on stated PAULA, selected on 11/08/2025 Assigned GA 33 w + 3 d Assigned PAULA: 12/24/2025 length 280 d Biometry Standard BPD 77.4 mm 31w 0d 2% Hadlock OFD 105.1 mm 34w 4d 72% Emeli HC 291.2 mm 32w 1d 2% Hadlock Cerebellum tr 43.2 mm 33w 5d 37% Hill AC 264.4 mm 30w 4d 1% Hadlock Femur 58.0 mm 30w 2d <1% Hadlock HC / AC 1.10 EFW 1,619 g 30w 2d 2% Hadlock EFW (lb) 3 lb EFW (oz) 9 oz EFW by: Hadlock (UFO-UE-PD-FL) Extended Cav. septi pel. tr 5.7 mm Trade Clerk 5.4 mm CM 7.0 mm 39% Nicolaides Nasal bone 11.1 mm Head / Face / Neck Cephalic index 0.74 3% Nicolaides Extremities / Bony Struc FL / BPD 0.75 FL / HC 0.20 FL / AC 0.22 Other Structures FHR 142 bpm General Evaluation Cardiac activity present. FHR 142 bpm. movements present. Presentation breech. Placenta Placental site: anterior, fundal. Umbilical cord Cord vessels: 3 vessel cord. Amniotic fluid Amount of AF: normal. MVP 4.1 cm. REAGAN 9.8 cm. Q1 0.0 cm, Q2 4.1 cm, Q3 2.7 cm, Q4 3.1 cm. Anatomy Cranium: Normal Cavum septi pellucidi: Normal Cerebellum: Normal Cisterna magna: Normal Head / Neck Rt lateral ventricle: Normal Lt lateral ventricle: Normal Lips: Normal Profile: Normal Nose: Normal 4-chamber view: Appears normal RVOT view: Normal LVOT view: Normal Heart / Thorax 3-vessel view: Normal 9-flsjhz-zupmmzc view: normal Cord insertion: Normal Stomach: Appears normal Kidneys: Appears normal Bladder: Appears normal Gender: female Wants to know gender: yes Doppler Arterial Umbilical A PI 0.91 57% Jolanta Umbilical A RI 0.60 52% Jolanta Umbilical A PS 38.36 cm/s 8% Ebbing Umbilical A ED 14.33 cm/s Umbilical A TAmax 24.19 cm/s 7% Ebbing Umbilical A MD 14.02 cm/s Umbilical A S / D 2.50 44% Jolanta Umbilical A HR 133 bpm Biophysical Profile 2: breathing movements 2: Gross body movements 2: tone 2: Amniotic fluid volume 07/09 Biophysical profile score Consultation / Office Visit Type: Consultation See Epic for full consult note. Impression Single, viable intrauterine at 33w3d in BREECH lie The placenta is anterior fundal size is consistent with severe growth restriction for the established PAULA (EFW 2%, AC 1%) The amniotic fluid volume is normal The UA Doppler studies are normal and without evidence of increased placental resistance The visualized portions of the anatomy (see table) appear normal The BPP is reassuring (07/09) No abnormalities are appreciated within the limitations of ultrasound Recommendation Continue twice weekly NST's and once weekly BPP/Dopplers in your office until delivery Follow up in 2 weeks for growth assessment (PDC) Agree with delivery in the 37th week, unless an earlier indication arises Coding ======= Description: 69390-45 Follow Up Ultrasound Description: 14496-98 BPP without NST Description: 50870-50 Doppler Umbilical Artery Ultrasound Technologist: Hoa Crump RDMS Physician: Ed Ng MD Electronically signed by: Ed Ng MD at: 11:43 Procedure Note Ed Ng MD - 11/08/2025 PAT NAME: FARIDA LYNN MED REC#: [id number] DA: [id number] PAT GEND: F PAT TYPE: O EXAM BLAISE: [id number] REF PHYS AMY CONLEY Comparison Studies The findings of this study are compared to the prior ultrasound studydated Patient Status Outpatient Indication ======== IUGR. Marginal PCI. Obesity BMI 35. Maternal Assessment Kofgdy466 cm Height (ft)5 ft Height (in)3 in Qjsibk02 kg Weight (lb)200 lb BMI35.44 kg/m Method ======= Transabdominal ultrasound examination. View: Adequate view ========= Botello . Number of fetuses: 1 Dating ====== Method of dating:based on stated PAULA GA by prior vbdinnlliv23 w + 3 d PAULA by prior assessment:12/24/2025 Ultrasound examination on:11/08/2025 GA by U/S based upon:AC, BPD, Femur, HC GA by U/S31 w + 0 d PAULA by U/S:01/10/2026 Previous dating:based on stated PAULA, selected on 10/18/2025 Agreed PAULA of previous datin12/24/2025 Assigned:based on stated PAULA, selected on 11/08/2025 Assigned GA33 w + 3 d Assigned PAULA:12/24/2025 aoxous448 d Biometry Standard BPD77.4 mm 31w 0d 2% Hadlock JEQ740.1 mm 34w 4d 72% Emeli HC291.2 mm 32w 1d 2% Hadlock Cerebellum tr43.2 mm 33w 5d 37% Hill AC264.4 mm 30w 4d 1% Hadlock Femur58.0 mm 30w 2d <1% Hadlock HC / AC1.10 EFW1,619 g 30w 2d 2% Hadlock EFW (lb)3 lb EFW (oz)9 oz EFW by:Hadlock (NYN-DL-KW-FL) Extended Cav. septi pel. tr5.7 mm Vp5.4 mm CM7.0 mm 39% Nicolaides Nasal bone11.1 mm Head / Face / Neck Cephalic index0.74 3% Nicolaides Extremities / Bony Struc FL / BPD0.75 FL / HC0.20 FL / AC0.22 Other Structures DYA640 bpm General Evaluation Cardiac activity present. FHR 142 bpm. movements present. Presentation breech. Placenta Placental site: anterior, fundal. Umbilical cord Cord vessels: 3 vessel cord. Amniotic fluid Amount of AF: normal. MVP 4.1 cm. REAGAN 9.8 cm. Q1 0.0 cm, Q24.1 cm, Q3 2.7 cm, Q4 3.1 cm. Anatomy Cranium:Normal Cavum septi pellucidi:Normal Cerebellum:Normal Cisterna magna:Normal Head / Neck Rt lateral ventricle:Normal Lt lateral ventricle:Normal Lips:Normal Profile:Normal Nose:Normal 4-chamber view:Appears normal RVOT view:Normal LVOT view:Normal Heart / Thorax 3-vessel view:Normal 3-wxsqyo-aedfrsq view:normal Cord insertion:Normal Stomach:Appears normal Kidneys:Appears normal Bladder:Appears normal Gender:female Wants to know gender:yes Doppler Arterial Umbilical A PI0.91 57% Jolanta Umbilical A RI0.60 52% Jolanta Umbilical A PS38.36 cm/s 8% Ebbing Umbilical A ED14.33 cm/s Umbilical A TAmax24.19 cm/s 7% Ebbing Umbilical A MD14.02 cm/s Umbilical A S / D2.50 44% Jolanta Umbilical A HR133 bpm Biophysical Profile 2: breathing movements 2: Gross body movements 2: tone 2: Amniotic fluid volume 07/09 Biophysical profile score Consultation / Office Visit Type: Consultation See [facility] for full consult note. Impression Single, viable intrauterine at 33w3d in BREECH lie The placenta is anterior fundal size is consistent with severe growth restriction for theestablished PAULA (EFW 2%, AC 1%) The amniotic fluid volume is normal The UA Doppler studies are normal and without evidence of increasedplacental resistance The visualized portions of the anatomy (see table) appear normal The BPP is reassuring (07/09) No abnormalities are appreciated within the limitations of ultrasound Recommendation Continue twice weekly NST's and once weekly BPP/Dopplers in your officeuntil delivery Follow up in 2 weeks for growth assessment (PDC) Agree with delivery in the 37th week, unless an earlier indicationarises Coding ======= Description:29479-12 Follow Up Ultrasound Description:62434-20 BPP without NST Description:50131-30 Doppler Umbilical Artery Ultrasound Technologist: Hoa Crump RDMS Physician: Ed Ng MD Electronically signed by: Ed Ng MD at: 11:43 us Jung Angeles MD IMG US ORDERABLES Final Result * [facility] (10/25/2025 11:18 AM EST) Anatomical Region Laterality Modality Ultrasound 10/25/2025 10:4 2 AM EST Narrative 10/25/2025 11:26 AM EST PAT NAME: FARIDA LYNN MED REC#: [id number] DA: [id number] PAT GEND: F PAT TYPE: O EXAM BLAISE: [id number] REF PHYS AMY CONLEY Comparison Studies The findings of this study are compared to the prior ultrasound study dated 10/18/25. Patient Status Outpatient Indication ======== IUGR. Marginal PCI. Obesity BMI 35. Maternal Assessment Height 160 cm Height (ft) 5 ft Height (in) 3 in Weight 89 kg Weight (lb) 197 lb BMI 34.91 kg/m Method ======= Transabdominal ultrasound examination ========= Botello . Number of fetuses: 1 Dating ====== GA by prior assessment 31 w + 3 d PAULA by prior assessment: 12/24/2025 Ultrasound examination on: 10/25/2025 GA by U/S based upon: AC, BPD, Femur, HC GA by U/S 29 w + 3 d APULA by U/S: 01/07/2026 Method of dating: Restore dating from previous exam Previous dating: based on stated PAULA, selected on 10/18/2025 Agreed PAULA of previous datin12/24/2025 Assigned: based on stated PAULA, selected on 10/18/2025 Assigned GA 31 w + 3 d Assigned PAULA: 12/24/2025 length 280 d Biometry Standard BPD 73.0 mm 29w 2d 2% Hadlock OFD 98.4 mm 31w 6d 60% Emeli HC 274.2 mm 30w 0d 1% Hadlock Cerebellum tr 39.3 mm 31w 5d 40% Hill AC 249.9 mm 29w 1d 3% Hadlock Femur 55.2 mm 29w 1d 2% Hadlock Humerus 49.3 mm 29w 0d 3% Emeli HC / AC 1.10 EFW 1,361 g 28w 6d 3% Hadlock EFW (lb) 3 lb EFW (oz) 0 oz EFW by: Hadlock (QFJ-GQ-OG-FL) Extended Cav. septi pel. tr 5.9 mm Trade Clerk 3.4 mm CM 7.4 mm 56% Nicolaides Head / Face / Neck Cephalic index 0.74 6% Nicolaides Extremities / Bony Struc FL / BPD 0.76 FL / HC 0.20 FL / AC 0.22 Other Structures FHR 132 bpm General Evaluation Cardiac activity present. FHR 132 bpm. movements present. Presentation breech. Placenta Placental site: anterior. Umbilical cord Cord vessels: 3 vessel cord. Amniotic fluid Amount of AF: normal. MVP 4.4 cm. REAGAN 11.5 cm. Q1 4.4 cm, Q2 2.6 cm, Q3 2.2 cm, Q4 2.2 cm. Anatomy Cranium: Normal Cavum septi pellucidi: Normal Cerebellum: Normal Cisterna magna: Normal Head / Neck Rt lateral ventricle: Normal Lt lateral ventricle: Normal Lips: Normal Profile: Normal Nose: Normal 4-chamber view: Appears normal RVOT view: Normal LVOT view: Normal Heart / Thorax 3-vessel view: Normal 8-hbrihv-gclyosp view: normal Cord insertion: Normal Stomach: Appears normal Kidneys: Appears normal Bladder: Appears normal Gender: female Wants to know gender: yes Doppler Arterial Umbilical A PI 1.14 86% Jolanta Umbilical A RI 0.70 83% Jolanta Umbilical A PS -38.25 cm/s Umbilical A ED -12.26 cm/s Umbilical A TAmax -24.11 cm/s Umbilical A MD -11.80 cm/s Umbilical A S / D 3.34 80% Jolanta Umbilical A HR 133 bpm Biophysical Profile 2: breathing movements 2: Gross body movements 2: tone 2: Amniotic fluid volume 07/09 Biophysical profile score Consultation / Office Visit Office note to follow Impression Today's exam reveals a SIUP in breech presentation with biometry inconsistent with dates, EFW at the 3%ile and AC at the 3%ile. Limited anatomic survey appears normal. The REAGAN, UA dopplers and BPP are normal. Recommendation Twice weekly testing in your office (one REAGAN/BPP/UA dopplers), follow up here in 2 weeks. Coding ======= Description: 99349-06 Follow Up Ultrasound Description: 21595-35 BPP without NST Description: 99461-85 Doppler Umbilical Artery Ultrasound Technologist: Tiki Ta RDMS Physician: Jung Angeles MD, FACOG Electronically signed by: Jung Angeles MD, FACOG at: 11:26 Procedure Note Jung Angeles MD - 10/25/2025 PAT NAME: FARIDA LYNN MED REC#: [id number] DA: 1990 PAT GEND: F PAT TYPE: O EXAM BLAISE: [id number] REF PHYS AMY CONLEY Comparison Studies The findings of this study are compared to the prior ultrasound studydated 10/18/25. Patient Status Outpatient Indication ======== IUGR. Marginal PCI. Obesity BMI 35. Maternal Assessment Asmdrb119 cm Height (ft)5 ft Height (in)3 in Mfnkie18 kg Weight (lb)197 lb BMI34.91 kg/m Method ======= Transabdominal ultrasound examination ========= Botello . Number of fetuses: 1 Dating ====== GA by prior txinpzetgb80 w + 3 d PAULA by prior assessment:12/24/2025 Ultrasound examination on:10/25/2025 GA by U/S based upon:AC, BPD, Femur, HC GA by U/S29 w + 3 d PAULA by U/S:01/07/2026 Method of dating:Restore dating from previous exam Previous dating:based on stated PAULA, selected on 10/18/2025 Agreed PAULA of previous datin12/24/2025 Assigned:based on stated PAULA, selected on 10/18/2025 Assigned GA31 w + 3 d Assigned PAULA:12/24/2025 d Biometry Standard BPD73.0 mm 29w 2d 2% Hadlock OFD98.4 mm 31w 6d 60% Emeli HC274.2 mm 30w 0d 1% Hadlock Cerebellum tr39.3 mm 31w 5d 40% Hill AC249.9 mm 29w 1d 3% Hadlock Femur55.2 mm 29w 1d 2% Hadlock Qtprswq60.3 mm 29w 0d 3% Emeli HC / AC1.10 EFW1,361 g 28w 6d 3% Hadlock EFW (lb)3 lb EFW (oz)0 oz EFW by:Hadlock (TFE-NP-PR-FL) Extended Cav. septi pel. tr5.9 mm Vp3.4 mm CM7.4 mm 56% Nicolaides Head / Face / Neck Cephalic index0.74 6% Nicolaides Extremities / Bony Struc FL / BPD0.76 FL / HC0.20 FL / AC0.22 Other Structures BVV466 bpm General Evaluation Cardiac activity present. FHR 132 bpm. movements present. Presentation breech. Placenta Placental site: anterior. Umbilical cord Cord vessels: 3 vessel cord. Amniotic fluid Amount of AF: normal. MVP 4.4 cm. REAGAN 11.5 cm. Q1 4.4 cm,Q2 2.6 cm, Q3 2.2 cm, Q4 2.2 cm. Anatomy Cranium:Normal Cavum septi pellucidi:Normal Cerebellum:Normal Cisterna magna:Normal Head / Neck Rt lateral ventricle:Normal Lt lateral ventricle:Normal Lips:Normal Profile:Normal Nose:Normal 4-chamber view:Appears normal RVOT view:Normal LVOT view:Normal Heart / Thorax 3-vessel view:Normal 0-ytjsaz-kfjdauv view:normal Cord insertion:Normal Stomach:Appears normal Kidneys:Appears normal Bladder:Appears normal Gender:female Wants to know gender:yes Doppler Arterial Umbilical A PI1.14 86% Jolanta Umbilical A RI0.70 83% Jolanta Umbilical A PS-38.25 cm/s Umbilical A ED-12.26 cm/s Umbilical A TAmax-24.11 cm/s Umbilical A MD-11.80 cm/s Umbilical A S / D3.34 80% Jolanta Umbilical A HR133 bpm Biophysical Profile 2: breathing movements 2: Gross body movements 2: tone 2: Amniotic fluid volume 8/8 Biophysical profile score Consultation / Office Visit Office note to follow Impression Today's exam reveals a SIUP in breech presentation with biometryinconsistent with dates, EFW at the 3%ile and AC at the 3%ile. Limitedfetal anatomic survey appears normal. The REAGAN, UA dopplers and BPP are normal. Recommendation Twice weekly testing in your office (one REAGAN/BPP/UA dopplers),follow up here in 2 weeks. Coding ======= Description:89966-62 Follow Up Ultrasound Description:26808-35 BPP without NST Description:77888-67 Doppler Umbilical Artery Ultrasound Technologist: Tiki Ta RDMS Physician: Jung Angeles MD, FACOG Electronically signed by: Jung Angeles MD, FACOG at: 11:26 us Jung Angeles MD IMG US ORDERABLES Final Result documented in this encounter Visit Diagnoses Diagnosis Poor growth affecting management of mother in third trimester, single or unspecified fetus- Primary Maternal chronic hypertension in third trimester documented in this encounter Care Teams Supervisor Plate Pasting Relationship Specialty Start Date End Date Provider, [place] [address] PCP - General 08/19/24 documented as of this encounter
--- OUTSIDE RECORDS SUMMARY | 2025-10-25 09:49 | XMS_ITS | Encounter Summary ---
Author Organization [facility] Address [address] [place] [address] Care Team Providers Care Airport Representative Name Role Phone Provider, No Known Primary Care Provider Unavail able Reason for Visit * Diagnostic Imaging (Routine) - Authorized Specialty Diagnoses / Procedures Referred By Ritesh t Referred To Contact Radiology Diagnoses Poor growth affecting management of mother in third trimester, single or unspecified fetus Maternal chronic hypertension in third trimester Procedures Replaced by [facility] Angeles, Jung Harmon MD [address] [place] [address] Phone: tel: fax: Referral ID Status Reason Start Date Expiration Date V isits Requested Visits Authorized [id number] Authorized 10/18/2025 01/17/2027 5 5 Encounter Details Date Type Department Care Team (Latest Contact Info) Description 10/25/2025 9:49 AM EST - 10/25/2025 11:59 PM [facility] Hospital Encounter [facility] US PER DIAG CTR [address] [place] [phone] Amy Conley, DO [address] [address] Discharge Disposition: Home or Self Care Social [...] Priority Date/Time Associated Diagnosis Comments [facility] Routine 10/25/2025 11:18 AM EST Poor growth affecting management of mother in third trimester, single or unspecified fetus Maternal chronic hypertension in third trimester documented in this encounter Results * Replaced by [facility] (10/25/2025 11:18 AM EST) Anatomical Region Laterality Modality Ultrasound 10/25/2025 10:4 2 AM EST Narrative 10/25/2025 11:26 AM EST PAT NAME: FARIDA LYNN MED REC#: [id number] DA: 1990 PAT GEND: F PAT TYPE: O EXAM BLAISE: [id number] REF PHYS AMY CONLEY Comparison Studies The [...] EFW (oz) 0 oz EFW by: Hadlock ([id number]-CK-LR-FL) Extended Cav. septi pel. tr 5.9 mm Public Relations Intern 3.4 mm CM 7.4 mm 56% Nicolaides [...] Normal Heart / Thorax 3-vessel view: Normal 2-ewzlhq-uitxeyk view: normal Cord insertion: Normal Stomach: Appears [...] here in 2 weeks. Coding ======= Description: 27446-34 Follow Up Ultrasound Description: 88746-90 BPP without NST Description: 29633-05 Doppler Umbilical Artery Geochemical Manager: Tiki Ta RDMS Physician: Jung Angeles MD, FACOG Electronically signed by: Jung Angeles MD, FACOG at: 11:26 Procedure Note Jung Angeles MD - 10/25/2025 PAT NAME: FARIDA LYNN MED REC#: [id number] DA: [id number] PAT GEND: F PAT TYPE: O EXAM BLAISE: [id number] REF PHYS AMY CONLEY Comparison Studies The findings of this study are compared to the prior ultrasound studydated 10/18/25. Patient Status Outpatient Indication ======== IUGR. Marginal PCI. Obesity BMI 35. Maternal Assessment Mtyatv992 cm Height (ft)5 ft Height (in)3 in Hodyer85 kg Weight (lb)197 lb BMI34.91 kg/m Method ======= Transabdominal ultrasound examination ========= Botello . Number of fetuses: 1 Dating ====== GA by prior [id number] w + 3 d PAULA by prior [...] Hadlock Femur55.2 mm 29w 1d 2% Hadlock Ahzaylm25.3 mm 29w 0d 3% Emeli HC / AC1.10 EFW1,361 g 28w 6d 3% Hadlock EFW (lb)3 lb EFW (oz)0 oz EFW by:Hadlock (VTB-AS-UP-FL) Extended Cav. septi pel. tr5.9 mm Vp3.4 mm CM7.4 mm 56% Nicolaides Head / Face / Neck Cephalic index0.74 6% Nicolaides Extremities / Bony Struc FL / BPD0.76 FL / HC0.20 FL / AC0.22 Other Structures [id number] bpm General Evaluation Cardiac activity present. FHR [...] LVOT view:Normal Heart / Thorax 3-vessel view:Normal 5-sjxfeb-obpqenx view:normal Cord insertion:Normal Stomach:Appears normal Kidneys:Appears normal [...] up here in 2 weeks. Coding ======= Description:75088-54 Follow Up Ultrasound Description:63689-12 BPP without NST Description:28990-21 Doppler Umbilical Artery Geochemical Manager: Tiki Ta RDMS Physician: Jung Angeles MD, FACOG Electronically signed by: Jung Angeles MD, FACOG at: 11:26 us Jung Angeles MD IMG US ORDERABLES Final Result documented in this encounter Visit Diagnoses Not on filedocumented in this encounter Care Teams Airport Representative Relationship Specialty Start Date End Date Provider, [place] [address] PCP - General 08/19/24 documented as of this encounter
--- OUTSIDE RECORDS SUMMARY | 2025-10-25 10:15 | XMS_ITS | Encounter Summary ---
Author Organization [facility] Address [address] [place] [address] Care Team Providers Care Healthcare Customer Service Name Role Phone Provider, No Known Primary Care Provider Unavail able Reason for Visit * Reason Comments IUGR, marginal PCI, obesity Encounter Details Date Type Department Care Team (Late st Contact Info) Description 10/25/2025 10:15 AM EST Office Visit [facility] MATERNAL MEDICINE [address] [place] [phone] Jung Angeles MD [address] [facility] [address] [place] [address] Poor growth affecting management of mother in [...] Dopplers. Patient reports twice-weekly testing with primary LICENSING COURT MAGISTRATE and given 1 of these being performed [...] Dopplers. Patient reports twice-weekly testing with primary LICENSING COURT MAGISTRATE and given 1 of these being performed [...] [facility] Jung Angeles MD, FACOG Maternal Medicine, [facility] documented in this encounter Plan of Treatment Not on file documented as of this encounter Visit Diagnoses Diagnosis Poor growth affecting management of mother in third trimester, single or unspecified fetus- Primary Maternal chronic hypertension in third trimester documented in this encounter Care Teams Healthcare Customer Service Relationship Specialty Start Date End Date Provider, [place] [address] PCP - General 08/19/24 documented as of this encounter
--- OUTSIDE RECORDS SUMMARY | 2025-11-08 10:19 | XMS_ITS | Encounter Summary ---
Author Organization [facility] Address [address] [place] [address] Care Team Providers Care Drier Operator Name Role Phone Provider, No Known Primary Care Provider Unavail able Reason for Visit * Diagnostic Imaging (Routine) - Authorized Specialty Diagnoses / Procedures Referred By Ritesh t Referred To Contact Radiology Diagnoses Poor growth affecting management of mother in third trimester, single or unspecified fetus Maternal chronic hypertension in third trimester Procedures [facility] Angeles, Jung Harmon MD [address] [facility] [address] [place] [address] Phone: tel: fax: Referral ID Status Reason Start Date Expiration Date V isits Requested Visits Authorized [id number] Authorized 10/18/2025 01/17/2027 5 5 Encounter Details Date Type Department Care Team (Latest Contact Info) Description 11/08/2025 10:19 AM EST - 11/08/2025 11:59 PM [facility] Hospital Encounter [facility] US PER DIAG CTR [address] [place] [phone] Amy Conely, DO [address] [address] Discharge Disposition: Home or Self Care Social [...] Comments [facility] Routine 11/08/2025 11:32 AM EST Poor growth affecting management of mother in third trimester, single or unspecified fetus Maternal chronic hypertension in third trimester documented in this encounter Results * [facility] (11/08/2025 11:32 AM EST) Anatomical Region Laterality Modality Ultrasound 11/08/2025 10:5 3 AM EST Narrative 11/08/2025 11:43 AM EST PAT NAME: FARIDA LYNN MED REC#: [id number] DA: 1990 PAT GEND: F PAT TYPE: O EXAM BLAISE: [id number] REF PHYS AMY CONLEY Comparison Studies The [...] EFW (oz) 9 oz EFW by: Hadlock (NUU-TG-MG-FL) Extended Cav. septi pel. tr 5.7 mm Reliner 5.4 mm CM 7.0 mm 39% Nicolaides [...] Normal Heart / Thorax 3-vessel view: Normal 9-nmyfxe-wdynolm view: normal Cord insertion: Normal Stomach: Appears [...] Consultation / Office Visit Type: Consultation See [facility] for full consult note. Impression Single, [...] an earlier indication arises Coding ======= Description: 74687-05 Follow Up Ultrasound Description: 38199-23 BPP without NST Description: 90019-23 Doppler Umbilical Artery Pcb Designer: Hoa Crump RDMS Physician: Ed Ng MD Electronically signed by: Ed Ng MD at: 11:43 Procedure Note Ed Ng MD - 11/08/2025 PAT NAME: FARIDA LYNN MED REC#: [id number] DA: [id number] PAT GEND: F PAT TYPE: O EXAM BLAISE: [id number] REF PHYS SARAH CONLEYLEY Comparison Studies The findings of this study are compared to the prior ultrasound studydated Patient Status Outpatient Indication ======== IUGR. Marginal PCI. Obesity BMI 35. Maternal Assessment Pzleao482 cm Height (ft)5 ft Height (in)3 in Ucabap94 kg Weight (lb)200 lb BMI35.44 kg/m Method ======= Transabdominal ultrasound examination. View: Adequate view ========= Botello . Number of fetuses: 1 Dating ====== Method of dating:based on stated PAULA GA by prior ylrkybsiqy40 w + 3 d PAULA by prior assessment:12/24/2025 Ultrasound examination on:11/08/2025 GA by U/S based upon:AC, BPD, Femur, HC GA by U/S31 w + 0 d PAULA by U/S:01/10/2026 Previous dating:based on stated PAULA, selected on 10/18/2025 Agreed PAULA of previous datin12/24/2025 Assigned:based on stated PAULA, selected on 11/08/2025 Assigned GA33 w + 3 d Assigned PAULA:12/24/2025 zhyyjy962 d Biometry Standard BPD77.4 mm 31w 0d 2% Hadlock WNP091.1 mm 34w 4d 72% Emeli HC291.2 mm 32w 1d 2% Hadlock Cerebellum tr43.2 mm 33w 5d 37% Hill AC264.4 mm 30w 4d 1% Hadlock Femur58.0 mm 30w 2d <1% Hadlock HC / AC1.10 EFW1,619 g 30w 2d 2% Hadlock EFW (lb)3 lb EFW (oz)9 oz EFW by:Hadlock (LWQ-KP-SQ-FL) Extended Cav. septi pel. tr5.7 mm Vp5.4 mm CM7.0 mm 39% Nicolaides Nasal bone11.1 mm Head / Face / Neck Cephalic index0.74 3% Nicolaides Extremities / Bony Struc FL / BPD0.75 FL / HC0.20 FL / AC0.22 Other Structures KMD026 bpm General Evaluation Cardiac activity present. FHR [...] LVOT view:Normal Heart / Thorax 3-vessel view:Normal 3-adwbgp-eirsxut view:normal Cord insertion:Normal Stomach:Appears normal Kidneys:Appears normal [...] Consultation / Office Visit Type: Consultation See [facility] for full consult note. Impression Single, [...] week, unless an earlier indicationarises Coding ======= Description:39030-83 Follow Up Ultrasound Description:07292-66 BPP without NST Description:82231-44 Doppler Umbilical Artery Pcb Designer: Hoa Crump RDMS Physician: Ed Ng MD Electronically signed by: Ed Ng MD at: 11:43 Jung Angeles MD [facility] ORDERABLES Final Result documented in this encounter Visit Diagnoses Not on filedocumented in this encounter Care Teams Drier Operator Relationship Specialty Start Date End Date Provider, [place] [address] PCP - General 08/19/24 documented as of this encounter
--- OUTSIDE RECORDS SUMMARY | 2025-11-08 10:45 | XMS_ITS | Encounter Summary ---
Author Organization [facility] Address [address] [phone] Care Team Providers Care Funeral Pre Arrangement Specialist Name Role Phone Provider, No Known Primary Care Provider Unavail able Reason for Visit * Reason Comments IUGR Encounter Details Date Type Department Care Team (Late st Contact Info) Description 11/08/2025 10:45 AM EST Office Visit [facility] MATERNAL MEDICINE [address] [place], [place] [address] [place] [address] [place] [address] [place] [address] Poor growth affecting management of mother in [...] plan for the 37th week Orders: - [facility] [place]; Future 2. Maternal chronic hypertension in third [...] tentatively plan between 37-38 weeks Orders: - [facility]; Future Follow Up: Return in about [...] CVS. Ed Ng MD, FACOG Maternal Medicine, [facility] documented in this encounter Plan of Treatment Not on file documented as of this encounter Visit Diagnoses Diagnosis Poor growth affecting management of mother in third trimester, single or unspecified fetus- Primary Maternal chronic hypertension in third trimester documented in this encounter Care Teams Funeral Pre Arrangement Specialist Relationship Specialty Start Date End Date Provider, [place] [address] PCP - General 08/19/24 documented as of this encounter
--- OUTSIDE RECORDS SUMMARY | 2025-11-22 10:24 | XMS_ITS | Encounter Summary ---
Author Organization [facility] Address [address] [place] [address] Care Team Providers Care Scarfer Operator Name Role Phone Provider, No Known Primary Care Provider Unavail able Reason for Visit * Diagnostic Imaging (Routine) - Authorized Specialty Diagnoses / Procedures Referred By Ritesh t Referred To Contact Radiology Diagnoses Poor growth affecting management of mother in third trimester, single or unspecified fetus Maternal chronic hypertension in third trimester Procedures [facility] Angeles, Jung Harmon MD [address] [facility] [address] [place] [address] Phone: tel: fax: Referral ID Status Reason Start Date Expiration Date V isits Requested Visits Authorized [id number] Authorized 10/18/2025 01/17/2027 5 5 Encounter Details Date Type Department Care Team (Latest Contact Info) Description 11/22/2025 10:24 AM EST - 11/22/2025 11:59 PM [facility] Hospital Encounter [facility] US PER DIAG CTR [address] [place] [phone] Amy Conley, DO [address] [address] Discharge Disposition: Home or Self Care Social [...] Procedure Name Priority Date/Time Associated Diagnosis Comments [facility] Routine 11/22/2025 10:59 AM EST Poor growth affecting management of mother in third trimester, single or unspecified fetus Maternal chronic hypertension in third trimester documented in this encounter Results * [facility] (11/22/2025 10:59 AM EST) Anatomical Region Laterality Modality Ultrasound 11/22/2025 10:4 3 AM EST Narrative 11/27/2025 9:45 PM EST PAT NAME: FARIDA LYNN MED REC#: [id number] DA: 1990 PAT GEND: F PAT TYPE: O EXAM BLAIES: [id number] REF PHYS AMY CONLEY Comparison Studies The [...] EFW (oz) 6 oz EFW by: Hadlock (EMC-CV-JJ-FL) Extended Cav. septi pel. tr 5.4 mm Clinical Transformation Specialist 3.7 mm CM 5.2 mm 3% Nicolaides [...] suboptimal Heart / Thorax 3-vessel view: Normal 9-phwaqx-lrtxjsv view: normal Cord insertion: Normal Stomach: Appears [...] Normal fluid BPP 07/09 UA doppler normal Coding ======= Description: 21669-05 Follow Up Ultrasound Description: 30054-98 BPP without NST Description: 08418-[address] Light Servicer Supervisor: Albina Roberts RDMS Physician: Danielle Allen MD, FACOG Electronically signed by: Danielle Allen MD, FACOG at: 21:45 Procedure Note Danielle Allen MD - 11/27/2025 PAT NAME: FARIDA LYNN MED REC#: [id number] DA: 1990 PAT GEND: F PAT TYPE: O EXAM BLAISE: [id number] REF PHYS AMY CONLEY Comparison Studies The findings of this study are compared to the prior ultrasound studydated 11/08/25 Patient Status Outpatient Indication ======== IUGR. Marginal PCI.CHTN. Obesity BMI 35. Maternal Assessment Aayiur914 cm Height (ft)5 ft Height (in)3 in Weight (lb)203 lb Method ======= Transabdominal ultrasound examination. View: Adequate view ========= Botello . Number of fetuses: 1 Dating ====== GA by prior [id number] w + 3 d PAULA by prior [...] GA35 w + 3 d Assigned PAULA:12/24/2025 fceuqu417 d Biometry Standard BPD80.9 mm 32w 3d 2% Hadlock GGV151.6 mm 36w 6d 78% Emeli HC307.2 mm 34w 2d 4% Hadlock Cerebellum tr47.5 mm 35w 5d 46% Hill AC287.4 mm 32w 5d 3% Hadlock Femur60.8 mm 31w 4d <1% Hadlock Rozoxki05.1 mm 29w 6d <1% Emeli HC / AC1.07 EFW1,995 g 32w 1d 3% Hadlock EFW (lb)4 lb EFW (oz)6 oz EFW by:Hadlock (VRK-GQ-WR-FL) Extended Cav. septi pel. tr5.4 mm Vp3.7 mm CM5.2 mm 3% Nicolaides Head / Face / Neck Cephalic index0.73 1% Nicolaides Extremities / Bony Struc FL / BPD0.75 FL / HC0.20 FL / AC0.21 Other Structures FOV886 bpm General Evaluation Cardiac activity present. FHR [...] LVOT view:suboptimal Heart / Thorax 3-vessel view:Normal 5-ciuqap-odquuir view:normal Cord insertion:Normal Stomach:Appears normal Kidneys:Appears normal Bladder:Appears normal Gender:female Wants to know gender:yes Maternal Structures Uterus / Cervix Cervical yyqmog20.3 mm Doppler Arterial Umbilical A PI0.89 61% Jolanta Umbilical A RI0.60 61% Jolnata Umbilical A PS-47.25 cm/s Umbilical A ED-18.86 [...] BPP 8/8 UA doppler normal Coding ======= Description:28550-71 Follow Up Ultrasound Description:29153-23 BPP without NST Description:26957-[address] Light Servicer Supervisor: Albina Roberts RDMS Physician: Danielle Allen MD, FACOG Electronically signed by: Danielle Allen MD, FACOG at: 1:45 us Jung Angeles MD IMG US ORDERABLES Final Result documented in this encounter Visit Diagnoses Not on filedocumented in this encounter Care Teams Scarfer Operator Relationship Specialty Start Date End Date Provider, [place] [address] PCP - General 08/19/24 documented as of this encounter
--- OUTSIDE RECORDS SUMMARY | 2025-11-22 10:45 | XMS_ITS | Encounter Summary ---
Author Organization [facility] Address [address] [id number] Care Team Providers Care Career Specialist Name Role Phone Provider, No Known Primary Care Provider Unavail able Reason for Visit * Reason Comments IUGR, Marginal PCI, obesity Encounter Details Date Type Department Care Team (Late st Contact Info) Description 11/22/2025 10:45 AM EST Office Visit [facility] MATERNAL MEDICINE [address] [facility] [address] [place], [place] [phone] Danielle Allen MD [address] [facility] [address] [place] [address] Marginal insertion of umbilical cord affecting management [...] [facility] Danielle Allen MD FACOG Maternal Medicine, [facility] 11/22/2025 documented in this encounter Plan of Treatment Not on file documented as of this encounter Visit Diagnoses Diagnosis Marginal insertion of umbilical cord affecting management of mother in second trimester- Primary Maternal chronic hypertension in third trimester Poor growth affecting management of mother in third trimester, single or unspecified fetus documented in this encounter Care Teams Career Specialist Relationship Specialty Start Date End Date Provider, [place] [address] PCP - General 08/19/24 documented as of this encounter
[2025-11-30 08:20] VITALS: BMI 36.9
--- OUTSIDE RECORDS SUMMARY | 2025-11-30 10:07 | XMS_ITS | Encounter Summary ---
Author Organization [facility] Address [address] [place] [address] Care Team Providers Care Copyman Name Role Phone Provider, No Known Primary [...] on filedocumented in this encounter Care Teams Copyman Relationship Specialty Start Date End Date Provider, [place] [address] PCP - General 08/19/24 documented as of this encounter
--- OUTSIDE RECORDS SUMMARY | 2025-11-30 10:07 | XMS_ITS | Clinical Summary ---
Author Organization [facility] Address [address] [id number] Care Team Providers Care Automatic Profile Sander Operator Name Role Phone Provider, No Known [...] Dopplers. Patient reports twice-weekly testing with primary REELING AND TUBING MACHINE OPERATOR and given 1 of these being performed [...] 10:45 AM EST Office Visit [facility] [address] [phone] Danielle Allen MD Marginal insertion of umbilical cord affecting management of mother in second trimester (Primary Dx); Maternal chronic hypertension in third trimester; Poor growth affecting management of mother in third trimester, single or unspecified fetus 11/22/2025 10:24 AM EST - 11/22/2025 11:59 PM EST Hospital Encounter [facility] [address] [place] [phone] Amy Conley DO Discharge Disposition: Home or Self Care 11/22/2025 Travel 11/08/2025 10:45 AM EST Office Visit [facility] [address] [facility] [address] [place] [phone] Ed Ng MD Poor growth affecting management of mother in third trimester, single or unspecified fetus (Primary Dx); Maternal chronic hypertension in third trimester 11/08/2025 10:19 AM EST - 11/08/2025 11:59 PM EST Hospital Encounter [facility] [address] [place] [address] Amy Conley, DO Discharge Disposition: Home or Self Care 11/08/2025 Travel 10/25/2025 10:15 AM EST Office Visit [facility] [address] [facility] [address] [place] [phone] Jung Angeles MD Poor growth affecting management of mother in third trimester, single or unspecified fetus (Primary Dx); Maternal chronic hypertension in third trimester 10/25/2025 9:49 AM EST - 10/25/2025 11:59 PM EST Hospital Encounter [facility] [address] [place] [address] Amy Conley, DO Discharge Disposition: Home or Self Care 10/25/2025 Travel 10/18/2025 10:15 AM EST Office Visit [facility] [address] [phone] Jung Angeles MD Poor growth affecting management of mother in third trimester, single or unspecified fetus (Primary Dx); Maternal chronic hypertension in third trimester 10/18/2025 9:34 AM EST - 10/18/2025 11:59 PM EST Hospital Encounter [facility] [address] [place] [phone] Danielle Allen MD Poor growth affecting management of mother in third trimester, single or unspecified fetus; Maternal chronic hypertension in second trimester Discharge Disposition: Home or Self Care 10/18/2025 Travel 10/11/2025 10:15 AM EST Office Visit [facility] [address] [facility] [address] [place] [phone] Danielle Allen MD Poor growth affecting management of mother in third trimester, single or unspecified fetus (Primary Dx); Maternal chronic hypertension in second trimester 10/11/2025 9:44 AM EST - 10/11/2025 11:59 PM EST Hospital Encounter [facility] [address] [facility] [phone] Lis Jeffrey MD Marginal insertion of umbilical cord affecting management of mother in second trimester; Maternal chronic hypertension in second trimester; Poor growth affecting management of mother in third trimester, single or unspecified fetus; 26 weeks gestation of Discharge Disposition: Home or Self Care 10/11/2025 Travel 09/23/2025 10:15 AM EDT Office Visit [facility] [address] [facility] [address] [place] [phone] Lis Jeffrey MD Marginal insertion of umbilical cord affecting management of mother in second trimester (Primary Dx); Maternal chronic hypertension in second trimester; Poor growth affecting management of mother in third trimester, single or unspecified fetus; 26 weeks gestation of 09/23/2025 9:52 AM EDT - 09/23/2025 11:59 PM EDT Hospital Encounter [facility] [address] [place] [phone] Brian Wesley MD Uterine size-date discrepancy in second trimester; Marginal insertion of umbilical cord affecting management of mother in second trimester; 23 weeks gestation of ; Maternal chronic hypertension in second trimester Discharge Disposition: Home or Self Care 09/23/2025 Travel 09/06/2025 Telephone [facility] [address] [place] [address] Brian Wesley MD Advice Only (Pt has question for Nurse.) 09/02/2025 10:30 AM EDT - 09/02/2025 11:59 PM EDT Hospital Encounter [facility] [address] [place] [address] Amy Conley, DO Maternal care for other known or suspected poor growth, second trimester, not applicable or unspecified; Marginal insertion of umbilical cord affecting management of mother in second trimester; , unspecified gestational age Discharge Disposition: Home or Self Care 09/02/2025 10:30 AM EDT Office Visit [facility] [address] [facility] [address] [place] [address] Brian Wesley MD Uterine size-date discrepancy in second trimester (Primary Dx); Marginal insertion of umbilical cord affecting management of mother in second trimester; 23 weeks gestation of ; Maternal chronic hypertension in second trimester 09/02/2025 Telephone [facility] [address] [facility] [address] [place] [address] Jodie Garcia director telehealth Only 09/02/2025 Travel from Last 3 Months [...] fetus Maternal chronic hypertension in third trimester [facility] Routine 11/08/2025 11:32 AM EST Poor growth affecting management of mother in third trimester, single or unspecified fetus Maternal chronic hypertension in third trimester [facility] Routine 10/25/2025 11:18 AM EST Poor growth affecting management of mother in third trimester, single or unspecified fetus Maternal chronic hypertension in third trimester [facility] Routine 10/18/2025 10:21 AM EST Poor growth affecting management of mother in third trimester, single or unspecified fetus Maternal chronic hypertension in second trimester [facility] Routine 10/11/2025 10:30 AM EST Marginal insertion of umbilical cord affecting management of mother in second trimester Maternal chronic hypertension in second trimester Poor growth affecting management of mother in third trimester, single or unspecified fetus 26 weeks gestation of [facility] Routine 09/23/2025 10:28 AM EDT Uterine size-date discrepancy in second trimester Marginal insertion of umbilical cord affecting management of mother in second trimester 23 weeks gestation of Maternal chronic hypertension in second trimester [facility] Routine 09/02/2025 11:30 AM EDT Maternal care for other known or suspected poor growth, second trimester, not applicable or unspecified Marginal insertion of umbilical cord affecting management of mother in second trimester , unspecified gestational age from Last 3 Months Results * [facility] (11/22/2025 10:59 AM EST) Only the most recent of7 resultswithin the time period is included. Anatomical Region Laterality Modality Ultrasound 11/22/2025 10:4 3 AM EST Narrative 11/27/2025 9:45 PM EST PAT NAME: FARIDA [facility]NN [facility] REC#: [id number] DA: [id number] PAT GEND: F PAT TYPE: O EXAM BLAISE: [id number] REF PHYS AMY CONLEY Comparison Studies The [...] EFW (oz) 6 oz EFW by: Hadlock ([id number]) Extended Cav. septi pel. tr 5.4 mm Dismantler 3.7 mm CM 5.2 mm 3% Nicolaides [...] suboptimal Heart / Thorax 3-vessel view: Normal 4-xyquww-asjhyom view: normal Cord insertion: Normal Stomach: Appears [...] 8/8 UA doppler normal Coding ======= Description: 94115-68 Follow Up Ultrasound Description: 04739-07 BPP without NST Description: 27284-21 Doppler Umbilical Artery Sewer Contractor: Albina Roberts RDMS Physician: Danielle Allen MD, FACOG Electronically signed by: Danielle Allen MD, FACOG at: 21:45 Procedure Note Danielle Allen MD - 11/27/2025 PAT NAME: FARIDA [facility]NN [facility] REC#: [id number] DA: 1990 PAT GEND: F PAT TYPE: O EXAM BLAISE: [id number] REF PHYS AMY CONLEY Comparison Studies The findings of this study are compared to the prior ultrasound studydated 11/08/25 Patient Status Outpatient Indication ======== IUGR. Marginal PCI.CHTN. Obesity BMI 35. Maternal Assessment Xamahm482 cm Height (ft)5 ft Height (in)3 in Weight (lb)203 lb Method ======= Transabdominal ultrasound examination. View: Adequate view ========= Botello . Number of fetuses: 1 Dating ====== GA by prior [id number] w + 3 d PAULA by prior [...] GA35 w + 3 d Assigned PAULA:12/24/2025 [id number] d Biometry Standard BPD80.9 mm 32w 3d 2% Hadlock IWR214.6 mm 36w 6d 78% Emeli HC307.2 mm 34w 2d 4% Hadlock Cerebellum tr47.5 mm 35w 5d 46% Hill AC287.4 mm 32w 5d 3% Hadlock Femur60.8 mm 31w 4d <1% Hadlock Hqvmmes67.1 mm 29w 6d <1% Emeli HC / AC1.07 EFW1,995 g 32w 1d 3% Hadlock EFW (lb)4 lb EFW (oz)6 oz EFW by:Hadlock ([id number]) Extended Cav. septi pel. tr5.4 mm Vp3.7 mm CM5.2 mm 3% Nicolaides Head / Face / Neck Cephalic index0.73 1% Nicolaides Extremities / Bony Struc FL / BPD0.75 FL / HC0.20 FL / AC0.21 Other Structures APK109 bpm General Evaluation Cardiac activity present. FHR [...] LVOT view:suboptimal Heart / Thorax 3-vessel view:Normal 8-sadonf-mdsalpd view:normal Cord insertion:Normal Stomach:Appears normal Kidneys:Appears normal Bladder:Appears normal Gender:female Wants to know gender:yes Maternal Structures Uterus / Cervix Cervical .3 mm Doppler Arterial Umbilical A PI0.89 61% [...] BPP 8/8 UA doppler normal Coding ======= Description:07901-59 Follow Up Ultrasound Description:73987-95 BPP without NST Description:95378-29 Doppler Umbilical Artery Sewer Contractor: Albina Roberts RDMS Physician: Danielle Allen MD, FACOG Electronically signed by: Danielle Allen MD, FACOG at: 1:45 us Jung Angeles MD IMG US ORDERABLES Final Result from Last [address] [place] [address] [place] [address] EMPLOYEE Care Teams Automatic Profile Sander Operator Relationship Specialty Start Date End Date Provider, No Known [facility] [place] [place] [address] PCP - General 08/19/24
--- OUTSIDE RECORDS SUMMARY | 2025-11-30 10:08 | XMS_ITS | Encounter Summary ---
Author Organization [facility] Address [address] [place] [address] Care Team Providers Care Salesperson Women'S Dresses Name Role Phone Provider, No Known Primary [...] filedocumented in this encounter Care Teams Salesperson Women'S Dresses Relationship Specialty Start Date End Date Provider, [place] [address] PCP - General 08/19/24 documented as of this encounter
--- OUTSIDE RECORDS SUMMARY | 2025-11-30 10:08 | XMS_ITS | Encounter Summary ---
Author Organization [facility] Address [address] [place] [address] Care Team Providers Care Dispensing Audiologist Name Role Phone Provider, No Known Primary [...] on filedocumented in this encounter Care Teams Dispensing Audiologist Relationship Specialty Start Date End Date Provider, [place] [address] [place] [address] PCP - General 08/19/24 documented as of this encounter
--- OUTSIDE RECORDS SUMMARY | 2025-11-30 10:08 | XMS_ITS | Encounter Summary ---
Author Organization [facility] Address [address] [place] [address] Care Team Providers Care Director Of Admissions Name Role Phone Provider, No Known Primary [...] on filedocumented in this encounter Care Teams Director Of Admissions Relationship Specialty Start Date End Date Provider, [place] [address] PCP - General 08/19/24 documented as of this encounter
--- OUTSIDE RECORDS SUMMARY | 2025-11-30 10:08 | XMS_ITS | Encounter Summary ---
Author Organization [facility] Address [address] [place] [address] Care Team Providers Care List Of First Job Ideas Name Role Phone Provider, No Known Primary [...] on filedocumented in this encounter Care Teams List Of First Job Ideas Relationship Specialty Start Date End Date Provider, [place] [address] PCP - General 08/19/24 documented as of this encounter
[2025-11-30 10:36] LABS: Hematocrit 32.5 % (37.0-47.0); Hemoglobin 11.2 g/dL (12.2-16.2); Immature Granulocytes % 1.1 %; Mean Corpuscular HGB Conc 34.5 g/dL (31.8-35.4); Mean Corpuscular Hemoglobin 28.1 pg (27.0-31.2); Mean Corpuscular Volume 81.5 fl (81-99); Nucleated Red Blood Cells % 0 %; Platelet Count 247 K/mm3 (142-424); Red Blood Count 3.99 M/mm3 (4.20-5.40); Red Cell Distribution Width-SD 39.1 fL; White Blood Count 15.4 K/mm3 (4.8-10.8)
[2025-11-30 10:46] LABS: Albumin Level 3.8 g/dl (3.5-5.0); Chloride 103 mmol/L (98-107); Sodium 134 mmol/L (136-145)
[2025-11-30 10:47] LABS: Potassium 4.0 mmoL/L (3.5-5.1)
[2025-11-30 10:49] LABS: Alanine Aminotransferase 16 U/L (12-78); Albumin/Globulin Ratio 1.2 (1.1-1.8); Alkaline Phosphatase 78 U/L (38-126); Anion Gap 11.0 mEq/L (5-15); Aspartate Amino Transferase 22 U/L (14-36); Bilirubin,Total 0.2 mg/dl (0.2-1.3); Blood Urea Nitrogen 9 mg/dl (7-17); Carbon Dioxide 24 mmol/L (22.0-30.0); Creatinine Clearance Estimated 165 mL/min (50-200); Creatinine,Serum 0.70 mg/dl (0.52-1.04); Estimated Glomerular Filt Rate 96 ml/min (>60); GFR (African American) 117 ML/MIN (>60); Globulin 3.2 g/dL (1.3-3.2); Total Protein,Serum 7.0 g/dl (6.3-8.2)
[2025-11-30 10:50] LABS: Calcium 8.8 mg/dl (8.4-10.2); Glucose 115 mg/dl (74-100)
== END 2025-11-30 23:59 | disposition home or self-care (01) ==
LOC: PREOP 09:56
PROVIDERS: Visit Provider Obstetrics & Gynecology
DX: Z01.812 Encounter for preprocedural laboratory examination (principal); O32.1XX0 Maternal care for breech presentation, not applicable or unspecified; O28.3 Abnormal ultrasonic finding on antenatal screening of mother; O10.913 Unspecified pre-existing hypertension complicating pregnancy, third trimester; O36.5930 Maternal care for other known or suspected poor fetal growth, third trimester, not applicable or unspecified; Z3A.36 36 weeks gestation of pregnancy
CPT/HCPCS: 76820; 80053; 85025